=== PATIENT | female | born 1955 | race African-American/Black ===

== ENCOUNTER 2021-04-18 23:30 | Emergency (ER) | payer SELFPAY ==
[~2021-04-18] VITALS: Ht 162.6 cm; Wt 90.9 kg
--- NOTE | 2021-04-19 03:30 | RAD ---
Single view chest dated 04/19/2021 3:27 AM: COMPARISON: None Clinical Indication: Cough. Findings: Single upright portable exam of the chest was performed. Heart and mediastinal contours within normal limits. Lung volumes are low, limiting evaluation. No consolidation or pleural effusion. No pneumoth orax. IMPRESSION: 1. Limited exam. No apparent acute abnormality. Electronically signed by: Julio Cesar Pugh MD (04/19/2021 3:27 AM) [facility]
--- NOTE | 2021-04-19 03:56 | PHYS DOC ---
Past Medical History Past Medical History: Hypertension Past Surgical History: Other Additional Past Surgical Histo: R LEG TUMOR REMOVAL General Adult EDM: Chief Complaint: COUGH HPI: HPI: Patient is a 65 year old female who presents with 4 days of cough, headache, chills. Denies fever. No chest pain or shortness of breath. No congestion, runny nose or sore throat. 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 Is not vaccinated because she prefers a more "natural" approach to her health. She has been told that she should be on blood pressure meds before but does not see a doctor or take any meds. Review of Systems: Review of Systems: Constitutional: Denies fever. Reports chills Eyes: Denies change in visual acuity. [] HENT: Denies nasal congestion or sore throat. [] Respiratory: Reports cough. Denies shortness of breath. [] Cardiovascular: Denies chest pain or edema. [] GI: Denies abdominal pain, nausea, vomiting, bloody stools or diarrhea. [] : Denies dysuria. [] Musculoskeletal: Denies back pain or joint pain. [] Integument: Denies rash. [] Neurologic: Reports headache. Denies focal weakness or sensory changes. [] Lymphatic: Denies swollen glands. [] Psychiatric: Denies depression or anxiety. [] Heart Score: C/O Chest Pain: No Physical Exam: PE: Constitutional: Well developed, well nourished, no acute distress, non-toxic appearance. [] HENT: Normocephalic, atraumatic Neck: Normal range of motion, no tenderness, supple, no stridor. [] Cardiovascular:Heart rate regular rhythm, no murmur [] Lungs & Thorax: Coughing frequently. In between coughing normal work of breathing. Bilateral breath sounds clear to auscultation [] Abdomen: Bowel sounds normal, soft, no tenderness, no masses, no pulsatile masses. [] Skin: Warm, dry, no erythema, no rash. [] Back: No tenderness, no CVA tenderness. [] Extremities: No tenderness, no cyanosis, no clubbing, ROM intact, no edema. [] Neurologic: Alert and oriented X 3, normal motor function, normal sensory function, no focal deficits noted. [] Psychologic: Affect normal, judgement normal, mood normal. [] Current Patient Data: Vital Signs: Vital Signs Date Time Temp Pulse Resp B/P (MAP) Pulse Ox O2 Delivery O2 Flow Rate FiO2 04/19/21 02:46 99.5 86 18 161/90 (113) 98 Room Air 99.5 EKG: EKG: Sinus rhythm. Normal axis. Normal intervals. QTc 464. No pathologic Q waves or T wave inversions. No ST segment elevation or depression. [] Radiology/Procedures: Radiology/Procedures: [] Impression: [facility] [address] [place] [address] IMAGING REPORT Signed PATIENT: MARISSA CSAE I ACCOUNT: [id number] : 1955 LOCATION: ER AGE: 65 SEX: F EXAM STATUS: REG ER ORD. PHYSICIAN: RAMONE RUBIO MD REASON: COUGH PROCEDURE: CHEST AP ONLY Single view chest dated 04/19/2021 3:27 AM: COMPARISON: None Clinical Indication: Cough. Findings: Single upright portable exam of the chest was performed. Heart and mediastinal contours within normal limits. Lung volumes are low, limiting evaluation. No consolidation or pleural effusion. No pneumothorax. IMPRESSION: 1. Limited exam. No apparent acute abnormality. Electronically signed by: Julio Cesar Pugh MD (04/19/2021 3:27 AM) [facility] DICTATED and SIGNED BY: JULIO CESAR PUGH MD DATE: 04/19/21 [id number] 0 Course & Med Decision Making: Course & Med Decision Making Pertinent Labs and Imaging studies reviewed. (See chart for details) Patient 65-year-old female with history of untreated hypertension who presents with 4 days of cough, chills, and headache. She is unvaccinated for COVID. On arrival is afebrile, heart rate stable, hypertensive to 206/85, but satting 98% on RA with normal work of breathing and auscultory exam. Will be check for covid. CXR negative for pneumonia or pulmonary edema. Given her hypertension will check EKG and creatinine to ensure no evidence of end organ injury which revealed normal CR but likely diabetes with glucose in 300s. No e/o DKA. Will start on metformin. With her hypertension and diabetes will plan on Rx for lisinopril and will provide with referral to primary care follow up. COVID is positive. Fortunately, is satting well with normal work of breathing. Feel she can be safely managed as an outpatient. She is counseled on considering the COVID vaccination after she recovers. Expectant management, isolation and return precautions were discussed. Alanaon Disclaimer: Kimberlee Disclaimer: This electronic medical record was generated, in whole or in part, using a voice recognition dictation system. Departure Departure Impression: Primary Impression: Cough Additional Impressions: Hypertension Diabetes Disposition: HOME / SELF CARE / HOMELESS Condition: STABLE Referrals: NO PCP (PCP) Patient Instructions: Hypertension, Type 1 or Type 2 Diabetes Mellitus During Additional Instructions: Since you do not have a PCP, please call the number for the [facility] at [phone]. Your blood pressure was very high, if it remains as high for prolonged periods of time it could be dangerous to multiple organs. I would like to start you on a new medication called chlorthalidone. Chlorthalidone 25 mg once daily. It also looks like you have diabetes. You need to start taking a medication called metformin to reduce your blood sugar. Please schedule follow-up appointment with the [facility] to establish primary care. Please consider receiving the COVID-19 vaccination. Your chest x-ray was clear and did not show any evidence of pneumonia. YOU HAVE COVID. Isolation: -You will need to isolate for a minimum of 5 days from symptom onset. -At 5 days please take a rapid COVID test, if positive continue to isolate for a full 10 days duration -At the 10-day rafael (or 5-day rafael with a negative COVID test), you must also have at least 3 days of no fever/chills, and improving symptoms before you end your isolation. -If you are continuing to be symptomatic or having high fevers you need to continue your isolation until you meet the above requirements. Monitoring: -Please buy a home pulse oximeter. These can be purchased [id number] most pharmacies, or on [employer]. -Check your oxygen levels once a day. If they are persistently below 90% please return to the emergency department. -If you develop chest pain or worsening shortness of breath please return to the emergency department. For fever/body aches tylenol and ibuprofen are best used on a schedule. Please alternate between the two. -Tylenol 1000 mg every 6 hours (do not exceed 4000 mg in one day) -Ibuprofen 400-600 mg every 6 hours. Take with food. Do not take for more than 1 week. Scripts Lisinopril (LISINOPRIL) 10 Mg Tablet 1 TAB PO DAILY, #30 TAB 0 Refills Prov: RAMONE RUBIO MD 04/19/21 Metformin Hcl (METFORMIN HCL) 500 Mg Tablet 500 MG PO BIDWMEALS for ANTI-DIABETIC, #60 TAB 0 Refills Prov: RAMONE RUBIO MD 04/19/21 RAMONE RUBIO MD Apr 19, 2021 03:56
[2021-04-19 05:48] LABS: CALCIUM 8.1 mg/dL (8.5-10.1); CREATININE 0.8 mg/dL (0.6-1.0); GFR 87.7; POTASSIUM 4.3 mmol/L (3.5-5.1)
[2021-04-19] MEDS ORDERED: CHLO25TA10 PO (05:55)
[2021-04-19] MEDS ORDERED: METF500T16 PO (05:55)
[2021-04-19] MEDS ORDERED: LISI10TA16 PO (06:11)
[2021-04-19 06:19] VITALS: BP 184/80
--- NOTE | 2021-04-19 09:03 | EKG ---
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
== END 2021-04-19 06:25 | disposition home or self-care (01) ==
LOC: ER 23:30
DX: U07.1 COVID-19 (principal); I10 Essential (primary) hypertension; E11.9 Type 2 diabetes mellitus without complications
CPT/HCPCS: 36415; 71045; 80048; 87426; 93005; 99285

== ENCOUNTER 2021-04-24 15:57 | Inpatient (IN) | payer SELFPAY ==
[~2021-04-24] VITALS: Ht 162.6 cm; Wt 139.7 kg
[~2021-04-24 15:57] MED LIST: CHLO25TA10 PO; LISI10TA16 PO; METF500T16 PO
[2021-04-24 16:46] LABS: BASE EXCESS ABG -11 mmol/L (-3-3); HCO3 ABG 13 mmol/L (21-28); PCO2 ABG 27 mmHg (35-46); SAT O2 ABG 79 % (92-99)
[2021-04-24 16:48] LABS: FIO2 ABG 21 room air; PO2 ABG 47 mmHg (65-108)
--- NOTE | 2021-04-24 17:17 | RAD ---
XR CHEST 1V History: Shortness of breath, Covid positive Comparison: 04/19/2021 Technique: Portable AP radiograph of the chest. Findings: The lungs are adequately and symmetrically inflated. There is new airspace consolidation in the bilat eral lungs, greatest in the right lower lobe. No pleural effusion or pneumothorax. The cardiac medias tinal silhouette and pulmonary vasculature are within normal limits. Degenerative changes of the shou lders and spine. Soft tissues are unremarkable. Impression: 1. New bilateral airspace opacities greatest in right lower lobe concerning for Covid pneumonia. Electronically signed by: Rodrigo Olivares MD (04/24/2021 5:14 PM) [facility]
[2021-04-24] MEDS ORDERED: CONTRAST GIVEN. MC PRN (17:30)
[2021-04-24] MEDS ORDERED: IOHEXOL 350 MG/ML 100 ML VIAL. IV ONE (17:30)
[2021-04-24 17:31] LABS: BASO % 0 % (0-3); EOS % 0 % (0-3); HEMATOCRIT 38.3 % (36.0-47.0); HEMOGLOBIN 12.1 g/dL (12.0-15.5); LYMPH # 0.5 x10^3/uL (1.0-4.8); LYMPH % 5 % (24-48); MEAN CORPUSCULAR HEMOGLOBIN 28 pg (25-35); MEAN CORPUSCULAR HGB CONC 32 g/dL (31-37); MEAN CORPUSCULAR VOLUME 88 fL (79-100); MONO # 0.6 x10^3/uL (0.0-1.1); MONO % 6 % (0-9); NEUT # 8.7 x10^3/uL (1.8-7.7); NEUT % 89 % (31-73); PLATELET COUNT 358 x10^3/uL (140-400); RED BLOOD COUNT 4.34 x10^6/uL (3.50-5.40); RED CELL DISTRIBUTION WIDTH 14.6 % (11.5-14.5); WHITE BLOOD COUNT 9.8 x10^3/uL (4.0-11.0)
[2021-04-24] MEDS ORDERED: DEXAMETHASONE SOD PHOS 20 MG/5 ML VIAL. IV ONE (17:45)
[2021-04-24] MEDS ORDERED: AZITHROMYCIN 250 MG TABLET. PO ONE (17:45)
[2021-04-24] MEDS ORDERED: cefTRIAXone IV Push 1 GM VIAL. IVP ONE (17:45)
[2021-04-24 17:53] LABS: CALCIUM 8.2 mg/dL (8.5-10.1); CREATININE 1.1 mg/dL (0.6-1.0); GFR 60.7; POTASSIUM 4.8 mmol/L (3.5-5.1)
[2021-04-24 18:01] LABS: ALBUMIN 2.4 g/dL (3.4-5.0); ALBUMIN/GLOBULIN RATIO 0.4 (1.0-1.7); MAGNESIUM 2.4 mg/dL (1.8-2.4); PHOSPHORUS 3.5 mg/dL (2.6-4.7); TOTAL BILIRUBIN 0.4 mg/dL (0.2-1.0); TOTAL PROTEIN 8.3 g/dL (6.4-8.2)
--- NOTE | 2021-04-24 18:24 | RAD ---
EXAM: CT chest with contrast - pulmonary embolus protocol CLINICAL HISTORY: Reason: COVID-positive, hypoxia, PE study COMPARISON: None. TECHNIQUE: CT of the chest following the administration of intravenous contrast during the pulmonary arterial phase. Axial, coronal and sagittal reformatted images were generated including MIP images. ---PQRS compliance statement - One or more of the following individualized dose reduction techniques were utilized for this study: 1. Automated exposure control 2. Adjustment of the mA and/or kV according to patient size 3. Use of iterative reconstruction technique--- FINDINGS: CHEST: Diagnostic quality: Suboptimal contrast bolus and motion artifact limits evaluation. Pulmonary emboli: No pulmonary emboli to the level of the lobar branches. More peripheral vessels ar e not well assessed. Right heart strain: None Pulmonary arteries: Normal in caliber. Heart is not enlarged. Trace pericardial fluid is likely physiologic. No pleural effusion. No pneumothorax. Mildly prominent mediastinal and hilar lymph nodes are likely reactive. No axillary lymphadenopathy. Bilateral groundglass is upright glass opacities diffusely likely consolidative process such as pneum onia. Visualized Upper abdomen: Right upper pole renal cyst. Hepatic hypoattenuation, fatty liver. Bones: Multilevel degenerative changes of spine are seen. IMPRESSION: 1. Suboptimal contrast bolus. No pulmonary emboli to the level of the lobar branches. More periphera l vessels are not well assessed. 2. Diffuse bilateral parenchymal airspace opacities likely consolidative process such as pneumonia, including viral pneumonia. Electronically signed by: Talib Thomas MD (04/24/2021 6:22 PM) LAURY
--- NOTE | 2021-04-24 19:03 | EKG ---
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
--- NOTE | 2021-04-24 19:06 | PDOC1 ---
History and Physical Date of Service: DOS: DATE: 04/24/21 TIME: 19:01 Chief Complaint: Chief Complain: Shortness of breath Past Medical/Surgical History: PMH/PSH: Past Medical History: Hypertension Past Surgical History: R LEG TUMOR REMOVAL Allergies: Allergies: Coded Allergies: chocolate flavor (Verified Allergy, Intermediate, 04/19/21) pineapple (Verified Allergy, Intermediate, 04/19/21) Family History: Family History: Reviewed with no related findings in the chart Social History: Social History: Denies any alcohol, tobacco or drug abuse Current Medications: Current Medications Current Medications Dexamethasone Sodium Phosphate (Decadron) 10 mg 1X ONCE IV Last administered on 04/24/21at 17:44; Start 04/24/21 at 17:45; Stop 04/24/21 at 17:46; Status DC Ceftriaxone Sodium (Rocephin) 1 gm 1X ONCE IVP Last administered on 04/24/21at 17:44; Start 04/24/21 at 17:45; Stop 04/24/21 at 17:46; Status DC Azithromycin (Zithromax) 500 mg 1X ONCE PO Last administered on 04/24/21at 17:44; Start 04/24/21 at 17:45; Stop 04/24/21 at 17:46; Status DC Iohexol (Omnipaque 350 Mg/ml) 100 ml 1X ONCE IV Last administered on 04/24/21at 18:00; Start 04/24/21 at 17:30; Stop 04/24/21 at 17:31; Status DC Info (CONTRAST GIVEN -- Rx MONITORING) 1 each PRN DAILY PRN MC SEE COMMENTS; Start 04/24/21 at 17:30; Stop 04/26/21 at 17:29 Active Scripts Active Lisinopril 10 Mg Tablet 1 Tab PO DAILY Metformin Hcl 500 Mg Tablet 500 Mg PO BIDWMEALS ROS: Review of Systems Review of System REVIEW OF SYSTEMS: GENERAL: Denies weakness SKIN: No bruising, hair changes or rashes. EYES: No blurred, double or loss of vision. NOSE AND THROAT: No history of nosebleeds, hoarseness or sore throat. HEART: No history of palpitations, chest pain or shortness of breath on exertion. LUNGS: Positive for shortness of breath GASTROINTESTINAL: Denies changes in appetite, nausea, vomiting, diarrhea or constipation. GENITOURINARY: No history of frequency, urgency, hesitancy or nocturia. NEUROLOGIC: Denies history of numbness, tingling, or tremor. PSYCHIATRIC: No history of panic, anxiety or depression. ENDOCRINE: No history of heat or cold intolerance, polyuria or polydipsia. EXTREMITIES: Denies joint pain, pain on walking or stiffness. Physical Exam: Vital Signs: Vital Signs Date Time Temp Pulse Resp B/P (MAP) Pulse Ox O2 Delivery O2 Flow Rate FiO2 04/24/21 17:45 100 192/88 (122) 91 Simple Mask 10.0 04/24/21 16:20 98.6 16 98.6 Physcial Exam: General: Well developed, well nourished, difficulty speaking in full sentences with some mild respiratory distress HEENT: Pupils equally round and reactive to light, EOMI, no discharge, normal conjunctiva Neck: Supple, no nuchal rigidity, no JVD, trachea midline, no tenderness Cardiac: RRR, no murmurs, no gallops, no rubs Chest/Lungs: CTAB, no wheeze, no rhonchi, no crackles Abdomen: soft, non-distended, no guarding, no peritoneal signs, non-tender Back: No tenderness Extremities: no edema, pulses intact, non-tender,capillary refill <3 sec bilateral upper and lower extremities, Neuro: Alert and oriented x 4, no focal deficits, normal speech Labs: Labs: Laboratory Tests Test 04/24/21 16:47 04/24/21 17:15 O2 Saturation 79 % (92-99) Arterial Blood pH 7.32 (7.35-7.45) Arterial Blood pCO2 at Patient Temp 27 mmHg (35-46) Arterial Blood pO2 at Patient Temp 47 mmHg (65-108) Arterial Blood HCO3 13 mmol/L (21-28) Arterial Blood Base Excess -11 mmol/L (-3-3) FiO2 21 room air White Blood Count 9.8 x10^3/uL (4.0-11.0) Red Blood Count 4.34 x10^6/uL (3.50-5.40) Hemoglobin 12.1 g/dL (12.0-15.5) Hematocrit 38.3 % (36.0-47.0) Mean Corpuscular Volume 88 fL (79-100) Mean Corpuscular Hemoglobin 28 pg (25-35) Mean Corpuscular Hemoglobin Concent 32 g/dL (31-37) Red Cell Distribution Width 14.6 % (11.5-14.5) Platelet Count 358 x10^3/uL (140-400) Neutrophils (%) (Auto) 89 % (31-73) Lymphocytes (%) (Auto) 5 % (24-48) Monocytes (%) (Auto) 6 % (0-9) Eosinophils (%) (Auto) 0 % (0-3) Basophils (%) (Auto) 0 % (0-3) Neutrophils # (Auto) 8.7 x10^3/uL (1.8-7.7) Lymphocytes # (Auto) 0.5 x10^3/uL (1.0-4.8) Monocytes # (Auto) 0.6 x10^3/uL (0.0-1.1) Eosinophils # (Auto) 0.0 x10^3/uL (0.0-0.7) Basophils # (Auto) 0.0 x10^3/uL (0.0-0.2) Sodium Level 139 mmol/L (136-145) Potassium Level 4.8 mmol/L (3.5-5.1) Chloride Level 98 mmol/L (98-107) Carbon Dioxide Level 14 mmol/L (21-32) Anion Gap 27 (6-14) Blood Urea Nitrogen 22 mg/dL (7-20) Creatinine 1.1 mg/dL (0.6-1.0) Estimated GFR (Cockcroft-Gault) 60.7 BUN/Creatinine Ratio 20 (6-20) Glucose Level 386 mg/dL (70-99) Lactic Acid Level 2.0 mmol/L (0.4-2.0) Calcium Level 8.2 mg/dL (8.5-10.1) Phosphorus Level 3.5 mg/dL (2.6-4.7) Magnesium Level 2.4 mg/dL (1.8-2.4) Total Bilirubin 0.4 mg/dL (0.2-1.0) Aspartate Amino Transf (AST/SGOT) 32 U/L (15-37) Alanine Aminotransferase (ALT/SGPT) 18 U/L (14-59) Alkaline Phosphatase 142 U/L (46-116) Troponin I High Sensitivity 14 ng/L (4-50) VL-[id number]-[id number]-Type Natriuretic Peptide 211 pg/mL (0-124) Total Protein 8.3 g/dL (6.4-8.2) Albumin 2.4 g/dL (3.4-5.0) Albumin/Globulin Ratio 0.4 (1.0-1.7) Triglycerides Level 108 mg/dL (0-150) Cholesterol Level 88 mg/dL (0-200) LDL Cholesterol, Calculated 44 mg/dL (0-100) VLDL Cholesterol, Calculated 22 mg/dL (0-40) Non-HDL Cholesterol Calculated 66 mg/dL (0-129) HDL Cholesterol 22 mg/dL (40-60) Cholesterol/HDL Ratio 4.0 Lipase 21 U/L (73-393) Acetone Level Mod pos (NEG) Laboratory Tests Test 04/24/21 16:47 04/24/21 17:15 O2 Saturation 79 % (92-99) Arterial Blood pH 7.32 (7.35-7.45) Arterial Blood pCO2 at Patient Temp 27 mmHg (35-46) Arterial Blood pO2 at Patient Temp 47 mmHg (65-108) Arterial Blood HCO3 13 mmol/L (21-28) Arterial Blood Base Excess -11 mmol/L (-3-3) FiO2 21 room air White Blood Count 9.8 x10^3/uL (4.0-11.0) Red Blood Count 4.34 x10^6/uL (3.50-5.40) Hemoglobin 12.1 g/dL (12.0-15.5) Hematocrit 38.3 % (36.0-47.0) Mean Corpuscular Volume 88 fL (79-100) Mean Corpuscular Hemoglobin 28 pg (25-35) Mean Corpuscular Hemoglobin Concent 32 g/dL (31-37) Red Cell Distribution Width 14.6 % (11.5-14.5) Platelet Count 358 x10^3/uL (140-400) Neutrophils (%) (Auto) 89 % (31-73) Lymphocytes (%) (Auto) 5 % (24-48) Monocytes (%) (Auto) 6 % (0-9) Eosinophils (%) (Auto) 0 % (0-3) Basophils (%) (Auto) 0 % (0-3) Neutrophils # (Auto) 8.7 x10^3/uL (1.8-7.7) Lymphocytes # (Auto) 0.5 x10^3/uL (1.0-4.8) Monocytes # (Auto) 0.6 x10^3/uL (0.0-1.1) Eosinophils # (Auto) 0.0 x10^3/uL (0.0-0.7) Basophils # (Auto) 0.0 x10^3/uL (0.0-0.2) Sodium Level 139 mmol/L (136-145) Potassium Level 4.8 mmol/L (3.5-5.1) Chloride Level 98 mmol/L (98-107) Carbon Dioxide Level 14 mmol/L (21-32) Anion Gap 27 (6-14) Blood Urea Nitrogen 22 mg/dL (7-20) Creatinine 1.1 mg/dL (0.6-1.0) Estimated GFR (Cockcroft-Gault) 60.7 BUN/Creatinine Ratio 20 (6-20) Glucose Level 386 mg/dL (70-99) Lactic Acid Level 2.0 mmol/L (0.4-2.0) Calcium Level 8.2 mg/dL (8.5-10.1) Phosphorus Level 3.5 mg/dL (2.6-4.7) Magnesium Level 2.4 mg/dL (1.8-2.4) Total Bilirubin 0.4 mg/dL (0.2-1.0) Aspartate Amino Transf (AST/SGOT) 32 U/L (15-37) Alanine Aminotransferase (ALT/SGPT) 18 U/L (14-59) Alkaline Phosphatase 142 U/L (46-116) Troponin I High Sensitivity 14 ng/L (4-50) SN-Znz-K-Type Natriuretic Peptide 211 pg/mL (0-124) Total Protein 8.3 g/dL (6.4-8.2) Albumin 2.4 g/dL (3.4-5.0) Albumin/Globulin Ratio 0.4 (1.0-1.7) Triglycerides Level 108 mg/dL (0-150) Cholesterol Level 88 mg/dL (0-200) LDL Cholesterol, Calculated 44 mg/dL (0-100) VLDL Cholesterol, Calculated 22 mg/dL (0-40) Non-HDL Cholesterol Calculated 66 mg/dL (0-129) HDL Cholesterol 22 mg/dL (40-60) Cholesterol/HDL Ratio 4.0 Lipase 21 U/L (73-393) Acetone Level Mod pos (NEG) Images: Images PROCEDURE: CHEST AP ONLY XR CHEST 1V History: Shortness of breath, Covid positive Comparison: 04/19/2021 Technique: Portable AP radiograph of the chest. Findings: The lungs are adequately and symmetrically inflated. There is new airspace consolidation in the bilateral lungs, greatest in the right lower lobe. No pleural effusion or pneumothorax. The cardiac mediastinal silhouette and pulmonary vasculature are within normal limits. Degenerative changes of the shoulders and spine. Soft tissues are unremarkable. Impression: 1. New bilateral airspace opacities greatest in right lower lobe concerning for Covid pneumonia. PROCEDURE: CT ANGIOGRAPHY CHEST EXAM: CT chest with contrast - pulmonary embolus protocol CLINICAL HISTORY: Reason: COVID-positive, hypoxia, PE study COMPARISON: None. TECHNIQUE: CT of the chest following the administration of intravenous contrast during the pulmonary arterial phase. Axial, coronal and sagittal reformatted images were generated including MIP images. ---PQRS compliance statement - One or more of the following individualized dose reduction techniques were utilized for this study: 1. Automated exposure control 2. Adjustment of the mA and/or kV according to patient size 3. Use of iterative reconstruction technique--- FINDINGS: CHEST: Diagnostic quality: Suboptimal contrast bolus and motion artifact limits evaluation. Pulmonary emboli: No pulmonary emboli to the level of the lobar branches. More peripheral vessels are not well assessed. Right heart strain: None Pulmonary arteries: Normal in caliber. Heart is not enlarged. Trace pericardial fluid is likely physiologic. No pleural effusion. No pneumothorax. Mildly prominent mediastinal and hilar lymph nodes are likely reactive. No axillary lymphadenopathy. Bilateral groundglass is upright glass opacities diffusely likely consolidative process such as pneumonia. Visualized Upper abdomen: Right upper pole renal cyst. Hepatic hypoattenuation, fatty liver. Bones: Multilevel degenerative changes of spine are seen. IMPRESSION: 1. Suboptimal contrast bolus. No pulmonary emboli to the level of the lobar branches. More peripheral vessels are not well assessed. 2. Diffuse bilateral parenchymal airspace opacities likely consolidative process such as pneumonia, including viral pneumonia. Assessment/Plan Assessment/Plan Acute hypoxic respiratory failure secondary to COVID-19 infection DKA Hypertensive urgency Hyperglycemia uncontrolled KYLE due to vasomotor nephropathy Admit to medicine for further management Pulmonology consult Continue IV thiamine and vitamin C IV Solu-Medrol every 8 hours IV Remdesivir if patient requires O2 supplementation beyond there baseline Pending ferritin, LDH, CRP, D-dimer labs Titrate O2 supplementation to maintain O2 saturation greater than 92% Empiric IV antibiotics if patient has clinical presentation for bacterial pneumonia Positive for ketones Pending plasma osmolarity Continue serial inspections and examination for sources that caused ketoacidotic state Continue IV insulin starting at 0.1 units per kg When glucose is less than 200, AG is closed, patient able to eat, and HCO3 greater than 15, then transition with subcu insulin 0.1 units/kg every 2 hours for at least 2 hours Continue IV fluids of 1 to 1.5 L/h until a total of 5 L is replenished Switch to one half NS at half the rate if NA is normal or elevated As needed D50 W or add D5 to IV fluids if Accu-Cheks are less than 200 Maintain potassium between 3.5-5, if potassium falls below 3.3, stop insulin and add 40 mEq/h of potassium Maintained p.o. 3 greater than 1.0 If arterial pH is below 6.9, give 100 mEq of sodium bicarb +20 mEq of potassium Every 2-4 hours BMP and a be checked until stable Every hour Accu-Cheks while on insulin Lovenox for DVT prophylaxis Protonix while on steroids GI prophylaxis ADA diet Full code Discussed with RN and SW Disposition inpatient management as above Surrogate decision maker is the son A total of 55 minutes of critical care time was spent in reviewing chart, labs, and images. Discussed with RN and SW. Justifications for Admission Other Justification MARLENI JOHNSON MD Apr 24, 2021 19:06
--- NOTE | 2021-04-24 19:11 | PHYS DOC ---
Past Medical History Past Medical History: Hypertension Additional Past Medical Histor: COVID: 04/2021 Past Surgical History: Other Additional Past Surgical Histo: R LEG TUMOR REMOVAL Smoking Status: Never Smoker Alcohol Use: None General Adult EDM: Chief Complaint: OTHER COMPLAINTS HPI: HPI: Patient is a 65-year-old female who presents to the emergency department with chief complaint of being diagnosed with the COVID-19 virus on the of this month, reports she has had increased cough with chills however continues to deny fever at home, denies chest pains, denies shortness of breath, denies chest congestion, runny nose or sore throat, denies syncopal or near syncopal episodes, denies chest palpitations, reports she is tired of feeling this way and would like something to help prevent her cough so she can continue to work. Patient reports she is not vaccinated for the COVID-19 virus or the flu virus. Patient reports she does not wish to have these vaccinations. Patient states she was told she has high blood pressure and diabetes on her last admission and was prescribed medications however has not decided to start taking the prescribed medications at this time. Patient denies other physical complaints or physical concerns. Review of Systems: Review of Systems: 14 body systems of review of systems have been reviewed. See HPI for pertinent positives and negative responses, otherwise all other systems are negative, n onpertinent or noncontributory. Constitutional: Negative except as outlined in HPI above. Skin: Negative except as outlined in HPI above. Eyes: Negative except as outlined in HPI above. HENT: Negative except as outlined in HPI above. Respiratory: Negative except as outlined in HPI above. Cardiovascular: Negative except as outlined in HPI above. GI: Negative except as outlined in HPI above. : Negative except as outlined in HPI above. Musculoskeletal: Negative except as outlined in HPI above. Integument: Negative except as outlined in HPI above. Neurologic: Negative except as outlined in HPI above. Endocrine: Negative except as outlined in HPI above. Lymphatic: Negative except as outlined in HPI above. Psychiatric: Negative except as outlined in HPI above. Heart Score: C/O Chest Pain: No Risk Factors: Risk Factors: DM, Current or recent (<one month) smoker, HTN, HLP, family history of CAD, obesity. Risk Scores: Score 0 - 3: 2.5% MACE over next 6 weeks - Discharge Home Score 4 - 6: 20.3% MACE over next 6 weeks - Admit for Clinical Observation Score 7 - 10: 72.7% MACE over next 6 weeks - Early Invasive Strategies Current Medications: Current Medications Medications (Trade) Dose Ordered Sig/Sadie Start Time Stop Time Status Last Admin Dose Admin Azithromycin (Zithromax) 500 mg 1X ONCE 04/24/21 17:45 04/24/21 17:46 DC 04/24/21 17:44 500 MG Ceftriaxone Sodium (Rocephin) 1 gm 1X ONCE 04/24/21 17:45 04/24/21 17:46 DC 04/24/21 17:44 1 GM Dexamethasone Sodium Phosphate (Decadron) 10 mg 1X ONCE 04/24/21 17:45 04/24/21 17:46 DC 04/24/21 17:44 10 MG Info (CONTRAST GIVEN -- Rx MONITORING) 1 each PRN DAILY PRN 04/24/21 17:30 04/26/21 17:29 Iohexol (Omnipaque 350 Mg/ml) 100 ml 1X ONCE 04/24/21 17:30 04/24/21 17:31 DC 04/24/21 18:00 100 ML Allergies: Allergies: Allergies Coded Allergies Type Severity Reaction Last Updated Verified chocolate flavor Allergy Intermediate 04/19/21 Yes pineapple Allergy Intermediate 04/19/21 Yes Physical Exam: PE: Constitutional: Well developed, well nourished, no acute distress, non-toxic appearance. 65-year-old female in no apparent distress. HENT: Normocephalic, atraumatic. Oropharynx sticky, pink, no deep tissue infectious process appreciated, bilateral TMs within normal limits, no lymphadenopathy of the head or neck appreciated, patient speaking in normal voice tones. No drooling, no trismus. Eyes: Conjunctiva normal, no discharge. Neck: Normal range of motion, no stridor. No nuchal rigidity, no meningismus signs. Cardiovascular: No cyanosis appreciated, distal cap refill less than 2 seconds. Lungs & Thorax: Patient is in no respiratory distress, no audible adventitious lung sounds appreciated. Lung sounds diminished at bases, clear upper lobes bilaterally. Patient bedside O2 sat 81%, does not appear hypoxic, is in no respiratory distress. Abdomen: Nontender, no abnormalities noted. Skin: Warm, dry, no erythema, no rash. Back: No tenderness, no deformities. Extremities: No tenderness, no cyanosis, no clubbing, ROM intact, no edema. Neurologic: Alert and oriented X 3, normal motor function, normal sensory function, no focal deficits noted. Psychologic: Affect normal, judgement normal, mood normal. Current Patient Data: Labs: Laboratory Tests Test 04/24/21 16:47 04/24/21 17:15 O2 Saturation 79 % (92-99) L Arterial Blood pH 7.32 (7.35-7.45) L Arterial Blood pCO2 at Patient Temp 27 mmHg (35-46) L Arterial Blood pO2 at Patient Temp 47 mmHg (65-108) *L Arterial Blood HCO3 13 mmol/L (21-28) L Arterial Blood Base Excess -11 mmol/L (-3-3) L FiO2 21 room air White Blood Count 9.8 x10^3/uL (4.0-11.0) Red Blood Count 4.34 x10^6/uL (3.50-5.40) Hemoglobin 12.1 g/dL (12.0-15.5) Hematocrit 38.3 % (36.0-47.0) Mean Corpuscular Volume 88 fL (79-100) Mean Corpuscular Hemoglobin 28 pg (25-35) Mean Corpuscular Hemoglobin Concent 32 g/dL (31-37) Red Cell Distribution Width 14.6 % (11.5-14.5) H Platelet Count 358 x10^3/uL (140-400) Neutrophils (%) (Auto) 89 % (31-73) H Lymphocytes (%) (Auto) 5 % (24-48) L Monocytes (%) (Auto) 6 % (0-9) Eosinophils (%) (Auto) 0 % (0-3) Basophils (%) (Auto) 0 % (0-3) Neutrophils # (Auto) 8.7 x10^3/uL (1.8-7.7) H Lymphocytes # (Auto) 0.5 x10^3/uL (1.0-4.8) L Monocytes # (Auto) 0.6 x10^3/uL (0.0-1.1) Eosinophils # (Auto) 0.0 x10^3/uL (0.0-0.7) Basophils # (Auto) 0.0 x10^3/uL (0.0-0.2) Sodium Level 139 mmol/L (136-145) Potassium Level 4.8 mmol/L (3.5-5.1) Chloride Level 98 mmol/L (98-107) Carbon Dioxide Level 14 mmol/L (21-32) L Anion Gap 27 (6-14) H Blood Urea Nitrogen 22 mg/dL (7-20) H Creatinine 1.1 mg/dL (0.6-1.0) H Estimated GFR (Cockcroft-Gault) 60.7 BUN/Creatinine Ratio 20 (6-20) Glucose Level 386 mg/dL (70-99) H Lactic Acid Level 2.0 mmol/L (0.4-2.0) Calcium Level 8.2 mg/dL (8.5-10.1) L Phosphorus Level 3.5 mg/dL (2.6-4.7) Magnesium Level 2.4 mg/dL (1.8-2.4) Total Bilirubin 0.4 mg/dL (0.2-1.0) Aspartate Amino Transferase (AST) 32 U/L (15-37) Alanine Aminotransferase (ALT) 18 U/L (14-59) Alkaline Phosphatase 142 U/L (46-116) H Troponin I High Sensitivity 14 ng/L (4-50) IP-Bnb-E-Type Natriuretic Peptide 211 pg/mL (0-124) H Total Protein 8.3 g/dL (6.4-8.2) H Albumin 2.4 g/dL (3.4-5.0) L Albumin/Globulin Ratio 0.4 (1.0-1.7) L Triglycerides Level 108 mg/dL (0-150) Cholesterol Level 88 mg/dL (0-200) LDL Cholesterol, Calculated 44 mg/dL (0-100) VLDL Cholesterol, Calculated 22 mg/dL (0-40) Non-HDL Cholesterol Calculated 66 mg/dL (0-129) HDL Cholesterol 22 mg/dL (40-60) L Cholesterol/HDL Ratio 4.0 Lipase 21 U/L (73-393) L Acetone Level Mod pos (NEG) Laboratory Tests 04/24/21 17:15 Laboratory Tests 04/24/21 17:15 Vital Signs: Vital Signs Date Time Temp Pulse Resp B/P (MAP) Pulse Ox O2 Delivery O2 Flow Rate FiO2 04/24/21 17:45 100 192/88 (122) 91 Simple Mask 10.0 04/24/21 16:20 98.6 16 98.6 EKG: EKG: EKG performed at 1717 by ED nursing staff shows a sinus tachycardia heart rate 101 bpm, MA interval 0.126, QTc interval 0.496, no acute STEMI, no ACS, no acute ischemia appreciated, EKG interpreted by ED attending physician Dr. Hinds. Radiology/Procedures: Radiology/Procedures: REASON: Shortness of breath, COVID-positive PROCEDURE: CHEST AP ONLY XR CHEST 1V History: Shortness of breath, Covid positive Comparison: 04/19/2021 Technique: Portable AP radiograph of the chest. Findings: The lungs are adequately and symmetrically inflated. There is new airspace consolidation in the bilateral lungs, greatest in the right lower lobe. No p leural effusion or pneumothorax. The cardiac mediastinal silhouette and pulmonary vasculature are within normal limits. Degenerative changes of the shoulders and spine. Soft tissues are unremarkable. Impression: 1. New bilateral airspace opacities greatest in right lower lobe concerning for Covid pneumonia. Electronically signed by: Rodrigo Olivares MD (04/24/2021 5:14 PM) [facility] REASON: COVID-positive, hypoxia, PE study PROCEDURE: CT ANGIOGRAPHY CHEST EXAM: CT chest with contrast - pulmonary embolus protocol CLINICAL HISTORY: Reason: COVID-positive, hypoxia, PE study COMPARISON: None. TECHNIQUE: CT of the chest following the administration of intravenous contrast during the pulmonary arterial phase. Axial, coronal and sagittal reformatted images were generated including MIP images. ---PQRS compliance statement - One or more of the following individualized dose reduction techniques were utilized for this study: 1. Automated exposure control 2. Adjustment of the mA and/or kV according to patient size 3. Use of iterative reconstruction technique--- FINDINGS: CHEST: Diagnostic quality: Suboptimal contrast bolus and motion artifact limits evaluation. Pulmonary emboli: No pulmonary emboli to the level of the lobar branches. More peripheral vessels are not well assessed. Right heart strain: None Pulmonary arteries: Normal in caliber. Heart is not enlarged. Trace pericardial fluid is likely physiologic. No pleural effusion. No pneumothorax. Mildly prominent mediastinal and hilar lymph nodes are likely reactive. No axillary lymphadenopathy. Bilateral groundglass is upright glass opacities diffusely likely consolidative process such as pneumonia. Visualized Upper abdomen: Right upper pole renal cyst. Hepatic hypoattenuation, fatty liver. Bones: Multilevel degenerative changes of spine are seen. IMPRESSION: 1. Suboptimal contrast bolus. No pulmonary emboli to the level of the lobar branches. More peripheral vessels are not well assessed. 2. Diffuse bilateral parenchymal airspace opacities likely consolidative process such as pneumonia, including viral pneumonia. Electronically signed by: Talib Thomas MD (04/24/2021 6:22 PM) [facility] Course & Med Decision Making: Course & Med Decision Making Pertinent Labs and Imaging studies reviewed. (See chart for details) 65-year-old female, vital signs reviewed, presents emerged part concerning ongoing cough from known COVID virus infection. Physical examination concerning for COVID pneumonia/community-acquired pneumonia, patient is hypoxic, ABG ordered on room air. Patient was minimally acidotic at 7.32, PO2 at 46.6, will start on 5 L nasal cannula. Patient was seen here on 18 April, it was recommended by previous ED provider that patient start lisinopril and metformin for concerning diagnosis disease of high blood pressure and diabetes, patient reports she has not started taking these medications as of this time, will order CBC, CMP, lipase, EKG, high-sensitivity troponin I, NT proBNP, PA chest x-ray, acetone level. Patient O2 on 5 L per nasal cannula at 88 to 89%, will increase to simple mask at 10 L for 60% FiO2, patient is maintaining 91 to 93% on this oxygen, patient continues to be nontoxic in appearance and in no apparent respiratory distress. Chest x-ray concerning for COVID-pneumonia, related to patient's severe hypoxia, concerning for pulmonary embolus, will order CT angio chest. CT angio chest inconclusive for pulmonary emboli, discussed patient case and ED work-up with inpatient management physician Dr. Cedeno who agrees patient case warrants admission to the telemetry unit. Patient is awaiting room assignment at this time. Patient's acetone level positive, called and discussed this with Dr. Cedeno, Dr. Cedeno recommended patient be started on DKA protocol, will order this. Dragon Disclaimer: Dragon Disclaimer: This electronic medical record was generated, in whole or in part, using a voice recognition dictation system. Departure Departure Impression: Primary Impression: COVID-19 virus infection Additional Impressions: Hypoxia Community acquired pneumonia Qualified Codes: J18.9 - Pneumonia, unspecified organism DKA (diabetic ketoacidosis) Qualified Codes: E13.10 - Other specified diabetes mellitus with ketoacidosis without coma Disposition: 09 ADMITTED INPATIENT Admitting Physician: CORAZON (Admit to telemetry unit to Dr. Cedeno) Condition: GUARDED Referrals: NO PCP (PCP) ERVIN MALAVE APRN Apr 24, 2021 19:11
[2021-04-24] MEDS ORDERED: diphenhydrAMINE 50 MG/ML VIAL IVP PRN (19:15)
[2021-04-24] MEDS ORDERED: PROCHLORPERAZINE 10 MG/2 ML VIAL. IV PRN (19:15)
[2021-04-24] MEDS ORDERED: ONDANSETRON PF 4 MG/2 ML VIAL. IVP PRN (19:15)
[2021-04-24] MEDS ORDERED: diphenhydrAMINE HCL 25 MG CAPSULE PO PRN ×2 (19:15)
[2021-04-24] MEDS ORDERED: DOCUSATE SODIUM 100 MG CAPSULE. PO PRN (19:15)
[2021-04-24] MEDS ORDERED: DEXTROSE 50% 25 GM / 50ML DISP.SYRIN. IV PRN (19:15)
[2021-04-24] MEDS ORDERED: LORazepam 0.5 MG TABLET PO PRN (19:15)
[2021-04-24] MEDS ORDERED: ZOLPIDEM 5 MG TABLET. PO PRN (19:15)
[2021-04-24] MEDS ORDERED: SENNOSIDES 8.6 MG TABLET PO PRN (19:15)
[2021-04-24] MEDS ORDERED: POTASSIUM CHLORIDE 10MEQ 100 ML IV PRN ×3 (19:30)
[2021-04-24] MEDS ORDERED: IV NORMAL SALINE 1000ML BAG 1,000 ML IV SCH ×2 (19:30→19:45)
[2021-04-24 19:45] VITALS: BP 216/91
[2021-04-24] MEDS ORDERED: IV 1/2 NORMAL SALINE 1,000 ML IV SCH (19:45)
[2021-04-24] MEDS ORDERED: REMDESIVIR LOAD in IV NORMAL SALINE 250ML TV IV ONE (20:00)
--- NOTE | 2021-04-24 22:00 | NUR ---
Pt admitted for hypoxia, stated testing positive for covid last week and sent home to quarantine. Pt stated symptoms became worse acame to the hospital. Pt is A/Ox4, states no home medications, was given script for lisinopril and metformin but did not fill them. Pt states no vaccines, does not believe in them, and states she never knew she was a diabetic til last week. VSS/ blood glucose elevated, will start insulin gtt and continue to monitor for status changes.
--- NOTE | 2021-04-24 22:10 | NUR ---
Call to Dr. Cedeno regarding clarification of admit orders. Dr. Cedeno stated he was going to put in additional orders and gave order change IVF orders.
[2021-04-24] MEDS: IV NORMAL SALINE 1000ML BAG 1,000 ML IV SCH (22:30)
[2021-04-24] MEDS: ASCORBIC ACID 1,000 MG TABLET PO SCH (22:31)
[2021-04-24] MEDS: methylPREDNISolone SOD SUCC PF 40 MG/ML VIAL. IV SCH (22:32)
[2021-04-24 22:49] VITALS: BP 173/75
[2021-04-24 23:59] LABS: ALBUMIN 2.3 g/dL (3.4-5.0); ALBUMIN/GLOBULIN RATIO 0.4 (1.0-1.7); CALCIUM 8.2 mg/dL (8.5-10.1); GFR 67.8; POTASSIUM 5.3 mmol/L (3.5-5.1); TOTAL BILIRUBIN 0.4 mg/dL (0.2-1.0); TOTAL PROTEIN 8.1 g/dL (6.4-8.2)
[2021-04-25] VITALS (11 sets, daily range): BP systolic 142–186; BP diastolic 71–87
[2021-04-25] MEDS: INSULIN REGULAR VIAL 100 UNIT in IV NORMAL SALINE 100ML 100 ML IV PRN ×2 (01:30→11:52)
[2021-04-25] MEDS: ACETAMINOPHEN 325 MG TABLET. PO PRN (03:31)
[2021-04-25] MEDS: IV NORMAL SALINE 1000ML BAG 1,000 ML IV SCH ×3 (05:10→15:29)
[2021-04-25 05:31] LABS: BASO # 0.1 x10^3/uL (0.0-0.2); BASO % 1 % (0-3); EOS # 0.1 x10^3/uL (0.0-0.7); EOS % 0 % (0-3); HEMATOCRIT 42.4 % (36.0-47.0); HEMOGLOBIN 13.1 g/dL (12.0-15.5); LYMPH # 0.4 x10^3/uL (1.0-4.8); LYMPH % 3 % (24-48); MEAN CORPUSCULAR HEMOGLOBIN 28 pg (25-35); MEAN CORPUSCULAR HGB CONC 31 g/dL (31-37); MEAN CORPUSCULAR VOLUME 91 fL (79-100); MONO # 0.3 x10^3/uL (0.0-1.1); MONO % 2 % (0-9); NEUT # 12.2 x10^3/uL (1.8-7.7); NEUT % 93 % (31-73); PLATELET COUNT 373 x10^3/uL (140-400); RED BLOOD COUNT 4.65 x10^6/uL (3.50-5.40); RED CELL DISTRIBUTION WIDTH 15.2 % (11.5-14.5); WHITE BLOOD COUNT 13.1 x10^3/uL (4.0-11.0)
[2021-04-25 06:10] LABS: CALCIUM 8.2 mg/dL (8.5-10.1); GFR 67.8; MAGNESIUM 2.5 mg/dL (1.8-2.4)
[2021-04-25 06:12] LABS: POTASSIUM 4.9 mmol/L (3.5-5.1)
[2021-04-25] MEDS: methylPREDNISolone SOD SUCC PF 40 MG/ML VIAL. IV SCH ×3 (06:42→20:32)
[2021-04-25] MEDS: INSULIN LISPRO 300 UNITS/3 ML VIAL. SQ SCH ×3 (08:00→16:59)
[2021-04-25] MEDS ORDERED: metFORMIN 500 MG TABLET PO SCH (08:00)
[2021-04-25] MEDS: LISINOPRIL 10 MG TABLET PO SCH (08:13)
[2021-04-25] MEDS: PANTOPRAZOLE 40 MG TABLET.DR. PO SCH (08:13)
[2021-04-25] MEDS: THIAMINE 100 MG TABLET. PO SCH (08:13)
[2021-04-25] MEDS: ZINC SULFATE 220 MG CAPSULE. PO SCH (08:14)
[2021-04-25] MEDS: ENOXAPARIN 40 MG/0.4 ML SYRINGE. SQ SCH (08:14)
[2021-04-25 09:14] LABS: CALCIUM 8.3 mg/dL (8.5-10.1); CREATININE 0.9 mg/dL (0.6-1.0); GFR 76.5; POTASSIUM 4.5 mmol/L (3.5-5.1)
[2021-04-25] MEDS: ASCORBIC ACID 1,000 MG TABLET PO SCH ×3 (09:37→20:33)
[2021-04-25 09:38] LABS: MAGNESIUM 2.3 mg/dL (1.8-2.4); PHOSPHORUS 2.4 mg/dL (2.6-4.7)
[2021-04-25] MEDS: IV DEXTROSE 5 %-0.45 % NACL 1,000 ML IV SCH ×2 (09:38→13:30)
[2021-04-25] MEDS ORDERED: SODIUM PHOSPHATE 20 MMOL in IV NORMAL SALINE 250ML 250 ML IV PRN (11:15)
[2021-04-25] MEDS: hydrALAZINE 20 MG/ML VIAL. IVP PRN (11:29)
[2021-04-25 12:32] LABS: CREATININE 0.9 mg/dL (0.6-1.0); GFR 76.5; POTASSIUM 4.7 mmol/L (3.5-5.1)
--- NOTE | 2021-04-25 12:36 | PDOC ---
[employer] PROGRESS NOTE Date of Service DOS: DATE: 04/25/21 TIME: 12:32 Chief Complaint Chief Complaint Acute hypoxic respiratory failure secondary to COVID-19 infection DKA Hypertensive urgency Hyperglycemia uncontrolled KYLE due to vasomotor nephropathy Admit to medicine for further management Pulmonology consult Continue IV thiamine and vitamin C IV Solu-Medrol every 8 hours IV Remdesivir if patient requires O2 supplementation beyond there baseline Pending ferritin, LDH, CRP, D-dimer labs Titrate O2 supplementation to maintain O2 saturation greater than 92% Empiric IV antibiotics if patient has clinical presentation for bacterial pneumonia Positive for ketones Pending plasma osmolarity Continue serial inspections and examination for sources that caused ketoacidotic state Continue IV insulin starting at 0.1 units per kg When glucose is less than 200, AG is closed, patient able to eat, and HCO3 greater than 15, then transition with subcu insulin 0.1 units/kg every 2 hours for at least 2 hours Continue IV fluids of 1 to 1.5 L/h until a total of 5 L is replenished Switch to one half NS at half the rate if NA is normal or elevated As needed D50 W or add D5 to IV fluids if Accu-Cheks are less than 200 Maintain potassium between 3.5-5, if potassium falls below 3.3, stop insulin and add 40 mEq/h of potassium Maintained p.o. 3 greater than 1.0 If arterial pH is below 6.9, give 100 mEq of sodium bicarb +20 mEq of potassium Every 2-4 hours BMP and a be checked until stable Every hour Accu-Cheks while on insulin Lovenox for DVT prophylaxis Protonix while on steroids GI prophylaxis ADA diet Full code Discussed with RN and SW Disposition inpatient management as above Surrogate decision maker is the son History of Present Illness History of Present Illness 04/25 Eval examined at bedside. Increased O2 requirement. Still requiring insulin drip. With worsening O2 transfer to ICU today. 35min CC time Vitals/I&O Vitals/I&O: Vital Signs Date Time Temp Pulse Resp B/P (MAP) Pulse Ox O2 Delivery O2 Flow Rate FiO2 04/25/21 12:00 84 20 166/80 (108) 95 NonRebreather Mask 15.0 04/25/21 11:00 97.5 97.5 I & O 04/24/21 04/24/21 04/25/21 15:00 23:00 07:00 Intake Total 0 ml 0 ml Output Total 0 ml 1000 ml Balance 0 ml -1000 ml Physical Exam General: Alert, Oriented X3, Cooperative Heart: Regular rate Lungs: Other (decreased air entry throughout) Abdomen: Normal bowel sounds, Soft, No tenderness Extremities: No edema, Normal pulses Skin: No significant lesion Labs Labs: Laboratory Tests Test 04/24/21 16:47 04/24/21 17:15 04/24/21 21:27 04/24/21 23:30 O2 Saturation 79 % (92-99) Arterial Blood pH 7.32 (7.35-7.45) Arterial Blood pCO2 at Patient Temp 27 mmHg (35-46) Arterial Blood pO2 at Patient Temp 47 mmHg (65-108) Arterial Blood HCO3 13 mmol/L (21-28) Arterial Blood Base Excess -11 mmol/L (-3-3) FiO2 21 room air White Blood Count 9.8 x10^3/uL (4.0-11.0) Red Blood Count 4.34 x10^6/uL (3.50-5.40) Hemoglobin 12.1 g/dL (12.0-15.5) Hematocrit 38.3 % (36.0-47.0) Mean Corpuscular Volume 88 fL (79-100) Mean Corpuscular Hemoglobin 28 pg (25-35) Mean Corpuscular Hemoglobin Concent 32 g/dL (31-37) Red Cell Distribution Width 14.6 % (11.5-14.5) Platelet Count 358 x10^3/uL (140-400) Neutrophils (%) (Auto) 89 % (31-73) Lymphocytes (%) (Auto) 5 % (24-48) Monocytes (%) (Auto) 6 % (0-9) Eosinophils (%) (Auto) 0 % (0-3) Basophils (%) (Auto) 0 % (0-3) Neutrophils # (Auto) 8.7 x10^3/uL (1.8-7.7) Lymphocytes # (Auto) 0.5 x10^3/uL (1.0-4.8) Monocytes # (Auto) 0.6 x10^3/uL (0.0-1.1) Eosinophils # (Auto) 0.0 x10^3/uL (0.0-0.7) Basophils # (Auto) 0.0 x10^3/uL (0.0-0.2) D-Dimer (Jailyn) 2.44 ug/mlFEU (0.00-0.50) Sodium Level 139 mmol/L (136-145) 140 mmol/L (136-145) Potassium Level 4.8 mmol/L (3.5-5.1) 5.3 mmol/L (3.5-5.1) Chloride Level 98 mmol/L (98-107) 100 mmol/L (98-107) Carbon Dioxide Level 14 mmol/L (21-32) 9 mmol/L (21-32) Anion Gap 27 (6-14) 31 (6-14) Blood Urea Nitrogen 22 mg/dL (7-20) 21 mg/dL (7-20) Creatinine 1.1 mg/dL (0.6-1.0) 1.0 mg/dL (0.6-1.0) Estimated GFR (Cockcroft-Gault) 60.7 67.8 BUN/Creatinine Ratio 20 (6-20) 21 (6-20) Glucose Level 386 mg/dL (70-99) 387 mg/dL (70-99) Lactic Acid Level 2.0 mmol/L (0.4-2.0) Calcium Level 8.2 mg/dL (8.5-10.1) 8.2 mg/dL (8.5-10.1) Phosphorus Level 3.5 mg/dL (2.6-4.7) Magnesium Level 2.4 mg/dL (1.8-2.4) Total Bilirubin 0.4 mg/dL (0.2-1.0) 0.4 mg/dL (0.2-1.0) Aspartate Amino Transf (AST/SGOT) 32 U/L (15-37) 33 U/L (15-37) Alanine Aminotransferase (ALT/SGPT) 18 U/L (14-59) 17 U/L (14-59) Alkaline Phosphatase 142 U/L (46-116) 151 U/L (46-116) Troponin I High Sensitivity 14 ng/L (4-50) C-Reactive Protein, Quantitative 206.9 mg/L (0-3.3) IK-Jlb-I-Type Natriuretic Peptide 211 pg/mL (0-124) Total Protein 8.3 g/dL (6.4-8.2) 8.1 g/dL (6.4-8.2) Albumin 2.4 g/dL (3.4-5.0) 2.3 g/dL (3.4-5.0) Albumin/Globulin Ratio 0.4 (1.0-1.7) 0.4 (1.0-1.7) Triglycerides Level 108 mg/dL (0-150) Cholesterol Level 88 mg/dL (0-200) LDL Cholesterol, Calculated 44 mg/dL (0-100) VLDL Cholesterol, Calculated 22 mg/dL (0-40) Non-HDL Cholesterol Calculated 66 mg/dL (0-129) HDL Cholesterol 22 mg/dL (40-60) Cholesterol/HDL Ratio 4.0 Lipase 21 U/L (73-393) Procalcitonin 0.21 ng/mL (0.00-0.10) Acetone Level Mod pos (NEG) Glucose (Fingerstick) 385 mg/dL (70-99) Test 04/25/21 01:20 04/25/21 02:30 04/25/21 03:31 04/25/21 04:20 Glucose (Fingerstick) 403 mg/dL (70-99) 363 mg/dL (70-99) 335 mg/dL (70-99) White Blood Count 13.1 x10^3/uL (4.0-11.0) Red Blood Count 4.65 x10^6/uL (3.50-5.40) Hemoglobin 13.1 g/dL (12.0-15.5) Hematocrit 42.4 % (36.0-47.0) Mean Corpuscular Volume 91 fL (79-100) Mean Corpuscular Hemoglobin 28 pg (25-35) Mean Corpuscular Hemoglobin Concent 31 g/dL (31-37) Red Cell Distribution Width 15.2 % (11.5-14.5) Platelet Count 373 x10^3/uL (140-400) Neutrophils (%) (Auto) 93 % (31-73) Lymphocytes (%) (Auto) 3 % (24-48) Monocytes (%) (Auto) 2 % (0-9) Eosinophils (%) (Auto) 0 % (0-3) Basophils (%) (Auto) 1 % (0-3) Neutrophils # (Auto) 12.2 x10^3/uL (1.8-7.7) Lymphocytes # (Auto) 0.4 x10^3/uL (1.0-4.8) Monocytes # (Auto) 0.3 x10^3/uL (0.0-1.1) Eosinophils # (Auto) 0.1 x10^3/uL (0.0-0.7) Basophils # (Auto) 0.1 x10^3/uL (0.0-0.2) Sodium Level 141 mmol/L (136-145) Potassium Level 4.9 mmol/L (3.5-5.1) Chloride Level 102 mmol/L (98-107) Carbon Dioxide Level 10 mmol/L (21-32) Anion Gap 29 (6-14) Blood Urea Nitrogen 20 mg/dL (7-20) Creatinine 1.0 mg/dL (0.6-1.0) Estimated GFR (Cockcroft-Gault) 67.8 Glucose Level 333 mg/dL (70-99) Calcium Level 8.2 mg/dL (8.5-10.1) Phosphorus Level 4.0 mg/dL (2.6-4.7) Magnesium Level 2.5 mg/dL (1.8-2.4) Test 04/25/21 04:33 04/25/21 05:35 04/25/21 06:42 04/25/21 07:35 Glucose (Fingerstick) 315 mg/dL (70-99) 300 mg/dL (70-99) 232 mg/dL (70-99) 192 mg/dL (70-99) Test 04/25/21 08:30 04/25/21 08:47 04/25/21 09:46 04/25/21 11:06 Sodium Level 136 mmol/L (136-145) Potassium Level 4.5 mmol/L (3.5-5.1) Chloride Level 102 mmol/L (98-107) Carbon Dioxide Level 14 mmol/L (21-32) Anion Gap 20 (6-14) Blood Urea Nitrogen 20 mg/dL (7-20) Creatinine 0.9 mg/dL (0.6-1.0) Estimated GFR (Cockcroft-Gault) 76.5 Glucose Level 183 mg/dL (70-99) Calcium Level 8.3 mg/dL (8.5-10.1) Phosphorus Level 2.4 mg/dL (2.6-4.7) Magnesium Level 2.3 mg/dL (1.8-2.4) Glucose (Fingerstick) 151 mg/dL (70-99) 151 mg/dL (70-99) 196 mg/dL (70-99) Test 04/25/21 12:05 Glucose (Fingerstick) 222 mg/dL (70-99) Assessment and Plan Assessmemt and Plan Problems Medical Problems: (1) Community acquired pneumonia Status: Acute (2) COVID-19 virus infection Status: Acute (3) DKA (diabetic ketoacidosis) Status: Acute (4) Hypoxia Status: Acute Comment Review of Relevant I have reviewed the following items rafael (where applicable) has been applied. Medications: Current Medications Medications (Trade) Dose Ordered Sig/Sadie Route PRN Reason Start Time Stop Time Status Last Admin Dose Admin Dexamethasone Sodium Phosphate (Decadron) 10 mg 1X ONCE IV 04/24/21 17:45 04/24/21 17:46 DC 04/24/21 17:44 Ceftriaxone Sodium (Rocephin) 1 gm 1X ONCE IVP 04/24/21 17:45 04/24/21 17:46 DC 04/24/21 17:44 Azithromycin (Zithromax) 500 mg 1X ONCE PO 04/24/21 17:45 04/24/21 17:46 DC 04/24/21 17:44 Iohexol (Omnipaque 350 Mg/ml) 100 ml 1X ONCE IV 04/24/21 17:30 04/24/21 17:31 DC 04/24/21 18:00 Ascorbic Acid (Vitamin C) 3,000 mg TID PO 04/24/21 21:00 04/25/21 09:37 Methylprednisolone Sodium Succinate (SOLU-Medrol 40MG VIAL) 40 mg Q8HRS IV 04/24/21 22:00 04/25/21 06:42 Thiamine Mononitrate (Vitamin B-1) 300 mg DAILY PO 04/25/21 09:00 04/25/21 08:13 Zinc Sulfate (Orazinc) 220 mg DAILY PO 04/25/21 09:00 04/25/21 08:14 Acetaminophen (Tylenol) 650 mg PRN Q4HRS PRN PO TEMP OVER 100.4F OR MILD PAIN 04/24/21 19:15 04/25/21 03:31 Enoxaparin Sodium (Lovenox 40mg Syringe) 40 mg Q24H SQ 04/25/21 09:00 04/25/21 08:14 Pantoprazole Sodium (Protonix) 40 mg DAILYAC PO 04/25/21 07:30 04/25/21 08:13 Lisinopril (Prinivil) 10 mg DAILY PO 04/25/21 09:00 04/25/21 08:13 Hydralazine HCl (Apresoline Inj) 10 mg PRN Q4HRS PRN IVP ELEVATED BP, SEE COMMENTS 04/24/21 19:15 04/25/21 11:29 Remdesivir 200 mg/ Sodium Chloride 210 ml @ 210 mls/hr 1X ONCE IV 04/24/21 20:00 04/24/21 20:59 DC 04/24/21 22:40 Sodium Chloride 1,000 ml @ 1,000 mls/hr Q1H IV 04/24/21 19:30 04/24/21 20:29 DC 04/24/21 21:46 Insulin Human Regular 100 unit/ Sodium Chloride 101 ml @ 0 mls/hr CONT PRN PRN IV PER PROTOCOL 04/24/21 19:30 04/25/21 11:52 Sodium Chloride 1,000 ml @ 150 mls/hr Q6H40M IV 04/24/21 22:30 04/24/21 22:30 Dextrose/Sodium Chloride 1,000 ml @ 250 mls/hr Q4H IV 04/25/21 09:30 04/25/21 09:38 Sodium Phosphate 20 mmol/Sodium Chloride 256.6667 ml @ 62.5 mls/hr 1X PRN PRN IV SEE COMMENTS 04/25/21 11:15 04/25/21 11:29 Justifications for Admission Other Justification COVID-19 positive test (U07.1, COVID-19) with Acute Pneumonia (J12.89, Other viral pneumonia) (If respiratory failure or sepsis present, add as separate assessment) CARRIE RODGERS MD Apr 25, 2021 12:36
[2021-04-25] MEDS ORDERED: INSULIN GLARGINE SYRINGE. SQ ONE (14:00)
[2021-04-25] MEDS: cefTRIAXone IV Push 2 GM VIAL. IVP SCH (14:16)
--- NOTE | 2021-04-25 15:28 | NUR ---
SS following for discharge planning. SS reviewed pt chart and discussed with pt RN. Pt is from home and is currently requiring oxygen at 15 liters nasal canula and 15 liters non-rebreather. COVID19 positive. Pt on IV Remdesivir, IV Rocephin, and IV Solu-Medrol. Pt had DKA. Self pay. [facility] following. SS spoke with Iesha in [facility] and pt does not qualify for [facility] at this time. Pt has SSI. Not ready. Pt is CVC upgrade. SS will continue to follow for discharge planning.
[2021-04-25 16:24] LABS: CALCIUM 7.7 mg/dL (8.5-10.1); CREATININE 0.8 mg/dL (0.6-1.0); GFR 87.7; POTASSIUM 4.2 mmol/L (3.5-5.1)
--- NOTE | 2021-04-25 17:34 | NUR ---
Wound/Ostomy Care Wound Type/Assessment: Patient seen per wound care consult re: bilateral lower legs. Patient has stasis ulcer to right lower leg and the left leg is not opened but does have thick skin build up. Both legs are darkened and unable to feel pulses, the right leg is foul smelling with slough and eschar in the larger open area, with tendon and muscle exposed. The right lower leg is cleansed, assessed, and measured. The intergluteal cleft has some maceration from moisture. The area cleansed but it is not open, but reddened, excoriated, and macerated. Treatment Recommendations/Plan: Cleanse wounds and pat dry. Interglueteal cleft: Nystatin powder Right lower leg: medi-honey gel, xeroform gauze, ABD pads, and kerlix. Change every other day. Left lower leg: Ammonium Lactate Education provided: Patient educated on dressing changes, POC, and PU prevention Offloading surface/device: Patient able to assist with turning. Recommended Referrals/Tests: We will order consult for vascular, a culture taken of the right lower leg wound, and Nystatin ordered, and will Arterial Doppler bilaterally. Discharge Recommendations for dressings: Dressing change instructions left in room. No other wounds noted. Wound care will follow up on 05/02/21 but will check chart daily for new orders and consults.
[2021-04-25 20:01] LABS: CALCIUM 8.1 mg/dL (8.5-10.1); GFR 67.8
[2021-04-25] MEDS: REMDESIVIR 100mg in NORMAL SALINE 250ML X 4 DAYS IV SCH (20:32)
[2021-04-25] MEDS: NYSTATIN TOPICAL POWDER 15GM BOTTLE. TP SCH (20:32)
[2021-04-25] MEDS: AMMONIUM LACTATE 12% TOPICAL LOTION 225GM BOTTLE. TP SCH (20:32)
[2021-04-26] MEDS: IV NORMAL SALINE 1000ML BAG 1,000 ML IV SCH ×4 (01:35→20:58)
[2021-04-26 02:43] VITALS: BP 149/78
[2021-04-26] MEDS: methylPREDNISolone SOD SUCC PF 40 MG/ML VIAL. IV SCH ×3 (05:26→20:56)
[2021-04-26 07:00] VITALS: BP 107/55
[2021-04-26] MEDS: ASCORBIC ACID 1,000 MG TABLET PO SCH ×3 (08:12→20:56)
[2021-04-26] MEDS: PANTOPRAZOLE 40 MG TABLET.DR. PO SCH (08:12)
[2021-04-26] MEDS: ZINC SULFATE 220 MG CAPSULE. PO SCH (08:12)
[2021-04-26] MEDS: THIAMINE 100 MG TABLET. PO SCH (08:12)
[2021-04-26] MEDS: LISINOPRIL 10 MG TABLET PO SCH (08:13)
[2021-04-26] MEDS: ENOXAPARIN 40 MG/0.4 ML SYRINGE. SQ SCH (08:14)
[2021-04-26] MEDS: INSULIN LISPRO 300 UNITS/3 ML VIAL. SQ SCH ×3 (08:15→17:18)
--- NOTE | 2021-04-26 08:16 | RAD ---
EXAM: Bilateral lower extremity arterial Doppler sonogram. HISTORY: Nonhealing venous ulcers. Peripheral vascular disease. Atherosclerosis. TECHNIQUE: Chappell scale and color Doppler sonographic imaging of the lower extremity arteries with spec tral analysis was performed. COMPARISON: None. FINDINGS: There are biphasic and triphasic waveforms throughout the lower extremity arteries. The lef t peroneal artery is not seen. There are elevated peak systolic velocities within the right common femoral and proximal superficial femoral artery, measuring 195 cm/s and 234 cm/s, respectively. There are elevated peak systolic veloc ities within the left common femoral and proximal superficial femoral artery, measuring 154 cm/s and 158 cm/s, respectively. The remainder of the bilateral lower extremity artery peak systolic velocitie s are within normal limits. IMPRESSION: 1. Doppler findings suggesting stenosis involving the right common femoral and proximal superficial f emoral artery, and to a lesser extent, the left common femoral and proximal superficial femoral arter y. 2. Nonvisualization of the left peroneal artery. The remainder of the lower extension of the arteries are patent. No arterial occlusion is seen. Electronically signed by: Shawnee Landa MD (04/26/2021 8:13 AM) [id number]
[2021-04-26] MEDS ORDERED: INSULIN LISPRO 300 UNITS/3 ML VIAL. SQ ONE (08:45)
[2021-04-26 09:04] LABS: BASO % 0 % (0-3); EOS % 0 % (0-3); HEMATOCRIT 40.1 % (36.0-47.0); HEMOGLOBIN 12.2 g/dL (12.0-15.5); LYMPH # 0.6 x10^3/uL (1.0-4.8); LYMPH % 4 % (24-48); MEAN CORPUSCULAR HEMOGLOBIN 28 pg (25-35); MEAN CORPUSCULAR HGB CONC 30 g/dL (31-37); MEAN CORPUSCULAR VOLUME 92 fL (79-100); MONO # 0.6 x10^3/uL (0.0-1.1); MONO % 3 % (0-9); NEUT # 15.2 x10^3/uL (1.8-7.7); NEUT % 93 % (31-73); PLATELET COUNT 370 x10^3/uL (140-400); RED BLOOD COUNT 4.37 x10^6/uL (3.50-5.40); RED CELL DISTRIBUTION WIDTH 15.5 % (11.5-14.5); WHITE BLOOD COUNT 16.4 x10^3/uL (4.0-11.0)
[2021-04-26 09:22] LABS: CALCIUM 7.7 mg/dL (8.5-10.1); GFR 67.8; MAGNESIUM 2.2 mg/dL (1.8-2.4); POTASSIUM 4.2 mmol/L (3.5-5.1)
--- NOTE | 2021-04-26 09:31 | NUR ---
SW following. Chart reviewed, pt from home, 13L oxygen (does not use oxygen at home), COVID-19 positive. Pt not medically stable for discharge. SW will continue to follow.
[2021-04-26 11:00] VITALS: BP 131/61
[2021-04-26] MEDS: AMMONIUM LACTATE 12% TOPICAL LOTION 225GM BOTTLE. TP SCH ×2 (11:03→20:55)
[2021-04-26] MEDS: NYSTATIN TOPICAL POWDER 15GM BOTTLE. TP SCH ×2 (11:03→20:55)
[2021-04-26 11:06] LABS: % BANDS 11 % (0-9); % LYMPHS 2 % (24-48); % MONOS 5 % (0-10); % SEGS 82 % (35-66); ANISOCYTOSIS PRESENT; PLT ESTIMATE ADEQUATE (ADEQUATE)
--- NOTE | 2021-04-26 11:12 | PDOC2 ---
CONSULT Date of Service Date of Service DATE: 04/26/21 TIME: 10:57 Reason for Consult Reason for Consult: Chronic venous wounds Identification/Chief Complaint Chief Complaint Shortness of breath Source Source: Patient History of Present Illness Reason for Visit: Pleasant 65-year-old female who denies significant medical history, states no home medications, was given script for lisinopril and metformin but did not fill them, states she never knew she was a diabetic until last week. She presents with shortness of breath, had a positive Covid test on 04/20. She comes to the hospital with increased dyspnea. We have been asked to see her to evaluate her lower extremity wounds specifically her right leg. She is being treated for DKA, KYLE, Covid, leukocytosis. She is currently short of breath and maxed out on her nonrebreather and speaks in very short sentences. Therefore history was somewhat limited. She reports she has had her wounds to her legs for over a year. She has been taking care of them herself at home. She is ambulatory. She works as a caregiver. The wound care team saw her yesterday and dressed her wounds on her right leg and ordered every other day dressing changes. Past Medical History Past Medical History Diabetes unknown, or untreated Cardiovascular: No pertinent hx Family History Family History Not pertinent to acute issue Current Problem List Problem List Problems Medical Problems: (1) Community acquired pneumonia Status: Acute (2) COVID-19 virus infection Status: Acute (3) DKA (diabetic ketoacidosis) Status: Acute (4) Hypoxia Status: Acute Current Medications Current Medications Current Medications Dexamethasone Sodium Phosphate (Decadron) 10 mg 1X ONCE IV Last administered on 04/24/21at 17:44; Start 04/24/21 at 17:45; Stop 04/24/21 at 17:46; Status DC Ceftriaxone Sodium (Rocephin) 1 gm 1X ONCE IVP Last administered on 04/24/21at 17:44; Start 04/24/21 at 17:45; Stop 04/24/21 at 17:46; Status DC Azithromycin (Zithromax) 500 mg 1X ONCE PO Last administered on 04/24/21at 17:44; Start 04/24/21 at 17:45; Stop 04/24/21 at 17:46; Status DC Iohexol (Omnipaque 350 Mg/ml) 100 ml 1X ONCE IV Last administered on 04/24/21at 18:00; Start 04/24/21 at 17:30; Stop 04/24/21 at 17:31; Status DC Info (CONTRAST GIVEN -- Rx MONITORING) 1 each PRN DAILY PRN MC SEE COMMENTS; Start 04/24/21 at 17:30; Stop 04/26/21 at 17:29 Ascorbic Acid (Vitamin C) 3,000 mg TID PO Last administered on 04/26/21at 08:12; Start 04/24/21 at 21:00 Methylprednisolone Sodium Succinate (SOLU-Medrol 40MG VIAL) 40 mg Q8HRS IV Last administered on 04/26/21at 05:26; Start 04/24/21 at 22:00 Thiamine Mononitrate (Vitamin B-1) 300 mg DAILY PO Last administered on 04/26/21at 08:12; Start 04/25/21 at 09:00 Zinc Sulfate (Orazinc) 220 mg DAILY PO Last administered on 04/26/21at 08:12; Start 04/25/21 at 09:00 Sennosides (Senna) 17.2 mg PRN BID PRN PO CONSTIPATION; Start 04/24/21 at 19:15 Docusate Sodium (Colace) 100 mg PRN DAILY PRN PO HARD STOOLS; Start 04/24/21 at 19:15 Ondansetron HCl (Zofran) 4 mg PRN Q6HRS PRN IVP NAUSEA/VOMITING, 1st CHOICE; Start 04/24/21 at 19:15 Dextrose (Dextrose 50%-Water Syringe) 12.5 gm PRN Q15MIN PRN IV SEE COMMENTS; Start 04/24/21 at 19:15; Stop 04/24/21 at 19:36; Status DC Acetaminophen (Tylenol) 650 mg PRN Q4HRS PRN PO TEMP OVER 100.4F OR MILD PAIN Last administered on 04/25/21at 03:31; Start 04/24/21 at 19:15 Lorazepam (Ativan) 0.5 mg PRN Q6HRS PRN PO ANXIETY / AGITATION; Start 04/24/21 at 19:15 Lorazepam (Ativan Inj) 0.25 mg PRN Q4HRS PRN IV ANXIETY / AGITATION; Start 04/24/21 at 19:15 Enoxaparin Sodium (Lovenox 40mg Syringe) 40 mg Q24H SQ Last administered on 04/26/21at 08:14; Start 04/25/21 at 09:00 Pantoprazole Sodium (Protonix) 40 mg DAILYAC PO Last administered on 04/26/21at 08:12; Start 04/25/21 at 07:30 Prochlorperazine Edisylate (Compazine) 10 mg PRN Q6HRS PRN IV NAUSEA/VOMITING, 2nd CHOICE; Start 04/24/21 at 19:15 Diphenhydramine HCl (Benadryl) 25 mg PRN Q6HRS PRN IVP ITCHING; Start 04/24/21 at 19:15 Diphenhydramine HCl (Benadryl) 25 mg PRN Q6HRS PRN PO ITCHING; Start 04/24/21 at 19:15 Diphenhydramine HCl (Benadryl) 25 mg PRN QHS PRN PO INSOMNIA, 1st CHOICE; Start 04/24/21 at 19:15 Zolpidem Tartrate (Ambien) 2.5 mg PRN QHS PRN PO INSOMNIA, 2nd CHOICE; Start 04/24/21 at 19:15 Lisinopril (Prinivil) 10 mg DAILY PO Last administered on 04/26/21at 08:13; Start 04/25/21 at 09:00 Metformin HCl (Glucophage) 500 mg BIDWMEALS PO ; Start 04/25/21 at 08:00; Stop 04/24/21 at 19:22; Status DC Insulin Human Lispro (HumaLOG) 0-7 UNITS TIDWMEALS SQ Last administered on 04/26/21at 08:15; Start 04/25/21 at 08:00 Dextrose (Dextrose 50%-Water Syringe) 12.5 gm PRN Q15MIN PRN IV SEE COMMENTS; Start 04/24/21 at 19:15 Labetalol HCl (Normodyne Iv Push) 20 mg Q2HR PRN IVP HYPERTENSION; Start 04/24/21 at 19:15 Hydralazine HCl (Apresoline Inj) 10 mg PRN Q4HRS PRN IVP ELEVATED BP, SEE COMMENTS Last administered on 04/25/21at 11:29; Start 04/24/21 at 19:15 Remdesivir 200 mg/ Sodium Chloride 210 ml @ 210 mls/hr 1X ONCE IV Last administered on 04/24/21at 22:40; Start 04/24/21 at 20:00; Stop 04/24/21 at 20:59; Status DC Remdesivir 100 mg/ Sodium Chloride 230 ml @ 460 mls/hr Q24H IV Last administered on 04/25/21at 20:32; Start 04/25/21 at 20:00; Stop 04/28/21 at 20:29 Sodium Chloride 1,000 ml @ 1,000 mls/hr Q1H IV Last administered on 04/24/21at 21:46; Start 04/24/21 at 19:30; Stop 04/24/21 at 20:29; Status DC Sodium Chloride 1,000 ml @ 500 mls/hr Q2H IV ; Start 04/24/21 at 19:45; Stop 04/24/21 at 21:44; Status DC Sodium Chloride 1,000 ml @ 250 mls/hr Q4H IV ; Start 04/24/21 at 19:45; Stop 04/24/21 at 22:47; Status DC Insulin Human Regular 100 unit/ Sodium Chloride 101 ml @ 0 mls/hr CONT PRN PRN IV PER PROTOCOL Last administered on 04/25/21at 11:52; Start 04/24/21 at 19:30 Potassium Chloride/Water 100 ml @ 100 mls/hr PRN Q1HR PRN IV SEE COMMENTS; Start 04/24/21 at 19:30 Potassium Chloride/Water 100 ml @ 100 mls/hr PRN Q1HR PRN IV SEE COMMENTS; St art 04/24/21 at 19:30 Potassium Chloride/Water 100 ml @ 100 mls/hr PRN Q1HR PRN IV SEE COMMENTS; Start 04/24/21 at 19:30 Sodium Chloride 1,000 ml @ 150 mls/hr Q6H40M IV Last administered on 04/26/21at 08:14; Start 04/24/21 at 22:30 Dextrose/Sodium Chloride 1,000 ml @ 250 mls/hr Q4H IV Last administered on 04/25/21at 09:38; Start 04/25/21 at 09:30; Stop 04/25/21 at 18:13; Status DC Sodium Phosphate 20 mmol/Sodium Chloride 256.6667 ml @ 62.5 mls/hr 1X PRN PRN IV SEE COMMENTS Last administered on 04/25/21at 11:29; Start 04/25/21 at 11:15 Insulin Glargine (Lantus Syringe) 20 unit 1X ONCE SQ Last administered on 04/25/21at 13:29; Start 04/25/21 at 14:00; Stop 04/25/21 at 14:01; Status DC Ceftriaxone Sodium (Rocephin) 2 gm Q24H IVP Last administered on 04/25/21at 14:16; Start 04/25/21 at 15:00 Lactic Acid (Lac-Hydrin) 1 arleen BID TP Last administered on 04/25/21at 20:32; Start 04/25/21 at 21:00 Nystatin (Nystop) 1 arleen BID TP Last administered on 04/25/21at 20:32; Start 04/25/21 at 21:00 Insulin Human Lispro (HumaLOG) 8 units 1X ONCE SQ Last administered on 04/26/21at 08:40; Start 04/26/21 at 08:45; Stop 04/26/21 at 08:46; Status DC Lactobacillus Rhamnosus (Culturelle) 1 cap BID PO ; Start 04/26/21 at 21:00 Active Scripts Active Lisinopril 10 Mg Tablet 1 Tab PO DAILY Metformin Hcl 500 Mg Tablet 500 Mg PO BIDWMEALS Allergies Allergies: Coded Allergies: chocolate flavor (Verified Allergy, Intermediate, 04/19/21) pineapple (Verified Allergy, Intermediate, 04/19/21) ROS General: YES: Other (Fevers); No: Chills HEENT: No: Heacaches Respiratory: YES: Cough, Shortness of breath, SOB with excertion Cardiovascular: yes Edema; No Chest Pain, No Palpitations Gastrointestinal: No Nausea, No Vomiting, No Abdominal Pain Musculoskeletal: No Gait Disturbance Skin: Yes Dry Skin, Yes Lumps, Yes Rash, Yes Skin Lesion Changes Physical Exam General: Alert, Oriented X3, Cooperative, mild distress Lungs: Other (She is on dual 15 L via nonrebreather with minimal signs of distress including increased respiratory rate, speaking in short sentences. At rest she appears comfortable) Heart: Regular rate Abdomen: Soft Extremities: Other (Minimal peripheral edema, palpable DP pulse on the left foot. Cannot appreciate pedal pulses on the right foot.) Skin: Other (She has a clean dressing to her right lower leg, this was not removed as the patient was acutely hypoxic and not necessary to risk exacerbating her breathing. The wound care note was reviewed as below, wound assessment is not urgent, with plans to change dressing again tomorrow. Her left lower leg has diffuse nodules with darkened and dry skin circumferentially and is minimally hypertrophic diffusely. No open ulcers to the left leg or foot.) Psych/Mental Status: Mental status NL Vitals VITALS Vital Signs Date Time Temp Pulse Resp B/P (MAP) Pulse Ox O2 Delivery O2 Flow Rate FiO2 04/26/21 08:13 93 107/55 04/26/21 08:00 Non-Rebreather 15.0 04/26/21 07:00 98.2 19 89 98.2 Labs Labs Laboratory Tests Test 04/24/21 16:47 04/24/21 17:15 04/24/21 21:27 04/24/21 23:30 O2 Saturation 79 % (92-99) Arterial Blood pH 7.32 (7.35-7.45) Arterial Blood pCO2 at Patient Temp 27 mmHg (35-46) Arterial Blood pO2 at Patient Temp 47 mmHg (65-108) Arterial Blood HCO3 13 mmol/L (21-28) Arterial Blood Base Excess -11 mmol/L (-3-3) FiO2 21 room air White Blood Count 9.8 x10^3/uL (4.0-11.0) Red Blood Count 4.34 x10^6/uL (3.50-5.40) Hemoglobin 12.1 g/dL (12.0-15.5) Hematocrit 38.3 % (36.0-47.0) Mean Corpuscular Volume 88 fL (79-100) Mean Corpuscular Hemoglobin 28 pg (25-35) Mean Corpuscular Hemoglobin Concent 32 g/dL (31-37) Red Cell Distribution Width 14.6 % (11.5-14.5) Platelet Count 358 x10^3/uL (140-400) Neutrophils (%) (Auto) 89 % (31-73) Lymphocytes (%) (Auto) 5 % (24-48) Monocytes (%) (Auto) 6 % (0-9) Eosinophils (%) (Auto) 0 % (0-3) Basophils (%) (Auto) 0 % (0-3) Neutrophils # (Auto) 8.7 x10^3/uL (1.8-7.7) Lymphocytes # (Auto) 0.5 x10^3/uL (1.0-4.8) Monocytes # (Auto) 0.6 x10^3/uL (0.0-1.1) Eosinophils # (Auto) 0.0 x10^3/uL (0.0-0.7) Basophils # (Auto) 0.0 x10^3/uL (0.0-0.2) D-Dimer (Jailyn) 2.44 ug/mlFEU (0.00-0.50) Sodium Level 139 mmol/L (136-145) 140 mmol/L (136-145) Potassium Level 4.8 mmol/L (3.5-5.1) 5.3 mmol/L (3.5-5.1) Chloride Level 98 mmol/L (98-107) 100 mmol/L (98-107) Carbon Dioxide Level 14 mmol/L (21-32) 9 mmol/L (21-32) Anion Gap 27 (6-14) 31 (6-14) Blood Urea Nitrogen 22 mg/dL (7-20) 21 mg/dL (7-20) Creatinine 1.1 mg/dL (0.6-1.0) 1.0 mg/dL (0.6-1.0) Estimated GFR (Cockcroft-Gault) 60.7 67.8 BUN/Creatinine Ratio 20 (6-20) 21 (6-20) Glucose Level 386 mg/dL (70-99) 387 mg/dL (70-99) Lactic Acid Level 2.0 mmol/L (0.4-2.0) Calcium Level 8.2 mg/dL (8.5-10.1) 8.2 mg/dL (8.5-10.1) Phosphorus Level 3.5 mg/dL (2.6-4.7) Magnesium Level 2.4 mg/dL (1.8-2.4) Total Bilirubin 0.4 mg/dL (0.2-1.0) 0.4 mg/dL (0.2-1.0) Aspartate Amino Transf (AST/SGOT) 32 U/L (15-37) 33 U/L (15-37) Alanine Aminotransferase (ALT/SGPT) 18 U/L (14-59) 17 U/L (14-59) Alkaline Phosphatase 142 U/L (46-116) 151 U/L (46-116) Troponin I High Sensitivity 14 ng/L (4-50) C-Reactive Protein, Quantitative 206.9 mg/L (0-3.3) HZ-Unm-G-Type Natriuretic Peptide 211 pg/mL (0-124) Total Protein 8.3 g/dL (6.4-8.2) 8.1 g/dL (6.4-8.2) Albumin 2.4 g/dL (3.4-5.0) 2.3 g/dL (3.4-5.0) Albumin/Globulin Ratio 0.4 (1.0-1.7) 0.4 (1.0-1.7) Triglycerides Level 108 mg/dL (0-150) Cholesterol Level 88 mg/dL (0-200) LDL Cholesterol, Calculated 44 mg/dL (0-100) VLDL Cholesterol, Calculated 22 mg/dL (0-40) Non-HDL Cholesterol Calculated 66 mg/dL (0-129) HDL Cholesterol 22 mg/dL (40-60) Cholesterol/HDL Ratio 4.0 Lipase 21 U/L (73-393) Procalcitonin 0.21 ng/mL (0.00-0.10) Acetone Level Mod pos (NEG) Glucose (Fingerstick) 385 mg/dL (70-99) Test 04/25/21 01:20 04/25/21 02:30 04/25/21 03:31 04/25/21 04:20 Glucose (Fingerstick) 403 mg/dL (70-99) 363 mg/dL (70-99) 335 mg/dL (70-99) White Blood Count 13.1 x10^3/uL (4.0-11.0) Red Blood Count 4.65 x10^6/uL (3.50-5.40) Hemoglobin 13.1 g/dL (12.0-15.5) Hematocrit 42.4 % (36.0-47.0) Mean Corpuscular Volume 91 fL (79-100) Mean Corpuscular Hemoglobin 28 pg (25-35) Mean Corpuscular Hemoglobin Concent 31 g/dL (31-37) Red Cell Distribution Width 15.2 % (11.5-14.5) Platelet Count 373 x10^3/uL (140-400) Neutrophils (%) (Auto) 93 % (31-73) Lymphocytes (%) (Auto) 3 % (24-48) Monocytes (%) (Auto) 2 % (0-9) Eosinophils (%) (Auto) 0 % (0-3) Basophils (%) (Auto) 1 % (0-3) Neutrophils # (Auto) 12.2 x10^3/uL (1.8-7.7) Lymphocytes # (Auto) 0.4 x10^3/uL (1.0-4.8) Monocytes # (Auto) 0.3 x10^3/uL (0.0-1.1) Eosinophils # (Auto) 0.1 x10^3/uL (0.0-0.7) Basophils # (Auto) 0.1 x10^3/uL (0.0-0.2) Sodium Level 141 mmol/L (136-145) Potassium Level 4.9 mmol/L (3.5-5.1) Chloride Level 102 mmol/L (98-107) Carbon Dioxide Level 10 mmol/L (21-32) Anion Gap 29 (6-14) Blood Urea Nitrogen 20 mg/dL (7-20) Creatinine 1.0 mg/dL (0.6-1.0) Estimated GFR (Cockcroft-Gault) 67.8 Glucose Level 333 mg/dL (70-99) Calcium Level 8.2 mg/dL (8.5-10.1) Phosphorus Level 4.0 mg/dL (2.6-4.7) Magnesium Level 2.5 mg/dL (1.8-2.4) Test 04/25/21 04:33 04/25/21 05:35 04/25/21 06:42 04/25/21 07:35 Glucose (Fingerstick) 315 mg/dL (70-99) 300 mg/dL (70-99) 232 mg/dL (70-99) 192 mg/dL (70-99) Test 04/25/21 08:30 04/25/21 08:47 04/25/21 09:46 04/25/21 11:06 Sodium Level 136 mmol/L (136-145) Potassium Level 4.5 mmol/L (3.5-5.1) Chloride Level 102 mmol/L (98-107) Carbon Dioxide Level 14 mmol/L (21-32) Anion Gap 20 (6-14) Blood Urea Nitrogen 20 mg/dL (7-20) Creatinine 0.9 mg/dL (0.6-1.0) Estimated GFR (Cockcroft-Gault) 76.5 Glucose Level 183 mg/dL (70-99) Calcium Level 8.3 mg/dL (8.5-10.1) Phosphorus Level 2.4 mg/dL (2.6-4.7) Magnesium Level 2.3 mg/dL (1.8-2.4) Glucose (Fingerstick) 151 mg/dL (70-99) 151 mg/dL (70-99) 196 mg/dL (70-99) Test 04/25/21 12:00 04/25/21 12:05 04/25/21 13:13 04/25/21 16:00 Sodium Level 132 mmol/L (136-145) 135 mmol/L (136-145) Potassium Level 4.7 mmol/L (3.5-5.1) 4.2 mmol/L (3.5-5.1) Chloride Level 104 mmol/L (98-107) 104 mmol/L (98-107) Carbon Dioxide Level 16 mmol/L (21-32) 17 mmol/L (21-32) Anion Gap 12 (6-14) 14 (6-14) Blood Urea Nitrogen 19 mg/dL (7-20) 18 mg/dL (7-20) Creatinine 0.9 mg/dL (0.6-1.0) 0.8 mg/dL (0.6-1.0) Estimated GFR (Cockcroft-Gault) 76.5 87.7 Glucose Level 213 mg/dL (70-99) 253 mg/dL (70-99) Calcium Level 8.0 mg/dL (8.5-10.1) 7.7 mg/dL (8.5-10.1) Glucose (Fingerstick) 222 mg/dL (70-99) 236 mg/dL (70-99) Test 04/25/21 16:42 04/25/21 18:38 04/25/21 19:20 04/26/21 07:48 Glucose (Fingerstick) 270 mg/dL (70-99) 286 mg/dL (70-99) 405 mg/dL (70-99) Sodium Level 137 mmol/L (136-145) Potassium Level 4.0 mmol/L (3.5-5.1) Chloride Level 102 mmol/L (98-107) Carbon Dioxide Level 19 mmol/L (21-32) Anion Gap 16 (6-14) Blood Urea Nitrogen 20 mg/dL (7-20) Creatinine 1.0 mg/dL (0.6-1.0) Estimated GFR (Cockcroft-Gault) 67.8 Glucose Level 303 mg/dL (70-99) Calcium Level 8.1 mg/dL (8.5-10.1) Test 04/26/21 08:20 White Blood Count 16.4 x10^3/uL (4.0-11.0) Red Blood Count 4.37 x10^6/uL (3.50-5.40) Hemoglobin 12.2 g/dL (12.0-15.5) Hematocrit 40.1 % (36.0-47.0) Mean Corpuscular Volume 92 fL (79-100) Mean Corpuscular Hemoglobin 28 pg (25-35) Mean Corpuscular Hemoglobin Concent 30 g/dL (31-37) Red Cell Distribution Width 15.5 % (11.5-14.5) Platelet Count 370 x10^3/uL (140-400) Neutrophils (%) (Auto) 93 % (31-73) Lymphocytes (%) (Auto) 4 % (24-48) Monocytes (%) (Auto) 3 % (0-9) Eosinophils (%) (Auto) 0 % (0-3) Basophils (%) (Auto) 0 % (0-3) Neutrophils # (Auto) 15.2 x10^3/uL (1.8-7.7) Lymphocytes # (Auto) 0.6 x10^3/uL (1.0-4.8) Monocytes # (Auto) 0.6 x10^3/uL (0.0-1.1) Eosinophils # (Auto) 0.0 x10^3/uL (0.0-0.7) Basophils # (Auto) 0.0 x10^3/uL (0.0-0.2) Sodium Level 133 mmol/L (136-145) Potassium Level 4.2 mmol/L (3.5-5.1) Chloride Level 102 mmol/L (98-107) Carbon Dioxide Level 12 mmol/L (21-32) Anion Gap 19 (6-14) Blood Urea Nitrogen 23 mg/dL (7-20) Creatinine 1.0 mg/dL (0.6-1.0) Estimated GFR (Cockcroft-Gault) 67.8 Glucose Level 408 mg/dL (70-99) Calcium Level 7.7 mg/dL (8.5-10.1) Magnesium Level 2.2 mg/dL (1.8-2.4) Laboratory Tests Test 04/25/21 11:06 04/25/21 12:00 04/25/21 12:05 04/25/21 13:13 Glucose (Fingerstick) 196 mg/dL (70-99) 222 mg/dL (70-99) 236 mg/dL (70-99) Sodium Level 132 mmol/L (136-145) Potassium Level 4.7 mmol/L (3.5-5.1) Chloride Level 104 mmol/L (98-107) Carbon Dioxide Level 16 mmol/L (21-32) Anion Gap 12 (6-14) Blood Urea Nitrogen 19 mg/dL (7-20) Creatinine 0.9 mg/dL (0.6-1.0) Estimated GFR (Cockcroft-Gault) 76.5 Glucose Level 213 mg/dL (70-99) Calcium Level 8.0 mg/dL (8.5-10.1) Test 04/25/21 16:00 04/25/21 16:42 04/25/21 18:38 04/25/21 19:20 Sodium Level 135 mmol/L (136-145) 137 mmol/L (136-145) Potassium Level 4.2 mmol/L (3.5-5.1) 4.0 mmol/L (3.5-5.1) Chloride Level 104 mmol/L (98-107) 102 mmol/L (98-107) Carbon Dioxide Level 17 mmol/L (21-32) 19 mmol/L (21-32) Anion Gap 14 (6-14) 16 (6-14) Blood Urea Nitrogen 18 mg/dL (7-20) 20 mg/dL (7-20) Creatinine 0.8 mg/dL (0.6-1.0) 1.0 mg/dL (0.6-1.0) Estimated GFR (Cockcroft-Gault) 87.7 67.8 Glucose Level 253 mg/dL (70-99) 303 mg/dL (70-99) Calcium Level 7.7 mg/dL (8.5-10.1) 8.1 mg/dL (8.5-10.1) Glucose (Fingerstick) 270 mg/dL (70-99) 286 mg/dL (70-99) Test 04/26/21 07:48 04/26/21 08:20 Glucose (Fingerstick) 405 mg/dL (70-99) White Blood Count 16.4 x10^3/uL (4.0-11.0) Red Blood Count 4.37 x10^6/uL (3.50-5.40) Hemoglobin 12.2 g/dL (12.0-15.5) Hematocrit 40.1 % (36.0-47.0) Mean Corpuscular Volume 92 fL (79-100) Mean Corpuscular Hemoglobin 28 pg (25-35) Mean Corpuscular Hemoglobin Concent 30 g/dL (31-37) Red Cell Distribution Width 15.5 % (11.5-14.5) Platelet Count 370 x10^3/uL (140-400) Neutrophils (%) (Auto) 93 % (31-73) Lymphocytes (%) (Auto) 4 % (24-48) Monocytes (%) (Auto) 3 % (0-9) Eosinophils (%) (Auto) 0 % (0-3) Basophils (%) (Auto) 0 % (0-3) Neutrophils # (Auto) 15.2 x10^3/uL (1.8-7.7) Lymphocytes # (Auto) 0.6 x10^3/uL (1.0-4.8) Monocytes # (Auto) 0.6 x10^3/uL (0.0-1.1) Eosinophils # (Auto) 0.0 x10^3/uL (0.0-0.7) Basophils # (Auto) 0.0 x10^3/uL (0.0-0.2) Sodium Level 133 mmol/L (136-145) Potassium Level 4.2 mmol/L (3.5-5.1) Chloride Level 102 mmol/L (98-107) Carbon Dioxide Level 12 mmol/L (21-32) Anion Gap 19 (6-14) Blood Urea Nitrogen 23 mg/dL (7-20) Creatinine 1.0 mg/dL (0.6-1.0) Estimated GFR (Cockcroft-Gault) 67.8 Glucose Level 408 mg/dL (70-99) Calcium Level 7.7 mg/dL (8.5-10.1) Magnesium Level 2.2 mg/dL (1.8-2.4) Images Images Arterial duplex reviewed: 1. Doppler findings suggesting stenosis involving the right common femoral and proximal superficial femoral artery, and to a lesser extent, the left common femoral and proximal superficial femoral artery. 2. Nonvisualization of the left peroneal artery. The remainder of the lower extension of the arteries are patent. No arterial occlusion is seen. Wound Type/Assessment: Patient seen per wound care consult re: bilateral lower legs. Patient has stasis ulcer to right lower leg and the left leg is not opened but does have thick skin build up. Both legs are darkened and unable to feel pulses, the right leg is foul smelling with slough and eschar in the larger open area, with tendon and muscle exposed. The right lower leg is cleansed, assessed, and measured. The intergluteal cleft has some maceration from moisture. The area cleansed but it is not open, but reddened, excoriated, and macerated. Assessment/Plan Assessment/Plan Covid pneumonia DKA Chronic venous stasis ulcer, right leg Mild peripheral arterial disease Based on wound care assessment from yesterday patient has a large open ulcer to her right lower leg with muscle and tendon exposed. This was not examined today as the patient was acutely hypoxic maxed on nonrebreather, satting at 89%. I reviewed her arterial duplex which shows mild disease, we will examine her again when her respiratory status is more stable or with wound care team tomorrow. She would likely benefit from angio at some point, however, needless to say, her wounds have been present for over a year, she is not septic, there is no urgency regarding these during her acute COVID illness at this time and her respiratory status needs to be addressed and more stable prior to recommending any intervention regarding her legs. FAIZA SWANSON Apr 26, 2021 11:12
[2021-04-26] MEDS: INSULIN GLARGINE SYRINGE. SQ SCH ×2 (13:21→20:57)
--- NOTE | 2021-04-26 13:52 | PDOC ---
[employer] PROGRESS NOTE Date of Service DOS: DATE: 04/26/21 TIME: 13:48 Chief Complaint Chief Complaint Streptococcus pneumoniae bacteremia Acute hypoxic respiratory failure secondary to COVID-19 infection DKA Hypertensive urgency - improved Hyperglycemia uncontrolled KYLE due to vasomotor nephropathyimproved Pending infectious disease evaluation Pending repeat blood cultures Continue IV ceftriaxone Pulmonology consult Continue IV thiamine and vitamin C IV Solu-Medrol every 8 hours IV Remdesivir if patient requires O2 supplementation beyond there baseline Pending ferritin, LDH, CRP, D-dimer labs Titrate O2 supplementation to maintain O2 saturation greater than 92% Empiric IV antibiotics if patient has clinical presentation for bacterial pneumonia Positive for ketones Pending plasma osmolarity Continue serial inspections and examination for sources that caused ketoacidotic state Continue IV insulin starting at 0.1 units per kg When glucose is less than 200, AG is closed, patient able to eat, and HCO3 greater than 15, then transition with subcu insulin 0.1 units/kg every 2 hours for at least 2 hours Continue IV fluids of 1 to 1.5 L/h until a total of 5 L is replenished Switch to one half NS at half the rate if NA is normal or elevated As needed D50 W or add D5 to IV fluids if Accu-Cheks are less than 200 Maintain potassium between 3.5-5, if potassium falls below 3.3, stop insulin and add 40 mEq/h of potassium Maintained p.o. 3 greater than 1.0 If arterial pH is below 6.9, give 100 mEq of sodium bicarb +20 mEq of potassium Every 2-4 hours BMP and a be checked until stable Every hour Accu-Cheks while on insulin Lovenox for DVT prophylaxis Protonix while on steroids GI prophylaxis ADA diet Full code Discussed with RN and SW Disposition inpatient management as above Surrogate decision maker is the son History of Present Illness History of Present Illness 04/26/2021 No acute events overnight. Patient seen and examined bedside. Afebrile and vital signs stable. Glucose elevated at 300s to 400s. Started on long-acting glargine 10 units twice daily 04/25 Eval examined at bedside. Increased O2 requirement. Still requiring insulin drip. With worsening O2 transfer to ICU today. 35min CC time Vitals/I&O Vitals/I&O: Vital Signs Date Time Temp Pulse Resp B/P (MAP) Pulse Ox O2 Delivery O2 Flow Rate FiO2 04/26/21 11:00 97.8 109 19 131/61 (84) 93 NonRebreather Mask 10.0 97.8 I & O 04/25/21 04/25/21 04/26/21 15:00 23:00 07:00 Intake Total 180 ml 1300 ml 1000 ml Output Total 1550 ml 700 ml 800 ml Balance -1370 ml 600 ml 200 ml Physical Exam General: Alert, Oriented X3, Cooperative, mild distress Heart: Regular rate Lungs: Other (decreased air entry throughout) Abdomen: Soft Extremities: Other (Minimal peripheral edema, palpable DP pulse on the left foot. Cannot appreciate pedal pulses on the right foot.) Skin: Other (She has a clean dressing to her right lower leg, this was not removed as the patient was acutely hypoxic and not necessary to risk exacerbating her breathing. The wound care note was reviewed as below, wound assessment is not urgent, with plans to change dressing again tomorrow. Her left lower leg has diffuse nodules with darkened and dry skin circumferentially and is minimally hypertrophic diffusely. No open ulcers to the left leg or foot.) Labs Labs: Laboratory Tests Test 04/25/21 16:00 04/25/21 16:42 04/25/21 18:38 04/25/21 19:20 Sodium Level 135 mmol/L (136-145) 137 mmol/L (136-145) Potassium Level 4.2 mmol/L (3.5-5.1) 4.0 mmol/L (3.5-5.1) Chloride Level 104 mmol/L (98-107) 102 mmol/L (98-107) Carbon Dioxide Level 17 mmol/L (21-32) 19 mmol/L (21-32) Anion Gap 14 (6-14) 16 (6-14) Blood Urea Nitrogen 18 mg/dL (7-20) 20 mg/dL (7-20) Creatinine 0.8 mg/dL (0.6-1.0) 1.0 mg/dL (0.6-1.0) Estimated GFR (Cockcroft-Gault) 87.7 67.8 Glucose Level 253 mg/dL (70-99) 303 mg/dL (70-99) Calcium Level 7.7 mg/dL (8.5-10.1) 8.1 mg/dL (8.5-10.1) Glucose (Fingerstick) 270 mg/dL (70-99) 286 mg/dL (70-99) Test 04/26/21 07:48 04/26/21 08:20 04/26/21 11:47 Glucose (Fingerstick) 405 mg/dL (70-99) 308 mg/dL (70-99) White Blood Count 16.4 x10^3/uL (4.0-11.0) Red Blood Count 4.37 x10^6/uL (3.50-5.40) Hemoglobin 12.2 g/dL (12.0-15.5) Hematocrit 40.1 % (36.0-47.0) Mean Corpuscular Volume 92 fL (79-100) Mean Corpuscular Hemoglobin 28 pg (25-35) Mean Corpuscular Hemoglobin Concent 30 g/dL (31-37) Red Cell Distribution Width 15.5 % (11.5-14.5) Platelet Count 370 x10^3/uL (140-400) Neutrophils (%) (Auto) 93 % (31-73) Lymphocytes (%) (Auto) 4 % (24-48) Monocytes (%) (Auto) 3 % (0-9) Eosinophils (%) (Auto) 0 % (0-3) Basophils (%) (Auto) 0 % (0-3) Neutrophils # (Auto) 15.2 x10^3/uL (1.8-7.7) Lymphocytes # (Auto) 0.6 x10^3/uL (1.0-4.8) Monocytes # (Auto) 0.6 x10^3/uL (0.0-1.1) Eosinophils # (Auto) 0.0 x10^3/uL (0.0-0.7) Basophils # (Auto) 0.0 x10^3/uL (0.0-0.2) Segmented Neutrophils % 82 % (35-66) Band Neutrophils % 11 % (0-9) Lymphocytes % 2 % (24-48) Monocytes % 5 % (0-10) Platelet Estimate Adequate (ADEQUATE) Anisocytosis Present Sodium Level 133 mmol/L (136-145) Potassium Level 4.2 mmol/L (3.5-5.1) Chloride Level 102 mmol/L (98-107) Carbon Dioxide Level 12 mmol/L (21-32) Anion Gap 19 (6-14) Blood Urea Nitrogen 23 mg/dL (7-20) Creatinine 1.0 mg/dL (0.6-1.0) Estimated GFR (Cockcroft-Gault) 67.8 Glucose Level 408 mg/dL (70-99) Calcium Level 7.7 mg/dL (8.5-10.1) Magnesium Level 2.2 mg/dL (1.8-2.4) Procalcitonin 0.22 ng/mL (0.00-0.10) Assessment and Plan Assessmemt and Plan Problems Medical Problems: (1) Community acquired pneumonia Status: Acute (2) COVID-19 virus infection Status: Acute (3) DKA (diabetic ketoacidosis) Status: Acute (4) Hypoxia Status: Acute Comment Review of Relevant I have reviewed the following items rafael (where applicable) has been applied. Medications: Current Medications Medications (Trade) Dose Ordered Sig/Sadie Route PRN Reason Start Time Stop Time Status Last Admin Dose Admin Remdesivir 100 mg/ Sodium Chloride 230 ml @ 460 mls/hr Q24H IV 04/25/21 20:00 04/28/21 20:29 04/25/21 20:32 Insulin Glargine (Lantus Syringe) 20 unit 1X ONCE SQ 04/25/21 14:00 04/25/21 14:01 DC 04/25/21 13:29 Ceftriaxone Sodium (Rocephin) 2 gm Q24H IVP 04/25/21 15:00 04/25/21 14:16 Lactic Acid (Lac-Hydrin) 1 arleen BID TP 04/25/21 21:00 04/26/21 11:03 Nystatin (Nystop) 1 arleen BID TP 04/25/21 21:00 04/26/21 11:03 Insulin Human Lispro (HumaLOG) 8 units 1X ONCE SQ 04/26/21 08:45 04/26/21 08:46 DC 04/26/21 08:40 Insulin Glargine (Lantus Syringe) 10 unit BID SQ 04/26/21 13:00 04/26/21 13:21 Justifications for Admission Other Justification COVID-19 positive test (U07.1, COVID-19) with Acute Pneumonia (J12.89, Other viral pneumonia) (If respiratory failure or sepsis present, add as separate assessment) MARLENI JOHNSON MD Apr 26, 2021 13:52
[2021-04-26 15:00] VITALS: BP 165/79
[2021-04-26] MEDS: cefTRIAXone IV Push 2 GM VIAL. IVP SCH (15:00)
[2021-04-26 19:00] VITALS: BP 184/84
[2021-04-26] MEDS: LABETALOL 20 MG/4 ML DISP.SYRIN. IVP PRN (20:55)
[2021-04-26] MEDS: REMDESIVIR 100mg in NORMAL SALINE 250ML X 4 DAYS IV SCH (20:56)
[2021-04-26] MEDS: LACTOBACILLUS RHAMNOSUS GG 1 CAPSULE. PO SCH (20:56)
[2021-04-26 23:00] VITALS: BP 149/71
--- NOTE | 2021-04-26 23:55 | NUR ---
Called into pt. room. Pt very anxious stating she couldn't breathe. Ativan given. NC O2 increased to 15L. Sats upper 70's-low 80's. Pt. given time to calm down with breathing exercises.
--- NOTE | 2021-04-27 00:30 | NUR ---
Sats remain low. Rt paged. AGB to be collected.
[2021-04-27 00:43] LABS: BASE EXCESS ABG -11 mmol/L (-3-3); HCO3 ABG 15 mmol/L (21-28); PCO2 ABG 33 mmHg (35-46); SAT O2 ABG 79 % (92-99)
--- NOTE | 2021-04-27 00:52 | NUR ---
Dr Ortiz paged for orders to move to higher level of care. pO2 critical at 45.9. Sats remain low on monitor never going above 85%. Nursing transit operations supervisor notified of bed need.
[2021-04-27 01:08] LABS: PO2 ABG 46 mmHg (65-108)
[2021-04-27 01:10] LABS: FIO2 ABG 100 (15LNC +NRB)
--- NOTE | 2021-04-27 01:30 | NUR ---
Dr. Ortiz notified of need to transfer and critical abg. Pt. moved to room 650 via bed with all belongings. RT waiting in room to place pt. on vapotherm. Jake RN given report. All questions answered.
[2021-04-27] MEDS: STERILE WATER for RESP 1,000 ML BAG. INH PRN (01:40)
[2021-04-27 01:50] VITALS: BP 190/89
[2021-04-27 02:19] LABS: BASO # 0.2 x10^3/uL (0.0-0.2); BASO % 1 % (0-3); EOS % 0 % (0-3); HEMATOCRIT 39.8 % (36.0-47.0); HEMOGLOBIN 12.6 g/dL (12.0-15.5); LYMPH # 0.6 x10^3/uL (1.0-4.8); LYMPH % 3 % (24-48); MEAN CORPUSCULAR HEMOGLOBIN 28 pg (25-35); MEAN CORPUSCULAR HGB CONC 32 g/dL (31-37); MEAN CORPUSCULAR VOLUME 89 fL (79-100); MONO # 0.9 x10^3/uL (0.0-1.1); MONO % 4 % (0-9); NEUT # 20.4 x10^3/uL (1.8-7.7); NEUT % 92 % (31-73); PLATELET COUNT 358 x10^3/uL (140-400); RED BLOOD COUNT 4.48 x10^6/uL (3.50-5.40); RED CELL DISTRIBUTION WIDTH 15.1 % (11.5-14.5)
[2021-04-27 02:27] LABS: CALCIUM 7.9 mg/dL (8.5-10.1); GFR 67.8; MAGNESIUM 2.3 mg/dL (1.8-2.4); POTASSIUM 3.9 mmol/L (3.5-5.1)
[2021-04-27 03:45] VITALS: BP 130/67
[2021-04-27] MEDS: methylPREDNISolone SOD SUCC PF 40 MG/ML VIAL. IV SCH ×3 (06:15→22:00)
[2021-04-27] MEDS: IV NORMAL SALINE 1000ML BAG 1,000 ML IV SCH ×2 (06:16→11:37)
[2021-04-27 07:00] VITALS: BP 199/108
[2021-04-27] MEDS: PANTOPRAZOLE 40 MG TABLET.DR. PO SCH (07:30)
[2021-04-27] MEDS: hydrALAZINE 20 MG/ML VIAL. IVP PRN (08:01)
[2021-04-27] MEDS: LISINOPRIL 10 MG TABLET PO SCH (09:00)
[2021-04-27] MEDS: LACTOBACILLUS RHAMNOSUS GG 1 CAPSULE. PO SCH ×2 (09:00→21:00)
[2021-04-27] MEDS: ASCORBIC ACID 1,000 MG TABLET PO SCH ×3 (09:00→21:00)
[2021-04-27] MEDS: THIAMINE 100 MG TABLET. PO SCH (09:00)
[2021-04-27] MEDS: ZINC SULFATE 220 MG CAPSULE. PO SCH (09:00)
--- NOTE | 2021-04-27 09:43 | PDOC ---
[facility] [facility] PROGRESS NOTE Date of Service DOS: DATE: 04/27/21 TIME: 09:38 Chief Complaint Chief Complaint Streptococcus pneumoniae bacteremia Acute hypoxic respiratory failure secondary to COVID-19 infection DKA Hypertensive urgency - improved Hyperglycemia uncontrolled KYLE due to vasomotor nephropathyimproved Pending infectious disease evaluation Pending repeat blood cultures Continue IV ceftriaxone Pulmonology consult Continue IV thiamine and vitamin C IV Solu-Medrol every 8 hours IV Remdesivir if patient requires O2 supplementation beyond there baseline Pending ferritin, LDH, CRP, D-dimer labs Titrate O2 supplementation to maintain O2 saturation greater than 92% Empiric IV antibiotics if patient has clinical presentation for bacterial pneumonia Positive for ketones Pending plasma osmolarity Continue serial inspections and examination for sources that caused ketoacidotic state Continue IV insulin starting at 0.1 units per kg When glucose is less than 200, AG is closed, patient able to eat, and HCO3 greater than 15, then transition with subcu insulin 0.1 units/kg every 2 hours for at least 2 hours Continue IV fluids of 1 to 1.5 L/h until a total of 5 L is replenished Switch to one half NS at half the rate if NA is normal or elevated As needed D50 W or add D5 to IV fluids if Accu-Cheks are less than 200 Maintain potassium between 3.5-5, if potassium falls below 3.3, stop insulin and add 40 mEq/h of potassium Maintained p.o. 3 greater than 1.0 If arterial pH is below 6.9, give 100 mEq of sodium bicarb +20 mEq of potassium Every 2-4 hours BMP and a be checked until stable Every hour Accu-Cheks while on insulin Lovenox for DVT prophylaxis Protonix while on steroids GI prophylaxis ADA diet Full code Discussed with RN and SW Disposition inpatient management as above Surrogate decision maker is the son History of Present Illness History of Present Illness 04/27 Patient evaluated examined at bedside. She had a rapid response overnight requiring transfer to the 6 floor. When I saw her she was on BiPAP 21/11 this morning. She was quite lethargic. Sugars still elevated will adjust insulin. ID consulted for antibiotic recommendations. Continue COVID treatment. Check chest x-ray. Wean oxygen as tolerated. Consult to pulmonary as well today. 04/26/2021 No acute events overnight. Patient seen and examined bedside. Afebrile and vital signs stable. Glucose elevated at 300s to 400s. Started on long-acting glargine 10 units twice daily 04/25 Eval examined at bedside. Increased O2 requirement. Still requiring insulin drip. With worsening O2 transfer to ICU today. 35min CC time Vitals/I&O Vitals/I&O: Vital Signs Date Time Temp Pulse Resp B/P (MAP) Pulse Ox O2 Delivery O2 Flow Rate FiO2 04/27/21 08:01 85 199/108 04/27/21 07:59 99 BiPAP/CPAP 04/27/21 07:00 96.6 29 96.6 04/27/21 01:40 40.0 I & O 04/26/21 04/26/21 04/27/21 15:00 23:00 07:00 Intake Total 340 ml 1610 ml Output Total 775 ml 700 ml 700 ml Balance -435 ml 910 ml -700 ml Physical Exam General: Alert, Oriented X3, Cooperative, mild distress Heart: Regular rate Lungs: Other (decreased air entry throughout) Abdomen: Soft Extremities: Other (Minimal peripheral edema, palpable DP pulse on the left foot. Cannot appreciate pedal pulses on the right foot.) Skin: Other (She has a clean dressing to her right lower leg, this was not removed as the patient was acutely hypoxic and not necessary to risk exacerbating her breathing. The wound care note was reviewed as below, wound assessment is not urgent, with plans to change dressing again tomorrow. Her left lower leg has diffuse nodules with darkened and dry skin circumferentially and is minimally hypertrophic diffusely. No open ulcers to the left leg or foot.) Labs Labs: Laboratory Tests Test 04/26/21 11:47 04/26/21 16:42 04/26/21 19:38 04/27/21 00:30 Glucose (Fingerstick) 308 mg/dL (70-99) 251 mg/dL (70-99) 246 mg/dL (70-99) O2 Saturation 79 % (92-99) Arterial Blood pH 7.27 (7.35-7.45) Arterial Blood pCO2 at Patient Temp 33 mmHg (35-46) Arterial Blood pO2 at Patient Temp 46 mmHg (65-108) Arterial Blood HCO3 15 mmol/L (21-28) Arterial Blood Base Excess -11 mmol/L (-3-3) FiO2 100 (15lnc +nrb) Test 04/27/21 02:07 04/27/21 02:10 04/27/21 07:42 Glucose (Fingerstick) 308 mg/dL (70-99) 293 mg/dL (70-99) White Blood Count 22.0 x10^3/uL (4.0-11.0) Red Blood Count 4.48 x10^6/uL (3.50-5.40) Hemoglobin 12.6 g/dL (12.0-15.5) Hematocrit 39.8 % (36.0-47.0) Mean Corpuscular Volume 89 fL (79-100) Mean Corpuscular Hemoglobin 28 pg (25-35) Mean Corpuscular Hemoglobin Concent 32 g/dL (31-37) Red Cell Distribution Width 15.1 % (11.5-14.5) Platelet Count 358 x10^3/uL (140-400) Neutrophils (%) (Auto) 92 % (31-73) Lymphocytes (%) (Auto) 3 % (24-48) Monocytes (%) (Auto) 4 % (0-9) Eosinophils (%) (Auto) 0 % (0-3) Basophils (%) (Auto) 1 % (0-3) Neutrophils # (Auto) 20.4 x10^3/uL (1.8-7.7) Lymphocytes # (Auto) 0.6 x10^3/uL (1.0-4.8) Monocytes # (Auto) 0.9 x10^3/uL (0.0-1.1) Eosinophils # (Auto) 0.0 x10^3/uL (0.0-0.7) Basophils # (Auto) 0.2 x10^3/uL (0.0-0.2) Sodium Level 137 mmol/L (136-145) Potassium Level 3.9 mmol/L (3.5-5.1) Chloride Level 106 mmol/L (98-107) Carbon Dioxide Level 18 mmol/L (21-32) Anion Gap 13 (6-14) Blood Urea Nitrogen 23 mg/dL (7-20) Creatinine 1.0 mg/dL (0.6-1.0) Estimated GFR (Cockcroft-Gault) 67.8 Glucose Level 362 mg/dL (70-99) Calcium Level 7.9 mg/dL (8.5-10.1) Magnesium Level 2.3 mg/dL (1.8-2.4) Assessment and Plan Assessmemt and Plan Problems Medical Problems: (1) Community acquired pneumonia Status: Acute (2) COVID-19 virus infection Status: Acute (3) DKA (diabetic ketoacidosis) Status: Acute (4) Hypoxia Status: Acute Comment Review of Relevant I have reviewed the following items rafael (where applicable) has been applied. Medications: Current Medications Medications (Trade) Dose Ordered Sig/Sadie Route PRN Reason Start Time Stop Time Status Last Admin Dose Admin Lactobacillus Rhamnosus (Culturelle) 1 cap BID PO 04/26/21 21:00 04/26/21 20:56 Insulin Glargine (Lantus Syringe) 10 unit BID SQ 04/26/21 13:00 04/27/21 09:35 DC 04/26/21 20:57 Sterile Water (WATER for RESP) 1,000 ml CONT PRN INH VIA VAPOTHERM DEVICE 04/27/21 01:30 04/27/21 01:40 Justifications for Admission Other Justification COVID-19 positive test (U07.1, COVID-19) with Acute Pneumonia (J12.89, Other viral pneumonia) (If respiratory failure or sepsis present, add as separate assessment) CARRIE RODGERS MD Apr 27, 2021 09:43
[2021-04-27] MEDS: ENOXAPARIN 40 MG/0.4 ML SYRINGE. SQ SCH (10:10)
--- NOTE | 2021-04-27 10:10 | RAD ---
EXAM: Chest, single view. HISTORY: Shortness of breath. COMPARISON: 04/24/2021 FINDINGS: A frontal view of the chest is obtained. There has been interval increase in diffuse inters titial and alveolar infiltrate. No pleural effusion or pneumothorax is seen. There is a stable cardia c silhouette. IMPRESSION: Increase in diffuse interstitial and alveolar infiltrate. Electronically signed by: Shawnee Landa MD (04/27/2021 10:07 AM) [id number]
[2021-04-27] MEDS: INSULIN LISPRO 300 UNITS/3 ML VIAL. SQ SCH ×5 (10:11→18:00)
[2021-04-27] MEDS: LABETALOL 20 MG/4 ML DISP.SYRIN. IVP PRN ×3 (10:16→16:02)
[2021-04-27 10:35] VITALS: BP 225/101
[2021-04-27] MEDS ORDERED: VANCOMYCIN 1 GM in IV NORMAL SALINE 250ML 250 ML IV SCH (10:45)
--- NOTE | 2021-04-27 11:28 | CONS ---
DATE OF CONSULTATION: 04/27/2021 REFERRING PHYSICIAN: Ok Green MD; Dr. Cedeno. REASON FOR CONSULTATION: Streptococcus pneumoniae bacteremia, antibiotic management. HISTORY OF PRESENT ILLNESS: A 65-year-old female who presented to the ER with complaints of worsening shortness of breath, cough, chills. The patient had COVID-19 virus diagnosed 04/18/2021. The patient is not a good historian. Currently, she is on BiPAP since early this morning. History obtained from chart and medical staff. She had rapid response overnight and requiring transfer from the other floor to the 6th floor. Her white count was normal on admission, creatinine was 1.1. Blood cultures done on 04/24 is positive for Streptococcus pneumoniae. The patient also has a chronic venous stasis, nonhealing right leg ulcer for which she was evaluated by vascular surgery. Swab cultures done. The patient will need I and D when stable from COVID standpoint. She also was found to have DKA, requiring IV insulin drip. The patient remains afebrile. PAST MEDICAL HISTORY: Hypertension, right leg tumor removal, chronic venous stasis. ALLERGIES: CHOCOLATE FLAVOR P[place]APPLE. FAMILY HISTORY: As per HPI. SOCIAL HISTORY: Denies smoking, ETOH, or illicit drug use. CURRENT MEDICATIONS: On ceftriaxone, azithromycin and dexamethasone, also on remdesivir, insulin, methylprednisolone. REVIEW OF SYSTEMS: Limited, but negative for fevers, chills, nausea, vomiting, diarrhea, abdominal pain, continues to have shortness of breath, some cough. No headache. PHYSICAL EXAMINATION: VITAL SIGNS: Temperature 96.5, pulse 94, respiration 22, blood pressure 225/101, oxygen saturation 100% on BiPAP. GENERAL: Alert, awake female on BiPAP, nontoxic appearing, in no acute distress, cooperative, calm. HEENT: Normocephalic, atraumatic. Anicteric. Oral mucosa moist. NECK: Supple. LUNGS: Decreased breath sounds. No accessory muscle use. HEART: S1, S2. No murmurs. ABDOMEN: Soft, nontender, nondistended. GENITOURINARY: Briefs in place. EXTREMITIES: Hyperpigmentation in both lower extremities with scarring. Right lower extremity has a large dressing in place, not taken down. Wound pictures and wound care note reviewed. The patient has a chronic lateral venous stasis ulcer with some necrosis. Thick skin buildup. Please refer to wound care team notes for full details. Left lower leg has a hypertrophic skin present diffusely in both lower extremities. LOOP TACKER: Alert, awake, moves all 4 extremities. PSYCHIATRIC: Calm and cooperative. LABORATORY DATA: WBC is 22.0, hemoglobin 12.6, hematocrit 39.8, platelets 358. Sodium 137, potassium 3.9, chloride 106, bicarb 18, BUN 23, creatinine 1.0, glucose 362, calcium 7.9. Lactate was 2.0 on admission. C-reactive protein of 206.9. IMAGING: Chest x-ray reviewed. Chest CTA reviewed. Lower extremity arterial ultrasound shows stenosis involving the right common femoral and proximal superficial femoral artery and to a lesser extent the left common femoral and popliteal and superficial femoral artery. Nonvisualization of the left peroneal artery. No arterial occlusion noted otherwise. Chest x-ray from this morning increase in diffuse interstitial and alveolar infiltrates. MICRO: Blood culture 04/24, both sets positive for strep pneumo. DIVYA pending at this time. Right lower extremity leg wound, swab culture positive for gram-negative ana, gram-positive cocci, gram-positive ana. IMPRESSION: 1. Streptococcus pneumoniae bacteremia. 2. COVID-19 infection with acute hypoxic respiratory failure.On remdesivir and steroids 3. Diabetic ketoacidosis. 4. Hypertensive urgency. 5. Acute kidney injury, improved. 6. Peripheral arterial disease. 7. Chronic right lower extremity venous stasis ulcer with some necrosis. 8. Diabetic ketoacidosis. RECOMMENDATIONS: 1. Change Ceftriaxone to Cefepime and Daptomycin for now pending wound cultures. 2. Repeat blood cultures in am. Would like to avoid vanc due to KYLE. 3. Continue local wound care as directed. Vascular input noted. 4. Wound team following.Wound care as directed. 5. COVID 19 management per Primary 6. Monitor labs and cultures. 7. Continue supportive care. 8. Critically ill. Discussed with RN. Thank you for allowing me to participate in this patient's care. If you have any questions, do not hesitate to contact me. EUNICE XIAO: Ghada TID: [id number] [facility]
--- NOTE | 2021-04-27 11:39 | PDOC4 ---
OPERATIVE NOTE Date: Date: Apr 27, 2021 Pre-Op Diagnosis: 1. Right lower extremity wound, likely venous stasis ulceration 2. COVID pneumonia with acute respiratory illness on BIPAP 3. Peripheral arterial disease Post-Op Diagnosis: Same Procedure Performed: 1. Sharp excisional debridement of right anterior leg ulceration 2 x 6 cm, debridement of skin, subcutaneous tissue and fascia. Surgeon: Amanda Clay MD Anesthesia Type: None, patient insensate in wound bed Blood Loss: Minimal Specimans Obtained: None Findings: There was purulence encountered on exploration of the wound as there is undermining of the wound laterally and cephalad where there was trapped purulent fluid. The purulence was evacuated and the nonviable subcutaneous tissue and fascia was excised from center of the wound bed sharply with scissors. Additionally nonviable skin at the wound edges on the cephalad and lateral portion were excised. Final wound measurement was approximately 6 x 8 cm with no residual purulence and mostly viable appearing wound bed with exposed fascia overlying the flexor muscles of the right leg Complications: None Operative Note: After obtaining verbal consent, the right leg wound was explored at the bedside. The patient was insensate therefore the decision was made to perform bedside debridement given her acute respiratory illness preventing administration of anesthetic medications. Using a pair of iris scissors I sharply debrided nonviable subcutaneous tissue and fascia from the center of the wound down to viable appearing fascia overlying the flexor muscle compartment of the right leg. Given that there is undermining lateral and cephalad I then excised sharply the skin edges lateral and cephalad for a distance of approximately 2 cm to allow for easier wound care and to resect nonviable skin in this area. Once this was completed, the wound was then irrigated and there is no residual purulence after debridement. The wound was then packed with saline moistened 4 x 4 gauze there was minimal bleeding from the lateral wound edge addressed with packing. The patient tolerated procedure well without any discomfort throughout the procedure. Final wound measurements were approximately 6 x 8 cm on the right anterior leg. Again after debridement the wound bed appeared mostly viable with healthy appearing fascia in the wound bed. AMANDA CLAY MD Apr 27, 2021 11:39
--- NOTE | 2021-04-27 13:19 | PDOC ---
PULMONARY PROGRESS NOTES DATE: 04/27/21 TIME: 13:18 Vitals Vital Signs Date Time Temp Pulse Resp B/P (MAP) Pulse Ox O2 Delivery O2 Flow Rate FiO2 04/27/21 12:49 90 211/100 04/27/21 12:20 98 BiPAP/CPAP 04/27/21 10:35 96.5 22 96.5 04/27/21 01:40 40.0 Lungs: Other (decreased air entry throughout) Labs Laboratory Tests Test 04/25/21 16:00 04/25/21 16:42 04/25/21 18:38 04/25/21 19:20 Sodium Level 135 mmol/L (136-145) 137 mmol/L (136-145) Potassium Level 4.2 mmol/L (3.5-5.1) 4.0 mmol/L (3.5-5.1) Chloride Level 104 mmol/L (98-107) 102 mmol/L (98-107) Carbon Dioxide Level 17 mmol/L (21-32) 19 mmol/L (21-32) Anion Gap 14 (6-14) 16 (6-14) Blood Urea Nitrogen 18 mg/dL (7-20) 20 mg/dL (7-20) Creatinine 0.8 mg/dL (0.6-1.0) 1.0 mg/dL (0.6-1.0) Estimated GFR (Cockcroft-Gault) 87.7 67.8 Glucose Level 253 mg/dL (70-99) 303 mg/dL (70-99) Calcium Level 7.7 mg/dL (8.5-10.1) 8.1 mg/dL (8.5-10.1) Glucose (Fingerstick) 270 mg/dL (70-99) 286 mg/dL (70-99) Test 04/26/21 07:48 04/26/21 08:20 04/26/21 11:47 04/26/21 16:42 Glucose (Fingerstick) 405 mg/dL (70-99) 308 mg/dL (70-99) 251 mg/dL (70-99) White Blood Count 16.4 x10^3/uL (4.0-11.0) Red Blood Count 4.37 x10^6/uL (3.50-5.40) Hemoglobin 12.2 g/dL (12.0-15.5) Hematocrit 40.1 % (36.0-47.0) Mean Corpuscular Volume 92 fL (79-100) Mean Corpuscular Hemoglobin 28 pg (25-35) Mean Corpuscular Hemoglobin Concent 30 g/dL (31-37) Red Cell Distribution Width 15.5 % (11.5-14.5) Platelet Count 370 x10^3/uL (140-400) Neutrophils (%) (Auto) 93 % (31-73) Lymphocytes (%) (Auto) 4 % (24-48) Monocytes (%) (Auto) 3 % (0-9) Eosinophils (%) (Auto) 0 % (0-3) Basophils (%) (Auto) 0 % (0-3) Neutrophils # (Auto) 15.2 x10^3/uL (1.8-7.7) Lymphocytes # (Auto) 0.6 x10^3/uL (1.0-4.8) Monocytes # (Auto) 0.6 x10^3/uL (0.0-1.1) Eosinophils # (Auto) 0.0 x10^3/uL (0.0-0.7) Basophils # (Auto) 0.0 x10^3/uL (0.0-0.2) Segmented Neutrophils % 82 % (35-66) Band Neutrophils % 11 % (0-9) Lymphocytes % 2 % (24-48) Monocytes % 5 % (0-10) Platelet Estimate Adequate (ADEQUATE) Anisocytosis Present Sodium Level 133 mmol/L (136-145) Potassium Level 4.2 mmol/L (3.5-5.1) Chloride Level 102 mmol/L (98-107) Carbon Dioxide Level 12 mmol/L (21-32) Anion Gap 19 (6-14) Blood Urea Nitrogen 23 mg/dL (7-20) Creatinine 1.0 mg/dL (0.6-1.0) Estimated GFR (Cockcroft-Gault) 67.8 Glucose Level 408 mg/dL (70-99) Calcium Level 7.7 mg/dL (8.5-10.1) Magnesium Level 2.2 mg/dL (1.8-2.4) Procalcitonin 0.22 ng/mL (0.00-0.10) Test 04/26/21 19:38 04/27/21 00:30 04/27/21 02:07 04/27/21 02:10 Glucose (Fingerstick) 246 mg/dL (70-99) 308 mg/dL (70-99) O2 Saturation 79 % (92-99) Arterial Blood pH 7.27 (7.35-7.45) Arterial Blood pCO2 at Patient Temp 33 mmHg (35-46) Arterial Blood pO2 at Patient Temp 46 mmHg (65-108) Arterial Blood HCO3 15 mmol/L (21-28) Arterial Blood Base Excess -11 mmol/L (-3-3) FiO2 100 (15lnc +nrb) White Blood Count 22.0 x10^3/uL (4.0-11.0) Red Blood Count 4.48 x10^6/uL (3.50-5.40) Hemoglobin 12.6 g/dL (12.0-15.5) Hematocrit 39.8 % (36.0-47.0) Mean Corpuscular Volume 89 fL (79-100) Mean Corpuscular Hemoglobin 28 pg (25-35) Mean Corpuscular Hemoglobin Concent 32 g/dL (31-37) Red Cell Distribution Width 15.1 % (11.5-14.5) Platelet Count 358 x10^3/uL (140-400) Neutrophils (%) (Auto) 92 % (31-73) Lymphocytes (%) (Auto) 3 % (24-48) Monocytes (%) (Auto) 4 % (0-9) Eosinophils (%) (Auto) 0 % (0-3) Basophils (%) (Auto) 1 % (0-3) Neutrophils # (Auto) 20.4 x10^3/uL (1.8-7.7) Lymphocytes # (Auto) 0.6 x10^3/uL (1.0-4.8) Monocytes # (Auto) 0.9 x10^3/uL (0.0-1.1) Eosinophils # (Auto) 0.0 x10^3/uL (0.0-0.7) Basophils # (Auto) 0.2 x10^3/uL (0.0-0.2) Sodium Level 137 mmol/L (136-145) Potassium Level 3.9 mmol/L (3.5-5.1) Chloride Level 106 mmol/L (98-107) Carbon Dioxide Level 18 mmol/L (21-32) Anion Gap 13 (6-14) Blood Urea Nitrogen 23 mg/dL (7-20) Creatinine 1.0 mg/dL (0.6-1.0) Estimated GFR (Cockcroft-Gault) 67.8 Glucose Level 362 mg/dL (70-99) Calcium Level 7.9 mg/dL (8.5-10.1) Magnesium Level 2.3 mg/dL (1.8-2.4) Test 04/27/21 07:42 04/27/21 11:12 Glucose (Fingerstick) 293 mg/dL (70-99) 287 mg/dL (70-99) Laboratory Tests Test 04/26/21 16:42 04/26/21 19:38 04/27/21 00:30 04/27/21 02:07 Glucose (Fingerstick) 251 mg/dL (70-99) 246 mg/dL (70-99) 308 mg/dL (70-99) O2 Saturation 79 % (92-99) Arterial Blood pH 7.27 (7.35-7.45) Arterial Blood pCO2 at Patient Temp 33 mmHg (35-46) Arterial Blood pO2 at Patient Temp 46 mmHg (65-108) Arterial Blood HCO3 15 mmol/L (21-28) Arterial Blood Base Excess -11 mmol/L (-3-3) FiO2 100 (15lnc +nrb) Test 04/27/21 02:10 04/27/21 07:42 04/27/21 11:12 White Blood Count 22.0 x10^3/uL (4.0-11.0) Red Blood Count 4.48 x10^6/uL (3.50-5.40) Hemoglobin 12.6 g/dL (12.0-15.5) Hematocrit 39.8 % (36.0-47.0) Mean Corpuscular Volume 89 fL (79-100) Mean Corpuscular Hemoglobin 28 pg (25-35) Mean Corpuscular Hemoglobin Concent 32 g/dL (31-37) Red Cell Distribution Width 15.1 % (11.5-14.5) Platelet Count 358 x10^3/uL (140-400) Neutrophils (%) (Auto) 92 % (31-73) Lymphocytes (%) (Auto) 3 % (24-48) Monocytes (%) (Auto) 4 % (0-9) Eosinophils (%) (Auto) 0 % (0-3) Basophils (%) (Auto) 1 % (0-3) Neutrophils # (Auto) 20.4 x10^3/uL (1.8-7.7) Lymphocytes # (Auto) 0.6 x10^3/uL (1.0-4.8) Monocytes # (Auto) 0.9 x10^3/uL (0.0-1.1) Eosinophils # (Auto) 0.0 x10^3/uL (0.0-0.7) Basophils # (Auto) 0.2 x10^3/uL (0.0-0.2) Sodium Level 137 mmol/L (136-145) Potassium Level 3.9 mmol/L (3.5-5.1) Chloride Level 106 mmol/L (98-107) Carbon Dioxide Level 18 mmol/L (21-32) Anion Gap 13 (6-14) Blood Urea Nitrogen 23 mg/dL (7-20) Creatinine 1.0 mg/dL (0.6-1.0) Estimated GFR (Cockcroft-Gault) 67.8 Glucose Level 362 mg/dL (70-99) Calcium Level 7.9 mg/dL (8.5-10.1) Magnesium Level 2.3 mg/dL (1.8-2.4) Glucose (Fingerstick) 293 mg/dL (70-99) 287 mg/dL (70-99) Medications Active Scripts Medications Dose Route/Sig Max Daily Dose Days Date Category Lisinopril 10 Mg Tablet 1 Tab PO DAILY 04/19/21 Rx Metformin Hcl 500 Mg Tablet 500 Mg PO BIDWMEALS 04/19/21 Rx Impression . Full consult dictated Continue current support If deteriorates will transfer to the intensive care unit LEE KILLIAN MD Apr 27, 2021 13:19
--- NOTE | 2021-04-27 13:24 | NUR ---
SS following up with discharge planning. SS reviewed pt chart and discussed with pt RN. Pt is currently on BIPAP at 100%. COVID19 positive. Pt on IV Remdesivir, IV Cefepime, and IV Solu-Medrol. Not stable. Self pay. Med Assist following. SS will continue to follow for discharge planning.
--- NOTE | 2021-04-27 13:49 | RAD ---
EXAM: Right tibia and fibula, 2 views. HISTORY: Hardware removal. COMPARISON: None. FINDINGS: 2 views of the right tibia and fibula are obtained. There is a soft tissue defect within th e lateral mid to distal devlin. No retained foreign body is seen. There is a corticated ossicle inferio r to the medial malleolus, likely due to chronic nonunited avulsion fracture fragment. There is media l compartment osteoarthritis of the knee, not formally assessed on this exam. There is enthesopathy a long the patella. IMPRESSION: Soft tissue defect involving the lateral mid to distal devlin. No foreign body is seen. Electronically signed by: Shawnee Landa MD (04/27/2021 1:47 PM) [id number]
[2021-04-27 15:00] VITALS: BP 199/95
[2021-04-27] MEDS: NYSTATIN TOPICAL POWDER 15GM BOTTLE. TP SCH ×2 (15:14→21:00)
[2021-04-27] MEDS: AMMONIUM LACTATE 12% TOPICAL LOTION 225GM BOTTLE. TP SCH ×2 (15:14→21:00)
[2021-04-27] MEDS: DAPTOmycin (GENERIC) IVPB 430 MG in IV NORMAL SALINE 50ML 50 ML IV SCH (17:58)
[2021-04-27 19:15] VITALS: BP 189/82
--- NOTE | 2021-04-27 19:56 | CONS ---
DATE OF CONSULTATION: 04/27/2021 ATTENDING PHYSICIAN: Desmond Cedeno MD. REASON FOR CONSULTATION: The patient is seen in pulmonary consultation at the request of Dr. Green for acute hypoxemic respiratory failure, COVID-19 viral pneumonia, ARDS. HISTORY OF PRESENT ILLNESS: The patient is a 65-year-old that was admitted on the with increasing shortness of breath, cough, mostly nonproductive. Initially, she required some oxygen. Over the last several days, she has had increasing oxygen requirements. Earlier today, a rapid was called. I was asked to see her in consultation. The patient is currently on BiPAP 100% FiO2. Arterial blood gas earlier today revealed a pH of 7.27, PaCO2 of 33, pO2 of 46, bicarbonate of 15. I reviewed the patient's labs. She does have a low serum bicarbonate of 18, BUN was 23, blood sugar is elevated. Acetone level was positive. The patient since admission has also required attention to her ongoing wound in the right lower extremity. She has venous stasis ulceration. She also has a history of peripheral arterial disease. Yesterday, she had a sharp excisional debridement of the right anterior leg. Since admission, she has had positive blood cultures revealing strep pneumoniae. She also had a leg wound culture, which revealed Klebsiella, Enterococcus and beta strep group B. ID has been consulted. She is currently on cefepime and vancomycin. The patient reports no previous use of tobacco or oxygen supplementation. She has a cough, mostly nonproductive. PAST MEDICAL HISTORY: Remarkable for peripheral arterial disease, diabetes, hypertension, acute kidney injury. PAST SURGICAL HISTORY: As above. ALLERGIES: CHOCOLATE FLAVORS AND PINEAPPLE. REVIEW OF SYSTEMS: As indicated above, otherwise other systems were reviewed and negative. CURRENT MEDICATIONS: List was reviewed. PHYSICAL EXAMINATION: GENERAL: The patient was currently on BiPAP. Saturation greater than 90%, FiO2 100%. HEENT: Eyes: The sclerae were nonicteric. NECK: Jugular venous distention could not be assessed secondary to body habitus. CHEST: Full expansion. LUNGS: Adequate flow with no wheezes. CARDIOVASCULAR: Regular rate and rhythm with S1, S2, no S3. ABDOMEN: Soft. EXTREMITIES: No clubbing, cyanosis or edema. Evidence of previous surgical intervention for venous stasis ulcer. She also has changes compatible with peripheral arterial disease. LABORATORY DATA: Reviewed as indicated above. White count was 22,000. Arterial blood gas as indicated above. Her acetone level was positive. D-dimer was positive. She had a CT angiogram revealing no central pulmonary emboli. She had a chest x-ray, extensive bilateral infiltrates. She also had Doppler findings suggestive of right common femoral artery and proximal superficial femoral artery stenosis. IMPRESSION: 1. Acute hypoxemic respiratory failure, multifactorial. 2. COVID-19 viral pneumonia, acute respiratory distress syndrome. 3. Diabetic ketoacidosis. 4. Bacteremia. 5. Leg wound infection with Klebsiella, Enterococcus and beta strep, group B. 6. Sepsis. 7. Hypertensive urgency. 8. Acute kidney injury. PLAN: 1. We will continue current support with BiPAP. 2. Antibiotics per ID. 3. Follow Vascular surgery input. 4. Monitor blood sugars. 5. Insulin. I do appreciate the privilege in sharing in the patient's care. LAUREN DR: Jocelyn TID: [id number]
[2021-04-27] MEDS: INSULIN GLARGINE SYRINGE. SQ SCH (21:00)
--- NOTE | 2021-04-27 22:45 | NUR ---
Pt became asystole and unresponsive, code blue was initiated, 1mg epinephrine administered and code team responded at bedside. Pt was intubated at 2257, 22cm at the lip, color change was positive, second epi administered 1mg at 2302. Blood glucose taken, 325, pt transferred to room 108, spoke with son and nephew over the phone, their wish are for her to remain a full code, will readdress in the am. Contacted Dr. Cedeno, explained situation and transfer. Will continue monitor.
[2021-04-27] MEDS ORDERED: DEXMEDETOMIDINE 400 MCG in IV NORMAL SALINE 100ML 96 ML IV PRN (23:15)
[2021-04-27] MEDS: EPINEPHrine VIAL 5 MG in IV NORMAL SALINE 250ML 250 ML IV PRN (23:15)
[2021-04-27] MEDS ORDERED: IV NORMAL SALINE 500ML BAG 500 ML IV PRN (23:15)
[2021-04-27] MEDS ORDERED: VECURONIUM BOLUS 10 MG VIAL. IV PRN (23:15)
[2021-04-27] MEDS ORDERED: PROPOFOL 100 ML IV PRN (23:15)
[2021-04-27] MEDS ORDERED: ATROPINE 0.5 MG/5 ML DISP.SYRINGE. IV PRN (23:15)
[2021-04-27 23:28] LABS: BASE EXCESS COOX -15 mmol/L (-3-3); HCO3 COOX 18 mmol/L (21-28); METHEMOGLOBIN 1.2 % (0.0-1.9); OXYHEMOGLOBIN 35.9 %
[2021-04-27] MEDS ORDERED: SUCCINYLCHOLINE 200 MG/10 ML VIAL. ONE (23:28)
[2021-04-27] MEDS ORDERED: ETOMIDATE 20 MG/10 ML VIAL. IV ONE (23:28)
[2021-04-27 23:47] LABS: PO2 COOX < 42 mmHg (65-108)
[2021-04-27 23:49] LABS: SAT O2 COOX 36 % (92-99)
[2021-04-27] MEDS: MIDAZOLAM 100mg/100ml NS BAG 100 ML IV PRN (23:53)
[2021-04-27] MEDS ORDERED: EPINEPHrine SYRINGE 1 MG/10 ML SYRINGE. ONE (23:59)
--- NOTE | 2021-04-27 23:59 | PDOC5 ---
CODE REPORT CODE REPORT Called to ABISAI KIRBY on 09 03. Patient had gone unresponsive, pulseless, apneic. CPR was initiated and pulse was regained after 1 round of epinephrine compressions. Patient was given push dose epinephrine until epi drip arrived. Patient was intubated by myself. Patient was intubated in emergent fashion and no consent was obtained. Patient was [] sedated and paralyzed with etomidate and succinylcholine. A glide scope with a size 4 blade was used, cords were visualized and a size 7.5 endotracheal tube was placed during first attempt. Endotracheal tube cuff was inflated and confirmation established by visualization of the cords passing the tubes, bilateral breath sounds, color change, and chest x-ray. Total critical care time: 35 The time involved in the performance of separately reportable/billable procedures was not counted toward critical care time. Due to a high probability of clinically significant, life-threatening deterioration the patient required a high level of care to intervene emergently and I personally spent this critical time directly and personally managing the patient. The critical care time included obtaining a history, examination of the patient, assessment of vital signs, ordering and review of studies, arranging urgent treatment with development of a management plan, evaluation of patient's response to treatment, frequent reassessment, and discussions with other providers and/or family members. BETY GRANADOS MD Apr 27, 2021 23:59
[2021-04-28] VITALS (28 sets, daily range): BP systolic 72–186; BP diastolic 43–91
[2021-04-28 01:15] LABS: BASE EXCESS ABG -10 mmol/L (-3-3); HCO3 ABG 18 mmol/L (21-28); PCO2 ABG 46 mmHg (35-46); PO2 ABG 59 mmHg (65-108); SAT O2 ABG 86 % (92-99)
[2021-04-28] MEDS: EPINEPHrine VIAL 5 MG in IV NORMAL SALINE 250ML 250 ML IV PRN (01:22)
--- NOTE | 2021-04-28 02:10 | RAD ---
XR CHEST 1V, XR ABDOMEN 1V Clinical Indication: Reason: ETT placement, OG placement Comparison: AP chest, prior day. Findings: Related are patent projects over the right upper lung. Is endotracheal tube, tip is at the level the clavicles. Enteric tube is in the stomach. The cardiomediastinal silhouette is normal. Diffuse bilateral pulmonary opacities are unchanged. Ther e is no pneumothorax. No pleural effusion is appreciated. No acute bone abnormality. There is air in the stomach. There is no dilated bowel in the upper abdomen. There is degenerative endplate spurring of the lumbar spine. IMPRESSION: 1. Endotracheal and enteric tubes are in appropriate position. 2. Diffuse pulmonary opacities are unchanged. Electronically signed by: Herber San MD (04/28/2021 2:08 AM) [facility]
--- NOTE | 2021-04-28 03:30 | NUR ---
Patient unstable, requiring rapid titration of epi gtt sustained MAP <65 beginning at 2340. Starting rate at 0.1 mcg/kg/min and patient stabilized at 110/57 with MAP 75 with epi gtt currently infusing at .2 mcg/kg/min; the max rate during this time was .4 mcg/kg/min of medication administered during charting block which ended at 0200 . (Max block time 4 hours.) Pt in SR rhythm, HR 122, Spo2 96.
[2021-04-28] MEDS: STERILE WATER for RESP 1,000 ML BAG. INH PRN (03:32)
[2021-04-28 04:08] LABS: FIO2 ABG 100
[2021-04-28] MEDS ORDERED: EPINEPHrine VIAL 10 MG in IV NORMAL SALINE 250ML IV PRN (05:00)
[2021-04-28] MEDS: IV NORMAL SALINE 1000ML BAG 1,000 ML IV SCH ×3 (05:47→20:58)
[2021-04-28] MEDS ORDERED: NOREPINEPHRINE VIAL 8 MG in IV DEXTROSE 5% 250 ML IV PRN (06:15)
[2021-04-28] MEDS ORDERED: VECURONIUM BOLUS 10 MG VIAL. IV PRN (07:00)
[2021-04-28] MEDS: PANTOPRAZOLE 40 MG TABLET.DR. PO SCH (07:30)
[2021-04-28] MEDS: INSULIN LISPRO 300 UNITS/3 ML VIAL. SQ SCH ×6 (08:00→16:34)
[2021-04-28] MEDS ORDERED: DOCUSATE 100 MG/10 ML SOLUTION. PO PRN (08:30)
[2021-04-28] MEDS: NOREPINEPHRINE VIAL 32 MG in IV D5W 250ML IV PRN ×2 (08:41→21:56)
--- NOTE | 2021-04-28 08:49 | PDOC ---
Infectious Disease Note Subjective: Subjective Status post CODE BLUE, status post intubation currently in ICU on pressors Discussed with RN Vital Signs: Vital Signs Vital Signs Date Time Temp Pulse Resp B/P (MAP) Pulse Ox O2 Delivery O2 Flow Rate FiO2 04/28/21 08:00 146 22 97/58 Ventilator 04/28/21 07:28 91 40.0 04/28/21 04:00 98.0 98.0 Physical Exam: PHYSICAL EXAM GENERAL: Intubated/sedated HEENT: ETT /OGT anicteric normocephalic atraumatic LUNGS: Decreased breath sounds. HEART: S1, S2. No murmurs. ABDOMEN: Soft, nontender, nondistended. GENITOURINARY: Briefs in place. EXTREMITIES: Hyperpigmentation in both lower extremities with scarring. Right lower extremity postop dressing in place intact not taken down HOME COMPANION: Intubated/sedated Medications: Inpatient Meds: Medications reviewed. Labs: Lab Laboratory Tests Test 04/27/21 11:12 04/27/21 17:04 04/27/21 20:39 04/27/21 22:50 Glucose (Fingerstick) 287 mg/dL (70-99) 229 mg/dL (70-99) 192 mg/dL (70-99) 208 mg/dL (70-99) Test 04/27/21 23:17 04/27/21 23:20 04/28/21 01:00 Glucose (Fingerstick) 325 mg/dL (70-99) O2 Saturation 36 % (92-99) 86 % (92-99) Arterial Blood pH 6.95 (7.35-7.45) 7.20 (7.35-7.45) Arterial Blood pCO2 at Patient Temp 82 mmHg (35-46) 46 mmHg (35-46) Arterial Blood pO2 at Patient Temp < 42 mmHg (65-108) 59 mmHg (65-108) Arterial Blood HCO3 18 mmol/L (21-28) 18 mmol/L (21-28) Arterial Blood Base Excess -15 mmol/L (-3-3) -10 mmol/L (-3-3) Oxyhemoglobin 35.9 % Methemoglobin 1.2 % (0.0-1.9) Carbon Monoxide, Quantitative 0.3 % (0.0-1.9) FiO2 100 Objective: Assessment: Status post CODE BLUE, status post intubation . Streptococcus pneumoniae bacteremia. 2. COVID-19 infection with acute hypoxic respiratory failure.On remdesivir and steroids 3. Diabetic ketoacidosis. 4. Hypertensive urgency. 5. Acute kidney injury, improved. 6. Peripheral arterial disease. 7. Chronic right lower extremity venous stasis ulcer with some necrosis. Status post I&D April 27 -Swab cultures positive for Klebsiella pneumonia, group B strep, Enterococcus faecalis, 8. Diabetic ketoacidosis. Plan: Plan of Care Continue cefepime and Daptomycin for now pending wound cultures. On steroids and Remdesivir Off ceftriaxone Continue local wound care as directed COVID-19 management per primary Continue supportive care. Critically ill. Prognosis guarded DNR now per discussion with team Discussed with RN. TRICIA KEVIN MD Apr 28, 2021 08:49
[2021-04-28] MEDS: LISINOPRIL 10 MG TABLET PO SCH (09:00)
[2021-04-28] MEDS: THIAMINE 100 MG TABLET. PO SCH (09:00)
[2021-04-28] MEDS: AMMONIUM LACTATE 12% TOPICAL LOTION 225GM BOTTLE. TP SCH ×2 (09:00→20:57)
[2021-04-28] MEDS: ASCORBIC ACID 1,000 MG TABLET PO SCH ×3 (09:00→20:57)
[2021-04-28] MEDS: NYSTATIN TOPICAL POWDER 15GM BOTTLE. TP SCH ×2 (09:00→20:57)
[2021-04-28] MEDS: ZINC SULFATE 220 MG CAPSULE. PO SCH (09:00)
[2021-04-28 09:02] LABS: BASE EXCESS ABG -15 mmol/L (-3-3); HCO3 ABG 14 mmol/L (21-28); PCO2 ABG 44 mmHg (35-46); PO2 ABG 80 mmHg (65-108); SAT O2 ABG 93 % (92-99)
--- NOTE | 2021-04-28 09:02 | RAD ---
Single view of the chest. 04/28/2021 8:32 AM Indication: Reason: central line placement verification / Spl. Instructions: / History: Comparison: Chest radiograph, earlier today Findings: There is no endotracheal tube in place, 5.4 cm above the cintia. There is an enteric tube e xtending below the diaphragm. There is a right internal jugular central venous catheter projecting ov er the cavoatrial junction. There is a right-sided defibrillator patch, which partially obscures the right upper chest. There is diffuse interstitial and alveolar basilar predominant alveolar infiltrates. No pneumothorax or defini tive effusion is seen. No acute osseous changes are identified expected to comparison study. IMPRESSION: 1. New right-sided central venous catheter with tip projecting over the expected region of the cavoat rial junction. Similar appearance of endotracheal tube and enteric tube. 2. Diffuse interstitial and basilar predominant alveolar infiltrates. Differential considerations inc lude severe edema, atypical or viral pneumonia, or combination thereof. Electronically signed by: Augustine Merritt MD (04/28/2021 8:59 AM) [id number]
[2021-04-28 09:08] LABS: FIO2 ABG 100
[2021-04-28] MEDS: VASOPRESSIN - VASOSTRICT 20 UNIT in IV DEXTROSE 5% 100ML 100 ML IV PRN ×2 (09:09→16:22)
[2021-04-28 09:11] LABS: BASO # 0.2 x10^3/uL (0.0-0.2); BASO % 1 % (0-3); EOS % 0 % (0-3); HEMATOCRIT 39.4 % (36.0-47.0); HEMOGLOBIN 12.2 g/dL (12.0-15.5); LYMPH # 0.7 x10^3/uL (1.0-4.8); LYMPH % 3 % (24-48); MEAN CORPUSCULAR HEMOGLOBIN 28 pg (25-35); MEAN CORPUSCULAR HGB CONC 31 g/dL (31-37); MEAN CORPUSCULAR VOLUME 91 fL (79-100); MONO # 1.1 x10^3/uL (0.0-1.1); MONO % 5 % (0-9); NEUT # 19.8 x10^3/uL (1.8-7.7); NEUT % 91 % (31-73); PLATELET COUNT 238 x10^3/uL (140-400); RED BLOOD COUNT 4.33 x10^6/uL (3.50-5.40); RED CELL DISTRIBUTION WIDTH 15.8 % (11.5-14.5); WHITE BLOOD COUNT 21.8 x10^3/uL (4.0-11.0)
[2021-04-28 09:35] LABS: ALBUMIN 1.5 g/dL (3.4-5.0); ALBUMIN/GLOBULIN RATIO 0.3 (1.0-1.7); CALCIUM 7.4 mg/dL (8.5-10.1); CREATININE 1.7 mg/dL (0.6-1.0); GFR 36.7; MAGNESIUM 2.1 mg/dL (1.8-2.4); POTASSIUM 4.3 mmol/L (3.5-5.1); TOTAL BILIRUBIN 0.4 mg/dL (0.2-1.0)
[2021-04-28 10:18] LABS: PCO2 COOX 82 mmHg (35-46)
[2021-04-28] MEDS: methylPREDNISolone SOD SUCC PF 40 MG/ML VIAL. IV SCH ×2 (10:28→13:00)
[2021-04-28] MEDS: INSULIN GLARGINE SYRINGE. SQ SCH ×2 (10:29→21:00)
[2021-04-28] MEDS: ENOXAPARIN 40 MG/0.4 ML SYRINGE. SQ SCH (10:32)
[2021-04-28] MEDS ORDERED: INSULIN LISPRO 300 UNITS/3 ML VIAL. SQ ONE ×3 (10:45→16:45)
--- NOTE | 2021-04-28 11:24 | PDOC ---
[employer] PROGRESS NOTE Date of Service DOS: DATE: 04/28/21 TIME: 11:20 Chief Complaint Chief Complaint Streptococcus pneumoniae bacteremia Acute hypoxic respiratory failure secondary to COVID-19 infection DKA Hypertensive urgency - improved Hyperglycemia uncontrolled KYLE due to vasomotor nephropathyimproved History of Present Illness History of Present Illness 04/28/2021 Patient seen and examined in the ICU She coded last night and had to be intubated OG to suction Has an art line in place On IV Levophed and fentanyl and Versed Vent settings as follows Pressure control rate of 22 with 100% FiO2 and 8 of PEEP Chart reviewed Discussed with RN She is now extremely critically ill 04/27 Patient evaluated examined at bedside. She had a rapid response overnight requiring transfer to the 6 floor. When I saw her she was on BiPAP 21/11 this morning. She was quite lethargic. Sugars still elevated will adjust insulin. ID consulted for antibiotic recommendations. Continue COVID treatment. Check chest x-ray. Wean oxygen as tolerated. Consult to pulmonary as well today. 04/26/2021 No acute events overnight. Patient seen and examined bedside. Afebrile and vital signs stable. Glucose elevated at 300s to 400s. Started on long-acting glargine 10 units twice daily 04/25 Eval examined at bedside. Increased O2 requirement. Still requiring insulin drip. With worsening O2 transfer to ICU today. 35min CC time Vitals/I&O Vitals/I&O: Vital Signs Date Time Temp Pulse Resp B/P (MAP) Pulse Ox O2 Delivery O2 Flow Rate FiO2 04/28/21 11:00 158 22 107/61 100 Ventilator 04/28/21 08:00 98.0 98.0 04/28/21 07:28 40.0 I & O 04/27/21 04/27/21 04/28/21 15:00 23:00 07:00 Intake Total 0 ml 0 ml 0 ml Output Total 375 ml Balance 0 ml 0 ml -375 ml Physical Exam Physical Exam: GENERAL: Intubated/sedated HEENT: ETT /OGT anicteric normocephalic atraumatic LUNGS: Decreased breath sounds. HEART: S1, S2. No murmurs. ABDOMEN: Soft, nontender, nondistended. GENITOURINARY: Briefs in place. EXTREMITIES: Hyperpigmentation in both lower extremities with scarring. Right lower extremity postop dressing in place intact not taken down LEAD GENERATION REPRESENTATIVE: Intubated/sedated General: Other (Intubated sedated unresponsive) Heart: Other (Tachycardic) Lungs: Crackles, Other (decreased air entry throughout) Abdomen: Soft Extremities: No clubbing, Other (Minimal peripheral edema, palpable DP pulse on the left foot. Cannot appreciate pedal pulses on the right foot.) Skin: No rashes, Other (She has a clean dressing to her right lower leg, this was not removed as the patient was acutely hypoxic and not necessary to risk exacerbating her breathing. The wound care note was reviewed as below, wound assessment is not urgent, with plans to change dressing again tomorrow. Her left lower leg has diffuse nodules with darkened and dry skin circumferentially and is minimally hypertrophic diffusely. No open ulcers to the left leg or foot.) Labs Labs: Laboratory Tests Test 04/27/21 17:04 04/27/21 20:39 04/27/21 22:50 04/27/21 23:17 Glucose (Fingerstick) 229 mg/dL (70-99) 192 mg/dL (70-99) 208 mg/dL (70-99) 325 mg/dL (70-99) Test 04/27/21 23:20 04/28/21 01:00 04/28/21 09:00 04/28/21 09:04 O2 Saturation 36 % (92-99) 86 % (92-99) 93 % (92-99) Arterial Blood pH 6.95 (7.35-7.45) 7.20 (7.35-7.45) 7.12 (7.35-7.45) Arterial Blood pCO2 at Patient Temp 82 mmHg (35-46) 46 mmHg (35-46) 44 mmHg (35-46) Arterial Blood pO2 at Patient Temp < 42 mmHg (65-108) 59 mmHg (65-108) 80 mmHg (65-108) Arterial Blood HCO3 18 mmol/L (21-28) 18 mmol/L (21-28) 14 mmol/L (21-28) Arterial Blood Base Excess -15 mmol/L (-3-3) -10 mmol/L (-3-3) -15 mmol/L (-3-3) Oxyhemoglobin 35.9 % Methemoglobin 1.2 % (0.0-1.9) Carbon Monoxide, Quantitative 0.3 % (0.0-1.9) FiO2 100 100 White Blood Count 21.8 x10^3/uL (4.0-11.0) Red Blood Count 4.33 x10^6/uL (3.50-5.40) Hemoglobin 12.2 g/dL (12.0-15.5) Hematocrit 39.4 % (36.0-47.0) Mean Corpuscular Volume 91 fL (79-100) Mean Corpuscular Hemoglobin 28 pg (25-35) Mean Corpuscular Hemoglobin Concent 31 g/dL (31-37) Red Cell Distribution Width 15.8 % (11.5-14.5) Platelet Count 238 x10^3/uL (140-400) Neutrophils (%) (Auto) 91 % (31-73) Lymphocytes (%) (Auto) 3 % (24-48) Monocytes (%) (Auto) 5 % (0-9) Eosinophils (%) (Auto) 0 % (0-3) Basophils (%) (Auto) 1 % (0-3) Neutrophils # (Auto) 19.8 x10^3/uL (1.8-7.7) Lymphocytes # (Auto) 0.7 x10^3/uL (1.0-4.8) Monocytes # (Auto) 1.1 x10^3/uL (0.0-1.1) Eosinophils # (Auto) 0.0 x10^3/uL (0.0-0.7) Basophils # (Auto) 0.2 x10^3/uL (0.0-0.2) Sodium Level 140 mmol/L (136-145) Potassium Level 4.3 mmol/L (3.5-5.1) Chloride Level 107 mmol/L (98-107) Carbon Dioxide Level 17 mmol/L (21-32) Anion Gap 16 (6-14) Blood Urea Nitrogen 25 mg/dL (7-20) Creatinine 1.7 mg/dL (0.6-1.0) Estimated GFR (Cockcroft-Gault) 36.7 BUN/Creatinine Ratio 15 (6-20) Glucose Level 527 mg/dL (70-99) Calcium Level 7.4 mg/dL (8.5-10.1) Magnesium Level 2.1 mg/dL (1.8-2.4) Total Bilirubin 0.4 mg/dL (0.2-1.0) Aspartate Amino Transf (AST/SGOT) 2995 U/L (15-37) Alanine Aminotransferase (ALT/SGPT) 770 U/L (14-59) Alkaline Phosphatase 266 U/L (46-116) Total Protein 6.0 g/dL (6.4-8.2) Albumin 1.5 g/dL (3.4-5.0) Albumin/Globulin Ratio 0.3 (1.0-1.7) Assessment and Plan Assessmemt and Plan Problems Medical Problems: (1) Community acquired pneumonia Status: Acute (2) COVID-19 virus infection Status: Acute (3) DKA (diabetic ketoacidosis) Status: Acute (4) Hypoxia Status: Acut Covid-19 respiratory failure requiring mechanical ventilation Status post CODE BLUE Streptococcus pneumoniae bacteremia DKA Peripheral vascular disease Diabetic extremity wounds Hypertensive urgency - improved Hyperglycemia uncontrolled KYLE due to vasomotor nephropathyimproved Plan ICU monitoring Vent weaning if possible Continue cefepime and Dapto Also on steroids and remdesivir Patient is DNR Trend labs Continue sedation Trying to wean off the pressors Monitor art line OG to suction DVT prophylaxis Appreciate subspecialist input She remains very critically ill Prognosis poor CC time 31 minutes Per infectious disease recommendations please see the following and we certainly agree and appreciate their input; Status post CODE BLUE, status post intubation 1. Streptococcus pneumoniae bacteremia. 2. COVID-19 infection with acute hypoxic respiratory failure.On remdesivir and steroids 3. Diabetic ketoacidosis. 4. Hypertensive urgency. 5. Acute kidney injury, improved. 6. Peripheral arterial disease. 7. Chronic right lower extremity venous stasis ulcer with some necrosis. Status post I&D April 27 -Swab cultures positive for Klebsiella pneumonia, group B strep, Enterococcus faecalis, 8. Diabetic ketoacidosis. Plan: Plan of Care Continue cefepime and Daptomycin for now pending wound cultures. On steroids and Remdesivir Off ceftriaxone Continue local wound care as directed COVID-19 management per primary Continue supportive care. Critically ill. Prognosis guarded DNR now per discussion with team Comment Review of Relevant I have reviewed the following items rafael (where applicable) has been applied. Medications: Current Medications Medications (Trade) Dose Ordered Sig/Sadie Route PRN Reason Start Time Stop Time Status Last Admin Dose Admin Insulin Glargine (Lantus Syringe) 20 unit BID SQ 04/27/21 21:00 04/28/21 10:29 Insulin Human Lispro (HumaLOG) 10 units TIDWMEALS SQ 04/27/21 12:00 04/28/21 10:34 Daptomycin 430 mg/ Sodium Chloride 50 ml @ 100 mls/hr Q24H IV 04/27/21 17:00 04/27/21 17:58 Nicardipine HCl 50 mg/Sodium Chloride 250 ml @ 25 mls/hr CONT PRN IV PER PROTOCOL 04/27/21 16:30 04/27/21 17:15 Epinephrine HCl 5 mg/Sodium Chloride 255 ml @ 29.59 mls/ hr CONT PRN IV SEE I/O RECORD 04/27/21 23:15 04/28/21 06:27 DC 04/28/21 01:22 Fentanyl Citrate 30 ml @ 2.5 mls/hr CONT PRN IV SEE PROTOCOL 04/27/21 23:15 04/28/21 07:28 Midazolam HCl 100 ml @ 1 mls/hr CONT PRN IV SEE PROTOCOL 04/27/21 23:15 04/27/21 23:53 Vecuronium Bradley (Norcuron Bolus) 6 mg PRN 1X PRN IV VENT INDUCTION 04/27/21 23:15 04/28/21 06:59 DC 04/28/21 06:59 Epinephrine HCl 10 mg/Sodium Chloride 250 ml @ 14.505 mls/ hr CONT PRN IV SEE I/O RECORD 04/28/21 05:00 04/28/21 05:46 Norepinephrine Bitartrate 8 mg/ Dextrose 258 ml @ 18.711 mls/ hr CONT PRN IV PER PROTOCOL 04/28/21 06:15 04/28/21 08:23 DC 04/28/21 06:19 Norepinephrine Bitartrate 32 mg/ Dextrose 250 ml @ 4.533 mls/ hr CONT PRN IV SEE I/O RECORD 04/28/21 08:30 04/28/21 08:41 Vasopressin 20 unit/Dextrose 101 ml @ 12 mls/hr CONT PRN IV SEE I/O RECORD 04/28/21 09:00 04/28/21 09:09 Insulin Human Lispro (HumaLOG) 30 units 1X ONCE SQ 04/28/21 10:45 04/28/21 10:46 DC 04/28/21 10:45 Justifications for Admission Other Justification COVID-19 positive test (U07.1, COVID-19) with Acute Pneumonia (J12.89, Other viral pneumonia) (If respiratory failure or sepsis present, add as separate assessment) BEAU PETIT III DO Apr 28, 2021 11:24
[2021-04-28] MEDS: CEFEPIME HCL IV Push 2 GM VIAL. IVP SCH ×3 (12:29→20:57)
--- NOTE | 2021-04-28 12:30 | NUR ---
Pt in afib w/ RVR, rate in 150's to 200's. Dr. Ortiz notified. Orders received for cardiology consult. Dr. Marcus notified.
[2021-04-28] MEDS: MIDAZOLAM 100mg/100ml NS BAG 100 ML IV PRN (12:54)
[2021-04-28] MEDS ORDERED: DIGOXIN IV 500 MCG/2 ML AMPUL. IV ONE ×2 (14:00→16:00)
--- NOTE | 2021-04-28 15:19 | NUR ---
SS following up with discharge planning. SS reviewed pt chart and discussed with pt RN. Pt coded last night. Pt is intubated and is currently on the vent at 100%. COVID19 positive. Pt on Levophed, Vasopressin, Versed, and Fentanyl. Pt on IV Daptomycin, IV Cefepime, IV Remdesivir, and IV Solu-Medrol. Not stable. Prognosis poor. SS and pt's RN spoke with pt's daughter/DPBILLIE, Yue Wise, , via phone. Pt's daughter is arriving from out of town tomorrow. Pt's daughter read pt's Living Will to SS and discussed pt's wishes. Pt's RN provided medical update to daughter. Pt's daughter has decided to make pt DNR at this time. Pt's daughter reported that she will make further decision regarding withdrawal of care and comfort measures when she arrives in town tomorrow. Pt's daughter informed pt's RN as well. SS will continue to follow for discharge planning.
[2021-04-28] MEDS ORDERED: METOPROLOL IV PUSH 5 MG/5 ML VIAL. IVP ONE (16:00)
--- NOTE | 2021-04-28 16:04 | PDOC ---
PULMONARY PROGRESS NOTES DATE: 04/28/21 TIME: 16:00 Vitals Vital Signs Date Time Temp Pulse Resp B/P (MAP) Pulse Ox O2 Delivery O2 Flow Rate FiO2 04/28/21 14:06 161 111/69 04/28/21 14:00 101.9 22 100 Ventilator 101.9 04/28/21 07:28 40.0 Lungs: Crackles, Other (decreased air entry throughout) Labs Laboratory Tests Test 04/26/21 16:42 04/26/21 19:38 04/26/21 23:00 04/27/21 00:30 Glucose (Fingerstick) 251 mg/dL (70-99) 246 mg/dL (70-99) Clostridium difficile Toxin (PCR) Negative (NEGATIVE) O2 Saturation 79 % (92-99) Arterial Blood pH 7.27 (7.35-7.45) Arterial Blood pCO2 at Patient Temp 33 mmHg (35-46) Arterial Blood pO2 at Patient Temp 46 mmHg (65-108) Arterial Blood HCO3 15 mmol/L (21-28) Arterial Blood Base Excess -11 mmol/L (-3-3) FiO2 100 (15lnc +nrb) Test 04/27/21 02:07 04/27/21 02:10 04/27/21 07:42 04/27/21 11:12 Glucose (Fingerstick) 308 mg/dL (70-99) 293 mg/dL (70-99) 287 mg/dL (70-99) White Blood Count 22.0 x10^3/uL (4.0-11.0) Red Blood Count 4.48 x10^6/uL (3.50-5.40) Hemoglobin 12.6 g/dL (12.0-15.5) Hematocrit 39.8 % (36.0-47.0) Mean Corpuscular Volume 89 fL (79-100) Mean Corpuscular Hemoglobin 28 pg (25-35) Mean Corpuscular Hemoglobin Concent 32 g/dL (31-37) Red Cell Distribution Width 15.1 % (11.5-14.5) Platelet Count 358 x10^3/uL (140-400) Neutrophils (%) (Auto) 92 % (31-73) Lymphocytes (%) (Auto) 3 % (24-48) Monocytes (%) (Auto) 4 % (0-9) Eosinophils (%) (Auto) 0 % (0-3) Basophils (%) (Auto) 1 % (0-3) Neutrophils # (Auto) 20.4 x10^3/uL (1.8-7.7) Lymphocytes # (Auto) 0.6 x10^3/uL (1.0-4.8) Monocytes # (Auto) 0.9 x10^3/uL (0.0-1.1) Eosinophils # (Auto) 0.0 x10^3/uL (0.0-0.7) Basophils # (Auto) 0.2 x10^3/uL (0.0-0.2) Sodium Level 137 mmol/L (136-145) Potassium Level 3.9 mmol/L (3.5-5.1) Chloride Level 106 mmol/L (98-107) Carbon Dioxide Level 18 mmol/L (21-32) Anion Gap 13 (6-14) Blood Urea Nitrogen 23 mg/dL (7-20) Creatinine 1.0 mg/dL (0.6-1.0) Estimated GFR (Cockcroft-Gault) 67.8 Glucose Level 362 mg/dL (70-99) Calcium Level 7.9 mg/dL (8.5-10.1) Magnesium Level 2.3 mg/dL (1.8-2.4) Test 04/27/21 17:04 04/27/21 20:39 04/27/21 22:50 04/27/21 23:17 Glucose (Fingerstick) 229 mg/dL (70-99) 192 mg/dL (70-99) 208 mg/dL (70-99) 325 mg/dL (70-99) Test 04/27/21 23:20 04/28/21 01:00 04/28/21 09:00 04/28/21 09:04 O2 Saturation 36 % (92-99) 86 % (92-99) 93 % (92-99) Arterial Blood pH 6.95 (7.35-7.45) 7.20 (7.35-7.45) 7.12 (7.35-7.45) Arterial Blood pCO2 at Patient Temp 82 mmHg (35-46) 46 mmHg (35-46) 44 mmHg (35-46) Arterial Blood pO2 at Patient Temp < 42 mmHg (65-108) 59 mmHg (65-108) 80 mmHg (65-108) Arterial Blood HCO3 18 mmol/L (21-28) 18 mmol/L (21-28) 14 mmol/L (21-28) Arterial Blood Base Excess -15 mmol/L (-3-3) -10 mmol/L (-3-3) -15 mmol/L (-3-3) Oxyhemoglobin 35.9 % Methemoglobin 1.2 % (0.0-1.9) Carbon Monoxide, Quantitative 0.3 % (0.0-1.9) FiO2 100 100 White Blood Count 21.8 x10^3/uL (4.0-11.0) Red Blood Count 4.33 x10^6/uL (3.50-5.40) Hemoglobin 12.2 g/dL (12.0-15.5) Hematocrit 39.4 % (36.0-47.0) Mean Corpuscular Volume 91 fL (79-100) Mean Corpuscular Hemoglobin 28 pg (25-35) Mean Corpuscular Hemoglobin Concent 31 g/dL (31-37) Red Cell Distribution Width 15.8 % (11.5-14.5) Platelet Count 238 x10^3/uL (140-400) Neutrophils (%) (Auto) 91 % (31-73) Lymphocytes (%) (Auto) 3 % (24-48) Monocytes (%) (Auto) 5 % (0-9) Eosinophils (%) (Auto) 0 % (0-3) Basophils (%) (Auto) 1 % (0-3) Neutrophils # (Auto) 19.8 x10^3/uL (1.8-7.7) Lymphocytes # (Auto) 0.7 x10^3/uL (1.0-4.8) Monocytes # (Auto) 1.1 x10^3/uL (0.0-1.1) Eosinophils # (Auto) 0.0 x10^3/uL (0.0-0.7) Basophils # (Auto) 0.2 x10^3/uL (0.0-0.2) Sodium Level 140 mmol/L (136-145) Potassium Level 4.3 mmol/L (3.5-5.1) Chloride Level 107 mmol/L (98-107) Carbon Dioxide Level 17 mmol/L (21-32) Anion Gap 16 (6-14) Blood Urea Nitrogen 25 mg/dL (7-20) Creatinine 1.7 mg/dL (0.6-1.0) Estimated GFR (Cockcroft-Gault) 36.7 BUN/Creatinine Ratio 15 (6-20) Glucose Level 527 mg/dL (70-99) Calcium Level 7.4 mg/dL (8.5-10.1) Magnesium Level 2.1 mg/dL (1.8-2.4) Total Bilirubin 0.4 mg/dL (0.2-1.0) Aspartate Amino Transf (AST/SGOT) 2995 U/L (15-37) Alanine Aminotransferase (ALT/SGPT) 770 U/L (14-59) Alkaline Phosphatase 266 U/L (46-116) Total Protein 6.0 g/dL (6.4-8.2) Albumin 1.5 g/dL (3.4-5.0) Albumin/Globulin Ratio 0.3 (1.0-1.7) Test 04/28/21 12:19 Glucose (Fingerstick) 494 mg/dL (70-99) Laboratory Tests Test 04/27/21 17:04 04/27/21 20:39 04/27/21 22:50 04/27/21 23:17 Glucose (Fingerstick) 229 mg/dL (70-99) 192 mg/dL (70-99) 208 mg/dL (70-99) 325 mg/dL (70-99) Test 04/27/21 23:20 04/28/21 01:00 04/28/21 09:00 04/28/21 09:04 O2 Saturation 36 % (92-99) 86 % (92-99) 93 % (92-99) Arterial Blood pH 6.95 (7.35-7.45) 7.20 (7.35-7.45) 7.12 (7.35-7.45) Arterial Blood pCO2 at Patient Temp 82 mmHg (35-46) 46 mmHg (35-46) 44 mmHg (35-46) Arterial Blood pO2 at Patient Temp < 42 mmHg (65-108) 59 mmHg (65-108) 80 mmHg (65-108) Arterial Blood HCO3 18 mmol/L (21-28) 18 mmol/L (21-28) 14 mmol/L (21-28) Arterial Blood Base Excess -15 mmol/L (-3-3) -10 mmol/L (-3-3) -15 mmol/L (-3-3) Oxyhemoglobin 35.9 % Methemoglobin 1.2 % (0.0-1.9) Carbon Monoxide, Quantitative 0.3 % (0.0-1.9) FiO2 100 100 White Blood Count 21.8 x10^3/uL (4.0-11.0) Red Blood Count 4.33 x10^6/uL (3.50-5.40) Hemoglobin 12.2 g/dL (12.0-15.5) Hematocrit 39.4 % (36.0-47.0) Mean Corpuscular Volume 91 fL (79-100) Mean Corpuscular Hemoglobin 28 pg (25-35) Mean Corpuscular Hemoglobin Concent 31 g/dL (31-37) Red Cell Distribution Width 15.8 % (11.5-14.5) Platelet Count 238 x10^3/uL (140-400) Neutrophils (%) (Auto) 91 % (31-73) Lymphocytes (%) (Auto) 3 % (24-48) Monocytes (%) (Auto) 5 % (0-9) Eosinophils (%) (Auto) 0 % (0-3) Basophils (%) (Auto) 1 % (0-3) Neutrophils # (Auto) 19.8 x10^3/uL (1.8-7.7) Lymphocytes # (Auto) 0.7 x10^3/uL (1.0-4.8) Monocytes # (Auto) 1.1 x10^3/uL (0.0-1.1) Eosinophils # (Auto) 0.0 x10^3/uL (0.0-0.7) Basophils # (Auto) 0.2 x10^3/uL (0.0-0.2) Sodium Level 140 mmol/L (136-145) Potassium Level 4.3 mmol/L (3.5-5.1) Chloride Level 107 mmol/L (98-107) Carbon Dioxide Level 17 mmol/L (21-32) Anion Gap 16 (6-14) Blood Urea Nitrogen 25 mg/dL (7-20) Creatinine 1.7 mg/dL (0.6-1.0) Estimated GFR (Cockcroft-Gault) 36.7 BUN/Creatinine Ratio 15 (6-20) Glucose Level 527 mg/dL (70-99) Calcium Level 7.4 mg/dL (8.5-10.1) Magnesium Level 2.1 mg/dL (1.8-2.4) Total Bilirubin 0.4 mg/dL (0.2-1.0) Aspartate Amino Transf (AST/SGOT) 2995 U/L (15-37) Alanine Aminotransferase (ALT/SGPT) 770 U/L (14-59) Alkaline Phosphatase 266 U/L (46-116) Total Protein 6.0 g/dL (6.4-8.2) Albumin 1.5 g/dL (3.4-5.0) Albumin/Globulin Ratio 0.3 (1.0-1.7) Test 04/28/21 12:19 Glucose (Fingerstick) 494 mg/dL (70-99) Medications Active Scripts Medications Dose Route/Sig Max Daily Dose Days Date Category Lisinopril 10 Mg Tablet 1 Tab PO DAILY 04/19/21 Rx Metformin Hcl 500 Mg Tablet 500 Mg PO BIDWMEALS 04/19/21 Rx Impression . IMPRESSION: 1. Acute hypoxemic respiratory failure, multifactorial. Status post CODE BLUE 2. COVID-19 viral pneumonia, acute respiratory distress syndrome. 3. Diabetic ketoacidosis. 4. Bacteremia. 5. Leg wound infection with Klebsiella, Enterococcus and beta strep, group B. 6. Sepsis. 7. Hypertensive urgency. 8. Acute kidney injury. Patient intubated, emergency room physician Called to ABISAI KIRBY on 6 4. Patient had gone unresponsive, pulseless, apneic. CPR was initiated and pulse was regained after 1 round of epinephrine compressions. Patient was given push dose epinephrine until epi drip arrived. Patient was intubated by myself. Patient was intubated in emergent fashion and no consent was obtained. Patient was [] sedated and paralyzed with etomidate and succinylcholine. A glide scope with a size 4 blade was used, cords were visualized and a size 7.5 endotracheal tube was placed during first attempt. Endotracheal tube cuff was inflated and confirmation established by visualization of the cords passing the tubes, bilateral breath sounds, color change, and chest x-ray. Plan . Updated 04/28 Current vent settings, patient intubated during CODE BLUE Empiric antibiotics Monitor blood sugars Anticoagulation ABG noted, patient has significant metabolic acidosis, from DKA IV insulin CCT 30 minutes PLAN: 1. We will continue current support with BiPAP. 2. Antibiotics per ID. 3. Follow Vascular surgery input. 4. Monitor blood sugars. 5. Insulin. I do appreciate the privilege in sharing in the patient's care. LEE KILLIAN MD Apr 28, 2021 16:04
--- NOTE | 2021-04-28 16:18 | PDOC2 ---
GUME ELLIS DOCKING PILOT 04/28/21 1617: CARDIAC CONSULT DATE OF CONSULT Date of Consult DATE: 04/28/21 TIME: 15:59 REASON FOR CONSULT Reason for Consult: AFIB with RVR REFERRING PHYSICIAN Referring Physician: Dr. Ortiz SOURCE Source: Chart review HISTORY OF PRESENT ILLNESS HISTORY OF PRESENT ILLNESS This is a 65 yo female who presented secondary to increased cough. Was noted to be COVID + on 04/18/21. She initially denied any chest pain, palpitations, or shortness of breath. Was noted with acute respiratory failure secondary to COVID PNA. Oxygen requirement continued to increase over hospitalization. Patient also has RLE wound and underwent debridement. Had PEA arrest on 04/27/21. ROSC obtained following 1 round of CPR, epi. Require intubation. Patient went into AFIB with RVR this morning, which prompted this consult. IV Dig was administered. PAST MEDICAL HISTORY Cardiovascular: HTN Endocrine: Diabetes PAST SURGICAL HISTORY Past Surgical History: No pertinent history FAMILY HISTORY Family History: Family History Unknown SOCIAL HISTORY Smoke: No ALCOHOL: none Drugs: None CURRENT MEDICATIONS CURRENT MEDICATIONS Current Medications Medications (Trade) Dose Ordered Sig/Sadie Route PRN Reason Start Time Stop Time Status Last Admin Dose Admin Insulin Glargine (Lantus Syringe) 20 unit BID SQ 04/27/21 21:00 04/28/21 10:29 Cefepime HCl (Maxipime) 2 gm Q12HR IVP 04/27/21 21:00 04/28/21 12:56 Daptomycin 430 mg/ Sodium Chloride 50 ml @ 100 mls/hr Q24H IV 04/27/21 17:00 04/27/21 17:58 Nicardipine HCl 50 mg/Sodium Chloride 250 ml @ 25 mls/hr CONT PRN IV PER PROTOCOL 04/27/21 16:30 04/27/21 17:15 Epinephrine HCl 5 mg/Sodium Chloride 255 ml @ 29.59 mls/ hr CONT PRN IV SEE I/O RECORD 04/27/21 23:15 04/28/21 06:27 DC 04/28/21 01:22 Fentanyl Citrate 30 ml @ 2.5 mls/hr CONT PRN IV SEE PROTOCOL 04/27/21 23:15 04/28/21 07:28 Midazolam HCl 100 ml @ 1 mls/hr CONT PRN IV SEE PROTOCOL 04/27/21 23:15 04/28/21 12:54 Vecuronium [place] (Norcuron Bolus) 6 mg PRN 1X PRN IV VENT INDUCTION 04/27/21 23:15 04/28/21 06:59 DC 04/28/21 06:59 Epinephrine HCl 10 mg/Sodium Chloride 250 ml @ 14.505 mls/ hr CONT PRN IV SEE I/O RECORD 04/28/21 05:00 04/28/21 05:46 Norepinephrine Bitartrate 8 mg/ Dextrose 258 ml @ 18.711 mls/ hr CONT PRN IV PER PROTOCOL 04/28/21 06:15 04/28/21 08:23 DC 04/28/21 06:19 Vecuronium [place] (Norcuron Bolus) 10 mg PRN Q6HRS PRN IV VENTILATOR COMPLIANCE 04/28/21 07:00 04/28/21 12:22 Norepinephrine Bitartrate 32 mg/ Dextrose 250 ml @ 4.533 mls/ hr CONT PRN IV SEE I/O RECORD 04/28/21 08:30 04/28/21 08:41 Vasopressin 20 unit/Dextrose 101 ml @ 12 mls/hr CONT PRN IV SEE I/O RECORD 04/28/21 09:00 04/28/21 09:09 Insulin Human Lispro (HumaLOG) 30 units 1X ONCE SQ 04/28/21 10:45 04/28/21 10:46 DC 04/28/21 10:45 Insulin Human Lispro (HumaLOG) 30 units 1X ONCE SQ 04/28/21 13:00 04/28/21 13:01 DC 04/28/21 13:01 Digoxin (Lanoxin) 500 mcg 1X ONCE IV 04/28/21 14:00 04/28/21 14:03 DC 04/28/21 14:06 ALLERGIES ALLERGIES: Coded Allergies: chocolate flavor (Verified Allergy, Intermediate, 04/19/21) pineapple (Verified Allergy, Intermediate, 04/19/21) ROS Review of System unobtainable PHYSICAL EXAM General: Other (intubated ) HEENT: Atraumatic Lungs: Other (MV) Heart: Other (AFIB) Abdomen: Other (obese) Extremities: Other (RLE wound ) Skin: Other (chronic venous stasis changes of bilateral LE ) Neuro: Other (sedated) Psych/Mental Status: Other (unable to assess) MUSCULOSKELETAL: Osteoarthritic changes both hands VITALS/I&O VITALS/I&O: Vital Signs Date Time Temp Pulse Resp B/P (MAP) Pulse Ox O2 Delivery O2 Flow Rate FiO2 04/28/21 14:06 161 111/69 04/28/21 14:00 101.9 22 100 Ventilator 101.9 04/28/21 07:28 40.0 I & O 04/27/21 04/27/21 04/28/21 15:00 23:00 07:00 Intake Total 0 ml 0 ml 0 ml Output Total 375 ml Balance 0 ml 0 ml -375 ml LABS Lab: Laboratory Tests Test 04/27/21 17:04 04/27/21 20:39 04/27/21 22:50 04/27/21 23:17 Glucose (Fingerstick) 229 mg/dL (70-99) H 192 mg/dL (70-99) H 208 mg/dL (70-99) H 325 mg/dL (70-99) H Test 04/27/21 23:20 04/28/21 01:00 04/28/21 09:00 04/28/21 09:04 O2 Saturation 36 % (92-99) *L 86 % (92-99) L 93 % (92-99) Arterial Blood pH 6.95 (7.35-7.45) *L 7.20 (7.35-7.45) *L 7.12 (7.35-7.45) *L Arterial Blood pCO2 at Patient Temp 82 mmHg (35-46) *H 46 mmHg (35-46) 44 mmHg (35-46) Arterial Blood pO2 at Patient Temp < 42 mmHg (65-108) *L 59 mmHg (65-108) L 80 mmHg (65-108) Arterial Blood HCO3 18 mmol/L (21-28) L 18 mmol/L (21-28) L 14 mmol/L (21-28) L Arterial Blood Base Excess -15 mmol/L (-3-3) L -10 mmol/L (-3-3) L -15 mmol/L (-3-3) L Oxyhemoglobin 35.9 % Methemoglobin 1.2 % (0.0-1.9) Carbon Monoxide, Quantitative 0.3 % (0.0-1.9) FiO2 100 100 White Blood Count 21.8 x10^3/uL (4.0-11.0) H Red Blood Count 4.33 x10^6/uL (3.50-5.40) Hemoglobin 12.2 g/dL (12.0-15.5) Hematocrit 39.4 % (36.0-47.0) Mean Corpuscular Volume 91 fL (79-100) Mean Corpuscular Hemoglobin 28 pg (25-35) Mean Corpuscular Hemoglobin Concent 31 g/dL (31-37) Red Cell Distribution Width 15.8 % (11.5-14.5) H Platelet Count 238 x10^3/uL (140-400) Neutrophils (%) (Auto) 91 % (31-73) H Lymphocytes (%) (Auto) 3 % (24-48) L Monocytes (%) (Auto) 5 % (0-9) Eosinophils (%) (Auto) 0 % (0-3) Basophils (%) (Auto) 1 % (0-3) Neutrophils # (Auto) 19.8 x10^3/uL (1.8-7.7) H Lymphocytes # (Auto) 0.7 x10^3/uL (1.0-4.8) L Monocytes # (Auto) 1.1 x10^3/uL (0.0-1.1) Eosinophils # (Auto) 0.0 x10^3/uL (0.0-0.7) Basophils # (Auto) 0.2 x10^3/uL (0.0-0.2) Sodium Level 140 mmol/L (136-145) Potassium Level 4.3 mmol/L (3.5-5.1) Chloride Level 107 mmol/L (98-107) Carbon Dioxide Level 17 mmol/L (21-32) L Anion Gap 16 (6-14) H Blood Urea Nitrogen 25 mg/dL (7-20) H Creatinine 1.7 mg/dL (0.6-1.0) H Estimated GFR (Cockcroft-Gault) 36.7 BUN/Creatinine Ratio 15 (6-20) Glucose Level 527 mg/dL (70-99) *H Calcium Level 7.4 mg/dL (8.5-10.1) L Magnesium Level 2.1 mg/dL (1.8-2.4) Total Bilirubin 0.4 mg/dL (0.2-1.0) Aspartate Amino Transferase (AST) 2995 U/L (15-37) H Alanine Aminotransferase (ALT) 770 U/L (14-59) H Alkaline Phosphatase 266 U/L (46-116) H Total Protein 6.0 g/dL (6.4-8.2) L Albumin 1.5 g/dL (3.4-5.0) L Albumin/Globulin Ratio 0.3 (1.0-1.7) L Test 04/28/21 12:19 Glucose (Fingerstick) 494 mg/dL (70-99) H Laboratory Tests 04/28/21 09:00 Laboratory Tests 04/28/21 09:00 ASSESSMENT/PLAN ASSESSMENT/PLAN 1. Acute respiratory failure secondary to COVID PNA, ARDS 2. PEA arrest; ROSC following 1 round of CPR, epi 3. New onset AFIB with RVR; s/p IV Dig 4. Leukocytosis, bacteremia, sepsis 5. Septic shock; requiring multiple pressors 6. Diabetes, DKA 7. KYLE 8. Transaminitis, shock liver 9. PAD, right LE wound; s/p debridement Recommendations Pressor support Use IV Dig for rate control Ongoing pulmonary optimization, treatment of COVID, sepsis Supportive care from a CV standpoint Prognosis poor. IMANI JACKSON MD 04/28/21 1741: CARDIAC CONSULT ASSESSMENT/PLAN ASSESSMENT/PLAN Patient seen and examined. Agree with above nurse practitioner note. 65-year-old woman presents to the hospital in septic shock. She has had arrhythmias related to her sepsis. Continue treatment with digoxin and metoprolol. Awaiting family decision regarding goals of care. GUME ELLIS APRN Apr 28, 2021 16:17 IMANI JACKSON MD Apr 28, 2021 17:41
[2021-04-28] MEDS: DAPTOmycin (GENERIC) IVPB 430 MG in IV NORMAL SALINE 50ML 50 ML IV SCH (16:19)
[2021-04-28] MEDS: REMDESIVIR 100mg in NORMAL SALINE 250ML X 4 DAYS IV SCH (21:03)
[2021-04-29] VITALS (24 sets, daily range): BP systolic 109–196; BP diastolic 58–86
[2021-04-29] MEDS: methylPREDNISolone SOD SUCC PF 40 MG/ML VIAL. IV SCH ×4 (00:39→22:00)
[2021-04-29] MEDS: IV NORMAL SALINE 1000ML BAG 1,000 ML IV SCH ×4 (01:35→22:30)
[2021-04-29] MEDS: VASOPRESSIN - VASOSTRICT 20 UNIT in IV DEXTROSE 5% 100ML 100 ML IV PRN (01:35)
[2021-04-29] MEDS: MIDAZOLAM 100mg/100ml NS BAG 100 ML IV PRN ×2 (03:06→16:15)
--- NOTE | 2021-04-29 05:45 | PDOC ---
Infectious Disease Note Subjective: Subjective Intubated/sedated remains on pressors Vital Signs: Vital Signs Vital Signs Date Time Temp Pulse Resp B/P (MAP) Pulse Ox O2 Delivery O2 Flow Rate FiO2 04/29/21 04:12 100 04/29/21 04:00 142 192/74 (113) 04/29/21 04:00 98.3 20 Ventilator 98.3 04/28/21 22:27 40.0 Physical Exam: PHYSICAL EXAM GENERAL: Intubated/sedated HEENT: ETT /OGT anicteric normocephalic atraumatic LUNGS: Decreased breath sounds. HEART: S1, S2. No murmurs. ABDOMEN: Soft, nontender, nondistended. GENITOURINARY: Briefs in place. EXTREMITIES: Hyperpigmentation in both lower extremities with scarring. Right lower extremity postop dressing in place intact not taken down TUBE WASHER: Intubated/sedated Medications: Inpatient Meds: Medications reviewed. Labs: Lab Laboratory Tests Test 04/28/21 09:00 04/28/21 09:04 04/28/21 12:19 04/28/21 16:29 White Blood Count 21.8 x10^3/uL (4.0-11.0) Red Blood Count 4.33 x10^6/uL (3.50-5.40) Hemoglobin 12.2 g/dL (12.0-15.5) Hematocrit 39.4 % (36.0-47.0) Mean Corpuscular Volume 91 fL (79-100) Mean Corpuscular Hemoglobin 28 pg (25-35) Mean Corpuscular Hemoglobin Concent 31 g/dL (31-37) Red Cell Distribution Width 15.8 % (11.5-14.5) Platelet Count 238 x10^3/uL (140-400) Neutrophils (%) (Auto) 91 % (31-73) Lymphocytes (%) (Auto) 3 % (24-48) Monocytes (%) (Auto) 5 % (0-9) Eosinophils (%) (Auto) 0 % (0-3) Basophils (%) (Auto) 1 % (0-3) Neutrophils # (Auto) 19.8 x10^3/uL (1.8-7.7) Lymphocytes # (Auto) 0.7 x10^3/uL (1.0-4.8) Monocytes # (Auto) 1.1 x10^3/uL (0.0-1.1) Eosinophils # (Auto) 0.0 x10^3/uL (0.0-0.7) Basophils # (Auto) 0.2 x10^3/uL (0.0-0.2) Sodium Level 140 mmol/L (136-145) Potassium Level 4.3 mmol/L (3.5-5.1) Chloride Level 107 mmol/L (98-107) Carbon Dioxide Level 17 mmol/L (21-32) Anion Gap 16 (6-14) Blood Urea Nitrogen 25 mg/dL (7-20) Creatinine 1.7 mg/dL (0.6-1.0) Estimated GFR (Cockcroft-Gault) 36.7 BUN/Creatinine Ratio 15 (6-20) Glucose Level 527 mg/dL (70-99) Calcium Level 7.4 mg/dL (8.5-10.1) Magnesium Level 2.1 mg/dL (1.8-2.4) Total Bilirubin 0.4 mg/dL (0.2-1.0) Aspartate Amino Transf (AST/SGOT) 2995 U/L (15-37) Alanine Aminotransferase (ALT/SGPT) 770 U/L (14-59) Alkaline Phosphatase 266 U/L (46-116) Total Protein 6.0 g/dL (6.4-8.2) Albumin 1.5 g/dL (3.4-5.0) Albumin/Globulin Ratio 0.3 (1.0-1.7) O2 Saturation 93 % (92-99) Arterial Blood pH 7.12 (7.35-7.45) Arterial Blood pCO2 at Patient Temp 44 mmHg (35-46) Arterial Blood pO2 at Patient Temp 80 mmHg (65-108) Arterial Blood HCO3 14 mmol/L (21-28) Arterial Blood Base Excess -15 mmol/L (-3-3) FiO2 100 Glucose (Fingerstick) 494 mg/dL (70-99) 387 mg/dL (70-99) Objective: Assessment: Status post CODE BLUE, status post intubation 1. Streptococcus pneumoniae bacteremia.Ceftriaxone Intermediate 2. COVID-19 infection with acute hypoxic respiratory failure.On remdesivir and steroids 3. Diabetic ketoacidosis. 4. Hypertensive urgency. 5. Acute kidney injury, improved. 6. Peripheral arterial disease. 7. Chronic right lower extremity venous stasis ulcer with some necrosis. Status post I&D April 27 -Swab cultures positive for Klebsiella pneumonia, group B strep, Enterococcus faecalis, 8. Diabetic ketoacidosis. Plan: Plan of Care Continue cefepime and Daptomycin On steroids and Remdesivir Off ceftriaxone Continue local wound care as directed COVID-19 management per primary Continue supportive care. Critically ill. Prognosis poor Family is meeting today for goals of treatment Discussed with RN. TRICIA KEVIN MD Apr 29, 2021 05:45
[2021-04-29] MEDS: INSULIN LISPRO 300 UNITS/3 ML VIAL. SQ SCH ×6 (08:00→17:00)
[2021-04-29 08:12] LABS: BASE EXCESS ABG -10 mmol/L (-3-3); HCO3 ABG 17 mmol/L (21-28); PCO2 ABG 38 mmHg (35-46); PO2 ABG 193 mmHg (65-108); SAT O2 ABG 99 % (92-99)
[2021-04-29] MEDS: PANTOPRAZOLE IV PUSH 40 MG VIAL. IVP SCH (08:55)
[2021-04-29] MEDS: THIAMINE 100 MG TABLET. PO SCH (08:56)
[2021-04-29] MEDS: ZINC SULFATE 220 MG CAPSULE. PO SCH (08:56)
[2021-04-29] MEDS: ASCORBIC ACID 1,000 MG TABLET PO SCH ×3 (08:56→21:00)
[2021-04-29] MEDS: ENOXAPARIN 40 MG/0.4 ML SYRINGE. SQ SCH (08:57)
[2021-04-29] MEDS: CEFEPIME HCL IV Push 2 GM VIAL. IVP SCH (08:58)
[2021-04-29] MEDS: NYSTATIN TOPICAL POWDER 15GM BOTTLE. TP SCH ×2 (09:00→21:00)
[2021-04-29] MEDS: AMMONIUM LACTATE 12% TOPICAL LOTION 225GM BOTTLE. TP SCH ×2 (09:00→21:00)
[2021-04-29] MEDS: INSULIN GLARGINE SYRINGE. SQ SCH ×2 (09:00→21:39)
[2021-04-29] MEDS: LISINOPRIL 10 MG TABLET PO SCH (09:00)
--- NOTE | 2021-04-29 09:24 | PDOC ---
PULMONARY PROGRESS NOTES DATE: 04/29/21 TIME: 09:24 Subjective Patient remains critically ill, currently on IV insulin Currently on 100% FiO2 8 of PEEP DKA persist Vitals Vital Signs Date Time Temp Pulse Resp B/P (MAP) Pulse Ox O2 Delivery O2 Flow Rate FiO2 04/29/21 08:03 100 04/29/21 06:00 140 20 192/76 Ventilator 04/29/21 04:00 98.3 98.3 04/28/21 22:27 40.0 Lungs: Crackles, Other (decreased air entry throughout) Cardiovascular: S1, S2 Abdomen: Soft Extremities: Other (Edema wound care) Skin: Warm Labs Laboratory Tests Test 04/27/21 11:12 04/27/21 17:04 04/27/21 20:39 04/27/21 22:50 Glucose (Fingerstick) 287 mg/dL (70-99) 229 mg/dL (70-99) 192 mg/dL (70-99) 208 mg/dL (70-99) Test 04/27/21 23:17 04/27/21 23:20 04/28/21 01:00 04/28/21 09:00 Glucose (Fingerstick) 325 mg/dL (70-99) O2 Saturation 36 % (92-99) 86 % (92-99) Arterial Blood pH 6.95 (7.35-7.45) 7.20 (7.35-7.45) Arterial Blood pCO2 at Patient Temp 82 mmHg (35-46) 46 mmHg (35-46) Arterial Blood pO2 at Patient Temp < 42 mmHg (65-108) 59 mmHg (65-108) Arterial Blood HCO3 18 mmol/L (21-28) 18 mmol/L (21-28) Arterial Blood Base Excess -15 mmol/L (-3-3) -10 mmol/L (-3-3) Oxyhemoglobin 35.9 % Methemoglobin 1.2 % (0.0-1.9) Carbon Monoxide, Quantitative 0.3 % (0.0-1.9) FiO2 100 White Blood Count 21.8 x10^3/uL (4.0-11.0) Red Blood Count 4.33 x10^6/uL (3.50-5.40) Hemoglobin 12.2 g/dL (12.0-15.5) Hematocrit 39.4 % (36.0-47.0) Mean Corpuscular Volume 91 fL (79-100) Mean Corpuscular Hemoglobin 28 pg (25-35) Mean Corpuscular Hemoglobin Concent 31 g/dL (31-37) Red Cell Distribution Width 15.8 % (11.5-14.5) Platelet Count 238 x10^3/uL (140-400) Neutrophils (%) (Auto) 91 % (31-73) Lymphocytes (%) (Auto) 3 % (24-48) Monocytes (%) (Auto) 5 % (0-9) Eosinophils (%) (Auto) 0 % (0-3) Basophils (%) (Auto) 1 % (0-3) Neutrophils # (Auto) 19.8 x10^3/uL (1.8-7.7) Lymphocytes # (Auto) 0.7 x10^3/uL (1.0-4.8) Monocytes # (Auto) 1.1 x10^3/uL (0.0-1.1) Eosinophils # (Auto) 0.0 x10^3/uL (0.0-0.7) Basophils # (Auto) 0.2 x10^3/uL (0.0-0.2) Sodium Level 140 mmol/L (136-145) Potassium Level 4.3 mmol/L (3.5-5.1) Chloride Level 107 mmol/L (98-107) Carbon Dioxide Level 17 mmol/L (21-32) Anion Gap 16 (6-14) Blood Urea Nitrogen 25 mg/dL (7-20) Creatinine 1.7 mg/dL (0.6-1.0) Estimated GFR (Cockcroft-Gault) 36.7 BUN/Creatinine Ratio 15 (6-20) Glucose Level 527 mg/dL (70-99) Calcium Level 7.4 mg/dL (8.5-10.1) Magnesium Level 2.1 mg/dL (1.8-2.4) Total Bilirubin 0.4 mg/dL (0.2-1.0) Aspartate Amino Transf (AST/SGOT) 2995 U/L (15-37) Alanine Aminotransferase (ALT/SGPT) 770 U/L (14-59) Alkaline Phosphatase 266 U/L (46-116) Total Protein 6.0 g/dL (6.4-8.2) Albumin 1.5 g/dL (3.4-5.0) Albumin/Globulin Ratio 0.3 (1.0-1.7) Test 04/28/21 09:04 04/28/21 12:19 04/28/21 16:29 04/29/21 08:05 O2 Saturation 93 % (92-99) 99 % (92-99) Arterial Blood pH 7.12 (7.35-7.45) 7.27 (7.35-7.45) Arterial Blood pCO2 at Patient Temp 44 mmHg (35-46) 38 mmHg (35-46) Arterial Blood pO2 at Patient Temp 80 mmHg (65-108) 193 mmHg (65-108) Arterial Blood HCO3 14 mmol/L (21-28) 17 mmol/L (21-28) Arterial Blood Base Excess -15 mmol/L (-3-3) -10 mmol/L (-3-3) FiO2 100 100% vent Glucose (Fingerstick) 494 mg/dL (70-99) 387 mg/dL (70-99) Laboratory Tests Test 04/28/21 12:19 04/28/21 16:29 04/29/21 08:05 Glucose (Fingerstick) 494 mg/dL (70-99) 387 mg/dL (70-99) O2 Saturation 99 % (92-99) Arterial Blood pH 7.27 (7.35-7.45) Arterial Blood pCO2 at Patient Temp 38 mmHg (35-46) Arterial Blood pO2 at Patient Temp 193 mmHg (65-108) Arterial Blood HCO3 17 mmol/L (21-28) Arterial Blood Base Excess -10 mmol/L (-3-3) FiO2 100% vent Medications Active Scripts Medications Dose Route/Sig Max Daily Dose Days Date Category Lisinopril 10 Mg Tablet 1 Tab PO DAILY 04/19/21 Rx Metformin Hcl 500 Mg Tablet 500 Mg PO BIDWMEALS 04/19/21 Rx Impression . IMPRESSION: 1. Acute hypoxemic respiratory failure, multifactorial. Status post CODE BLUE 2. COVID-19 viral pneumonia, acute respiratory distress syndrome. 3. Diabetic ketoacidosis. 4. Bacteremia. 5. Leg wound infection with Klebsiella, Enterococcus and beta strep, group B. 6. Sepsis. 7. Hypertensive urgency. 8. Acute kidney injury. 9. Liver failure 10. Severe protein malnutrition Patient intubated, emergency room physician Called to ABISAI KIRBY on 09 03. Patient had gone unresponsive, pulseless, apneic. CPR was initiated and pulse was regained after 1 round of epinephrine compressions. Patient was given push dose epinephrine until epi drip arrived. Patient was intubated by myself. Patient was intubated in emergent fashion and no consent was obtained. Patient was [] sedated and paralyzed with etomidate and succinylcholine. A glide scope with a size 4 blade was used, cords were visualized and a size 7.5 endotracheal tube was placed during first attempt. Endotracheal tube cuff was inflated and confirmation established by visualization of the cords passing the tubes, bilateral breath sounds, color change, and chest x-ray. Plan . Updated 04/29 Patient with multiorgan failure, family updated, not expected to survive We will continue current support Continue IV insulin Empiric antibiotics Mechanical support Anticoagulation Follow vascular input I had a family conference with son, sister, and DPOA CCT of 30 minutes updated 04/28 Current vent settings, patient intubated during ABISAI KIRBY Empiric antibiotics Monitor blood sugars Anticoagulation ABG noted, patient has significant metabolic acidosis, from DKA IV insulin CCT 30 minutes LEE KILLIAN MD Apr 29, 2021 09:24
--- NOTE | 2021-04-29 09:27 | PDOC ---
ARMAAN CHAVARRIA MANAGER BALANCE 04/29/21 0926: CARDIO Progress Notes Date and Time Date of Service 04/29/2021 Time of Evaluation 0850 Subjective Subjective: Other (intubated) Vitals Vitals Vital Signs Date Time Temp Pulse Resp B/P (MAP) Pulse Ox O2 Delivery O2 Flow Rate FiO2 04/29/21 08:03 100 04/29/21 06:00 140 20 192/76 Ventilator 04/29/21 04:00 98.3 98.3 04/28/21 22:27 40.0 Weight Weight [ ] Input and Output Intake and Output Intake and Output 04/29/21 07:00 Intake Total 1605 ml Output Total 65 ml Balance 1540 ml Intake Oral 0 ml IV Total 314 ml Other 1291 ml Output Urine Total 65 ml Laboratory Labs Laboratory Tests Test 04/28/21 12:19 04/28/21 16:29 04/29/21 08:05 Glucose (Fingerstick) 494 mg/dL (70-99) 387 mg/dL (70-99) O2 Saturation 99 % (92-99) Arterial Blood pH 7.27 (7.35-7.45) Arterial Blood pCO2 at Patient Temp 38 mmHg (35-46) Arterial Blood pO2 at Patient Temp 193 mmHg (65-108) Arterial Blood HCO3 17 mmol/L (21-28) Arterial Blood Base Excess -10 mmol/L (-3-3) FiO2 100% vent Microbiology Micro Microbiology 04/28/21 Blood Culture - Preliminary, Resulted NO GROWTH AFTER 1 DAY 04/25/21 Gram Stain - Final, Resulted 04/25/21 Aerobic and Anaerobic Culture - Preliminary, Resulted Klebsiella Pneumoniae Enterococcus Faecalis Beta Strep Group B Physical Exam HEENT: Neck Supple W Full Motion Chest: Symmetric LUNGS: Other (diminished, intubated with MV) Heart: RRR (Sinus tachycardia with PACs) Abdomen: Other (soft) Extremities: Other (LLE wound) Neurology: other (sedated) Assessment Assessment 1. Acute respiratory failure secondary to COVID PNA, ARDS 2. PEA arrest; ROSC following 1 round of CPR, epi 3. New onset AFIB with RVR; s/p IV Dig. Presently sinus tachycardia with PACs 4. Leukocytosis, bacteremia, sepsis 5. Septic shock; BP now labile with associated use of levophed 6. Diabetes, DKA 7. KYLE 8. Transaminitis, shock liver 9. PAD, right LE wound; s/p debridement Recommendations DC levophed and monitor BP trend. Will start on metoporlol pending BP trend. Ongoing pulmonary optimization, treatment of COVID, sepsis ASA. Check CBC and INR Supportive care from a CV standpoint Prognosis poor. Justicifation of Admission Dx: Justifications for Admission: Justification of Admission Dx: Yes IMANI JACKSON MD 04/29/21 1741: CARDIO Progress Notes Plan Plan The patient was seen and interviewed as well as examined at the bedside. The chart was reviewed. The case was discussed. Agree with the plan of care. ARMAAN CHAVARRIA APRN Apr 29, 2021 09:26 IMANI JACKSON MD Apr 29, 2021 17:41
[2021-04-29] MEDS: ACETAMINOPHEN 325 MG TABLET. PO PRN ×2 (10:30→13:50)
--- NOTE | 2021-04-29 11:15 | PDOC ---
[facility] PROGRESS NOTE Date of Service DOS: DATE: 04/29/21 TIME: 11:14 Chief Complaint Chief Complaint Streptococcus pneumoniae bacteremia Acute hypoxic respiratory failure secondary to COVID-19 infection DKA Hypertensive urgency - improved Hyperglycemia uncontrolled KYLE due to vasomotor nephropathyimproved History of Present Illness History of Present Illness 04/28/2019 Patient seen and examined in the ICU She remains on the vent Pressure control of 20 with 100% FiO2 +8 of PEEP OG to suction Has IV Levophed Sedated with fentanyl and Versed Chart reviewed Discussed with RN 04/28/2021 Patient seen and examined in the ICU She coded last night and had to be intubated OG to suction Has an art line in place On IV Levophed and fentanyl and Versed Vent settings as follows Pressure control rate of 22 with 100% FiO2 and 8 of PEEP Chart reviewed Discussed with RN She is now extremely critically ill 04/27 Patient evaluated examined at bedside. She had a rapid response overnight requiring transfer to the 6 floor. When I saw her she was on BiPAP 21/11 this morning. She was quite lethargic. Sugars still elevated will adjust insulin. ID consulted for antibiotic recommendations. Continue COVID treatment. Check chest x-ray. Wean oxygen as tolerated. Consult to pulmonary as well today. 04/26/2021 No acute events overnight. Patient seen and examined bedside. Afebrile and vital signs stable. Glucose elevated at 300s to 400s. Started on long-acting glargine 10 units twice daily 04/25 Eval examined at bedside. Increased O2 requirement. Still requiring insulin drip. With worsening O2 transfer to ICU today. 35min CC time Vitals/I&O Vitals/I&O: Vital Signs Date Time Temp Pulse Resp B/P (MAP) Pulse Ox O2 Delivery O2 Flow Rate FiO2 04/29/21 09:25 100 Ventilator 40.0 04/29/21 06:00 140 20 192/76 04/29/21 04:00 98.3 98.3 I & O 04/28/21 04/28/21 04/29/21 15:00 23:00 07:00 Intake Total 0 ml 1291 ml 314 ml Output Total 20 ml 35 ml 10 ml Balance -20 ml 1256 ml 304 ml Physical Exam Physical Exam: GENERAL: Intubated/sedated HEENT: ETT /OGT anicteric normocephalic atraumatic LUNGS: Decreased breath sounds. HEART: S1, S2. No murmurs. ABDOMEN: Soft, nontender, nondistended. GENITOURINARY: Briefs in place. EXTREMITIES: Hyperpigmentation in both lower extremities with scarring. Right lower extremity postop dressing in place intact not taken down SUGAR PRESSER: Intubated/sedated General: Other (intubated ) Heart: Other (AFIB) Lungs: Crackles, Other (decreased air entry throughout) Abdomen: Other (obese) Extremities: Other (RLE wound ) Skin: Other (chronic venous stasis changes of bilateral LE ) Labs Labs: Laboratory Tests Test 04/28/21 12:19 04/28/21 16:29 04/29/21 08:05 Glucose (Fingerstick) 494 mg/dL (70-99) 387 mg/dL (70-99) O2 Saturation 99 % (92-99) Arterial Blood pH 7.27 (7.35-7.45) Arterial Blood pCO2 at Patient Temp 38 mmHg (35-46) Arterial Blood pO2 at Patient Temp 193 mmHg (65-108) Arterial Blood HCO3 17 mmol/L (21-28) Arterial Blood Base Excess -10 mmol/L (-3-3) FiO2 100% vent Assessment and Plan Assessmemt and Plan Problems Medical Problems: (1) Community acquired pneumonia Status: Acute (2) COVID-19 virus infection Status: Acute (3) DKA (diabetic ketoacidosis) Status: Acute (4) Hypoxia Status: Acute Covid-19 respiratory failure requiring mechanical ventilation Status post CODE BLUE Streptococcus pneumoniae bacteremia DKA Peripheral vascular disease Diabetic extremity wounds Hypertensive urgency - improved Hyperglycemia uncontrolled KYLE due to vasomotor nephropathyimproved Plan ICU monitoring Vent weaning if possible Continue cefepime and Dapto Also on steroids and remdesivir Patient is DNR Trend labs Continue sedation Trying to wean off the pressors Monitor art line OG to suction DVT prophylaxis Appreciate subspecialist input She remains very critically ill Prognosis poor CC time 34 minutes Comment Review of Relevant I have reviewed the following items rafael (where applicable) has been applied. Medications: Current Medications Medications (Trade) Dose Ordered Sig/Sadie Route PRN Reason Start Time Stop Time Status Last Admin Dose Admin Pantoprazole Sodium (PROTONIX VIAL for IV PUSH) 40 mg DAILYAC IVP 04/29/21 07:30 04/29/21 08:55 Insulin Human Lispro (HumaLOG) 30 units 1X ONCE SQ 04/28/21 13:00 04/28/21 13:01 DC 04/28/21 13:01 Digoxin (Lanoxin) 500 mcg 1X ONCE IV 04/28/21 14:00 04/28/21 14:03 DC 04/28/21 14:06 Digoxin (Lanoxin) 500 mcg 1X ONCE IV 04/28/21 16:00 04/28/21 16:03 DC 04/28/21 16:05 Metoprolol Tartrate (Lopressor Vial) 5 mg 1X ONCE IVP 04/28/21 16:00 04/28/21 16:03 DC 04/28/21 16:07 Insulin Human Lispro (HumaLOG) 20 units 1X ONCE SQ 04/28/21 16:45 04/28/21 16:46 DC 04/28/21 16:36 Justifications for Admission Other Justification COVID-19 positive test (U07.1, COVID-19) with Acute Pneumonia (J12.89, Other viral pneumonia) (If respiratory failure or sepsis present, add as separate assessment) BEAU PETIT III DO Apr 29, 2021 11:15
[2021-04-29] MEDS: PIPERACILLIN/TAZOBACTAM 2.25 GM in IV NORMAL SALINE 50ML 50 ML IV SCH ×2 (12:00→13:34)
[2021-04-29] MEDS: ASPIRIN CHEWABLE 81 MG TABLET. PO SCH (13:49)
--- NOTE | 2021-04-29 15:24 | NUR ---
SS following up with discharge planning. SS reviewed pt chart and discussed with pt RN. Pt is currently on the vent at 100%. COVID19 positive. Pt has high fever today. Pt on Versed, Fentanyl, and Levophed. Pt on IV Daptomycin, IV Zosyn, and IV Solu-Medrol. Multiorgan failure. DNR. Pt's family visited today. Physicians discussing goals of care with pt's family. Not stable. SS will continue to follow for discharge planning. Addendum: 04/29/21 at 1530 by REBEKA GOSS SS CORRECTION TO PREVIOUS NOTE: Pt currently on the vent at 50%. Addendum: 04/29/21 at 1531 by REBEKA GOSS SS Cancel Addendum: Pt is currently on the vent at 100%.
[2021-04-29 17:01] LABS: HEMATOCRIT 36.3 % (36.0-47.0); HEMOGLOBIN 11.1 g/dL (12.0-15.5); RED BLOOD COUNT 4.07 x10^6/uL (3.50-5.40); RED CELL DISTRIBUTION WIDTH 15.7 % (11.5-14.5); WHITE BLOOD COUNT 14.9 x10^3/uL (4.0-11.0)
[2021-04-29 17:17] LABS: PROTHROMBIN TIME PATIENT 31.8 SEC (11.7-14.0)
[2021-04-29] MEDS: DAPTOmycin (GENERIC) IVPB 430 MG in IV NORMAL SALINE 50ML 50 ML IV SCH (18:04)
[2021-04-29] MEDS ORDERED: ACETAMINOPHEN 650 MG/20.3 ML SOLUTION. GT PRN (18:15)
[2021-04-30] VITALS (31 sets, daily range): BP systolic 70–180; BP diastolic 30–90
[2021-04-30] MEDS: PIPERACILLIN/TAZOBACTAM 2.25 GM in IV NORMAL SALINE 50ML 50 ML IV SCH ×4 (06:06→17:33)
[2021-04-30] MEDS: methylPREDNISolone SOD SUCC PF 40 MG/ML VIAL. IV SCH ×3 (06:06→21:24)
[2021-04-30 06:33] LABS: ALBUMIN 1.3 g/dL (3.4-5.0); ALBUMIN/GLOBULIN RATIO 0.3 (1.0-1.7); CALCIUM 7.1 mg/dL (8.5-10.1); CREATININE 4.6 mg/dL (0.6-1.0); GFR 11.6; POTASSIUM 4.4 mmol/L (3.5-5.1); TOTAL BILIRUBIN 0.7 mg/dL (0.2-1.0); TOTAL PROTEIN 5.5 g/dL (6.4-8.2)
[2021-04-30 07:01] LABS: BASO # 0.1 x10^3/uL (0.0-0.2); BASO % 0 % (0-3); EOS % 0 % (0-3); HEMATOCRIT 35.8 % (36.0-47.0); LYMPH % 6 % (24-48); MEAN CORPUSCULAR HEMOGLOBIN 27 pg (25-35); MEAN CORPUSCULAR HGB CONC 31 g/dL (31-37); MEAN CORPUSCULAR VOLUME 89 fL (79-100); MONO # 0.9 x10^3/uL (0.0-1.1); MONO % 6 % (0-9); NEUT # 13.4 x10^3/uL (1.8-7.7); NEUT % 87 % (31-73); PLATELET COUNT 85 x10^3/uL (140-400); RED BLOOD COUNT 4.05 x10^6/uL (3.50-5.40); RED CELL DISTRIBUTION WIDTH 15.8 % (11.5-14.5); WHITE BLOOD COUNT 15.4 x10^3/uL (4.0-11.0)
[2021-04-30] MEDS: IV NORMAL SALINE 1000ML BAG 1,000 ML IV SCH (07:28)
[2021-04-30] MEDS: INSULIN LISPRO 300 UNITS/3 ML VIAL. SQ SCH ×5 (08:00→17:40)
[2021-04-30 08:08] LABS: BASE EXCESS ABG -13 mmol/L (-3-3); HCO3 ABG 14 mmol/L (21-28); PCO2 ABG 32 mmHg (35-46); PO2 ABG 340 mmHg (65-108); SAT O2 ABG 99 % (92-99)
[2021-04-30] MEDS: LISINOPRIL 10 MG TABLET PO SCH (08:24)
[2021-04-30] MEDS: ASPIRIN CHEWABLE 81 MG TABLET. PO SCH (08:25)
[2021-04-30] MEDS: ZINC SULFATE 220 MG CAPSULE. PO SCH (08:25)
[2021-04-30] MEDS: ASCORBIC ACID 1,000 MG TABLET PO SCH (08:25)
[2021-04-30] MEDS: PANTOPRAZOLE IV PUSH 40 MG VIAL. IVP SCH (08:26)
[2021-04-30] MEDS: ENOXAPARIN 40 MG/0.4 ML SYRINGE. SQ SCH (08:27)
[2021-04-30] MEDS: NYSTATIN TOPICAL POWDER 15GM BOTTLE. TP SCH ×2 (08:27→21:23)
[2021-04-30] MEDS: INSULIN GLARGINE SYRINGE. SQ SCH ×2 (08:48→21:23)
[2021-04-30 08:57] LABS: FIO2 ABG 100% pc 20 20 8
--- NOTE | 2021-04-30 09:28 | PDOC ---
PULMONARY PROGRESS NOTES DATE: 04/30/21 TIME: 09:27 Subjective Discussed with RT, decrease FiO2 patient remains critically ill, currently on IV insulin Metabolic acidosis persist DKA persist Vitals Vital Signs Date Time Temp Pulse Resp B/P (MAP) Pulse Ox O2 Delivery O2 Flow Rate FiO2 04/30/21 08:10 Ventilator 04/30/21 07:58 100 04/30/21 07:30 40.0 04/30/21 06:00 85 20 105/62 04/30/21 04:00 98.9 98.9 Lungs: Crackles, Other (decreased air entry throughout) Cardiovascular: S1, S2 Abdomen: Soft Extremities: Other (Edema wound care) Skin: Warm Labs Laboratory Tests Test 04/28/21 12:19 04/28/21 16:29 04/29/21 08:05 04/29/21 12:35 Glucose (Fingerstick) 494 mg/dL (70-99) 387 mg/dL (70-99) 76 mg/dL (70-99) O2 Saturation 99 % (92-99) Arterial Blood pH 7.27 (7.35-7.45) Arterial Blood pCO2 at Patient Temp 38 mmHg (35-46) Arterial Blood pO2 at Patient Temp 193 mmHg (65-108) Arterial Blood HCO3 17 mmol/L (21-28) Arterial Blood Base Excess -10 mmol/L (-3-3) FiO2 100% vent Test 04/29/21 13:08 04/29/21 16:30 04/29/21 18:14 04/30/21 00:52 Glucose (Fingerstick) 136 mg/dL (70-99) 128 mg/dL (70-99) 142 mg/dL (70-99) White Blood Count 14.9 x10^3/uL (4.0-11.0) Red Blood Count 4.07 x10^6/uL (3.50-5.40) Hemoglobin 11.1 g/dL (12.0-15.5) Hematocrit 36.3 % (36.0-47.0) Mean Corpuscular Volume 89 fL (79-100) Mean Corpuscular Hemoglobin 27 pg (25-35) Mean Corpuscular Hemoglobin Concent 31 g/dL (31-37) Red Cell Distribution Width 15.7 % (11.5-14.5) Platelet Count 103 x10^3/uL (140-400) Prothrombin Time 31.8 SEC (11.7-14.0) Prothromb Time International Ratio 3.2 (0.8-1.1) Test 04/30/21 06:00 04/30/21 06:05 04/30/21 08:00 White Blood Count 15.4 x10^3/uL (4.0-11.0) Red Blood Count 4.05 x10^6/uL (3.50-5.40) Hemoglobin 11.0 g/dL (12.0-15.5) Hematocrit 35.8 % (36.0-47.0) Mean Corpuscular Volume 89 fL (79-100) Mean Corpuscular Hemoglobin 27 pg (25-35) Mean Corpuscular Hemoglobin Concent 31 g/dL (31-37) Red Cell Distribution Width 15.8 % (11.5-14.5) Platelet Count 85 x10^3/uL (140-400) Neutrophils (%) (Auto) 87 % (31-73) Lymphocytes (%) (Auto) 6 % (24-48) Monocytes (%) (Auto) 6 % (0-9) Eosinophils (%) (Auto) 0 % (0-3) Basophils (%) (Auto) 0 % (0-3) Neutrophils # (Auto) 13.4 x10^3/uL (1.8-7.7) Lymphocytes # (Auto) 1.0 x10^3/uL (1.0-4.8) Monocytes # (Auto) 0.9 x10^3/uL (0.0-1.1) Eosinophils # (Auto) 0.0 x10^3/uL (0.0-0.7) Basophils # (Auto) 0.1 x10^3/uL (0.0-0.2) Sodium Level 145 mmol/L (136-145) Potassium Level 4.4 mmol/L (3.5-5.1) Chloride Level 116 mmol/L (98-107) Carbon Dioxide Level 16 mmol/L (21-32) Anion Gap 13 (6-14) Blood Urea Nitrogen 64 mg/dL (7-20) Creatinine 4.6 mg/dL (0.6-1.0) Estimated GFR (Cockcroft-Gault) 11.6 BUN/Creatinine Ratio 14 (6-20) Glucose Level 177 mg/dL (70-99) Calcium Level 7.1 mg/dL (8.5-10.1) Total Bilirubin 0.7 mg/dL (0.2-1.0) Aspartate Amino Transf (AST/SGOT) 2761 U/L (15-37) Alanine Aminotransferase (ALT/SGPT) 1334 U/L (14-59) Alkaline Phosphatase 191 U/L (46-116) Total Protein 5.5 g/dL (6.4-8.2) Albumin 1.3 g/dL (3.4-5.0) Albumin/Globulin Ratio 0.3 (1.0-1.7) Glucose (Fingerstick) 165 mg/dL (70-99) O2 Saturation 99 % (92-99) Arterial Blood pH 7.24 (7.35-7.45) Arterial Blood pCO2 at Patient Temp 32 mmHg (35-46) Arterial Blood pO2 at Patient Temp 340 mmHg (65-108) Arterial Blood HCO3 14 mmol/L (21-28) Arterial Blood Base Excess -13 mmol/L (-3-3) FiO2 100% pc 20 20 8 Laboratory Tests Test 04/29/21 12:35 04/29/21 13:08 04/29/21 16:30 04/29/21 18:14 Glucose (Fingerstick) 76 mg/dL (70-99) 136 mg/dL (70-99) 128 mg/dL (70-99) White Blood Count 14.9 x10^3/uL (4.0-11.0) Red Blood Count 4.07 x10^6/uL (3.50-5.40) Hemoglobin 11.1 g/dL (12.0-15.5) Hematocrit 36.3 % (36.0-47.0) Mean Corpuscular Volume 89 fL (79-100) Mean Corpuscular Hemoglobin 27 pg (25-35) Mean Corpuscular Hemoglobin Concent 31 g/dL (31-37) Red Cell Distribution Width 15.7 % (11.5-14.5) Platelet Count 103 x10^3/uL (140-400) Prothrombin Time 31.8 SEC (11.7-14.0) Prothromb Time International Ratio 3.2 (0.8-1.1) Test 04/30/21 00:52 04/30/21 06:00 04/30/21 06:05 04/30/21 08:00 Glucose (Fingerstick) 142 mg/dL (70-99) 165 mg/dL (70-99) White Blood Count 15.4 x10^3/uL (4.0-11.0) Red Blood Count 4.05 x10^6/uL (3.50-5.40) Hemoglobin 11.0 g/dL (12.0-15.5) Hematocrit 35.8 % (36.0-47.0) Mean Corpuscular Volume 89 fL (79-100) Mean Corpuscular Hemoglobin 27 pg (25-35) Mean Corpuscular Hemoglobin Concent 31 g/dL (31-37) Red Cell Distribution Width 15.8 % (11.5-14.5) Platelet Count 85 x10^3/uL (140-400) Neutrophils (%) (Auto) 87 % (31-73) Lymphocytes (%) (Auto) 6 % (24-48) Monocytes (%) (Auto) 6 % (0-9) Eosinophils (%) (Auto) 0 % (0-3) Basophils (%) (Auto) 0 % (0-3) Neutrophils # (Auto) 13.4 x10^3/uL (1.8-7.7) Lymphocytes # (Auto) 1.0 x10^3/uL (1.0-4.8) Monocytes # (Auto) 0.9 x10^3/uL (0.0-1.1) Eosinophils # (Auto) 0.0 x10^3/uL (0.0-0.7) Basophils # (Auto) 0.1 x10^3/uL (0.0-0.2) Sodium Level 145 mmol/L (136-145) Potassium Level 4.4 mmol/L (3.5-5.1) Chloride Level 116 mmol/L (98-107) Carbon Dioxide Level 16 mmol/L (21-32) Anion Gap 13 (6-14) Blood Urea Nitrogen 64 mg/dL (7-20) Creatinine 4.6 mg/dL (0.6-1.0) Estimated GFR (Cockcroft-Gault) 11.6 BUN/Creatinine Ratio 14 (6-20) Glucose Level 177 mg/dL (70-99) Calcium Level 7.1 mg/dL (8.5-10.1) Total Bilirubin 0.7 mg/dL (0.2-1.0) Aspartate Amino Transf (AST/SGOT) 2761 U/L (15-37) Alanine Aminotransferase (ALT/SGPT) 1334 U/L (14-59) Alkaline Phosphatase 191 U/L (46-116) Total Protein 5.5 g/dL (6.4-8.2) Albumin 1.3 g/dL (3.4-5.0) Albumin/Globulin Ratio 0.3 (1.0-1.7) O2 Saturation 99 % (92-99) Arterial Blood pH 7.24 (7.35-7.45) Arterial Blood pCO2 at Patient Temp 32 mmHg (35-46) Arterial Blood pO2 at Patient Temp 340 mmHg (65-108) Arterial Blood HCO3 14 mmol/L (21-28) Arterial Blood Base Excess -13 mmol/L (-3-3) FiO2 100% pc 20 20 8 Medications Active Scripts Medications Dose Route/Sig Max Daily Dose Days Date Category Lisinopril 10 Mg Tablet 1 Tab PO DAILY 04/19/21 Rx Metformin Hcl 500 Mg Tablet 500 Mg PO BIDWMEALS 04/19/21 Rx Impression . IMPRESSION: 1. Acute hypoxemic respiratory failure, multifactorial. Status post CODE BLUE 2. COVID-19 viral pneumonia, acute respiratory distress syndrome. 3. Diabetic ketoacidosis. 4. Bacteremia. 5. Leg wound infection with Klebsiella, Enterococcus and beta strep, group B. 6. Sepsis. 7. Hypertensive urgency. 8. Acute kidney injury./Acute renal failure 9. Liver failure 10. Severe protein malnutrition Patient intubated, emergency room physician Called to ABISA[facility] KIRBY on 6 4. Patient had gone unresponsive, pulseless, apneic. CPR was initiated and pulse was regained after 1 round of epinephrine compressions. Patient was given push dose epinephrine until epi drip arrived. Patient was intubated by myself. Patient was intubated in emergent fashion and no consent was obtained. Patient was [] sedated and paralyzed with etomidate and succinylcholine. A glide scope with a size 4 blade was used, cords were visualized and a size 7.5 endotracheal tube was placed during first attempt. Endotracheal tube cuff was inflated and confirmation established by visualization of the cords passing the tubes, bilateral breath sounds, color change, and chest x-ray. Plan . Update on 04/30 Patient continues to be critically ill with multiorgan failure Continue current support, decrease FiO2 ID, empiric antibiotics Nutritional support Empiric antibiotics Anticoagulation Patient not expected to survive Follow vascular input Updated 04/29 Patient with multiorgan failure, family updated, not expected to survive We will continue current support Continue IV insulin Empiric antibiotics Mechanical support Anticoagulation Follow vascular input I had a family conference with son, sister, and DPOA CCT of 30 minutes LEE KILLIAN MD Apr 30, 2021 09:28
--- NOTE | 2021-04-30 10:35 | PDOC ---
[facility] PROGRESS NOTE Date of Service DOS: DATE: 04/30/21 TIME: 10:33 Chief Complaint Chief Complaint Streptococcus pneumoniae bacteremia Acute hypoxic respiratory failure secondary to COVID-19 infection DKA Hypertensive urgency - improved Hyperglycemia uncontrolled KYLE due to vasomotor nephropathyimproved History of Present Illness History of Present Illness 04/30/2021 Patient seen and examined in the ICU She still remains on the vent Pressure control of 2049% FiO2 8 of PEEP Art line showing pressure of 76/46 despite being on Levophed Sedated with fentanyl and Versed She remains extremely critically ill I am concerned she may not survive Discussed with RN Chart reviewed 04/29/2019 Patient seen and examined in the ICU She remains on the vent Pressure control of 20 with 100% FiO2 +8 of PEEP OG to suction Has IV Levophed Sedated with fentanyl and Versed Chart reviewed Discussed with RN 04/28/2021 Patient seen and examined in the ICU She coded last night and had to be intubated OG to suction Has an art line in place On IV Levophed and fentanyl and Versed Vent settings as follows Pressure control rate of 22 with 100% FiO2 and 8 of PEEP Chart reviewed Discussed with RN She is now extremely critically ill 04/27 Patient evaluated examined at bedside. She had a rapid response overnight requiring transfer to the 6 floor. When I saw her she was on BiPAP 21/11 this morning. She was quite lethargic. Sugars still elevated will adjust insulin. ID consulted for antibiotic recommendations. Continue COVID treatment. Check chest x-ray. Wean oxygen as tolerated. Consult to pulmonary as well today. 04/26/2021 No acute events overnight. Patient seen and examined bedside. Afebrile and vital signs stable. Glucose elevated at 300s to 400s. Started on long-acting glargine 10 units twice daily 04/25 Eval examined at bedside. Increased O2 requirement. Still requiring insulin drip. With worsening O2 transfer to ICU today. 35min CC time Vitals/I&O Vitals/I&O: Vital Signs Date Time Temp Pulse Resp B/P (MAP) Pulse Ox O2 Delivery O2 Flow Rate FiO2 04/30/21 08:10 Ventilator 04/30/21 07:58 100 04/30/21 07:30 40.0 04/30/21 06:00 85 20 105/62 04/30/21 04:00 98.9 98.9 I & O 04/29/21 04/29/21 04/30/21 15:00 23:00 07:00 Intake Total 3539 ml Output Total 145 ml 35 ml Balance 3394 ml -35 ml Physical Exam Physical Exam: GENERAL: Intubated/sedated HEENT: ETT /OGT anicteric normocephalic atraumatic LUNGS: Decreased breath sounds. HEART: S1, S2. No murmurs. ABDOMEN: Soft, nontender, nondistended. GENITOURINARY: Briefs in place. EXTREMITIES: Hyperpigmentation in both lower extremities with scarring. Right lower extremity postop dressing in place intact not taken down PUBLIC RELATIONS REPRESENTATIVE: Intubated/sedated General: Other (intubated ) Heart: Other (AFIB) Lungs: Crackles, Other (decreased air entry throughout) Abdomen: Other (obese) Extremities: Other (RLE wound ) Skin: Other (chronic venous stasis changes of bilateral LE ) Labs Labs: Laboratory Tests Test 04/29/21 12:35 04/29/21 13:08 04/29/21 16:30 04/29/21 18:14 Glucose (Fingerstick) 76 mg/dL (70-99) 136 mg/dL (70-99) 128 mg/dL (70-99) White Blood Count 14.9 x10^3/uL (4.0-11.0) Red Blood Count 4.07 x10^6/uL (3.50-5.40) Hemoglobin 11.1 g/dL (12.0-15.5) Hematocrit 36.3 % (36.0-47.0) Mean Corpuscular Volume 89 fL (79-100) Mean Corpuscular Hemoglobin 27 pg (25-35) Mean Corpuscular Hemoglobin Concent 31 g/dL (31-37) Red Cell Distribution Width 15.7 % (11.5-14.5) Platelet Count 103 x10^3/uL (140-400) Prothrombin Time 31.8 SEC (11.7-14.0) Prothromb Time International Ratio 3.2 (0.8-1.1) Test 04/30/21 00:52 04/30/21 06:00 04/30/21 06:05 04/30/21 08:00 Glucose (Fingerstick) 142 mg/dL (70-99) 165 mg/dL (70-99) White Blood Count 15.4 x10^3/uL (4.0-11.0) Red Blood Count 4.05 x10^6/uL (3.50-5.40) Hemoglobin 11.0 g/dL (12.0-15.5) Hematocrit 35.8 % (36.0-47.0) Mean Corpuscular Volume 89 fL (79-100) Mean Corpuscular Hemoglobin 27 pg (25-35) Mean Corpuscular Hemoglobin Concent 31 g/dL (31-37) Red Cell Distribution Width 15.8 % (11.5-14.5) Platelet Count 85 x10^3/uL (140-400) Neutrophils (%) (Auto) 87 % (31-73) Lymphocytes (%) (Auto) 6 % (24-48) Monocytes (%) (Auto) 6 % (0-9) Eosinophils (%) (Auto) 0 % (0-3) Basophils (%) (Auto) 0 % (0-3) Neutrophils # (Auto) 13.4 x10^3/uL (1.8-7.7) Lymphocytes # (Auto) 1.0 x10^3/uL (1.0-4.8) Monocytes # (Auto) 0.9 x10^3/uL (0.0-1.1) Eosinophils # (Auto) 0.0 x10^3/uL (0.0-0.7) Basophils # (Auto) 0.1 x10^3/uL (0.0-0.2) Sodium Level 145 mmol/L (136-145) Potassium Level 4.4 mmol/L (3.5-5.1) Chloride Level 116 mmol/L (98-107) Carbon Dioxide Level 16 mmol/L (21-32) Anion Gap 13 (6-14) Blood Urea Nitrogen 64 mg/dL (7-20) Creatinine 4.6 mg/dL (0.6-1.0) Estimated GFR (Cockcroft-Gault) 11.6 BUN/Creatinine Ratio 14 (6-20) Glucose Level 177 mg/dL (70-99) Calcium Level 7.1 mg/dL (8.5-10.1) Total Bilirubin 0.7 mg/dL (0.2-1.0) Aspartate Amino Transf (AST/SGOT) 2761 U/L (15-37) Alanine Aminotransferase (ALT/SGPT) 1334 U/L (14-59) Alkaline Phosphatase 191 U/L (46-116) Total Protein 5.5 g/dL (6.4-8.2) Albumin 1.3 g/dL (3.4-5.0) Albumin/Globulin Ratio 0.3 (1.0-1.7) O2 Saturation 99 % (92-99) Arterial Blood pH 7.24 (7.35-7.45) Arterial Blood pCO2 at Patient Temp 32 mmHg (35-46) Arterial Blood pO2 at Patient Temp 340 mmHg (65-108) Arterial Blood HCO3 14 mmol/L (21-28) Arterial Blood Base Excess -13 mmol/L (-3-3) FiO2 100% pc 20 20 8 Assessment and Plan Assessmemt and Plan Problems Medical Problems: (1) Community acquired pneumonia Status: Acute (2) COVID-19 virus infection Status: Acute (3) DKA (diabetic ketoacidosis) Status: Acute (4) Hypoxia Status: Acute Covid-19 respiratory failure requiring mechanical ventilation Status post CODE BLUE Streptococcus pneumoniae bacteremia DKA Peripheral vascular disease Diabetic extremity wounds Hypertensive urgency - improved Hyperglycemia uncontrolled KYLE due to vasomotor nephropathyimproved Plan ICU monitoring Vent weaning if possible Continue cefepime and Dapto, steroids and remdesivir Patient is DNR Trend labs Continue sedation Trying to wean off the pressors Monitor art line OG to suction DVT prophylaxis Appreciate subspecialist input She remains very critically ill I am concerned she may not survive May need to move towards comfort care if she does not improve soon Prognosis poor CC time 32 minutes Comment Review of Relevant I have reviewed the following items rafael (where applicable) has been applied. Medications: Current Medications Medications (Trade) Dose Ordered Sig/Sadie Route PRN Reason Start Time Stop Time Status Last Admin Dose Admin Piperacillin Sod/ Tazobactam Sod 2.25 gm/Sodium Chloride 50 ml @ 100 mls/hr Q6HRS IV 04/29/21 12:00 04/30/21 06:06 Justifications for Admission Other Justification COVID-19 positive test (U07.1, COVID-19) with Acute Pneumonia (J12.89, Other viral pneumonia) (If respiratory failure or sepsis present, add as separate assessment) BEAU PETIT III DO Apr 30, 2021 10:35
--- NOTE | 2021-04-30 13:20 | PDOC2 ---
CONSULT Date of Consult Date of Consult DATE: 04/30/21 TIME: 13:20 Reason for Consult Reason for Consult: KYLE Identification/Chief Complaint Chief Complaint Unable to Obtain 2/2 Intubated/MV Source Source: Chart review History of Present Illness Reason for Visit: Patient is a 65-year-old AA female who presented to [facility] initially on 04/17 with C/O SOB , left AMA . Went back again on 04/17 with worsening short of breath , cough and chills . She was dialgnosed with COVID-19 virus on 04/18/2021 She was on No Rebreather/BiPAp. Transferred to [facility] on 04/24 (details not available in initial HPI) . On 04/27 she had asystole and unresponsive, code blue was initiated, , requiring Intubation Labs done on 04/28 showed increase in Creatinine to 1.7 from normal baseline ; no labs on 04/29. Labs this morning - Creatinine up to 4.6 - noted by RN . Nephrology Consulted for KYLE . Per Nursing significant decline in UOP as well She is on low dose of pressors. Vent setting improved but abnormal LFT's and KYLE since code Past Medical History Cardiovascular: HTN Endocrine: Diabetes Past Surgical History Past Surgical History: No pertinent history Family History Family History: Family History Unknown Social History No ALCOHOL: none Drugs: None Current Problem List Problem List Problems Medical Problems: (1) Community acquired pneumonia Status: Acute (2) COVID-19 virus infection Status: Acute (3) DKA (diabetic ketoacidosis) Status: Acute (4) Hypoxia Status: Acute Current Medications Current Medications Current Medications Dexamethasone Sodium Phosphate (Decadron) 10 mg 1X ONCE IV Last administered on 04/24/21at 17:44; Start 04/24/21 at 17:45; Stop 04/24/21 at 17:46; Status DC Ceftriaxone Sodium (Rocephin) 1 gm 1X ONCE IVP Last administered on 04/24/21at 17:44; Start 04/24/21 at 17:45; Stop 04/24/21 at 17:46; Status DC Azithromycin (Zithromax) 500 mg 1X ONCE PO Last administered on 04/24/21at 17:44; Start 04/24/21 at 17:45; Stop 04/24/21 at 17:46; Status DC Iohexol (Omnipaque 350 Mg/ml) 100 ml 1X ONCE IV Last administered on 04/24/21at 18:00; Start 04/24/21 at 17:30; Stop 04/24/21 at 17:31; Status DC Info (CONTRAST GIVEN -- Rx MONITORING) 1 each PRN DAILY PRN MC SEE COMMENTS; Start 04/24/21 at 17:30; Stop 04/26/21 at 17:29; Status DC Ascorbic Acid (Vitamin C) 3,000 mg TID PO Last administered on 04/30/21at 08:25; Start 04/24/21 at 21:00; Stop 04/30/21 at 08:38; Status DC Methylprednisolone Sodium Succinate (SOLU-Medrol 40MG VIAL) 40 mg Q8HRS IV Last administered on 04/30/21at 06:06; Start 04/24/21 at 22:00 Thiamine Mononitrate (Vitamin B-1) 300 mg DAILY PO Last administered on 04/29/21at 08:56; Start 04/25/21 at 09:00; Stop 04/30/21 at 08:38; Status DC Zinc Sulfate (Orazinc) 220 mg DAILY PO Last administered on 04/30/21at 08:25; Start 04/25/21 at 09:00; Stop 04/30/21 at 08:38; Status DC Sennosides (Senna) 17.2 mg PRN BID PRN PO CONSTIPATION; Start 04/24/21 at 19:15 Docusate Sodium (Colace) 100 mg PRN DAILY PRN PO HARD STOOLS; Start 04/24/21 at 19:15; Stop 04/28/21 at 08:21; Status DC Ondansetron HCl (Zofran) 4 mg PRN Q6HRS PRN IVP NAUSEA/VOMITING, 1st CHOICE; Start 04/24/21 at 19:15 Dextrose (Dextrose 50%-Water Syringe) 12.5 gm PRN Q15MIN PRN IV SEE COMMENTS; Start 04/24/21 at 19:15; Stop 04/24/21 at 19:36; Status DC Acetaminophen (Tylenol) 650 mg PRN Q4HRS PRN PO TEMP OVER 100.4F OR MILD PAIN Last administered on 04/29/21at 13:50; Start 04/24/21 at 19:15; Stop 04/29/21 at 18:01; Status DC Lorazepam (Ativan) 0.5 mg PRN Q6HRS PRN PO ANXIETY / AGITATION; Start 04/24/21 at 19:15 Lorazepam (Ativan Inj) 0.25 mg PRN Q4HRS PRN IV ANXIETY / AGITATION Last administered on 04/26/21at 23:57; Start 04/24/21 at 19:15 Enoxaparin Sodium (Lovenox 40mg Syringe) 40 mg Q24H SQ Last administered on 04/30/21at 08:27; Start 04/25/21 at 09:00; Stop 04/30/21 at 10:44; Status DC Pantoprazole Sodium (Protonix) 40 mg DAILYAC PO Last administered on 04/26/21at 08:12; Start 04/25/21 at 07:30; Stop 04/28/21 at 12:29; Status DC Prochlorperazine Edisylate (Compazine) 10 mg PRN Q6HRS PRN IV NAUSEA/VOMITING, 2nd CHOICE; Start 04/24/21 at 19:15 Diphenhydramine HCl (Benadryl) 25 mg PRN Q6HRS PRN IVP ITCHING; Start 04/24/21 at 19:15 Diphenhydramine HCl (Benadryl) 25 mg PRN Q6HRS PRN PO ITCHING; Start 04/24/21 at 19:15 Diphenhydramine HCl (Benadryl) 25 mg PRN QHS PRN PO INSOMNIA, 1st CHOICE; Start 04/24/21 at 19:15 Zolpidem Tartrate (Ambien) 2.5 mg PRN QHS PRN PO INSOMNIA, 2nd CHOICE; Start 04/24/21 at 19:15 Lisinopril (Prinivil) 10 mg DAILY PO Last administered on 04/26/21at 08:13; Start 04/25/21 at 09:00 Metformin HCl (Glucophage) 500 mg BIDWMEALS PO ; Start 04/25/21 at 08:00; Stop 04/24/21 at 19:22; Status DC Insulin Human Lispro (HumaLOG) 0-7 UNITS TIDWMEALS SQ Last administered on 04/27/21at 18:00; Start 04/25/21 at 08:00; Stop 04/30/21 at 08:46; Status DC Dextrose (Dextrose 50%-Water Syringe) 12.5 gm PRN Q15MIN PRN IV SEE COMMENTS; Start 04/24/21 at 19:15 Labetalol HCl (Normodyne Iv Push) 20 mg Q2HR PRN IVP HYPERTENSION Last administered on 04/27/21at 16:02; Start 04/24/21 at 19:15 Hydralazine HCl (Apresoline Inj) 10 mg PRN Q4HRS PRN IVP ELEVATED BP, SEE COMMENTS Last administered on 04/27/21at 08:01; Start 04/24/21 at 19:15 Remdesivir 200 mg/ Sodium Chloride 210 ml @ 210 mls/hr 1X ONCE IV Last administered on 04/24/21at 22:40; Start 04/24/21 at 20:00; Stop 04/24/21 at 20:59; Status DC Remdesivir 100 mg/ Sodium Chloride 230 ml @ 460 mls/hr Q24H IV Last administered on 04/28/21at 21:03; Start 04/25/21 at 20:00; Stop 04/28/21 at 20:29; Status DC Sodium Chloride 1,000 ml @ 1,000 mls/hr Q1H IV Last administered on 04/24/21at 21:46; Start 04/24/21 at 19:30; Stop 04/24/21 at 20:29; Status DC Sodium Chloride 1,000 ml @ 500 mls/hr Q2H IV ; Start 04/24/21 at 19:45; Stop 04/24/21 at 21:44; Status DC Sodium Chloride 1,000 ml @ 250 mls/hr Q4H IV ; Start 04/24/21 at 19:45; Stop 04/24/21 at 22:47; Status DC Insulin Human Regular 100 unit/ Sodium Chloride 101 ml @ 0 mls/hr CONT PRN PRN IV PER PROTOCOL Last administered on 04/25/21at 11:52; Start 04/24/21 at 19:30; Stop 04/28/21 at 08:22; Status DC Potassium Chloride/Water 100 ml @ 100 mls/hr PRN Q1HR PRN IV SEE COMMENTS; Start 04/24/21 at 19:30; Status Cancel Potassium Chloride/Water 100 ml @ 100 mls/hr PRN Q1HR PRN IV SEE COMMENTS; Start 04/24/21 at 19:30; Status Cancel Potassium Chloride/Water 100 ml @ 100 mls/hr PRN Q1HR PRN IV SEE COMMENTS; Start 04/24/21 at 19:30; Status Cancel Sodium Chloride 1,000 ml @ 150 mls/hr Q6H40M IV Last administered on 04/30/21at 07:28; Start 04/24/21 at 22:30 Dextrose/Sodium Chloride 1,000 ml @ 250 mls/hr Q4H IV Last administered on at 09:38; Start 04/25/21 at 09:30; Stop 04/25/21 at 18:13; Status DC Sodium Phosphate 20 mmol/Sodium Chloride 256.6667 ml @ 62.5 mls/hr 1X PRN PRN IV SEE COMMENTS Last administered on 04/25/21at 11:29; Start 04/25/21 at 11:15 Insulin Glargine (Lantus Syringe) 20 unit 1X ONCE SQ Last administered on 04/25/21at 13:29; Start 04/25/21 at 14:00; Stop 04/25/21 at 14:01; Status DC Ceftriaxone Sodium (Rocephin) 2 gm Q24H IVP Last administered on 04/26/21at 15:00; Start 04/25/21 at 15:00; Stop 04/27/21 at 10:57; Status DC Lactic Acid (Lac-Hydrin) 1 arleen BID TP Last administered on 04/29/21at 21:00; Start 04/25/21 at 21:00 Nystatin (Nystop) 1 arleen BID TP Last administered on 04/30/21at 08:27; Start 04/25/21 at 21:00 Insulin Human Lispro (HumaLOG) 8 units 1X ONCE SQ Last administered on 04/26/21at 08:40; Start 04/26/21 at 08:45; Stop 04/26/21 at 08:46; Status DC Lactobacillus Rhamnosus (Culturelle) 1 cap BID PO Last administered on 04/26/21at 20:56; Start 04/26/21 at 21:00; Stop 04/28/21 at 08:22; Status DC Insulin Glargine (Lantus Syringe) 10 unit BID SQ Last administered on 04/26/21at 20:57; Start 04/26/21 at 13:00; Stop 04/27/21 at 09:35; Status DC Sterile Water (WATER for RESP) 1,000 ml CONT PRN INH VIA VAPOTHERM DEVICE Last administered on 04/28/21at 03:32; Start 04/27/21 at 01:30; Stop 04/28/21 at 12:29; Status DC Insulin Glargine (Lantus Syringe) 20 unit BID SQ Last administered on 04/30/21at 08:48; Start 04/27/21 at 21:00 Insulin Human Lispro (HumaLOG) 10 units TIDWMEALS SQ Last administered on at 16:34; Start 04/27/21 at 12:00 Vancomycin HCl 1 gm/Sodium Chloride 250 ml @ 250 mls/hr Q12H IV ; Start 04/27/21 at 10:45; Status UNV Cefepime HCl (Maxipime) 2 gm Q12HR IVP Last administered on 04/29/21at 08:58; Start 04/27/21 at 21:00; Stop 04/29/21 at 09:38; Status DC Daptomycin 430 mg/ Sodium Chloride 50 ml @ 100 mls/hr Q24H IV Last administered on 04/29/21at 18:04; Start 04/27/21 at 17:00; Stop 04/30/21 at 12:50; Status DC Nicardipine HCl 50 mg/Sodium Chloride 250 ml @ 25 mls/hr CONT PRN IV PER PROTOCOL Last administered on 04/27/21at 17:15; Start 04/27/21 at 16:30 Epinephrine HCl 5 mg/Sodium Chloride 255 ml @ 29.59 mls/ hr CONT PRN IV SEE I/O RECORD Last administered on 04/28/21at 01:22; Start 04/27/21 at 23:15; Stop 04/28/21 at 06:27; Status DC Fentanyl Citrate 30 ml @ 2.5 mls/hr CONT PRN IV SEE PROTOCOL Last administered on 04/30/21at 07:30; Start 04/27/21 at 23:15 Midazolam HCl 100 ml @ 1 mls/hr CONT PRN IV SEE PROTOCOL Last administered on 04/29/21at 16:15; Start 04/27/21 at 23:15 Propofol 100 ml @ 2.901 mls/ hr CONT PRN IV PER PROTOCOL; Start 04/27/21 at 23:15 Vecuronium [place] (Norcuron Bolus) 6 mg PRN 1X PRN IV VENT INDUCTION Last administered on 04/28/21at 06:59; Start 04/27/21 at 23:15; Stop 04/28/21 at 06:59; Status DC Dexmedetomidine HCl 400 mcg/ Sodium Chloride 100 ml @ 4.835 mls/ hr CONT PRN IV PER PROTOCOL; Start 04/27/21 at 23:15 Sodium Chloride 500 ml @ 500 mls/hr 1X PRN PRN IV SEE COMMENTS; Start 04/27/21 at 23:15 Atropine Sulfate (ATROPINE 0.5mg SYRINGE) 0.5 mg PRN Q5MIN PRN IV SEE COMMENTS; Start 04/27/21 at 23:15 Etomidate (Amidate) 20 mg STK-MED ONCE IV ; Start 04/27/21 at 23:28; Stop 04/03 09/21 at 23:28; Status DC Succinylcholine Chloride (Anectine) 200 mg STK-MED ONCE .ROUTE ; Start 04/27/21 at 23:28; Stop 04/27/21 at 23:29; Status DC Epinephrine HCl 10 mg/Sodium Chloride 250 ml @ 14.505 mls/ hr CONT PRN IV SEE I/O RECORD Last administered on 04/28/21at 05:46; Start 04/28/21 at 05:00 Norepinephrine Bitartrate 8 mg/ Dextrose 258 ml @ 18.711 mls/ hr CONT PRN IV P ER PROTOCOL Last administered on 04/28/21at 06:19; Start 04/28/21 at 06:15; Stop 04/28/21 at 08:23; Status DC Vecuronium [place] (Norcuron Bolus) 10 mg PRN Q6HRS PRN IV VENTILATOR COMPLIANCE Last administered on 04/28/21at 12:22; Start 04/28/21 at 07:00 Docusate Sodium (Colace Solution) 100 mg PRN DAILY PRN PO HARD STOOLS; Start 04/28/21 at 08:30 Norepinephrine Bitartrate 32 mg/ Dextrose 250 ml @ 4.533 mls/ hr CONT PRN IV SEE I/O RECORD Last administered on 04/28/21at 21:56; Start 04/28/21 at 08:30 Vasopressin 20 unit/Dextrose 101 ml @ 12 mls/hr CONT PRN IV SEE I/O RECORD Last administered on 04/29/21at 01:35; Start 04/28/21 at 09:00 Insulin Human Lispro (HumaLOG) 30 units 1X ONCE SQ Last administered on 04/28/21at 10:45; Start 04/28/21 at 10:45; Stop 04/28/21 at 10:46; Status DC Pantoprazole Sodium (PROTONIX VIAL for IV PUSH) 40 mg DAILYAC IVP Last administered on 04/30/21at 08:26; Start 04/29/21 at 07:30 Insulin Human Lispro (HumaLOG) 30 units 1X ONCE SQ Last administered on 04/28/21at 13:01; Start 04/28/21 at 13:00; Stop 04/28/21 at 13:01; Status DC Digoxin (Lanoxin) 500 mcg 1X ONCE IV Last administered on 04/28/21at 14:06; Start 04/28/21 at 14:00; Stop 04/28/21 at 14:03; Status DC Digoxin (Lanoxin) 500 mcg 1X ONCE IV Last administered on 04/28/21at 16:05; Start 04/28/21 at 16:00; Stop 04/28/21 at 16:03; Status DC Metoprolol Tartrate (Lopressor Vial) 5 mg 1X ONCE IVP Last administered on 04/28/21at 16:07; Start 04/28/21 at 16:00; Stop 04/28/21 at 16:03; Status DC Insulin Human Lispro (HumaLOG) 20 units 1X ONCE SQ Last administered on 04/28/21at 16:36; Start 04/28/21 at 16:45; Stop 04/28/21 at 16:46; Status DC Aspirin (Aspirin Chewable) 81 mg DAILYWBKFT PO Last administered on 04/30/21at 08:25; Start 04/29/21 at 10:00 Piperacillin Sod/ Tazobactam Sod 2.25 gm/Sodium Chloride 50 ml @ 100 mls/hr Q6HRS IV Last administered on 04/30/21at 06:06; Start 04/29/21 at 12:00 Epinephrine HCl (EPINEPHrine SYRINGE) 2 mg STK-MED ONCE .ROUTE ; Start 04/27/21 at 23:59; Stop 04/29/21 at 11:05; Status DC Acetaminophen (Tylenol) 650 mg PRN Q4HRS PRN GT MILD PAIN / TEMP > 100.3'F; Start 04/29/21 at 18:15 Insulin Human Lispro (HumaLOG) 0-7 UNITS Q6HRS SQ ; Start 04/30/21 at 12:00 Heparin Sodium (Porcine) (Heparin Sodium) 5,000 unit Q8HRS SQ ; Start 05/01/21 at 06:00 Daptomycin 430 mg/ Sodium Chloride 50 ml @ 100 mls/hr Q48H IV ; Start 05/01/21 at 17:00 Active Scripts Active Lisinopril 10 Mg Tablet 1 Tab PO DAILY Metformin Hcl 500 Mg Tablet 500 Mg PO BIDWMEALS Allergies Allergies: Coded Allergies: chocolate flavor (Verified Allergy, Intermediate, 04/19/21) pineapple (Verified Allergy, Intermediate, 04/19/21) ROS Review of System Unable to Obtain 2/2 Intubated/MV Physical Exam Physical Exam GENERAL: Intubated/sedated HEENT: ETT /OGT anicteric NECK Supple LUNGS: Decreased breath sounds. HEART: S1, S2. No murmurs. ABDOMEN: Soft, nontender, GENITOURINARY: Gordon in place EXTREMITIES: Changes of CVI bilateral LE NEURO : Intubated/sedated PSYCH Unable to obtain DERM No Rash Vital Signs Vital Signs Date Time Temp Pulse Resp B/P (MAP) Pulse Ox O2 Delivery O2 Flow Rate FiO2 04/30/21 11:53 Ventilator 04/30/21 11:44 98 04/30/21 11:00 85 20 141/77 04/30/21 08:00 97.5 97.5 04/30/21 08:00 40.0 Assessment & Plan KYLE- ATN Post Code, Worsening renal function since 04/28 (Post Code), from Normal baseline Cr ; Oligoanuric . significant increase in Creat this morning (no labs yesterday) Potassium normal. Switch IV NS to Bicarb gtt ; Lasix x1 and IV Albumin x1 .No emergent indication for dialysis at present . Dialysis is futile if unlikely to recover . Per Pulmonary "Patient not expected to survive " Family wants to continue all care aggressively . Defer to primary to discuss goals of care with family Acidosis- Switch IVF as above Elevated LFT's Ac Resp Failure s/p Code Blue , Intubated on 04/27 Status post CODE BLUE Streptococcus pneumoniae bacteremia. COVID-19 infection with acute hypoxic respiratory failure.On remdesivir and steroids Diabetic ketoacidosis. Hypertensive urgency. Chronic right lower extremity venous stasis ulcer with some necrosis. Status post I&D April 27 Critically ill, Poor Prognosis Labs Labs Laboratory Tests Test 04/28/21 16:29 04/29/21 08:05 04/29/21 12:35 04/29/21 13:08 Glucose (Fingerstick) 387 mg/dL (70-99) 76 mg/dL (70-99) 136 mg/dL (70-99) O2 Saturation 99 % (92-99) Arterial Blood pH 7.27 (7.35-7.45) Arterial Blood pCO2 at Patient Temp 38 mmHg (35-46) Arterial Blood pO2 at Patient Temp 193 mmHg (65-108) Arterial Blood HCO3 17 mmol/L (21-28) Arterial Blood Base Excess -10 mmol/L (-3-3) FiO2 100% vent Test 04/29/21 16:30 04/29/21 18:14 04/30/21 00:52 04/30/21 06:00 White Blood Count 14.9 x10^3/uL (4.0-11.0) 15.4 x10^3/uL (4.0-11.0) Red Blood Count 4.07 x10^6/uL (3.50-5.40) 4.05 x10^6/uL (3.50-5.40) Hemoglobin 11.1 g/dL (12.0-15.5) 11.0 g/dL (12.0-15.5) Hematocrit 36.3 % (36.0-47.0) 35.8 % (36.0-47.0) Mean Corpuscular Volume 89 fL (79-100) 89 fL (79-100) Mean Corpuscular Hemoglobin 27 pg (25-35) 27 pg (25-35) Mean Corpuscular Hemoglobin Concent 31 g/dL (31-37) 31 g/dL (31-37) Red Cell Distribution Width 15.7 % (11.5-14.5) 15.8 % (11.5-14.5) Platelet Count 103 x10^3/uL (140-400) 85 x10^3/uL (140-400) Prothrombin Time 31.8 SEC (11.7-14.0) Prothromb Time International Ratio 3.2 (0.8-1.1) Glucose (Fingerstick) 128 mg/dL (70-99) 142 mg/dL (70-99) Neutrophils (%) (Auto) 87 % (31-73) Lymphocytes (%) (Auto) 6 % (24-48) Monocytes (%) (Auto) 6 % (0-9) Eosinophils (%) (Auto) 0 % (0-3) Basophils (%) (Auto) 0 % (0-3) Neutrophils # (Auto) 13.4 x10^3/uL (1.8-7.7) Lymphocytes # (Auto) 1.0 x10^3/uL (1.0-4.8) Monocytes # (Auto) 0.9 x10^3/uL (0.0-1.1) Eosinophils # (Auto) 0.0 x10^3/uL (0.0-0.7) Basophils # (Auto) 0.1 x10^3/uL (0.0-0.2) Sodium Level 145 mmol/L (136-145) Potassium Level 4.4 mmol/L (3.5-5.1) Chloride Level 116 mmol/L (98-107) Carbon Dioxide Level 16 mmol/L (21-32) Anion Gap 13 (6-14) Blood Urea Nitrogen 64 mg/dL (7-20) Creatinine 4.6 mg/dL (0.6-1.0) Estimated GFR (Cockcroft-Gault) 11.6 BUN/Creatinine Ratio 14 (6-20) Glucose Level 177 mg/dL (70-99) Calcium Level 7.1 mg/dL (8.5-10.1) Total Bilirubin 0.7 mg/dL (0.2-1.0) Aspartate Amino Transf (AST/SGOT) 2761 U/L (15-37) Alanine Aminotransferase (ALT/SGPT) 1334 U/L (14-59) Alkaline Phosphatase 191 U/L (46-116) Creatine Kinase 143 U/L (26-192) Total Protein 5.5 g/dL (6.4-8.2) Albumin 1.3 g/dL (3.4-5.0) Albumin/Globulin Ratio 0.3 (1.0-1.7) Test 04/30/21 06:05 04/30/21 08:00 Glucose (Fingerstick) 165 mg/dL (70-99) O2 Saturation 99 % (92-99) Arterial Blood pH 7.24 (7.35-7.45) Arterial Blood pCO2 at Patient Temp 32 mmHg (35-46) Arterial Blood pO2 at Patient Temp 340 mmHg (65-108) Arterial Blood HCO3 14 mmol/L (21-28) Arterial Blood Base Excess -13 mmol/L (-3-3) FiO2 100% pc 20 20 8 Laboratory Tests Test 04/29/21 16:30 04/29/21 18:14 04/30/21 00:52 04/30/21 06:00 White Blood Count 14.9 x10^3/uL (4.0-11.0) 15.4 x10^3/uL (4.0-11.0) Red Blood Count 4.07 x10^6/uL (3.50-5.40) 4.05 x10^6/uL (3.50-5.40) Hemoglobin 11.1 g/dL (12.0-15.5) 11.0 g/dL (12.0-15.5) Hematocrit 36.3 % (36.0-47.0) 35.8 % (36.0-47.0) Mean Corpuscular Volume 89 fL (79-100) 89 fL (79-100) Mean Corpuscular Hemoglobin 27 pg (25-35) 27 pg (25-35) Mean Corpuscular Hemoglobin Concent 31 g/dL (31-37) 31 g/dL (31-37) Red Cell Distribution Width 15.7 % (11.5-14.5) 15.8 % (11.5-14.5) Platelet Count 103 x10^3/uL (140-400) 85 x10^3/uL (140-400) Prothrombin Time 31.8 SEC (11.7-14.0) Prothromb Time International Ratio 3.2 (0.8-1.1) Glucose (Fingerstick) 128 mg/dL (70-99) 142 mg/dL (70-99) Neutrophils (%) (Auto) 87 % (31-73) Lymphocytes (%) (Auto) 6 % (24-48) Monocytes (%) (Auto) 6 % (0-9) Eosinophils (%) (Auto) 0 % (0-3) Basophils (%) (Auto) 0 % (0-3) Neutrophils # (Auto) 13.4 x10^3/uL (1.8-7.7) Lymphocytes # (Auto) 1.0 x10^3/uL (1.0-4.8) Monocytes # (Auto) 0.9 x10^3/uL (0.0-1.1) Eosinophils # (Auto) 0.0 x10^3/uL (0.0-0.7) Basophils # (Auto) 0.1 x10^3/uL (0.0-0.2) Sodium Level 145 mmol/L (136-145) Potassium Level 4.4 mmol/L (3.5-5.1) Chloride Level 116 mmol/L (98-107) Carbon Dioxide Level 16 mmol/L (21-32) Anion Gap 13 (6-14) Blood Urea Nitrogen 64 mg/dL (7-20) Creatinine 4.6 mg/dL (0.6-1.0) Estimated GFR (Cockcroft-Gault) 11.6 BUN/Creatinine Ratio 14 (6-20) Glucose Level 177 mg/dL (70-99) Calcium Level 7.1 mg/dL (8.5-10.1) Total Bilirubin 0.7 mg/dL (0.2-1.0) Aspartate Amino Transf (AST/SGOT) 2761 U/L (15-37) Alanine Aminotransferase (ALT/SGPT) 1334 U/L (14-59) Alkaline Phosphatase 191 U/L (46-116) Creatine Kinase 143 U/L (26-192) Total Protein 5.5 g/dL (6.4-8.2) Albumin 1.3 g/dL (3.4-5.0) Albumin/Globulin Ratio 0.3 (1.0-1.7) Test 04/30/21 06:05 04/30/21 08:00 Glucose (Fingerstick) 165 mg/dL (70-99) O2 Saturation 99 % (92-99) Arterial Blood pH 7.24 (7.35-7.45) Arterial Blood pCO2 at Patient Temp 32 mmHg (35-46) Arterial Blood pO2 at Patient Temp 340 mmHg (65-108) Arterial Blood HCO3 14 mmol/L (21-28) Arterial Blood Base Excess -13 mmol/L (-3-3) FiO2 100% pc 20 20 8 Review All relevant outside records, renal labs, imaging studies, telemetry/EKG's were reviewed. Images Images E: CHEST AP ONLY Single view of the chest. 04/28/2021 8:32 AM Indication: Reason: central line placement verification / Spl. Instructions: / History: Comparison: Chest radiograph, earlier today Findings: There is no endotracheal tube in place, 5.4 cm above the cinita. There is an enteric tube extending below the diaphragm. There is a right internal jugular central venous catheter projecting over the cavoatrial junction. There is a right-sided defibrillator patch, which partially obscures the right upper chest. There is diffuse interstitial and alveolar basilar predominant alveolar infiltrates. No pneumothorax or definitive effusion is seen. No acute osseous changes are identified expected to comparison study. IMPRESSION: 1. New right-sided central venous catheter with tip projecting over the expected region of the cavoatrial junction. Similar appearance of endotracheal tube and enteric tube. 2. Diffuse interstitial and basilar predominant alveolar infiltrates. Differential considerations include severe edema, atypical or viral pneumonia, or combination thereof. CTA 04/24 CT chest with contrast - pulmonary embolus protocol CLINICAL HISTORY: Reason: COVID-positive, hypoxia, PE study COMPARISON: None. TECHNIQUE: CT of the chest following the administration of intravenous contrast during the pulmonary arterial phase. Axial, coronal and sagittal reformatted images were generated including MIP images. ---PQRS compliance statement - One or more of the following individualized dose reduction techniques were utilized for this study: 1. Automated exposure control 2. Adjustment of the mA and/or kV according to patient size 3. Use of iterative reconstruction technique--- FINDINGS: CHEST: Diagnostic quality: Suboptimal contrast bolus and motion artifact limits evaluation. Pulmonary emboli: No pulmonary emboli to the level of the lobar branches. More peripheral vessels are not well assessed. Right heart strain: None Pulmonary arteries: Normal in caliber. Heart is not enlarged. Trace pericardial fluid is likely physiologic. No pleural effusion. No pneumothorax. Mildly prominent mediastinal and hilar lymph nodes are likely reactive. No axillary lymphadenopathy. Bilateral groundglass is upright glass opacities diffusely likely consolidative process such as pneumonia. Visualized Upper abdomen: Right upper pole renal cyst. Hepatic hypoattenuation, fatty liver. Bones: Multilevel degenerative changes of spine are seen. IMPRESSION: 1. Suboptimal contrast bolus. No pulmonary emboli to the level of the lobar branches. More peripheral vessels are not well assessed. 2. Diffuse bilateral parenchymal airspace opacities likely consolidative process such as pneumonia, including viral pneumonia. AHMET BRISCOE MD Apr 30, 2021 13:20
[2021-04-30] MEDS: AMMONIUM LACTATE 12% TOPICAL LOTION 225GM BOTTLE. TP SCH ×2 (13:24→21:23)
[2021-04-30] MEDS: MIDAZOLAM 100mg/100ml NS BAG 100 ML IV PRN (13:25)
[2021-04-30] MEDS ORDERED: ALBUMIN HUMAN 25% 100 ML IV ONE (13:30)
[2021-04-30] MEDS ORDERED: FUROSEMIDE 40 MG/4 ML VIAL. IVP ONE (13:30)
[2021-04-30] MEDS: SODIUM BICARBONATE VIAL 150 MEQ in IV DEXTROSE 5% 1,000 ML IV SCH (14:25)
[2021-05-01] VITALS (24 sets, daily range): BP systolic 100–140; BP diastolic 56–70
[2021-05-01] MEDS: PIPERACILLIN/TAZOBACTAM 2.25 GM in IV NORMAL SALINE 50ML 50 ML IV SCH ×4 (00:08→17:29)
[2021-05-01] MEDS: SODIUM BICARBONATE VIAL 150 MEQ in IV DEXTROSE 5% 1,000 ML IV SCH ×3 (00:10→23:57)
[2021-05-01] MEDS: INSULIN LISPRO 300 UNITS/3 ML VIAL. SQ SCH ×8 (00:15→23:52)
[2021-05-01] MEDS: HEPARIN for SUB-Q USE 5,000 UNIT/ML VIAL. SQ SCH ×3 (05:24→21:01)
[2021-05-01] MEDS: methylPREDNISolone SOD SUCC PF 40 MG/ML VIAL. IV SCH ×3 (05:26→21:02)
[2021-05-01 05:59] LABS: BASO # 0.1 x10^3/uL (0.0-0.2); BASO % 1 % (0-3); EOS % 0 % (0-3); HEMATOCRIT 33.4 % (36.0-47.0); HEMOGLOBIN 10.6 g/dL (12.0-15.5); LYMPH # 0.6 x10^3/uL (1.0-4.8); LYMPH % 4 % (24-48); MEAN CORPUSCULAR HEMOGLOBIN 27 pg (25-35); MEAN CORPUSCULAR HGB CONC 32 g/dL (31-37); MEAN CORPUSCULAR VOLUME 87 fL (79-100); MONO # 0.8 x10^3/uL (0.0-1.1); MONO % 5 % (0-9); NEUT # 13.5 x10^3/uL (1.8-7.7); NEUT % 91 % (31-73); PLATELET COUNT 80 x10^3/uL (140-400); RED BLOOD COUNT 3.86 x10^6/uL (3.50-5.40); RED CELL DISTRIBUTION WIDTH 15.4 % (11.5-14.5); WHITE BLOOD COUNT 14.9 x10^3/uL (4.0-11.0)
[2021-05-01 06:00] LABS: ALBUMIN 1.5 g/dL (3.4-5.0); ALBUMIN/GLOBULIN RATIO 0.4 (1.0-1.7); CREATININE 5.2 mg/dL (0.6-1.0); GFR 10.1; POTASSIUM 3.6 mmol/L (3.5-5.1); TOTAL BILIRUBIN 0.7 mg/dL (0.2-1.0); TOTAL PROTEIN 5.3 g/dL (6.4-8.2)
[2021-05-01] MEDS: PANTOPRAZOLE IV PUSH 40 MG VIAL. IVP SCH (08:18)
[2021-05-01] MEDS: ASPIRIN CHEWABLE 81 MG TABLET. PO SCH (08:18)
[2021-05-01] MEDS: INSULIN GLARGINE SYRINGE. SQ SCH ×2 (08:21→21:02)
[2021-05-01] MEDS: AMMONIUM LACTATE 12% TOPICAL LOTION 225GM BOTTLE. TP SCH ×2 (08:23→21:00)
[2021-05-01] MEDS: NYSTATIN TOPICAL POWDER 15GM BOTTLE. TP SCH ×2 (08:23→21:00)
[2021-05-01] MEDS: LISINOPRIL 10 MG TABLET PO SCH (08:24)
[2021-05-01 08:34] LABS: BASE EXCESS ABG -9 mmol/L (-3-3); HCO3 ABG 16 mmol/L (21-28); PCO2 ABG 29 mmHg (35-46); PO2 ABG 57 mmHg (65-108); SAT O2 ABG 89 % (92-99)
--- NOTE | 2021-05-01 09:18 | PDOC ---
PULMONARY PROGRESS NOTES DATE: 05/01/21 TIME: 09:16 Subjective Patient currently on sodium bicarb drip 40% FiO2 8 of PEEP patient remains critically ill, currently on IV insulin Metabolic acidosis persist DKA persist Vitals Vital Signs Date Time Temp Pulse Resp B/P (MAP) Pulse Ox O2 Delivery O2 Flow Rate FiO2 05/01/21 06:00 80 20 114/60 98 Ventilator 05/01/21 04:00 98.4 98.4 05/01/21 03:25 40.0 Lungs: Crackles, Other (decreased air entry throughout) Cardiovascular: S1, S2 Abdomen: Soft Extremities: Other (Edema wound care) Skin: Warm Labs Laboratory Tests Test 04/29/21 12:35 04/29/21 13:08 04/29/21 16:30 04/29/21 18:14 Glucose (Fingerstick) 76 mg/dL (70-99) 136 mg/dL (70-99) 128 mg/dL (70-99) White Blood Count 14.9 x10^3/uL (4.0-11.0) Red Blood Count 4.07 x10^6/uL (3.50-5.40) Hemoglobin 11.1 g/dL (12.0-15.5) Hematocrit 36.3 % (36.0-47.0) Mean Corpuscular Volume 89 fL (79-100) Mean Corpuscular Hemoglobin 27 pg (25-35) Mean Corpuscular Hemoglobin Concent 31 g/dL (31-37) Red Cell Distribution Width 15.7 % (11.5-14.5) Platelet Count 103 x10^3/uL (140-400) Prothrombin Time 31.8 SEC (11.7-14.0) Prothromb Time International Ratio 3.2 (0.8-1.1) Test 04/30/21 00:52 04/30/21 06:00 04/30/21 06:05 04/30/21 08:00 Glucose (Fingerstick) 142 mg/dL (70-99) 165 mg/dL (70-99) White Blood Count 15.4 x10^3/uL (4.0-11.0) Red Blood Count 4.05 x10^6/uL (3.50-5.40) Hemoglobin 11.0 g/dL (12.0-15.5) Hematocrit 35.8 % (36.0-47.0) Mean Corpuscular Volume 89 fL (79-100) Mean Corpuscular Hemoglobin 27 pg (25-35) Mean Corpuscular Hemoglobin Concent 31 g/dL (31-37) Red Cell Distribution Width 15.8 % (11.5-14.5) Platelet Count 85 x10^3/uL (140-400) Neutrophils (%) (Auto) 87 % (31-73) Lymphocytes (%) (Auto) 6 % (24-48) Monocytes (%) (Auto) 6 % (0-9) Eosinophils (%) (Auto) 0 % (0-3) Basophils (%) (Auto) 0 % (0-3) Neutrophils # (Auto) 13.4 x10^3/uL (1.8-7.7) Lymphocytes # (Auto) 1.0 x10^3/uL (1.0-4.8) Monocytes # (Auto) 0.9 x10^3/uL (0.0-1.1) Eosinophils # (Auto) 0.0 x10^3/uL (0.0-0.7) Basophils # (Auto) 0.1 x10^3/uL (0.0-0.2) Sodium Level 145 mmol/L (136-145) Potassium Level 4.4 mmol/L (3.5-5.1) Chloride Level 116 mmol/L (98-107) Carbon Dioxide Level 16 mmol/L (21-32) Anion Gap 13 (6-14) Blood Urea Nitrogen 64 mg/dL (7-20) Creatinine 4.6 mg/dL (0.6-1.0) Estimated GFR (Cockcroft-Gault) 11.6 BUN/Creatinine Ratio 14 (6-20) Glucose Level 177 mg/dL (70-99) Calcium Level 7.1 mg/dL (8.5-10.1) Total Bilirubin 0.7 mg/dL (0.2-1.0) Aspartate Amino Transf (AST/SGOT) 2761 U/L (15-37) Alanine Aminotransferase (ALT/SGPT) 1334 U/L (14-59) Alkaline Phosphatase 191 U/L (46-116) Creatine Kinase 143 U/L (26-192) Total Protein 5.5 g/dL (6.4-8.2) Albumin 1.3 g/dL (3.4-5.0) Albumin/Globulin Ratio 0.3 (1.0-1.7) O2 Saturation 99 % (92-99) Arterial Blood pH 7.24 (7.35-7.45) Arterial Blood pCO2 at Patient Temp 32 mmHg (35-46) Arterial Blood pO2 at Patient Temp 340 mmHg (65-108) Arterial Blood HCO3 14 mmol/L (21-28) Arterial Blood Base Excess -13 mmol/L (-3-3) FiO2 100% pc 20 20 8 Test 04/30/21 13:47 05/01/21 00:13 05/01/21 04:30 05/01/21 05:19 Glucose (Fingerstick) 171 mg/dL (70-99) 222 mg/dL (70-99) 324 mg/dL (70-99) White Blood Count 14.9 x10^3/uL (4.0-11.0) Red Blood Count 3.86 x10^6/uL (3.50-5.40) Hemoglobin 10.6 g/dL (12.0-15.5) Hematocrit 33.4 % (36.0-47.0) Mean Corpuscular Volume 87 fL (79-100) Mean Corpuscular Hemoglobin 27 pg (25-35) Mean Corpuscular Hemoglobin Concent 32 g/dL (31-37) Red Cell Distribution Width 15.4 % (11.5-14.5) Platelet Count 80 x10^3/uL (140-400) Neutrophils (%) (Auto) 91 % (31-73) Lymphocytes (%) (Auto) 4 % (24-48) Monocytes (%) (Auto) 5 % (0-9) Eosinophils (%) (Auto) 0 % (0-3) Basophils (%) (Auto) 1 % (0-3) Neutrophils # (Auto) 13.5 x10^3/uL (1.8-7.7) Lymphocytes # (Auto) 0.6 x10^3/uL (1.0-4.8) Monocytes # (Auto) 0.8 x10^3/uL (0.0-1.1) Eosinophils # (Auto) 0.0 x10^3/uL (0.0-0.7) Basophils # (Auto) 0.1 x10^3/uL (0.0-0.2) Sodium Level 141 mmol/L (136-145) Potassium Level 3.6 mmol/L (3.5-5.1) Chloride Level 111 mmol/L (98-107) Carbon Dioxide Level 16 mmol/L (21-32) Anion Gap 14 (6-14) Blood Urea Nitrogen 84 mg/dL (7-20) Creatinine 5.2 mg/dL (0.6-1.0) Estimated GFR (Cockcroft-Gault) 10.1 BUN/Creatinine Ratio 16 (6-20) Glucose Level 320 mg/dL (70-99) Calcium Level 7.0 mg/dL (8.5-10.1) Total Bilirubin 0.7 mg/dL (0.2-1.0) Aspartate Amino Transf (AST/SGOT) 1141 U/L (15-37) Alanine Aminotransferase (ALT/SGPT) 1078 U/L (14-59) Alkaline Phosphatase 343 U/L (46-116) Total Protein 5.3 g/dL (6.4-8.2) Albumin 1.5 g/dL (3.4-5.0) Albumin/Globulin Ratio 0.4 (1.0-1.7) Laboratory Tests Test 04/30/21 13:47 05/01/21 00:13 05/01/21 04:30 05/01/21 05:19 Glucose (Fingerstick) 171 mg/dL (70-99) 222 mg/dL (70-99) 324 mg/dL (70-99) White Blood Count 14.9 x10^3/uL (4.0-11.0) Red Blood Count 3.86 x10^6/uL (3.50-5.40) Hemoglobin 10.6 g/dL (12.0-15.5) Hematocrit 33.4 % (36.0-47.0) Mean Corpuscular Volume 87 fL (79-100) Mean Corpuscular Hemoglobin 27 pg (25-35) Mean Corpuscular Hemoglobin Concent 32 g/dL (31-37) Red Cell Distribution Width 15.4 % (11.5-14.5) Platelet Count 80 x10^3/uL (140-400) Neutrophils (%) (Auto) 91 % (31-73) Lymphocytes (%) (Auto) 4 % (24-48) Monocytes (%) (Auto) 5 % (0-9) Eosinophils (%) (Auto) 0 % (0-3) Basophils (%) (Auto) 1 % (0-3) Neutrophils # (Auto) 13.5 x10^3/uL (1.8-7.7) Lymphocytes # (Auto) 0.6 x10^3/uL (1.0-4.8) Monocytes # (Auto) 0.8 x10^3/uL (0.0-1.1) Eosinophils # (Auto) 0.0 x10^3/uL (0.0-0.7) Basophils # (Auto) 0.1 x10^3/uL (0.0-0.2) Sodium Level 141 mmol/L (136-145) Potassium Level 3.6 mmol/L (3.5-5.1) Chloride Level 111 mmol/L (98-107) Carbon Dioxide Level 16 mmol/L (21-32) Anion Gap 14 (6-14) Blood Urea Nitrogen 84 mg/dL (7-20) Creatinine 5.2 mg/dL (0.6-1.0) Estimated GFR (Cockcroft-Gault) 10.1 BUN/Creatinine Ratio 16 (6-20) Glucose Level 320 mg/dL (70-99) Calcium Level 7.0 mg/dL (8.5-10.1) Total Bilirubin 0.7 mg/dL (0.2-1.0) Aspartate Amino Transf (AST/SGOT) 1141 U/L (15-37) Alanine Aminotransferase (ALT/SGPT) 1078 U/L (14-59) Alkaline Phosphatase 343 U/L (46-116) Total Protein 5.3 g/dL (6.4-8.2) Albumin 1.5 g/dL (3.4-5.0) Albumin/Globulin Ratio 0.4 (1.0-1.7) Medications Active Scripts Medications Dose Route/Sig Max Daily Dose Days Date Category Lisinopril 10 Mg Tablet 1 Tab PO DAILY 04/19/21 Rx Metformin Hcl 500 Mg Tablet 500 Mg PO BIDWMEALS 04/19/21 Rx Impression . IMPRESSION: 1. Acute hypoxemic respiratory failure, multifactorial. Status post CODE BLUE 2. COVID-19 viral pneumonia, acute respiratory distress syndrome. 3. Diabetic ketoacidosis. 4. Bacteremia. 5. Leg wound infection with Klebsiella, Enterococcus and beta strep, group B. 6. Sepsis. 7. Hypertensive urgency. 8. Acute kidney injury./Acute renal failure 9. Liver failure 10. Severe protein malnutrition Patient intubated, emergency room physician Called to CODE BLUE on 6 4. Patient had gone unresponsive, pulseless, apneic. CPR was initiated and pulse was regained after 1 round of epinephrine compressions. Patient was given push dose epinephrine until epi drip arrived. Patient was intubated by myself. Patient was intubated in emergent fashion and no consent was obtained. Patient was [] sedated and paralyzed with etomidate and succinylcholine. A glide scope with a size 4 blade was used, cords were visualized and a size 7.5 endotracheal tube was placed during first attempt. Endotracheal tube cuff was inflated and confirmation established by visualization of the cords passing the tubes, bilateral breath sounds, color change, and chest x-ray. Plan . Updated 05/01 Patient remains critically ill, if no improvement by the middle of the week, I will revisit possible withdrawal of care with family Patient continues to be critically ill with multiorgan failure Continue current support, decrease FiO2 ID, empiric antibiotics Nutritional support Empiric antibiotics Anticoagulation Patient not expected to survive Follow vascular input LEE KILLIAN MD May 01, 2021 09:18
--- NOTE | 2021-05-01 11:48 | PDOC ---
DATE OF SERVICE DATE: 05/01/21 TIME: 11:40 SUBJECTIVE ROS Remains Intubated, Off sedation , non responsive OBJECTIVE Vital Signs Vital Signs Date Time Temp Pulse Resp B/P (MAP) Pulse Ox O2 Delivery O2 Flow Rate FiO2 05/01/21 11:00 94.2 74 20 120/59 96 Ventilator 94.2 05/01/21 03:25 40.0 I & 0 Intake and Output 05/01/21 07:00 Intake Total 3121 ml Output Total 35 ml Balance 3086 ml IV Total 2921 ml Tube Feeding 100 ml Other 100 ml Output Urine Total 35 ml PHYSICAL EXAM Physical Exam GENERAL: Intubated/sedated HEENT: ETT /OGT anicteric NECK Supple LUNGS: Decreased breath sounds. HEART: S1, S2. No murmurs. ABDOMEN: Soft, nontender, GENITOURINARY: Gordon in place EXTREMITIES: Changes of CVI bilateral LE NEURO : Intubated/sedated PSYCH Unable to obtain DERM No Rash DIAGNOSIS/ASSESSMENT Assessment & Plan KYLE- ATN Post Code, Worsening renal function since 04/28 (Post Code), from Normal baseline Cr ; Oligoanuric . No emergent indication for Dialysis currently Switched IV NS to Bicarb gtt no response to Lasix. Will try Albumin x 4 doses Family's decision currently to continue with all measures including Dialysis if indicated Per Pulmonary "Patient not expected to survive " Defer to primary to discuss goals of care with family . Acidosis- on Bicarb gtt, IV bicarb push today , lucie RN Elevated LFT's Ac Resp Failure s/p Code Blue , Intubated on 04/27 Status post CODE BLUE Streptococcus pneumoniae bacteremia. COVID-19 infection with acute hypoxic respiratory failure.On remdesivir and steroids Diabetic ketoacidosis. Hypertensive urgency. Chronic right lower extremity venous stasis ulcer with some necrosis. Status post I&D April 27 Critically ill, Poor Prognosis COMMENT/RELEVANT DATA Meds Current Medications Medications (Trade) Dose Ordered Sig/Sadie Start Time Stop Time Status Last Admin Dose Admin Acetaminophen (Tylenol) 650 mg PRN Q4HRS PRN 04/29/21 18:15 Albumin Human 100 ml @ 100 mls/hr 1X ONCE 04/30/21 13:30 04/30/21 14:29 DC 04/30/21 13:30 100 MLS/HR Ascorbic Acid (Vitamin C) 3,000 mg TID 04/24/21 21:00 04/30/21 08:38 DC 04/30/21 08:25 3,000 MG Aspirin (Aspirin Chewable) 81 mg [id number] 04/29/21 10:00 05/01/21 08:18 81 MG Atropine Sulfate (ATROPINE 0.5mg SYRINGE) 0.5 mg PRN Q5MIN PRN 04/27/21 23:15 Azithromycin (Zithromax) 500 mg 1X ONCE 04/24/21 17:45 04/24/21 17:46 DC 04/24/21 17:44 500 MG Cefepime HCl (Maxipime) 2 gm Q12HR 04/27/21 21:00 04/29/21 09:38 DC 04/29/21 08:58 2 GM Ceftriaxone Sodium (Rocephin) 2 gm Q24H 04/25/21 15:00 04/27/21 10:57 DC 04/26/21 15:00 2 GM Daptomycin 430 mg/ Sodium Chloride 50 ml @ 100 mls/hr Q48H 05/01/21 17:00 Dexamethasone Sodium Phosphate (Decadron) 10 mg 1X ONCE 04/24/21 17:45 04/24/21 17:46 DC 04/24/21 17:44 10 MG Dexmedetomidine HCl 400 mcg/ Sodium Chloride 100 ml @ 4.835 mls/ hr CONT PRN 04/27/21 23:15 Dextrose (Dextrose 50%-Water Syringe) 12.5 gm PRN Q15MIN PRN 04/24/21 19:15 Dextrose/Sodium Chloride 1,000 ml @ 250 mls/hr Q4H 04/25/21 09:30 04/25/21 18:13 DC 04/25/21 09:38 250 MLS/HR Digoxin (Lanoxin) 500 mcg 1X ONCE 04/28/21 16:00 04/28/21 16:03 DC 04/28/21 16:05 500 MCG Diphenhydramine HCl (Benadryl) 25 mg PRN QHS PRN 04/24/21 19:15 Docusate Sodium (Colace Solution) 100 mg PRN DAILY PRN 04/28/21 08:30 Docusate Sodium (Colace) 100 mg PRN DAILY PRN 04/24/21 19:15 04/28/21 08:21 DC Enoxaparin Sodium (Lovenox 40mg Syringe) 40 mg Q24H 04/25/21 09:00 04/30/21 10:44 DC 04/30/21 08:27 40 MG Epinephrine HCl (EPINEPHrine SYRINGE) 2 mg STK-MED ONCE 04/27/21 23:59 04/29/21 11:05 DC Epinephrine HCl 10 mg/Sodium Chloride 250 ml @ 14.505 mls/ hr CONT PRN 04/28/21 05:00 04/28/21 05:46 43.515 MLS/HR Epinephrine HCl 5 mg/Sodium Chloride 255 ml @ 29.59 mls/ hr CONT PRN 04/27/21 23:15 04/28/21 06:27 DC 04/28/21 01:22 82.8 MLS/HR Etomidate (Amidate) 20 mg STK-MED ONCE 04/27/21 23:28 04/27/21 23:28 DC Fentanyl Citrate 30 ml @ 2.5 mls/hr CONT PRN 04/27/21 23:15 05/01/21 02:09 1.25 MLS/HR Furosemide (Lasix) 40 mg 1X ONCE 04/30/21 13:30 04/30/21 13:31 DC 04/30/21 13:30 40 MG Heparin Sodium (Porcine) (Heparin Sodium) 5,000 unit Q8HRS 05/01/21 06:00 05/01/21 05:24 5,000 UNIT Hydralazine HCl (Apresoline Inj) 10 mg PRN Q4HRS PRN 04/24/21 19:15 04/27/21 08:01 10 MG Info (CONTRAST GIVEN -- Rx MONITORING) 1 each PRN DAILY PRN 04/24/21 17:30 04/26/21 17:29 DC Insulin Glargine (Lantus Syringe) 20 unit BID 04/27/21 21:00 05/01/21 08:21 20 UNIT Insulin Human Lispro (HumaLOG) 10 units Q6HRS 05/01/21 12:00 Insulin Human Regular 100 unit/ Sodium Chloride 101 ml @ 0 mls/hr CONT PRN PRN 04/24/21 19:30 04/28/21 08:22 DC 04/25/21 11:52 4 MLS/HR Iohexol (Omnipaque 350 Mg/ml) 100 ml 1X ONCE 04/24/21 17:30 04/24/21 17:31 DC 04/24/21 18:00 100 ML Labetalol HCl (Normodyne Iv Push) 20 mg Q2HR PRN 04/24/21 19:15 04/27/21 16:02 20 MG Lactic Acid (Lac-Hydrin) 1 arleen BID 04/25/21 21:00 05/01/21 08:23 1 ARLEEN Lactobacillus Rhamnosus (Culturelle) 1 cap BID 04/26/21 21:00 04/28/21 08:22 DC 04/26/21 20:56 1 CAP Lisinopril (Prinivil) 10 mg DAILY 04/25/21 09:00 04/26/21 08:13 10 MG Lorazepam (Ativan Inj) 0.25 mg PRN Q4HRS PRN 04/24/21 19:15 04/26/21 23:57 0.25 MG Lorazepam (Ativan) 0.5 mg PRN Q6HRS PRN 04/24/21 19:15 Metformin HCl (Glucophage) 500 mg BIDWMEALS 04/25/21 08:00 04/24/21 19:22 DC Methylprednisolone Sodium Succinate (SOLU-Medrol 40MG VIAL) 40 mg Q8HRS 04/24/21 22:00 05/01/21 05:26 40 MG Metoprolol Tartrate (Lopressor Vial) 5 mg 1X ONCE 04/28/21 16:00 04/28/21 16:03 DC 04/28/21 16:07 5 MG Midazolam HCl 100 ml @ 1 mls/hr CONT PRN 04/27/21 23:15 04/30/21 13:25 1 MLS/HR Nicardipine HCl 50 mg/Sodium Chloride 250 ml @ 25 mls/hr CONT PRN 04/27/21 16:30 04/27/21 17:15 25 MLS/HR Norepinephrine Bitartrate 32 mg/ Dextrose 250 ml @ 4.533 mls/ hr CONT PRN 04/28/21 08:30 04/28/21 21:56 18.131 MLS/HR Norepinephrine Bitartrate 8 mg/ Dextrose 258 ml @ 18.711 mls/ hr CONT PRN 04/28/21 06:15 04/28/21 08:23 DC 04/28/21 06:19 18.711 MLS/HR Nystatin (Nystop) 1 arleen BID 04/25/21 21:00 05/01/21 08:23 1 ARLEEN Ondansetron HCl (Zofran) 4 mg PRN Q6HRS PRN 04/24/21 19:15 Pantoprazole Sodium (PROTONIX VIAL for IV PUSH) 40 mg DAILYAC 04/29/21 07:30 05/01/21 08:18 40 MG Pantoprazole Sodium (Protonix) 40 mg DAILYAC 04/25/21 07:30 04/28/21 12:29 DC 04/26/21 08:12 40 MG Piperacillin Sod/ Tazobactam Sod 2.25 gm/Sodium Chloride 50 ml @ 100 mls/hr Q6HRS 04/29/21 12:00 05/01/21 05:25 100 MLS/HR Potassium Chloride/Water 100 ml @ 100 mls/hr PRN Q1HR PRN 04/24/21 19:30 Cancel Prochlorperazine Edisylate (Compazine) 10 mg PRN Q6HRS PRN 04/24/21 19:15 Propofol 100 ml @ 2.901 mls/ hr CONT PRN 04/27/21 23:15 Remdesivir 100 mg/ Sodium Chloride 230 ml @ 460 mls/hr Q24H 04/25/21 20:00 04/28/21 20:29 DC 04/28/21 21:03 460 MLS/HR Remdesivir 200 mg/ Sodium Chloride 210 ml @ 210 mls/hr 1X ONCE 04/24/21 20:00 04/24/21 20:59 DC 04/24/21 22:40 210 MLS/HR Sennosides (Senna) 17.2 mg PRN BID PRN 04/24/21 19:15 Sodium Bicarbonate 150 meq/Dextrose 1,150 ml @ 100 mls/hr [id number] 04/30/21 14:00 05/01/21 00:10 100 MLS/HR Sodium Chloride 500 ml @ 500 mls/hr 1X PRN PRN 04/27/21 23:15 Sodium Phosphate 20 mmol/Sodium Chloride 256.6667 ml @ 62.5 mls/hr 1X PRN PRN 04/25/21 11:15 04/25/21 11:29 62.5 MLS/HR Sterile Water (WATER for RESP) 1,000 ml CONT PRN 04/27/21 01:30 04/28/21 12:29 DC 04/28/21 03:32 1,000 ML Succinylcholine Chloride (Anectine) 200 mg STK-MED ONCE 04/27/21 23:28 04/27/21 23:29 DC Thiamine Mononitrate (Vitamin B-1) 300 mg DAILY 04/25/21 09:00 04/30/21 08:38 DC 04/29/21 08:56 300 MG Vancomycin HCl 1 gm/Sodium Chloride 250 ml @ 250 mls/hr Q12H 04/27/21 10:45 UNV Vasopressin 20 unit/Dextrose 101 ml @ 12 mls/hr CONT PRN 04/28/21 09:00 04/29/21 01:35 12 MLS/HR Vecuronium Letts (Norcuron Bolus) 10 mg PRN Q6HRS PRN 04/28/21 07:00 04/28/21 12:22 10 MG Zinc Sulfate (Orazinc) 220 mg DAILY 04/25/21 09:00 04/30/21 08:38 DC 04/30/21 08:25 220 MG Zolpidem Tartrate (Ambien) 2.5 mg PRN QHS PRN 04/24/21 19:15 Lab Laboratory Tests Test 04/30/21 13:47 05/01/21 00:13 05/01/21 04:30 05/01/21 05:19 Glucose (Fingerstick) 171 mg/dL (70-99) 222 mg/dL (70-99) 324 mg/dL (70-99) White Blood Count 14.9 x10^3/uL (4.0-11.0) Red Blood Count 3.86 x10^6/uL (3.50-5.40) Hemoglobin 10.6 g/dL (12.0-15.5) Hematocrit 33.4 % (36.0-47.0) Mean Corpuscular Volume 87 fL (79-100) Mean Corpuscular Hemoglobin 27 pg (25-35) Mean Corpuscular Hemoglobin Concent 32 g/dL (31-37) Red Cell Distribution Width 15.4 % (11.5-14.5) Platelet Count 80 x10^3/uL (140-400) Neutrophils (%) (Auto) 91 % (31-73) Lymphocytes (%) (Auto) 4 % (24-48) Monocytes (%) (Auto) 5 % (0-9) Eosinophils (%) (Auto) 0 % (0-3) Basophils (%) (Auto) 1 % (0-3) Neutrophils # (Auto) 13.5 x10^3/uL (1.8-7.7) Lymphocytes # (Auto) 0.6 x10^3/uL (1.0-4.8) Monocytes # (Auto) 0.8 x10^3/uL (0.0-1.1) Eosinophils # (Auto) 0.0 x10^3/uL (0.0-0.7) Basophils # (Auto) 0.1 x10^3/uL (0.0-0.2) Sodium Level 141 mmol/L (136-145) Potassium Level 3.6 mmol/L (3.5-5.1) Chloride Level 111 mmol/L (98-107) Carbon Dioxide Level 16 mmol/L (21-32) Anion Gap 14 (6-14) Blood Urea Nitrogen 84 mg/dL (7-20) Creatinine 5.2 mg/dL (0.6-1.0) Estimated GFR (Cockcroft-Gault) 10.1 BUN/Creatinine Ratio 16 (6-20) Glucose Level 320 mg/dL (70-99) Calcium Level 7.0 mg/dL (8.5-10.1) Total Bilirubin 0.7 mg/dL (0.2-1.0) Aspartate Amino Transf (AST/SGOT) 1141 U/L (15-37) Alanine Aminotransferase (ALT/SGPT) 1078 U/L (14-59) Alkaline Phosphatase 343 U/L (46-116) Total Protein 5.3 g/dL (6.4-8.2) Albumin 1.5 g/dL (3.4-5.0) Albumin/Globulin Ratio 0.4 (1.0-1.7) Results All relevant outside records, renal labs, imaging studies, telemetry/EKG's were reviewed. Justicifation of Admission Dx: Justifications for Admission: Justification of Admission Dx: Yes AHMET BRISCOE MD May 01, 2021 11:48
--- NOTE | 2021-05-01 12:15 | PDOC ---
[facility] PROGRESS NOTE Date of Service DOS: DATE: 05/01/21 TIME: 12:11 Chief Complaint Chief Complaint Streptococcus pneumoniae bacteremia Acute hypoxic respiratory failure secondary to COVID-19 infection DKA Hypertensive urgency - improved Hyperglycemia uncontrolled KYLE due to vasomotor nephropathyimproved History of Present Illness History of Present Illness 05/01/2021 Patient seen and examined in the ICU On the vent with settings as follows Pressure control 20/ 40% FiO2 with 8 of PEEP Has developed new renal failure currently on bicarb drip nephrology following might need dialysis Still minimal urine output Sedated with fentanyl and Versed Discussed with RN Chart reviewed She is very critically ill 04/30/2021 Patient seen and examined in the ICU She still remains on the vent Pressure control of 2049% FiO2 8 of PEEP Art line showing pressure of 76/46 despite being on Levophed Sedated with fentanyl and Versed She remains extremely critically ill I am concerned she may not survive Discussed with RN Chart reviewed 04/29/2019 Patient seen and examined in the ICU She remains on the vent Pressure control of 20 with 100% FiO2 +8 of PEEP OG to suction Has IV Levophed Sedated with fentanyl and Versed Chart reviewed Discussed with RN 04/28/2021 Patient seen and examined in the ICU She coded last night and had to be intubated OG to suction Has an art line in place On IV Levophed and fentanyl and Versed Vent settings as follows Pressure control rate of 22 with 100% FiO2 and 8 of PEEP Chart reviewed Discussed with RN She is now extremely critically ill 04/27 Patient evaluated examined at bedside. She had a rapid response overnight requiring transfer to the 6 floor. When I saw her she was on BiPAP 21/11 this morning. She was quite lethargic. Sugars still elevated will adjust insulin. ID consulted for antibiotic recommendations. Continue COVID treatment. Check chest x-ray. Wean oxygen as tolerated. Consult to pulmonary as well today. 04/26/2021 No acute events overnight. Patient seen and examined bedside. Afebrile and v ital signs stable. Glucose elevated at 300s to 400s. Started on long-acting glargine 10 units twice daily 04/25 Eval examined at bedside. Increased O2 requirement. Still requiring insulin drip. With worsening O2 transfer to ICU today. 35min CC time Vitals/I&O Vitals/I&O: Vital Signs Date Time Temp Pulse Resp B/P (MAP) Pulse Ox O2 Delivery O2 Flow Rate FiO2 05/01/21 11:00 94.2 74 20 120/59 96 Ventilator 94.2 05/01/21 03:25 40.0 I & O 04/30/21 04/30/21 05/01/21 15:00 23:00 07:00 Intake Total 1585 ml 308 ml 1228 ml Output Total 10 ml 20 ml 5 ml Balance 1575 ml 288 ml 1223 ml Physical Exam Physical Exam: GENERAL: Intubated/sedated HEENT: ETT /OGT anicteric normocephalic atraumatic LUNGS: Decreased breath sounds. HEART: S1, S2. No murmurs. ABDOMEN: Soft, nontender, nondistended. GENITOURINARY: Briefs in place. EXTREMITIES: Hyperpigmentation in both lower extremities with scarring. Right lower extremity postop dressing in place intact not taken down HOT PIPE GAUGER: Intubated/sedated General: Other (intubated ) Heart: Other (AFIB) Lungs: Crackles, Other (decreased air entry throughout) Abdomen: Other (obese) Extremities: Other (RLE wound ) Skin: Other (chronic venous stasis changes of bilateral LE ) Labs Labs: Laboratory Tests Test 04/30/21 13:47 05/01/21 00:13 05/01/21 04:30 05/01/21 05:19 Glucose (Fingerstick) 171 mg/dL (70-99) 222 mg/dL (70-99) 324 mg/dL (70-99) White Blood Count 14.9 x10^3/uL (4.0-11.0) Red Blood Count 3.86 x10^6/uL (3.50-5.40) Hemoglobin 10.6 g/dL (12.0-15.5) Hematocrit 33.4 % (36.0-47.0) Mean Corpuscular Volume 87 fL (79-100) Mean Corpuscular Hemoglobin 27 pg (25-35) Mean Corpuscular Hemoglobin Concent 32 g/dL (31-37) Red Cell Distribution Width 15.4 % (11.5-14.5) Platelet Count 80 x10^3/uL (140-400) Neutrophils (%) (Auto) 91 % (31-73) Lymphocytes (%) (Auto) 4 % (24-48) Monocytes (%) (Auto) 5 % (0-9) Eosinophils (%) (Auto) 0 % (0-3) Basophils (%) (Auto) 1 % (0-3) Neutrophils # (Auto) 13.5 x10^3/uL (1.8-7.7) Lymphocytes # (Auto) 0.6 x10^3/uL (1.0-4.8) Monocytes # (Auto) 0.8 x10^3/uL (0.0-1.1) Eosinophils # (Auto) 0.0 x10^3/uL (0.0-0.7) Basophils # (Auto) 0.1 x10^3/uL (0.0-0.2) Sodium Level 141 mmol/L (136-145) Potassium Level 3.6 mmol/L (3.5-5.1) Chloride Level 111 mmol/L (98-107) Carbon Dioxide Level 16 mmol/L (21-32) Anion Gap 14 (6-14) Blood Urea Nitrogen 84 mg/dL (7-20) Creatinine 5.2 mg/dL (0.6-1.0) Estimated GFR (Cockcroft-Gault) 10.1 BUN/Creatinine Ratio 16 (6-20) Glucose Level 320 mg/dL (70-99) Calcium Level 7.0 mg/dL (8.5-10.1) Total Bilirubin 0.7 mg/dL (0.2-1.0) Aspartate Amino Transf (AST/SGOT) 1141 U/L (15-37) Alanine Aminotransferase (ALT/SGPT) 1078 U/L (14-59) Alkaline Phosphatase 343 U/L (46-116) Total Protein 5.3 g/dL (6.4-8.2) Albumin 1.5 g/dL (3.4-5.0) Albumin/Globulin Ratio 0.4 (1.0-1.7) Assessment and Plan Assessmemt and Plan Problems Medical Problems: (1) Community acquired pneumonia Status: Acute (2) COVID-19 virus infection Status: Acute (3) DKA (diabetic ketoacidosis) Status: Acute (4) Hypoxia Status: Acute Covid-19 respiratory failure requiring mechanical ventilation Status post CODE BLUE Streptococcus pneumoniae bacteremia DKA Peripheral vascular disease Diabetic extremity wounds Hypertensive urgency - improved Hyperglycemia uncontrolled Renal failure Plan ICU monitoring Vent weaning COVID protocol Continue Zosyn and Dapto, steroids and remdesivir Continue bicarb Nephrology following she might need dialysis Trend labs Continue sedation Monitor art line OG to suction DVT prophylaxis Appreciate subspecialist input She remains very critically ill I am concerned she may not survive May need to move towards comfort care if she does not improve soon and family is aware of this CC time 33 minutes Comment Review of Relevant I have reviewed the following items rafael (where applicable) has been applied. Medications: Current Medications Medications (Trade) Dose Ordered Sig/Sadie Route PRN Reason Start Time Stop Time Status Last Admin Dose Admin Heparin Sodium (Porcine) (Heparin Sodium) 5,000 unit Q8HRS SQ 05/01/21 06:00 05/01/21 05:24 Sodium Bicarbonate 150 meq/Dextrose 1,150 ml @ 100 mls/hr [id number] IV 04/30/21 14:00 05/01/21 00:10 Furosemide (Lasix) 40 mg 1X ONCE IVP 04/30/21 13:30 04/30/21 13:31 DC 04/30/21 13:30 Albumin Human 100 ml @ 100 mls/hr 1X ONCE IV 04/30/21 13:30 04/30/21 14:29 DC 04/30/21 13:30 Justifications for Admission Other Justification COVID-19 positive test (U07.1, COVID-19) with Acute Pneumonia (J12.89, Other viral pneumonia) (If respiratory failure or sepsis present, add as separate assessment) BEAU PETIT III DO May 01, 2021 12:15
[2021-05-01] MEDS ORDERED: SODIUM BICARB ADULT 8.4% 50 MEQ/50 ML DISP.SYRIN. IV ONE (12:30)
[2021-05-01 12:56] LABS: FIO2 ABG 40% vent
[2021-05-01] MEDS: ALBUMIN HUMAN 25% 100 ML IV SCH ×3 (15:15→23:59)
[2021-05-01] MEDS: DAPTOmycin (GENERIC) IVPB 430 MG in IV NORMAL SALINE 50ML 50 ML IV SCH (16:40)
[2021-05-02] VITALS (29 sets, daily range): BP systolic 68–200; BP diastolic 41–86
[2021-05-02] MEDS: PIPERACILLIN/TAZOBACTAM 2.25 GM in IV NORMAL SALINE 50ML 50 ML IV SCH ×4 (00:03→18:02)
[2021-05-02] MEDS: methylPREDNISolone SOD SUCC PF 40 MG/ML VIAL. IV SCH ×3 (05:45→21:29)
[2021-05-02] MEDS: ALBUMIN HUMAN 25% 100 ML IV SCH (05:45)
[2021-05-02] MEDS: HEPARIN for SUB-Q USE 5,000 UNIT/ML VIAL. SQ SCH ×3 (05:46→21:28)
[2021-05-02] MEDS: INSULIN LISPRO 300 UNITS/3 ML VIAL. SQ SCH ×6 (05:46→18:15)
[2021-05-02 06:19] LABS: ALBUMIN 2.5 g/dL (3.4-5.0); ALBUMIN/GLOBULIN RATIO 0.8 (1.0-1.7); CALCIUM 7.5 mg/dL (8.5-10.1); CREATININE 5.9 mg/dL (0.6-1.0); GFR 8.7; POTASSIUM 3.3 mmol/L (3.5-5.1); TOTAL PROTEIN 5.8 g/dL (6.4-8.2)
[2021-05-02 07:37] LABS: BASE EXCESS ABG -6 mmol/L (-3-3); HCO3 ABG 19 mmol/L (21-28); PCO2 ABG 34 mmHg (35-46); SAT O2 ABG 82 % (92-99)
[2021-05-02 07:48] LABS: FIO2 ABG 40; PO2 ABG 48 mmHg (65-108)
[2021-05-02] MEDS: PANTOPRAZOLE IV PUSH 40 MG VIAL. IVP SCH (08:35)
[2021-05-02] MEDS: ASPIRIN CHEWABLE 81 MG TABLET. PO SCH (08:35)
[2021-05-02] MEDS: LISINOPRIL 10 MG TABLET PO SCH (08:35)
[2021-05-02] MEDS: NYSTATIN TOPICAL POWDER 15GM BOTTLE. TP SCH ×2 (08:36→21:27)
[2021-05-02] MEDS: AMMONIUM LACTATE 12% TOPICAL LOTION 225GM BOTTLE. TP SCH ×2 (08:36→21:27)
--- NOTE | 2021-05-02 08:48 | PDOC ---
PULMONARY PROGRESS NOTES DATE: 05/02/21 TIME: 08:48 Subjective No overnight events Currently on 55% FiO2 5 of PEEP patient remains critically ill, currently on IV insulin Metabolic acidosis persist DKA persist Vitals Vital Signs Date Time Temp Pulse Resp B/P (MAP) Pulse Ox O2 Delivery O2 Flow Rate FiO2 05/02/21 08:35 85 139/65 05/02/21 08:00 98.2 26 93 Ventilator 98.2 Lungs: Crackles, Other (decreased air entry throughout) Cardiovascular: S1, S2 Abdomen: Soft Extremities: Other (Edema wound care) Skin: Warm Labs Laboratory Tests Test 04/30/21 13:47 05/01/21 00:13 05/01/21 04:30 05/01/21 05:19 Glucose (Fingerstick) 171 mg/dL (70-99) 222 mg/dL (70-99) 324 mg/dL (70-99) White Blood Count 14.9 x10^3/uL (4.0-11.0) Red Blood Count 3.86 x10^6/uL (3.50-5.40) Hemoglobin 10.6 g/dL (12.0-15.5) Hematocrit 33.4 % (36.0-47.0) Mean Corpuscular Volume 87 fL (79-100) Mean Corpuscular Hemoglobin 27 pg (25-35) Mean Corpuscular Hemoglobin Concent 32 g/dL (31-37) Red Cell Distribution Width 15.4 % (11.5-14.5) Platelet Count 80 x10^3/uL (140-400) Neutrophils (%) (Auto) 91 % (31-73) Lymphocytes (%) (Auto) 4 % (24-48) Monocytes (%) (Auto) 5 % (0-9) Eosinophils (%) (Auto) 0 % (0-3) Basophils (%) (Auto) 1 % (0-3) Neutrophils # (Auto) 13.5 x10^3/uL (1.8-7.7) Lymphocytes # (Auto) 0.6 x10^3/uL (1.0-4.8) Monocytes # (Auto) 0.8 x10^3/uL (0.0-1.1) Eosinophils # (Auto) 0.0 x10^3/uL (0.0-0.7) Basophils # (Auto) 0.1 x10^3/uL (0.0-0.2) Sodium Level 141 mmol/L (136-145) Potassium Level 3.6 mmol/L (3.5-5.1) Chloride Level 111 mmol/L (98-107) Carbon Dioxide Level 16 mmol/L (21-32) Anion Gap 14 (6-14) Blood Urea Nitrogen 84 mg/dL (7-20) Creatinine 5.2 mg/dL (0.6-1.0) Estimated GFR (Cockcroft-Gault) 10.1 BUN/Creatinine Ratio 16 (6-20) Glucose Level 320 mg/dL (70-99) Calcium Level 7.0 mg/dL (8.5-10.1) Total Bilirubin 0.7 mg/dL (0.2-1.0) Aspartate Amino Transf (AST/SGOT) 1141 U/L (15-37) Alanine Aminotransferase (ALT/SGPT) 1078 U/L (14-59) Alkaline Phosphatase 343 U/L (46-116) Total Protein 5.3 g/dL (6.4-8.2) Albumin 1.5 g/dL (3.4-5.0) Albumin/Globulin Ratio 0.4 (1.0-1.7) Test 05/01/21 08:00 05/01/21 12:32 05/01/21 17:16 05/01/21 23:41 O2 Saturation 89 % (92-99) Arterial Blood pH 7.34 (7.35-7.45) Arterial Blood pCO2 at Patient Temp 29 mmHg (35-46) Arterial Blood pO2 at Patient Temp 57 mmHg (65-108) Arterial Blood HCO3 16 mmol/L (21-28) Arterial Blood Base Excess -9 mmol/L (-3-3) FiO2 40% vent Glucose (Fingerstick) 307 mg/dL (70-99) 278 mg/dL (70-99) 226 mg/dL (70-99) Test 05/02/21 05:43 05/02/21 05:50 05/02/21 07:35 Glucose (Fingerstick) 162 mg/dL (70-99) Sodium Level 147 mmol/L (136-145) Potassium Level 3.3 mmol/L (3.5-5.1) Chloride Level 110 mmol/L (98-107) Carbon Dioxide Level 21 mmol/L (21-32) Anion Gap 16 (6-14) Blood Urea Nitrogen 95 mg/dL (7-20) Creatinine 5.9 mg/dL (0.6-1.0) Estimated GFR (Cockcroft-Gault) 8.7 BUN/Creatinine Ratio 16 (6-20) Glucose Level 170 mg/dL (70-99) Calcium Level 7.5 mg/dL (8.5-10.1) Total Bilirubin 1.0 mg/dL (0.2-1.0) Aspartate Amino Transf (AST/SGOT) 308 U/L (15-37) Alanine Aminotransferase (ALT/SGPT) 570 U/L (14-59) Alkaline Phosphatase 504 U/L (46-116) Total Protein 5.8 g/dL (6.4-8.2) Albumin 2.5 g/dL (3.4-5.0) Albumin/Globulin Ratio 0.8 (1.0-1.7) O2 Saturation 82 % (92-99) Arterial Blood pH 7.37 (7.35-7.45) Arterial Blood pCO2 at Patient Temp 34 mmHg (35-46) Arterial Blood pO2 at Patient Temp 48 mmHg (65-108) Arterial Blood HCO3 19 mmol/L (21-28) Arterial Blood Base Excess -6 mmol/L (-3-3) FiO2 40 Laboratory Tests Test 05/01/21 12:32 05/01/21 17:16 05/01/21 23:41 05/02/21 05:43 Glucose (Fingerstick) 307 mg/dL (70-99) 278 mg/dL (70-99) 226 mg/dL (70-99) 162 mg/dL (70-99) Test 05/02/21 05:50 05/02/21 07:35 Sodium Level 147 mmol/L (136-145) Potassium Level 3.3 mmol/L (3.5-5.1) Chloride Level 110 mmol/L (98-107) Carbon Dioxide Level 21 mmol/L (21-32) Anion Gap 16 (6-14) Blood Urea Nitrogen 95 mg/dL (7-20) Creatinine 5.9 mg/dL (0.6-1.0) Estimated GFR (Cockcroft-Gault) 8.7 BUN/Creatinine Ratio 16 (6-20) Glucose Level 170 mg/dL (70-99) Calcium Level 7.5 mg/dL (8.5-10.1) Total Bilirubin 1.0 mg/dL (0.2-1.0) Aspartate Amino Transf (AST/SGOT) 308 U/L (15-37) Alanine Aminotransferase (ALT/SGPT) 570 U/L (14-59) Alkaline Phosphatase 504 U/L (46-116) Total Protein 5.8 g/dL (6.4-8.2) Albumin 2.5 g/dL (3.4-5.0) Albumin/Globulin Ratio 0.8 (1.0-1.7) O2 Saturation 82 % (92-99) Arterial Blood pH 7.37 (7.35-7.45) Arterial Blood pCO2 at Patient Temp 34 mmHg (35-46) Arterial Blood pO2 at Patient Temp 48 mmHg (65-108) Arterial Blood HCO3 19 mmol/L (21-28) Arterial Blood Base Excess -6 mmol/L (-3-3) FiO2 40 Medications Active Scripts Medications Dose Route/Sig Max Daily Dose Days Date Category Lisinopril 10 Mg Tablet 1 Tab PO DAILY 04/19/21 Rx Metformin Hcl 500 Mg Tablet 500 Mg PO BIDWMEALS 04/19/21 Rx Impression . IMPRESSION: 1. Acute hypoxemic respiratory failure, multifactorial. Status post CODE MIRTA 2. COVID-19 viral pneumonia, acute respiratory distress syndrome. 3. Diabetic ketoacidosis. 4. Bacteremia. 5. Leg wound infection with Klebsiella, Enterococcus and beta strep, group B. 6. Sepsis. 7. Hypertensive urgency. 8. Acute kidney injury./Acute renal failure 9. Liver failure 10. Severe protein malnutrition Patient intubated, emergency room physician Called to ABISA[facility] KIRBY on 6 4. Patient had gone unresponsive, pulseless, apneic. CPR was initiated and pulse was regained after 1 round of epinephrine compress ions. Patient was given push dose epinephrine until epi drip arrived. Patient was intubated by myself. Patient was intubated in emergent fashion and no consent was obtained. Patient was [] sedated and paralyzed with etomidate and succinylcholine. A glide scope with a size 4 blade was used, cords were visualized and a size 7.5 endotracheal tube was placed during first attempt. Endotracheal tube cuff was inflated and confirmation established by visualization of the cords passing the tubes, bilateral breath sounds, color change, and chest x-ray. Plan . Dated 05/[address] Willingham, to start hemodialysis today Empiric antibiotics Nutritional support Continue current support, decrease FiO2 Anticoagulation Patient not expected to survive Follow vascular input If patient does not improve, may need to consider discontinuing support, and allowing natural . LEE KILLIAN MD May 02, 2021 08:48
--- NOTE | 2021-05-02 09:54 | PDOC ---
[facility] 05/02/21 0954: CARDIO Progress Notes Date and Time Date of Service 05/02/21 Time of Evaluation 0950 Subjective Subjective: Other (intubated) Vitals Vitals Vital Signs Date Time Temp Pulse Resp B/P (MAP) Pulse Ox O2 Delivery O2 Flow Rate FiO2 05/02/21 09:00 88 27 142/64 92 Ventilator 05/02/21 08:00 98.2 98.2 Weight Weight [ ] Input and Output Intake and Output Intake and Output 05/02/21 07:00 Intake Total 2122.6 ml Output Total 35 ml Balance 2087.6 ml IV Total 1706.6 ml Tube Feeding 216 ml Other 200 ml Output Urine Total 35 ml Laboratory Labs Laboratory Tests Test 05/01/21 12:32 05/01/21 17:16 05/01/21 23:41 05/02/21 05:43 Glucose (Fingerstick) 307 mg/dL (70-99) 278 mg/dL (70-99) 226 mg/dL (70-99) 162 mg/dL (70-99) Test 05/02/21 05:50 05/02/21 07:35 Sodium Level 147 mmol/L (136-145) Potassium Level 3.3 mmol/L (3.5-5.1) Chloride Level 110 mmol/L (98-107) Carbon Dioxide Level 21 mmol/L (21-32) Anion Gap 16 (6-14) Blood Urea Nitrogen 95 mg/dL (7-20) Creatinine 5.9 mg/dL (0.6-1.0) Estimated GFR (Cockcroft-Gault) 8.7 BUN/Creatinine Ratio 16 (6-20) Glucose Level 170 mg/dL (70-99) Calcium Level 7.5 mg/dL (8.5-10.1) Total Bilirubin 1.0 mg/dL (0.2-1.0) Aspartate Amino Transf (AST/SGOT) 308 U/L (15-37) Alanine Aminotransferase (ALT/SGPT) 570 U/L (14-59) Alkaline Phosphatase 504 U/L (46-116) Total Protein 5.8 g/dL (6.4-8.2) Albumin 2.5 g/dL (3.4-5.0) Albumin/Globulin Ratio 0.8 (1.0-1.7) O2 Saturation 82 % (92-99) Arterial Blood pH 7.37 (7.35-7.45) Arterial Blood pCO2 at Patient Temp 34 mmHg (35-46) Arterial Blood pO2 at Patient Temp 48 mmHg (65-108) Arterial Blood HCO3 19 mmol/L (21-28) Arterial Blood Base Excess -6 mmol/L (-3-3) FiO2 40 Microbiology Micro Microbiology 04/28/21 Blood Culture - Preliminary, Resulted NO GROWTH AFTER 4 DAYS 04/25/21 Gram Stain - Final, Complete 04/25/21 Aerobic and Anaerobic Culture - Final, Complete Klebsiella Pneumoniae Enterococcus Faecalis Prevotella Melaninogenica Staphylococcus Epidermidis Beta Strep Group B Physical Exam HEENT: Other (supple ) Chest: Symmetric LUNGS: Other (intubated with MV) Heart: RRR (SR with PAC's, PVC's ) Abdomen: Other (soft) Extremities: Other (LLE wound) Neurology: other (sedated) Assessment Assessment 1. Acute respiratory failure secondary to COVID PNA, ARDS 2. PEA arrest; ROSC following 1 round of CPR, epi 3. New onset AFIB with RVR; s/p IV Dig. Presently SR with PAC's, PVC's 4. Leukocytosis, bacteremia, sepsis 5. Septic shock; off pressor support, BP consistently adequate 6. Diabetes, DKA 7. KYLE; worsening. Cr ^ 5.9. HD to be initiated 8. Transaminitis, shock liver 9. PAD, right LE wound; s/p debridement 10. Hypokalemia Recommendations Add low-dose metoprolol for rate control Ongoing pulmonary optimization, treatment of COVID, sepsis Avoid nephrotoxins Discontinue lisinopril Replace K ASA therapy Supportive care from a CV standpoint Prognosis poor. Justicifation of Admission Dx: Justifications for Admission: Justification of Admission Dx: Yes IMANI JACKSON MD 05/02/21 1710: CARDIO Progress Notes Plan Plan The patient was seen and interviewed as well as examined at the bedside. The art was reviewed. The case was discussed. Agree with the plan of care. RHONDAGUME CHU MAGI May 02, 2021 09:54 IMANI JACKSON MD May 02, 2021 17:10
[2021-05-02] MEDS: INSULIN GLARGINE SYRINGE. SQ SCH ×2 (11:23→21:27)
--- NOTE | 2021-05-02 11:41 | PDOC ---
Renal-Progress Notes Subjective Notes Notes ON THE VENT History of Present Illness Hx of present illness NOT GETTING BETTER Vitals Vitals Vital Signs Date Time Temp Pulse Resp B/P (MAP) Pulse Ox O2 Delivery O2 Flow Rate FiO2 05/02/21 11:23 92 40.0 05/02/21 11:00 71 26 117/59 Ventilator 05/02/21 08:00 98.2 98.2 Weight Weight [ ] I.O. Intake and Output Intake and Output 05/02/21 07:00 Intake Total 2122.6 ml Output Total 35 ml Balance 2087.6 ml IV Total 1706.6 ml Tube Feeding 216 ml Other 200 ml Output Urine Total 35 ml Labs Labs Laboratory Tests Test 05/01/21 12:32 05/01/21 17:16 05/01/21 23:41 05/02/21 05:43 Glucose (Fingerstick) 307 mg/dL (70-99) 278 mg/dL (70-99) 226 mg/dL (70-99) 162 mg/dL (70-99) Test 05/02/21 05:50 05/02/21 07:35 Sodium Level 147 mmol/L (136-145) Potassium Level 3.3 mmol/L (3.5-5.1) Chloride Level 110 mmol/L (98-107) Carbon Dioxide Level 21 mmol/L (21-32) Anion Gap 16 (6-14) Blood Urea Nitrogen 95 mg/dL (7-20) Creatinine 5.9 mg/dL (0.6-1.0) Estimated GFR (Cockcroft-Gault) 8.7 BUN/Creatinine Ratio 16 (6-20) Glucose Level 170 mg/dL (70-99) Calcium Level 7.5 mg/dL (8.5-10.1) Total Bilirubin 1.0 mg/dL (0.2-1.0) Aspartate Amino Transf (AST/SGOT) 308 U/L (15-37) Alanine Aminotransferase (ALT/SGPT) 570 U/L (14-59) Alkaline Phosphatase 504 U/L (46-116) Total Protein 5.8 g/dL (6.4-8.2) Albumin 2.5 g/dL (3.4-5.0) Albumin/Globulin Ratio 0.8 (1.0-1.7) O2 Saturation 82 % (92-99) Arterial Blood pH 7.37 (7.35-7.45) Arterial Blood pCO2 at Patient Temp 34 mmHg (35-46) Arterial Blood pO2 at Patient Temp 48 mmHg (65-108) Arterial Blood HCO3 19 mmol/L (21-28) Arterial Blood Base Excess -6 mmol/L (-3-3) FiO2 40 Micro Micro Microbiology 04/28/21 Blood Culture - Preliminary, Resulted NO GROWTH AFTER 4 DAYS 04/25/21 Gram Stain - Final, Complete 04/25/21 Aerobic and Anaerobic Culture - Final, Complete Klebsiella Pneumoniae Enterococcus Faecalis Prevotella Melaninogenica Staphylococcus Epidermidis Beta Strep Group B Review of Systems Constitutional: yes: unresponsive Physical Exam General Appearance: no apparent distress Respiratory: decreased breath sounds Heart: S1S2 Abdomen: soft, bowel sounds present Genitourinary: bladder flat Extremities: pulses present Neurology: other (sedated) Assessment Assessment IMP [id number] HYPERKALEMIA S/P CODE BLUE-PEA AFIB RVR ACUTE HYPOXIC RESP FAILURE COVID 19 PNEUMONIA BACTEREMIA SEPSIS DKA RESOLVED R LE ULCER MALNUTRITION PLAN PRESSORS NEEDED VENT SUPPORT ANTIBIOTICS NEEDS TO START DIALYSIS WILL HAVE IR PLACE TEMP HD LINE START HD TODAY CONT TO MONITOR FOR RECOVERY WILL UF TOLERATED D/W DAUGHTER TODAY ALSO D/W CRITICAL CARE CCT 30 Plan . Updated 05/01 Patient remains critically ill, if no improvement by the middle of the week, I will revisit possible withdrawal of care with family Patient continues to be critically ill with multiorgan failure Continue current support, decrease FiO2 ID, empiric antibiotics Nutritional support Empiric antibiotics Anticoagulation Patient not expected to survive Follow vascular input STARR CARPENTER MD May 02, 2021 11:41
[2021-05-02] MEDS: SODIUM BICARBONATE VIAL 150 MEQ in IV DEXTROSE 5% 1,000 ML IV SCH ×2 (12:18→21:39)
[2021-05-02] MEDS ORDERED: LIDOCAINE WITH 8.4% SOD BICARB 3 ML DISP.SYRIN. ONE (13:08)
[2021-05-02] MEDS ORDERED: HEPARIN for IV BOLUS 10,000 UNIT/10 ML VIAL. ONE (13:24)
[2021-05-02] MEDS ORDERED: LIDOCAINE WITH 8.4% SOD BICARB 3 ML DISP.SYRIN. INJ ONE (13:45)
[2021-05-02] MEDS ORDERED: POTASSIUM BICARB 20 MEQ EFFERVESCENT TABLET. PO ONE (14:00)
--- NOTE | 2021-05-02 14:00 | PDOC ---
[facility] PROGRESS NOTE Date of Service DOS: DATE: 05/02/21 TIME: 14:00 Chief Complaint Chief Complaint Streptococcus pneumoniae bacteremia Acute hypoxic respiratory failure secondary to COVID-19 infection DKA Hypertensive urgency - improved Hyperglycemia uncontrolled KYLE due to vasomotor nephropathyimproved History of Present Illness History of Present Illness 05/02/2021 Patient seen and examined in the ICU On the vent with settings as follows Pressure control 20/ 40% FiO2 with 8 of PEEP Has developed new renal failure currently on bicarb drip nephrology following might need dialysis Still minimal urine output Sedated with fentanyl and Versed Discussed with RN Chart reviewed She is very critically ill Vitals/I&O Vitals/I&O: Vital Signs Date Time Temp Pulse Resp B/P (MAP) Pulse Ox O2 Delivery O2 Flow Rate FiO2 05/02/21 13:00 83 26 118/59 92 Ventilator 05/02/21 12:00 98.1 98.1 05/02/21 11:53 40.0 I & O 05/01/21 05/01/21 05/02/21 15:00 23:00 07:00 Intake Total 2122.6 ml Output Total 15 ml 15 ml 5 ml Balance -15 ml 2107.6 ml -5 ml Physical Exam Physical Exam: GENERAL: Intubated/sedated HEENT: ETT /OGT anicteric normocephalic atraumatic LUNGS: Decreased breath sounds. HEART: S1, S2. No murmurs. ABDOMEN: Soft, nontender, nondistended. GENITOURINARY: Briefs in place. EXTREMITIES: Hyperpigmentation in both lower extremities with scarring. Right lower extremity postop dressing in place intact not taken down MELT HELPER: Intubated/sedated General: Other (intubated ) Heart: Other (AFIB) Lungs: Crackles, Other (decreased air entry throughout) Abdomen: Other (obese) Extremities: Other (RLE wound ) Skin: Other (chronic venous stasis changes of bilateral LE ) Labs Labs: Laboratory Tests Test 05/01/21 17:16 05/01/21 23:41 05/02/21 05:43 05/02/21 05:50 Glucose (Fingerstick) 278 mg/dL (70-99) 226 mg/dL (70-99) 162 mg/dL (70-99) Sodium Level 147 mmol/L (136-145) Potassium Level 3.3 mmol/L (3.5-5.1) Chloride Level 110 mmol/L (98-107) Carbon Dioxide Level 21 mmol/L (21-32) Anion Gap 16 (6-14) Blood Urea Nitrogen 95 mg/dL (7-20) Creatinine 5.9 mg/dL (0.6-1.0) Estimated GFR (Cockcroft-Gault) 8.7 BUN/Creatinine Ratio 16 (6-20) Glucose Level 170 mg/dL (70-99) Calcium Level 7.5 mg/dL (8.5-10.1) Total Bilirubin 1.0 mg/dL (0.2-1.0) Aspartate Amino Transf (AST/SGOT) 308 U/L (15-37) Alanine Aminotransferase (ALT/SGPT) 570 U/L (14-59) Alkaline Phosphatase 504 U/L (46-116) Total Protein 5.8 g/dL (6.4-8.2) Albumin 2.5 g/dL (3.4-5.0) Albumin/Globulin Ratio 0.8 (1.0-1.7) Test 05/02/21 07:35 05/02/21 12:22 O2 Saturation 82 % (92-99) Arterial Blood pH 7.37 (7.35-7.45) Arterial Blood pCO2 at Patient Temp 34 mmHg (35-46) Arterial Blood pO2 at Patient Temp 48 mmHg (65-108) Arterial Blood HCO3 19 mmol/L (21-28) Arterial Blood Base Excess -6 mmol/L (-3-3) FiO2 40 Glucose (Fingerstick) 155 mg/dL (70-99) Assessment and Plan Assessmemt and Plan Problems Medical Problems: (1) Community acquired pneumonia Status: Acute (2) COVID-19 virus infection Status: Acute (3) DKA (diabetic ketoacidosis) Status: Acute (4) Hypoxia Status: Acute Comment Review of Relevant I have reviewed the following items rafael (where applicable) has been applied. Medications: Current Medications Medications (Trade) Dose Ordered Sig/Sadie Route PRN Reason Start Time Stop Time Status Last Admin Dose Admin Daptomycin 430 mg/ Sodium Chloride 50 ml @ 100 mls/hr Q48H IV 05/01/21 17:00 05/01/21 16:40 Insulin Glargine (Lantus Syringe) 30 unit BID SQ 05/01/21 21:00 05/02/21 11:23 Justifications for Admission Other Justification COVID-19 positive test (U07.1, COVID-19) with Acute Pneumonia (J12.89, Other viral pneumonia) (If respiratory failure or sepsis present, add as separate assessment) CHRISS PEPE MD May 02, 2021 14:00
--- NOTE | 2021-05-02 15:26 | RAD ---
Procedure: Temporary hemodialysis catheter placement Sterility: All elements of maximal sterile barrier technique including the use of a cap, mask, steril e gown, sterile gloves, large sterile sheet, appropriate hand hygiene, and 2% chlorhexidine for cutan eous antisepsis (or acceptable alternative antiseptic per current guidelines) were followed for this procedure. Consent: The procedure was explained in its entirety to the patient or the patients designated repres entative by a member of the treatment team, including a discussion of the risks, benefits and commonl y accepted alternatives to the procedure, as well as the expected consequences of no therapy whatsoev er. Discussion of the risks included, but was not limited to, those that are most frequent and thos e that are rare but possibly severe or life-threatening, as well as the possibility of unforeseen com plications. Technique and Findings: Following informed consent, the patient was prepped and draped in the usual s terile fashion. Ultrasound interrogation of the right neck revealed patency and compressibility of t he right internal jugular vein. A 21-gauge micropuncture was then used to gain access to this vein u nder ultrasound guidance. A hard copy ultrasound image was recorded. A guidewire was advanced centra lly over which, following dilatation, a temporary dialysis catheter was placed. The new catheter wa s found to flush and aspirate normally. The catheter was secured in place. Sterile dressings were arleen lied. No immediate complications were identified. IMPRESSION: Placement of a temporary dialysis catheter Electronically signed by: Augustine Merritt MD (05/02/2021 3:23 PM) [id number]
--- NOTE | 2021-05-02 15:31 | RAD ---
Single view of the chest. 05/02/2021 2:56 PM Indication: POST LINE PLACEMENT / Comparison: Chest radiograph, April 28, 2019 Findings: There is a new right internal jugular temporary dialysis catheter with tip the cavoatrial j unction. Support lines and tubes otherwise unchanged. Diffuse pulmonary infiltrates are perhaps mildl y improved in the interim. No acute osseous changes are identified. Impression: 1.New right internal jugular temporary dialysis catheter with tip projecting over the cavoatrial junc tion 2. Diffuse pulmonary infiltrates, perhaps mildly improved Electronically signed by: Augustine Merritt MD (05/02/2021 3:28 PM) [id number]
--- NOTE | 2021-05-02 15:48 | NUR ---
SS following up with discharge planning. SS reviewed pt chart and discussed with pt RN. Pt is currently on the vent at 55%. COVID19 positive. Pt on IV Daptomycin, IV Zosyn, and IV Solu-Medrol. Wound care. Pt on Versed and Fentanyl. Multi organ failure. Hemodialysis initiated today. Not stable. SS will continue to follow for discharge planning.
--- NOTE | 2021-05-02 15:50 | NUR ---
Wound Care Wound Type/Assessment: Follow up wound management of RLE and intergluteal cleft wounds. RLE pictures present in chart. Periwound of RLE stasis ulcer is softer compared to last assessment. Wound base is pale pink with loose slough, eschar to the margins, and undermining. LLE has been treated with ammonium lactate and skin condition is improving. Per TONY Gray, pt remains too unstable to turn for full skin assessment. Pt remains intubated s/p respiratory code on 04/27/21. Treatment Recommendations/Plan: RLE: Medihoney gel, xeroform, ABD, kerlix. Change every 2-3days to manage drainage. LLE: Apply ammonium lactate BID to manage lymphatic skin changes Intergluteal cleft: When stable to turn, apply barrier cream. Education provided: Pt inappropriate for education at this time. Offloading surface/device: ICU bed, pillows to float heels Recommended Referrals/Tests: Vascular debridement when condition stabilizes Discharge Recommendations for dressings: As above
[2021-05-02] MEDS: MIDAZOLAM 100mg/100ml NS BAG 100 ML IV PRN (16:11)
[2021-05-02] MEDS: METOPROLOL IV PUSH 5 MG/5 ML VIAL. IVP SCH ×2 (17:48→23:27)
[2021-05-02] MEDS: NOREPINEPHRINE VIAL 32 MG in IV D5W 250ML IV PRN (17:57)
[2021-05-02] MEDS ORDERED: IV NORMAL SALINE 1000ML BAG 1,000 ML IV PRN ×2 (20:15)
[2021-05-02] MEDS ORDERED: DIALYSIS PATIENT. MC PRN (20:15)
[2021-05-03] VITALS (40 sets, daily range): BP systolic 61–189; BP diastolic 38–87
[2021-05-03] MEDS: PIPERACILLIN/TAZOBACTAM 2.25 GM in IV NORMAL SALINE 50ML 50 ML IV SCH ×5 (00:13→23:42)
[2021-05-03 05:15] LABS: CALCIUM 7.1 mg/dL (8.5-10.1); CREATININE 5.2 mg/dL (0.6-1.0); GFR 10.1; MAGNESIUM 2.1 mg/dL (1.8-2.4); PHOSPHORUS 3.8 mg/dL (2.6-4.7); POTASSIUM 3.6 mmol/L (3.5-5.1)
[2021-05-03] MEDS: METOPROLOL IV PUSH 5 MG/5 ML VIAL. IVP SCH ×2 (05:52→06:08)
[2021-05-03] MEDS: methylPREDNISolone SOD SUCC PF 40 MG/ML VIAL. IV SCH ×3 (05:57→21:02)
[2021-05-03] MEDS: HEPARIN for SUB-Q USE 5,000 UNIT/ML VIAL. SQ SCH ×4 (05:58→19:12)
[2021-05-03] MEDS: INSULIN LISPRO 300 UNITS/3 ML VIAL. SQ SCH ×10 (06:00→23:38)
[2021-05-03] MEDS ORDERED: DIALYSIS PATIENT. MC PRN (07:45)
[2021-05-03] MEDS ORDERED: IV NORMAL SALINE 1000ML BAG 1,000 ML IV PRN ×2 (07:45)
[2021-05-03] MEDS ORDERED: ALBUMIN HUMAN 25% 200 ML IV PRN (07:45)
[2021-05-03 08:05] LABS: BASE EXCESS ABG -3 mmol/L (-3-3); HCO3 ABG 24 mmol/L (21-28); PCO2 ABG 50 mmHg (35-46); PO2 ABG 63 mmHg (65-108); SAT O2 ABG 89 % (92-99)
[2021-05-03 08:28] LABS: FIO2 ABG 80/PCV 20 20 80% +8
[2021-05-03] MEDS: ASPIRIN CHEWABLE 81 MG TABLET. PO SCH (08:29)
[2021-05-03] MEDS: PANTOPRAZOLE IV PUSH 40 MG VIAL. IVP SCH (08:30)
[2021-05-03] MEDS: NYSTATIN TOPICAL POWDER 15GM BOTTLE. TP SCH ×2 (09:00→21:02)
[2021-05-03] MEDS: AMMONIUM LACTATE 12% TOPICAL LOTION 225GM BOTTLE. TP SCH ×2 (09:00→21:02)
[2021-05-03] MEDS: INSULIN GLARGINE SYRINGE. SQ SCH ×2 (09:09→21:03)
[2021-05-03] MEDS: MIDAZOLAM 100mg/100ml NS BAG 100 ML IV PRN (09:28)
--- NOTE | 2021-05-03 10:44 | PDOC ---
ARMAAN CHAVARRIA TE[employer]COMM[employer] CABLE JOINTER 05/03/21 1043: CARDIO Progress Notes Date and Time Date of Service 05/03/2021 Time of Evaluation 0910 Subjective Subjective: Other (intubated) Vitals Vitals Vital Signs Date Time Temp Pulse Resp B/P (MAP) Pulse Ox O2 Delivery O2 Flow Rate FiO2 05/03/21 10:00 91 20 128/68 98 Ventilator 05/03/21 10:00 40.0 05/03/21 08:00 98.3 98.3 Weight Weight [ ] Input and Output Intake and Output Intake and Output 05/03/21 07:00 Intake Total 4792.2 ml Output Total 23 ml Balance 4769.2 ml IV Total 2886.2 ml Tube Feeding 1136 ml Other 770 ml Output Urine Total 20 ml Stool Total 3 ml Laboratory Labs Laboratory Tests Test 05/02/21 12:22 05/02/21 18:05 05/03/21 00:11 05/03/21 05:00 Glucose (Fingerstick) 155 mg/dL (70-99) 158 mg/dL (70-99) 125 mg/dL (70-99) Sodium Level 143 mmol/L (136-145) Potassium Level 3.6 mmol/L (3.5-5.1) Chloride Level 106 mmol/L (98-107) Carbon Dioxide Level 28 mmol/L (21-32) Anion Gap 9 (6-14) Blood Urea Nitrogen 79 mg/dL (7-20) Creatinine 5.2 mg/dL (0.6-1.0) Estimated GFR (Cockcroft-Gault) 10.1 Glucose Level 161 mg/dL (70-99) Calcium Level 7.1 mg/dL (8.5-10.1) Phosphorus Level 3.8 mg/dL (2.6-4.7) Magnesium Level 2.1 mg/dL (1.8-2.4) Test 05/03/21 07:55 O2 Saturation 89 % (92-99) Arterial Blood pH 7.29 (7.35-7.45) Arterial Blood pCO2 at Patient Temp 50 mmHg (35-46) Arterial Blood pO2 at Patient Temp 63 mmHg (65-108) Arterial Blood HCO3 24 mmol/L (21-28) Arterial Blood Base Excess -3 mmol/L (-3-3) FiO2 80/pcv 20 20 80% +8 Microbiology Micro Microbiology 1/27/22 Blood Culture - Final, Complete NO GROWTH AFTER 5 DAYS 04/25/21 Gram Stain - Final, Complete 04/25/21 Aerobic and Anaerobic Culture - Final, Complete Klebsiella Pneumoniae Enterococcus Faecalis Prevotella Melaninogenica Staphylococcus Epidermidis Beta Strep Group B Review of Systems Constitutional: yes: unresponsive Physical Exam HEENT: Other (supple ) Chest: Symmetric LUNGS: Other (intubated with MV) Heart: RRR (Sinus tachycardia with grequent PACs) Abdomen: Other (soft) Extremities: Other (LLE wound) Neurology: other (sedated) Assessment Assessment 1. Acute respiratory failure secondary to COVID PNA, ARDS 2. PEA arrest; ROSC following 1 round of CPR, epi 3. New onset AFIB with RVR; s/p IV Dig. Sinus tachycardia with frequent PACs. 4. Septic shock: back on pressor 5. Diabetes, DKA 7. Severe KYLE; HD started 8. Shock liver: LFTs improved 9. PAD, right LE wound; s/p debridement 10. Hypokalemia: resolved Recommendations DC metoprolol. After HD, Titrate down levophed per BP tolerance and if pressors needed further still then could start neosynephrine rather than increasing levophed Digoxin PRN for rate control Ongoing pulmonary optimization, treatment of COVID, sepsis Avoid nephrotoxins, fluid off loading per HD ASA therapy Supportive care from a CV standpoint Prognosis poor. Justicifation of Admission Dx: Justifications for Admission: Justification of Admission Dx: Yes IMANI JACKSON MD 05/03/21 1109: CARDIO Progress Notes Plan Plan The patient was seen and interviewed as well as examined at the bedside. The chart was reviewed. The case was discussed. Agree with the plan of care. ARMAAN CHAVARRIA [employer] CABLE JOINTER May 03, 2021 10:43 IMANI JACKSON MD May 03, 2021 11:09
--- NOTE | 2021-05-03 11:28 | PDOC ---
Renal-Progress Notes Subjective Notes Notes INTUBATED History of Present Illness Hx of present illness NO ACUTE CHANGES Vitals Vitals Vital Signs Date Time Temp Pulse Resp B/P (MAP) Pulse Ox O2 Delivery O2 Flow Rate FiO2 05/03/21 11:00 87 20 144/82 97 Ventilator 05/03/21 10:00 40.0 05/03/21 08:00 98.3 98.3 Weight Weight [ ] I.O. Intake and Output Intake and Output 05/03/21 07:00 Intake Total 4792.2 ml Output Total 23 ml Balance 4769.2 ml IV Total 2886.2 ml Tube Feeding 1136 ml Other 770 ml Output Urine Total 20 ml Stool Total 3 ml Labs Labs Laboratory Tests Test 05/02/21 12:22 05/02/21 18:05 05/03/21 00:11 05/03/21 05:00 Glucose (Fingerstick) 155 mg/dL (70-99) 158 mg/dL (70-99) 125 mg/dL (70-99) Sodium Level 143 mmol/L (136-145) Potassium Level 3.6 mmol/L (3.5-5.1) Chloride Level 106 mmol/L (98-107) Carbon Dioxide Level 28 mmol/L (21-32) Anion Gap 9 (6-14) Blood Urea Nitrogen 79 mg/dL (7-20) Creatinine 5.2 mg/dL (0.6-1.0) Estimated GFR (Cockcroft-Gault) 10.1 Glucose Level 161 mg/dL (70-99) Calcium Level 7.1 mg/dL (8.5-10.1) Phosphorus Level 3.8 mg/dL (2.6-4.7) Magnesium Level 2.1 mg/dL (1.8-2.4) Test 05/03/21 07:55 O2 Saturation 89 % (92-99) Arterial Blood pH 7.29 (7.35-7.45) Arterial Blood pCO2 at Patient Temp 50 mmHg (35-46) Arterial Blood pO2 at Patient Temp 63 mmHg (65-108) Arterial Blood HCO3 24 mmol/L (21-28) Arterial Blood Base Excess -3 mmol/L (-3-3) FiO2 80/pcv 20 20 80% +8 Micro Micro Microbiology 04/28/21 Blood Culture - Final, Complete NO GROWTH AFTER 5 DAYS 04/25/21 Gram Stain - Final, Complete 04/25/21 Aerobic and Anaerobic Culture - Final, Complete Klebsiella Pneumoniae Enterococcus Faecalis Prevotella Melaninogenica Staphylococcus Epidermidis Beta Strep Group B Review of Systems Constitutional: yes: unresponsive Physical Exam General Appearance: no apparent distress Respiratory: decreased breath sounds Heart: S1S2 Abdomen: soft, bowel sounds present Genitourinary: bladder flat Extremities: pulses present Neurology: other (sedated) Assessment Assessment IMP [id number] HYPERKALEMIA S/P CODE BLUE-PEA AFIB RVR ACUTE HYPOXIC RESP FAILURE-FIO2 80% COVID 19 PNEUMONIA BACTEREMIA SEPSIS DKA RESOLVED R LE ULCER MALNUTRITION PLAN PRESSORS NEEDED VENT SUPPORT ANTIBIOTICS HD TODAY UF ABOUT 1.0-2.0 LITERS CONT TO MONITOR FOR RECOVERY WILL UF TOLERATED D/W DAUGHTER TODAY ALSO D/W CRITICAL CARE Plan . Updated 05/01 Patient remains critically ill, if no improvement by the middle of the week, I will revisit possible withdrawal of care with family Patient continues to be critically ill with multiorgan failure Continue current support, decrease FiO2 ID, empiric antibiotics Nutritional support Empiric antibiotics Anticoagulation Patient not expected to survive Follow vascular input STARR CARPENTER MD May 03, 2021 11:28
[2021-05-03] MEDS: SODIUM BICARBONATE VIAL 150 MEQ in IV DEXTROSE 5% 1,000 ML IV SCH ×2 (12:53→23:42)
--- NOTE | 2021-05-03 13:42 | PDOC ---
[employer] PROGRESS NOTE Date of Service DOS: DATE: 05/03/21 TIME: 13:40 Chief Complaint Chief Complaint Streptococcus pneumoniae bacteremia Acute hypoxic respiratory failure secondary to COVID-19 infection DKA Hypertensive urgency - improved Hyperglycemia uncontrolled KYLE- ATN, acute renal failure, on dialysis thrombocytopenia, sepsis, but also poss heparin, check antibodies, hold heparin History of Present Illness History of Present Illness 05/03, About the same, in ICU, on vent plts have dropped, will stop heparin, check antobodies cont current, renal replacemetn started 05/02/2021 Patient seen and examined in the ICU On the vent with settings as follows Pressure control 20/ 40% FiO2 with 8 of PEEP Has developed new renal failure currently on bicarb drip nephrology following might need dialysis Still minimal urine output Sedated with fentanyl and Versed Discussed with RN Chart reviewed She is very critically ill Vitals/I&O Vitals/I&O: Vital Signs Date Time Temp Pulse Resp B/P (MAP) Pulse Ox O2 Delivery O2 Flow Rate FiO2 05/03/21 13:00 92 20 172/87 100 Ventilator 05/03/21 12:00 97.8 97.8 05/03/21 10:00 40.0 I & O 05/02/21 05/02/21 05/03/21 15:00 23:00 07:00 Intake Total 40 ml 2765 ml 1987.2 ml Output Total 5 ml 0 ml 18 ml Balance 35 ml 2765 ml 1969.2 ml Physical Exam Physical Exam: GENERAL: Intubated/sedated HEENT: ETT /OGT anicteric normocephalic atraumatic LUNGS: Decreased breath sounds. HEART: S1, S2. No murmurs. ABDOMEN: Soft, nontender, nondistended. GENITOURINARY: Briefs in place. EXTREMITIES: Hyperpigmentation in both lower extremities with scarring. Right lower extremity postop dressing in place intact not taken down STAFF DEVELOPMENT MANAGER: Intubated/sedated General: Other (intubated ) Heart: Other (AFIB) Lungs: Crackles, Other (decreased air entry throughout) Abdomen: Other (obese) Extremities: Other (RLE wound ) Skin: Other (chronic venous stasis changes of bilateral LE ) Labs Labs: Laboratory Tests Test 05/02/21 18:05 05/03/21 00:11 05/03/21 05:00 05/03/21 07:55 Glucose (Fingerstick) 158 mg/dL (70-99) 125 mg/dL (70-99) Sodium Level 143 mmol/L (136-145) Potassium Level 3.6 mmol/L (3.5-5.1) Chloride Level 106 mmol/L (98-107) Carbon Dioxide Level 28 mmol/L (21-32) Anion Gap 9 (6-14) Blood Urea Nitrogen 79 mg/dL (7-20) Creatinine 5.2 mg/dL (0.6-1.0) Estimated GFR (Cockcroft-Gault) 10.1 Glucose Level 161 mg/dL (70-99) Calcium Level 7.1 mg/dL (8.5-10.1) Phosphorus Level 3.8 mg/dL (2.6-4.7) Magnesium Level 2.1 mg/dL (1.8-2.4) O2 Saturation 89 % (92-99) Arterial Blood pH 7.29 (7.35-7.45) Arterial Blood pCO2 at Patient Temp 50 mmHg (35-46) Arterial Blood pO2 at Patient Temp 63 mmHg (65-108) Arterial Blood HCO3 24 mmol/L (21-28) Arterial Blood Base Excess -3 mmol/L (-3-3) FiO2 80/pcv 20 20 80% +8 Test 05/03/21 11:53 Glucose (Fingerstick) 115 mg/dL (70-99) Assessment and Plan Assessmemt and Plan Problems Medical Problems: (1) Community acquired pneumonia Status: Acute (2) COVID-19 virus infection Status: Acute (3) DKA (diabetic ketoacidosis) Status: Acute (4) Hypoxia Status: Acute Comment Review of Relevant I have reviewed the following items rafael (where applicable) has been applied. Medications: Current Medications Medications (Trade) Dose Ordered Sig/Sadie Route PRN Reason Start Time Stop Time Status Last Admin Dose Admin Lidocaine HCl (Buffered Lidocaine 1%) 3 ml 1X ONCE INJ 05/02/21 13:45 05/02/21 13:46 DC 05/02/21 14:07 Heparin Sodium (Porcine) (Heparin Sodium) 2,500 unit 1X ONCE INT CAT 05/02/21 13:45 05/02/21 13:46 DC 05/02/21 14:07 Metoprolol Tartrate (Lopressor Vial) 2.5 mg Q6HRS IVP 05/02/21 18:00 05/03/21 10:39 DC 05/03/21 06:08 Potassium Bicarbonate (Potassium Effervescent Tablet) 40 meq 1X ONCE PO 05/02/21 14:00 05/02/21 14:01 DC 05/02/21 14:22 Justifications for Admission Other Justification COVID-19 positive test (U07.1, COVID-19) with Acute Pneumonia (J12.89, Other viral pneumonia) (If respiratory failure or sepsis present, add as separate assessment) CHRISS PEPE MD May 03, 2021 13:42
[2021-05-03] MEDS ORDERED: ALTEPLASE 1MG SYRINGE. INT CAT ONE (15:30)
--- NOTE | 2021-05-03 15:37 | PDOC2 ---
CONSULT Date of Consult Date of Consult DATE: 05/03/21 TIME: 15:03 Reason for Consult Reason for Consult: Thrombocytopenia Referring Physician Referring Physician: Dr. Mckenzie Identification/Chief Complaint Chief Complaint COVID-19 pneumonia Source Source: Chart review History of Present Illness Reason for Visit: Lorri Herron is a 65-year-old female who has been admitted to [facility] ICU for management of acute respiratory failure secondary to COVID-19 pneumonia. She was admitted to the hospital on 04/21/2020. Transferred to [facility] on 04/24/2020. Hospital course has been complicated by cardiopulmonary arrest with asystole. She received CPR and was resuscitated successfully. She was subsequently intubated and remains on mechanical ventilation. Hospital course has also been complicated by acute kidney injury that has required hemodialysis. She has also developed Streptococcus pneumonia for which she has been on antibiotic therapy with daptomycin and Zosyn. CBC on admission showed normal platelet count. This has since declined and platelet count was 80 on CBC today. Hematology consultation has been requested for further evaluation of thrombocytopenia. The patient continues to be ventilator dependent. CTA during hospital stay did not show pulmonary embolism. Past Medical History Cardiovascular: HTN Endocrine: Diabetes Past Surgical History Past Surgical History: No pertinent history Family History Family History: Family History Unknown Social History No ALCOHOL: none Drugs: None Current Problem List Problem List Problems Medical Problems: (1) Community acquired pneumonia Status: Acute (2) COVID-19 virus infection Status: Acute (3) DKA (diabetic ketoacidosis) Status: Acute (4) Hypoxia Status: Acute Current Medications Current Medications Current Medications Dexamethasone Sodium Phosphate (Decadron) 10 mg 1X ONCE IV Last administered on 04/24/21at 17:44; Start 04/24/21 at 17:45; Stop 04/24/21 at 17:46; Status DC Ceftriaxone Sodium (Rocephin) 1 gm 1X ONCE IVP Last administered on 04/24/21at 17:44; Start 04/24/21 at 17:45; Stop 04/24/21 at 17:46; Status DC Azithromycin (Zithromax) 500 mg 1X ONCE PO Last administered on 04/24/21at 17:44; Start 04/24/21 at 17:45; Stop 04/24/21 at 17:46; Status DC Iohexol (Omnipaque 350 Mg/ml) 100 ml 1X ONCE IV Last administered on 04/24/21at 18:00; Start 04/24/21 at 17:30; Stop 04/24/21 at 17:31; Status DC Info (CONTRAST GIVEN -- Rx MONITORING) 1 each PRN DAILY PRN MC SEE COMMENTS; Start 04/24/21 at 17:30; Stop 04/26/21 at 17:29; Status DC Ascorbic Acid (Vitamin C) 3,000 mg TID PO Last administered on 04/30/21at 08:25; Start 04/24/21 at 21:00; Stop 04/30/21 at 08:38; Status DC Methylprednisolone Sodium Succinate (SOLU-Medrol 40MG VIAL) 40 mg Q8HRS IV Last administered on 05/03/21at 12:57; Start 04/24/21 at 22:00 Thiamine Mononitrate (Vitamin B-1) 300 mg DAILY PO Last administered on 04/29/21 at 08:56; Start 04/25/21 at 09:00; Stop 04/30/21 at 08:38; Status DC Zinc Sulfate (Orazinc) 220 mg DAILY PO Last administered on 04/30/21at 08:25; Start 04/25/21 at 09:00; Stop 04/30/21 at 08:38; Status DC Sennosides (Senna) 17.2 mg PRN BID PRN PO CONSTIPATION; Start 04/24/21 at 19:15 Docusate Sodium (Colace) 100 mg PRN DAILY PRN PO HARD STOOLS; Start 04/24/21 at 19:15; Stop 04/28/21 at 08:21; Status DC Ondansetron HCl (Zofran) 4 mg PRN Q6HRS PRN IVP NAUSEA/VOMITING, 1st CHOICE; Start 04/24/21 at 19:15 Dextrose (Dextrose 50%-Water Syringe) 12.5 gm PRN Q15MIN PRN IV SEE COMMENTS; Start 04/24/21 at 19:15; Stop 04/24/21 at 19:36; Status DC Acetaminophen (Tylenol) 650 mg PRN Q4HRS PRN PO TEMP OVER 100.4F OR MILD PAIN Last administered on 04/29/21at 13:50; Start 04/24/21 at 19:15; Stop 04/29/21 at 18:01; Status DC Lorazepam (Ativan) 0.5 mg PRN Q6HRS PRN PO ANXIETY / AGITATION; Start 04/24/21 at 19:15 Lorazepam (Ativan Inj) 0.25 mg PRN Q4HRS PRN IV ANXIETY / AGITATION Last administered on 04/26/21at 23:57; Start 04/24/21 at 19:15 Enoxaparin Sodium (Lovenox 40mg Syringe) 40 mg Q24H SQ Last administered on 04/30/21at 08:27; Start 04/25/21 at 09:00; Stop 04/30/21 at 10:44; Status DC Pantoprazole Sodium (Protonix) 40 mg DAILYAC PO Last administered on 04/26/21at 08:12; Start 04/25/21 at 07:30; Stop 04/28/21 at 12:29; Status DC Prochlorperazine Edisylate (Compazine) 10 mg PRN Q6HRS PRN IV NAUSEA/VOMITING, 2nd CHOICE; Start 04/24/21 at 19:15 Diphenhydramine HCl (Benadryl) 25 mg PRN Q6HRS PRN IVP ITCHING; Start 04/24/21 at 19:15 Diphenhydramine HCl (Benadryl) 25 mg PRN Q6HRS PRN PO ITCHING; Start 04/24/21 at 19:15 Diphenhydramine HCl (Benadryl) 25 mg PRN QHS PRN PO INSOMNIA, 1st CHOICE; Start 04/24/21 at 19:15 Zolpidem Tartrate (Ambien) 2.5 mg PRN QHS PRN PO INSOMNIA, 2nd CHOICE; Start 04/24/21 at 19:15 Lisinopril (Prinivil) 10 mg DAILY PO Last administered on 05/02/21at 08:35; Start 04/25/21 at 09:00; Stop 05/02/21 at 13:47; Status DC Metformin HCl (Glucophage) 500 mg BIDWMEALS PO ; Start 04/25/21 at 08:00; Stop 04/24/21 at 19:22; Status DC Insulin Human Lispro (HumaLOG) 0-7 UNITS TIDWMEALS SQ Last administered on 04/27/21at 18:00; Start 04/25/21 at 08:00; Stop 04/30/21 at 08:46; Status DC Dextrose (Dextrose 50%-Water Syringe) 12.5 gm PRN Q15MIN PRN IV SEE COMMENTS; Start 04/24/21 at 19:15 Labetalol HCl (Normodyne Iv Push) 20 mg Q2HR PRN IVP HYPERTENSION Last administered on 04/27/21at 16:02; Start 04/24/21 at 19:15 Hydralazine HCl (Apresoline Inj) 10 mg PRN Q4HRS PRN IVP ELEVATED BP, SEE COMMENTS Last administered on 04/27/21at 08:01; Start 04/24/21 at 19:15 Remdesivir 200 mg/ Sodium Chloride 210 ml @ 210 mls/hr 1X ONCE IV Last administered on 04/24/21at 22:40; Start 04/24/21 at 20:00; Stop 04/24/21 at 20:59; Status DC Remdesivir 100 mg/ Sodium Chloride 230 ml @ 460 mls/hr Q24H IV Last administered on 04/28/21at 21:03; Start 04/25/21 at 20:00; Stop 04/28/21 at 20:29; Status DC Sodium Chloride 1,000 ml @ 1,000 mls/hr Q1H IV Last administered on 04/24/21at 21:46; Start 04/24/21 at 19:30; Stop 04/24/21 at 20:29; Status DC Sodium Chloride 1,000 ml @ 500 mls/hr Q2H IV ; Start 04/24/21 at 19:45; Stop 04/24/21 at 21:44; Status DC Sodium Chloride 1,000 ml @ 250 mls/hr Q4H IV ; Start 04/24/21 at 19:45; Stop 04/24/21 at 22:47; Status DC Insulin Human Regular 100 unit/ Sodium Chloride 101 ml @ 0 mls/hr CONT PRN PRN IV PER PROTOCOL Last administered on 04/25/21at 11:52; Start 04/24/21 at 19:30; Stop 04/28/21 at 08:22; Status DC Potassium Chloride/Water 100 ml @ 100 mls/hr PRN Q1HR PRN IV SEE COMMENTS; Start 04/24/21 at 19:30; Status Cancel Potassium Chloride/Water 100 ml @ 100 mls/hr PRN Q1HR PRN IV SEE COMMENTS; Start 04/24/21 at 19:30; Status Cancel Potassium Chloride/Water 100 ml @ 100 mls/hr PRN Q1HR PRN IV SEE COMMENTS; Start 04/24/21 at 19:30; Status Cancel Sodium Chloride 1,000 ml @ 150 mls/hr Q6H40M IV Last administered on 04/30/21at 07:28; Start 04/24/21 at 22:30; Stop 04/30/21 at 13:21; Status DC Dextrose/Sodium Chloride 1,000 ml @ 250 mls/hr Q4H IV Last administered on 04/25/21at 09:38; Start 04/25/21 at 09:30; Stop 04/25/21 at 18:13; Status DC Sodium Phosphate 20 mmol/Sodium Chloride 256.6667 ml @ 62.5 mls/hr 1X PRN PRN IV SEE COMMENTS Last administered on 04/25/21at 11:29; Start 04/25/21 at 11:15 Insulin Glargine (Lantus Syringe) 20 unit 1X ONCE SQ Last administered on 04/25/21at 13:29; Start 04/25/21 at 14:00; Stop 04/25/21 at 14:01; Status DC Ceftriaxone Sodium (Rocephin) 2 gm Q24H IVP Last administered on 04/26/21at 15:00; Start 04/25/21 at 15:00; Stop 04/27/21 at 10:57; Status DC Lactic Acid (Lac-Hydrin) 1 arleen BID TP Last administered on 05/03/21at 09:00; Start 04/25/21 at 21:00 Nystatin (Nystop) 1 arleen BID TP Last administered on 05/03/21at 09:00; Start 04/25/21 at 21:00 Insulin Human Lispro (HumaLOG) 8 units 1X ONCE SQ Last administered on 04/26/21at 08:40; Start 04/26/21 at 08:45; Stop 04/26/21 at 08:46; Status DC Lactobacillus Rhamnosus (Culturelle) 1 cap BID PO Last administered on 04/26/21at 20:56; Start 04/26/21 at 21:00; Stop 04/28/21 at 08:22; Status DC Insulin Glargine (Lantus Syringe) 10 unit BID SQ Last administered on 04/26/21at 20:57; Start 04/26/21 at 13:00; Stop 04/27/21 at 09:35; Status DC Sterile Water (WATER for RESP) 1,000 ml CONT PRN INH VIA VAPOTHERM DEVICE Last administered on 04/28/21at 03:32; Start 04/27/21 at 01:30; Stop 04/28/21 at 12:29; Status DC Insulin Glargine (Lantus Syringe) 20 unit BID SQ Last administered on 05/01/21at 08:21; Start 04/27/21 at 21:00; Stop 05/01/21 at 13:02; Status DC Insulin Human Lispro (HumaLOG) 10 units TIDWMEALS SQ Last administered on 04/28/21at 16:34; Start 04/27/21 at 12:00; Stop 05/01/21 at 08:35; Status DC Vancomycin HCl 1 gm/Sodium Chloride 250 ml @ 250 mls/hr Q12H IV ; Start 04/27/21 at 10:45; Status UNV Cefepime HCl (Maxipime) 2 gm Q12HR IVP Last administered on 04/29/21at 08:58; Start 04/27/21 at 21:00; Stop 04/29/21 at 09:38; Status DC Daptomycin 430 mg/ Sodium Chloride 50 ml @ 100 mls/hr Q24H IV Last administered on 04/29/21at 18:04; Start 04/27/21 at 17:00; Stop 04/30/21 at 12:50; Status DC Nicardipine HCl 50 mg/Sodium Chloride 250 ml @ 25 mls/hr CONT PRN IV PER PROTOCOL Last administered on 04/27/21at 17:15; Start 04/27/21 at 16:30 Epinephrine HCl 5 mg/Sodium Chloride 255 ml @ 29.59 mls/ hr CONT PRN IV SEE I/O RECORD Last administered on 04/28/21at 01:22; Start 04/27/21 at 23:15; Stop 04/28/21 at 06:27; Status DC Fentanyl Citrate 30 ml @ 2.5 mls/hr CONT PRN IV SEE PROTOCOL Last administered on 05/03/21at 09:29; Start 04/27/21 at 23:15 Midazolam HCl 100 ml @ 1 mls/hr CONT PRN IV SEE PROTOCOL Last administered on 05/03/21at 09:28; Start 04/27/21 at 23:15 Propofol 100 ml @ 2.901 mls/ hr CONT PRN IV PER PROTOCOL Last administered on 05/02/21at 07:57; Start 04/27/21 at 23:15 Vecuronium Altair (Norcuron Bolus) 6 mg PRN 1X PRN IV VENT INDUCTION Last administered on 04/28/21at 06:59; Start 04/27/21 at 23:15; Stop 04/28/21 at 06:59; Status DC Dexmedetomidine HCl 400 mcg/ Sodium Chloride 100 ml @ 4.835 mls/ hr CONT PRN IV PER PROTOCOL; Start 04/27/21 at 23:15 Sodium Chloride 500 ml @ 500 mls/hr 1X PRN PRN IV SEE COMMENTS; Start 04/27/21 at 23:15 Atropine Sulfate (ATROPINE 0.5mg SYRINGE) 0.5 mg PRN Q5MIN PRN IV SEE COMMENTS; Start 04/27/21 at 23:15 Etomidate (Amidate) 20 mg STK-MED ONCE IV ; Start 04/27/21 at 23:28; Stop 04/27/21 at 23:28; Status DC Succinylcholine Chloride (Anectine) 200 mg STK-MED ONCE .ROUTE ; Start 04/27/21 at 23:28; Stop 04/27/21 at 23:29; Status DC Epinephrine HCl 10 mg/Sodium Chloride 250 ml @ 14.505 mls/ hr CONT PRN IV SEE I/O RECORD Last administered on 04/28/21at 05:46; Start 04/28/21 at 05:00 Norepinephrine Bitartrate 8 mg/ Dextrose 258 ml @ 18.711 mls/ hr CONT PRN IV PER PROTOCOL Last administered on 04/28/21at 06:19; Start 04/28/21 at 06:15; Stop 04/28/21 at 08:23; Status DC Vecuronium Altair (Norcuron Bolus) 10 mg PRN Q6HRS PRN IV VENTILATOR COMPLIANCE Last administered on 04/28/21at 12:22; Start 04/28/21 at 07:00 Docusate Sodium (Colace Solution) 100 mg PRN DAILY PRN PO HARD STOOLS; Start 04/28/21 at 08:30 Norepinephrine Bitartrate 32 mg/ Dextrose 250 ml @ 4.533 mls/ hr CONT PRN IV SEE I/O RECORD Last administered on 05/02/21at 17:57; Start 04/28/21 at 08:30 Vasopressin 20 unit/Dextrose 101 ml @ 12 mls/hr CONT PRN IV SEE I/O RECORD Last administered on 04/29/21at 01:35; Start 04/28/21 at 09:00 Insulin Human Lispro (HumaLOG) 30 units 1X ONCE SQ Last administered on 04/28/21at 10:45; Start 04/28/21 at 10:45; Stop 04/28/21 at 10:46; Status DC Pantoprazole Sodium (PROTONIX VIAL for IV PUSH) 40 mg DAILYAC IVP Last administered on 05/03/21at 08:30; Start 04/29/21 at 07:30 Insulin Human Lispro (HumaLOG) 30 units 1X ONCE SQ Last administered on 04/28/21at 13:01; Start 04/28/21 at 13:00; Stop 04/28/21 at 13:01; Status DC Digoxin (Lanoxin) 500 mcg 1X ONCE IV Last administered on 04/28/21at 14:06; Start 04/28/21 at 14:00; Stop 04/28/21 at 14:03; Status DC Digoxin (Lanoxin) 500 mcg 1X ONCE IV Last administered on 04/28/21at 16:05; Start 04/28/21 at 16:00; Stop 04/28/21 at 16:03; Status DC Metoprolol Tartrate (Lopressor Vial) 5 mg 1X ONCE IVP Last administered on 04/28/21at 16:07; Start 04/28/21 at 16:00; Stop 04/28/21 at 16:03; Status DC Insulin Human Lispro (HumaLOG) 20 units 1X ONCE SQ Last administered on 04/28/21at 16:36; Start 04/28/21 at 16:45; Stop 04/28/21 at 16:46; Status DC Aspirin (Aspirin Chewable) 81 mg [id number] PO Last administered on 05/03/21at 08:29; Start 04/29/21 at 10:00 Piperacillin Sod/ Tazobactam Sod 2.25 gm/Sodium Chloride 50 ml @ 100 mls/hr Q6HRS IV Last administered on 05/03/21at 12:57; Start 04/29/21 at 12:00 Epinephrine HCl (EPINEPHrine SYRINGE) 2 mg STK-MED ONCE .ROUTE ; Start 04/27/21 at 23:59; Stop 04/29/21 at 11:05; Status DC Acetaminophen (Tylenol) 650 mg PRN Q4HRS PRN GT MILD PAIN / TEMP > 100.3'F; Start 04/29/21 at 18:15 Insulin Human Lispro (HumaLOG) 0-7 UNITS Q6HRS SQ Last administered on 05/03/21at 06:00; Start 04/30/21 at 12:00 Heparin Sodium (Porcine) (Heparin Sodium) 5,000 unit Q8HRS SQ Last administered on 05/03/21at 05:58; Start 05/01/21 at 06:00 Daptomycin 430 mg/ Sodium Chloride 50 ml @ 100 mls/hr Q48H IV Last administered on 05/01/21at 16:40; Start 05/01/21 at 17:00 Sodium Bicarbonate 150 meq/Dextrose 1,150 ml @ 100 mls/hr [id number] IV Last administered on 05/03/21at 12:53; Start 04/30/21 at 14:00 Furosemide (Lasix) 40 mg 1X ONCE IVP Last administered on 04/30/21at 13:30; Start 04/30/21 at 13:30; Stop 04/30/21 at 13:31; Status DC Albumin Human 100 ml @ 100 mls/hr 1X ONCE IV Last administered on 04/30/21at 13:30; Start 04/30/21 at 13:30; Stop 04/30/21 at 14:29; Status DC Insulin Human Lispro (HumaLOG) 10 units Q6HRS SQ Last administered on 05/03/21at 12:54; Start 05/01/21 at 12:00 Albumin Human 100 ml @ 100 mls/hr Q6HRS IV Last administered on 05/02/21at 05:45; Start 05/01/21 at 13:00; Stop 05/02/21 at 07:00; Status DC Sodium Bicarbonate (Sodium Bicarb Adult 8.4% Syr) 50 meq 1X ONCE IV Last administered on 05/01/21at 15:15; Start 05/01/21 at 12:30; Stop 05/01/21 at 12:33; Status DC Insulin Glargine (Lantus Syringe) 30 unit BID SQ Last administered on 05/03/21at 09:09; Start 05/01/21 at 21:00 Lidocaine HCl (Buffered Lidocaine 1%) 3 ml STK-MED ONCE .ROUTE ; Start 05/02/21 at 13:08; Stop 05/02/21 at 13:09; Status DC Heparin Sodium (Porcine) (Heparin Sodium) 10,000 unit STK-MED ONCE .ROUTE ; Start 05/02/21 at 13:24; Stop 05/02/21 at 13:25; Status DC Lidocaine HCl (Buffered Lidocaine 1%) 3 ml 1X ONCE INJ Last administered on 05/02/21at 14:07; Start 05/02/21 at 13:45; Stop 05/02/21 at 13:46; Status DC Heparin Sodium (Porcine) (Heparin Sodium) 2,500 unit 1X ONCE INT CAT Last administered on 05/02/21at 14:07; Start 05/02/21 at 13:45; Stop 05/02/21 at 13:46; Status DC Metoprolol Tartrate (Lopressor Vial) 2.5 mg Q6HRS IVP Last administered on 05/03/21at 06:08; Start 05/02/21 at 18:00; Stop 05/03/21 at 10:39; Status DC Potassium Bicarbonate (Potassium Effervescent Tablet) 40 meq 1X ONCE PO Last administered on 05/02/21at 14:22; Start 05/02/21 at 14:00; Stop 05/02/21 at 14:01; Status DC Sodium Chloride 1,000 ml @ 1,000 mls/hr Q1H PRN IV hypotension; Start 05/02/21 at 20:15; Stop 05/03/21 at 02:14; Status DC Sodium Chloride 1,000 ml @ 400 mls/hr Q2H30M PRN IV PATENCY; Start 05/02/21 at 20:15; Stop 05/03/21 at 08:14; Status DC Info (PHARMACY MONITORING -- do not chart) 1 each PRN DAILY PRN MC SEE COMMENTS; Start 05/02/21 at 20:15; Status Cancel Sodium Chloride 1,000 ml @ 1,000 mls/hr Q1H PRN IV hypotension; Start 05/03/21 at 07:45; Stop 05/03/21 at 13:44; Status DC Albumin Human 200 ml @ 200 mls/hr 1X PRN PRN IV Hypotension; Start 05/03/21 at 07:45; Stop 05/03/21 at 13:44; Status DC Sodium Chloride 1,000 ml @ 400 mls/hr Q2H30M PRN IV PATENCY; Start 05/03/21 at 07:45; Stop 05/03/21 at 19:44 Info (PHARMACY MONITORING -- do not chart) 1 each PRN DAILY PRN MC SEE COMMENTS; Start 05/03/21 at 07:45 Active Scripts Active Lisinopril 10 Mg Tablet 1 Tab PO DAILY Metformin Hcl 500 Mg Tablet 500 Mg PO BIDWMEALS Allergies Allergies: Coded Allergies: chocolate flavor (Verified Allergy, Intermediate, 04/19/21) pineapple (Verified Allergy, Intermediate, 04/19/21) Physical Exam Physical Exam Limited exam due to COVID-19 Intubated and sedated Irregular rhythm Vitals VITALS Vital Signs Date Time Temp Pulse Resp B/P (MAP) Pulse Ox O2 Delivery O2 Flow Rate FiO2 05/03/21 14:00 119 20 178/77 100 Ventilator 05/03/21 12:00 97.8 97.8 05/03/21 10:00 40.0 Labs Labs Laboratory Tests Test 05/01/21 17:16 05/01/21 23:41 05/02/21 05:43 05/02/21 05:50 Glucose (Fingerstick) 278 mg/dL (70-99) 226 mg/dL (70-99) 162 mg/dL (70-99) Sodium Level 147 mmol/L (136-145) Potassium Level 3.3 mmol/L (3.5-5.1) Chloride Level 110 mmol/L (98-107) Carbon Dioxide Level 21 mmol/L (21-32) Anion Gap 16 (6-14) Blood Urea Nitrogen 95 mg/dL (7-20) Creatinine 5.9 mg/dL (0.6-1.0) Estimated GFR (Cockcroft-Gault) 8.7 BUN/Creatinine Ratio 16 (6-20) Glucose Level 170 mg/dL (70-99) Calcium Level 7.5 mg/dL (8.5-10.1) Magnesium Level 2.2 mg/dL (1.8-2.4) Total Bilirubin 1.0 mg/dL (0.2-1.0) Aspartate Amino Transf (AST/SGOT) 308 U/L (15-37) Alanine Aminotransferase (ALT/SGPT) 570 U/L (14-59) Alkaline Phosphatase 504 U/L (46-116) Total Protein 5.8 g/dL (6.4-8.2) Albumin 2.5 g/dL (3.4-5.0) Albumin/Globulin Ratio 0.8 (1.0-1.7) Hepatitis B Surface Antigen Nonreactive (Nonreactive) Hepatitis B Core Total Antibody Nonreactive (Nonreactive) Test 05/02/21 07:35 05/02/21 12:22 05/02/21 18:05 05/03/21 00:11 O2 Saturation 82 % (92-99) Arterial Blood pH 7.37 (7.35-7.45) Arterial Blood pCO2 at Patient Temp 34 mmHg (35-46) Arterial Blood pO2 at Patient Temp 48 mmHg (65-108) Arterial Blood HCO3 19 mmol/L (21-28) Arterial Blood Base Excess -6 mmol/L (-3-3) FiO2 40 Glucose (Fingerstick) 155 mg/dL (70-99) 158 mg/dL (70-99) 125 mg/dL (70-99) Test 05/03/21 05:00 05/03/21 07:55 05/03/21 11:53 Sodium Level 143 mmol/L (136-145) Potassium Level 3.6 mmol/L (3.5-5.1) Chloride Level 106 mmol/L (98-107) Carbon Dioxide Level 28 mmol/L (21-32) Anion Gap 9 (6-14) Blood Urea Nitrogen 79 mg/dL (7-20) Creatinine 5.2 mg/dL (0.6-1.0) Estimated GFR (Cockcroft-Gault) 10.1 Glucose Level 161 mg/dL (70-99) Calcium Level 7.1 mg/dL (8.5-10.1) Phosphorus Level 3.8 mg/dL (2.6-4.7) Magnesium Level 2.1 mg/dL (1.8-2.4) O2 Saturation 89 % (92-99) Arterial Blood pH 7.29 (7.35-7.45) Arterial Blood pCO2 at Patient Temp 50 mmHg (35-46) Arterial Blood pO2 at Patient Temp 63 mmHg (65-108) Arterial Blood HCO3 24 mmol/L (21-28) Arterial Blood Base Excess -3 mmol/L (-3-3) FiO2 80/pcv 20 20 80% +8 Glucose (Fingerstick) 115 mg/dL (70-99) Laboratory Tests Test 05/02/21 18:05 05/03/21 00:11 05/03/21 05:00 05/03/21 07:55 Glucose (Fingerstick) 158 mg/dL (70-99) 125 mg/dL (70-99) Sodium Level 143 mmol/L (136-145) Potassium Level 3.6 mmol/L (3.5-5.1) Chloride Level 106 mmol/L (98-107) Carbon Dioxide Level 28 mmol/L (21-32) Anion Gap 9 (6-14) Blood Urea Nitrogen 79 mg/dL (7-20) Creatinine 5.2 mg/dL (0.6-1.0) Estimated GFR (Cockcroft-Gault) 10.1 Glucose Level 161 mg/dL (70-99) Calcium Level 7.1 mg/dL (8.5-10.1) Phosphorus Level 3.8 mg/dL (2.6-4.7) Magnesium Level 2.1 mg/dL (1.8-2.4) O2 Saturation 89 % (92-99) Arterial Blood pH 7.29 (7.35-7.45) Arterial Blood pCO2 at Patient Temp 50 mmHg (35-46) Arterial Blood pO2 at Patient Temp 63 mmHg (65-108) Arterial Blood HCO3 24 mmol/L (21-28) Arterial Blood Base Excess -3 mmol/L (-3-3) FiO2 80/pcv 20 20 80% +8 Test 05/03/21 11:53 Glucose (Fingerstick) 115 mg/dL (70-99) Assessment/Plan Assessment/Plan Assessment: Acute respiratory failure secondary to COVID-19 pneumonia Atrial fibrillation Acute kidney injury Cardiopulmonary arrest status post ROSC with CPR Thrombocytopenia Normocytic anemia Neutrophilic leukocytosis Recommendations: -We will follow up on results of HIT antibody testing ordered. Pretest probability is low for HIT based on 4T score (3 points) -Suspect thrombocytopenia is likely secondary to critical illness given concomitant normocytic anemia -We will check iron studies, B12, copper level, LDH and haptoglobin for further evaluation of anemia thrombocytopenia -Management of KYLE per nephrology -Follow pulmonology recommendations for management of acute respiratory failure -Rest per Dr. Jonah Braga MD Medical Oncology/Hematology Ph: [phone] PAWAN BRAGA MD May 03, 2021 15:37
--- NOTE | 2021-05-03 15:50 | PDOC ---
PULMONARY PROGRESS NOTES DATE: 05/03/21 TIME: 15:48 Subjective Started dialysis yesterday currently on pressure control of 20, 80% FiO2 and 8 of PEEP patient remains critically ill, currently on IV insulin Vitals Vital Signs Date Time Temp Pulse Resp B/P (MAP) Pulse Ox O2 Delivery O2 Flow Rate FiO2 05/03/21 14:00 119 20 178/77 100 Ventilator 05/03/21 12:00 97.8 97.8 05/03/21 10:00 40.0 Lungs: Crackles, Other (decreased air entry throughout) Cardiovascular: S1, S2 Abdomen: Soft Extremities: Other (Edema wound care) Skin: Warm Labs Laboratory Tests Test 05/01/21 17:16 05/01/21 23:41 05/02/21 05:43 05/02/21 05:50 Glucose (Fingerstick) 278 mg/dL (70-99) 226 mg/dL (70-99) 162 mg/dL (70-99) Sodium Level 147 mmol/L (136-145) Potassium Level 3.3 mmol/L (3.5-5.1) Chloride Level 110 mmol/L (98-107) Carbon Dioxide Level 21 mmol/L (21-32) Anion Gap 16 (6-14) Blood Urea Nitrogen 95 mg/dL (7-20) Creatinine 5.9 mg/dL (0.6-1.0) Estimated GFR (Cockcroft-Gault) 8.7 BUN/Creatinine Ratio 16 (6-20) Glucose Level 170 mg/dL (70-99) Calcium Level 7.5 mg/dL (8.5-10.1) Magnesium Level 2.2 mg/dL (1.8-2.4) Total Bilirubin 1.0 mg/dL (0.2-1.0) Aspartate Amino Transf (AST/SGOT) 308 U/L (15-37) Alanine Aminotransferase (ALT/SGPT) 570 U/L (14-59) Alkaline Phosphatase 504 U/L (46-116) Total Protein 5.8 g/dL (6.4-8.2) Albumin 2.5 g/dL (3.4-5.0) Albumin/Globulin Ratio 0.8 (1.0-1.7) Hepatitis B Surface Antigen Nonreactive (Nonreactive) Hepatitis B Core Total Antibody Nonreactive (Nonreactive) Test 05/02/21 07:35 05/02/21 12:22 05/02/21 18:05 05/03/21 00:11 O2 Saturation 82 % (92-99) Arterial Blood pH 7.37 (7.35-7.45) Arterial Blood pCO2 at Patient Temp 34 mmHg (35-46) Arterial Blood pO2 at Patient Temp 48 mmHg (65-108) Arterial Blood HCO3 19 mmol/L (21-28) Arterial Blood Base Excess -6 mmol/L (-3-3) FiO2 40 Glucose (Fingerstick) 155 mg/dL (70-99) 158 mg/dL (70-99) 125 mg/dL (70-99) Test 05/03/21 05:00 05/03/21 07:55 05/03/21 11:53 Sodium Level 143 mmol/L (136-145) Potassium Level 3.6 mmol/L (3.5-5.1) Chloride Level 106 mmol/L (98-107) Carbon Dioxide Level 28 mmol/L (21-32) Anion Gap 9 (6-14) Blood Urea Nitrogen 79 mg/dL (7-20) Creatinine 5.2 mg/dL (0.6-1.0) Estimated GFR (Cockcroft-Gault) 10.1 Glucose Level 161 mg/dL (70-99) Calcium Level 7.1 mg/dL (8.5-10.1) Phosphorus Level 3.8 mg/dL (2.6-4.7) Magnesium Level 2.1 mg/dL (1.8-2.4) O2 Saturation 89 % (92-99) Arterial Blood pH 7.29 (7.35-7.45) Arterial Blood pCO2 at Patient Temp 50 mmHg (35-46) Arterial Blood pO2 at Patient Temp 63 mmHg (65-108) Arterial Blood HCO3 24 mmol/L (21-28) Arterial Blood Base Excess -3 mmol/L (-3-3) FiO2 80/pcv 20 20 80% +8 Glucose (Fingerstick) 115 mg/dL (70-99) Laboratory Tests Test 05/02/21 18:05 05/03/21 00:11 05/03/21 05:00 05/03/21 07:55 Glucose (Fingerstick) 158 mg/dL (70-99) 125 mg/dL (70-99) Sodium Level 143 mmol/L (136-145) Potassium Level 3.6 mmol/L (3.5-5.1) Chloride Level 106 mmol/L (98-107) Carbon Dioxide Level 28 mmol/L (21-32) Anion Gap 9 (6-14) Blood Urea Nitrogen 79 mg/dL (7-20) Creatinine 5.2 mg/dL (0.6-1.0) Estimated GFR (Cockcroft-Gault) 10.1 Glucose Level 161 mg/dL (70-99) Calcium Level 7.1 mg/dL (8.5-10.1) Phosphorus Level 3.8 mg/dL (2.6-4.7) Magnesium Level 2.1 mg/dL (1.8-2.4) O2 Saturation 89 % (92-99) Arterial Blood pH 7.29 (7.35-7.45) Arterial Blood pCO2 at Patient Temp 50 mmHg (35-46) Arterial Blood pO2 at Patient Temp 63 mmHg (65-108) Arterial Blood HCO3 24 mmol/L (21-28) Arterial Blood Base Excess -3 mmol/L (-3-3) FiO2 80/pcv 20 20 80% +8 Test 05/03/21 11:53 Glucose (Fingerstick) 115 mg/dL (70-99) Medications Active Scripts Medications Dose Route/Sig Max Daily Dose Days Date Category Lisinopril 10 Mg Tablet 1 Tab PO DAILY 04/19/21 Rx Metformin Hcl 500 Mg Tablet 500 Mg PO BIDWMEALS 04/19/21 Rx Impression . IMPRESSION: 1. Acute hypoxemic respiratory failure, multifactorial. Status post CODE MIRTA 2. COVID-19 viral pneumonia, acute respiratory distress syndrome. 3. Diabetic ketoacidosis. 4. Bacteremia. 5. Leg wound infection with Klebsiella, Enterococcus and beta strep, group B. 6. Sepsis. 7. Hypertensive urgency. 8. Acute kidney injury./Acute renal failure 9. Liver failure 10. Severe protein malnutrition Patient intubated, emergency room physician Called to ABISAI KIRBY on 6 4. Patient had gone unresponsive, pulseless, apneic. CPR was initiated and pulse was regained after 1 round of epinephrine compressions. Patient was given push dose epinephrine until epi drip arrived. Patient was intubated by myself. Patient was intubated in emergent fashion and no consent was obtained. Patient was [] sedated and paralyzed with etomidate and succinylcholine. A glide scope with a size 4 blade was used, cords were visualized and a size 7.5 endotracheal tube was placed during first attempt. Endotracheal tube cuff was inflated and confirmation established by visualization of the cords passing the tubes, bilateral breath sounds, color change, and chest x-ray. Plan . Updated 05/03 Discussed with RT continue pressure control ventilation ABG noted pH 7.[address] Willingham Monitor blood sugars IV insulin Anticoagulation Patient is DNR Continue antibiotics dated 05/[address] Willingham, to start hemodialysis today Empiric antibiotics Nutritional support Continue current support, decrease FiO2 Anticoagulation Patient not expected to survive Follow vascular input If patient does not improve, may need to consider discontinuing support, and allowing natural . LEE KILLIAN MD May 03, 2021 15:50
--- NOTE | 2021-05-03 16:13 | NUR ---
SS following up with discharge planning. SS reviewed pt chart and discussed with pt RN. Pt is currently on the vent at 80%. COVID19 positive. Pt on IV Daptomycin, IV Zosyn, and IV Solu-Medrol. Wound care. Pt on Versed, Fentanyl, and Serafin. Multi organ failure. Hemodialysis. Not stable. SS will continue to follow for discharge planning.
[2021-05-03] MEDS: PHENYLEPHRINE INJ 50 MG in IV NORMAL SALINE 250ML 250 ML IV PRN ×2 (16:24→21:05)
[2021-05-03] MEDS: DAPTOmycin (GENERIC) IVPB 430 MG in IV NORMAL SALINE 50ML 50 ML IV SCH (17:44)
[2021-05-03] MEDS: NOREPINEPHRINE VIAL 32 MG in IV D5W 250ML IV PRN (23:32)
[2021-05-03] MEDS: DEXTROSE 50% 25 GM / 50ML DISP.SYRIN. IV PRN (23:42)
[2021-05-04] VITALS (12 sets, daily range): BP systolic 65–117; BP diastolic 44–76
[2021-05-04] MEDS: DEXTROSE 50% 25 GM / 50ML DISP.SYRIN. IV PRN (00:22)
[2021-05-04] MEDS: PHENYLEPHRINE INJ 50 MG in IV NORMAL SALINE 250ML 250 ML IV PRN ×3 (02:53→09:53)
[2021-05-04] MEDS: VASOPRESSIN - VASOSTRICT 20 UNIT in IV DEXTROSE 5% 100ML 100 ML IV PRN (03:24)
[2021-05-04] MEDS: methylPREDNISolone SOD SUCC PF 40 MG/ML VIAL. IV SCH (05:32)
[2021-05-04] MEDS: PIPERACILLIN/TAZOBACTAM 2.25 GM in IV NORMAL SALINE 50ML 50 ML IV SCH (05:33)
[2021-05-04] MEDS: INSULIN LISPRO 300 UNITS/3 ML VIAL. SQ SCH ×2 (05:34)
[2021-05-04 06:55] LABS: BASO # 0.2 x10^3/uL (0.0-0.2); BASO % 0 % (0-3); EOS % 0 % (0-3); HEMATOCRIT 35.6 % (36.0-47.0); HEMOGLOBIN 10.4 g/dL (12.0-15.5); LYMPH # 3.2 x10^3/uL (1.0-4.8); LYMPH % 5 % (24-48); MEAN CORPUSCULAR HEMOGLOBIN 27 pg (25-35); MEAN CORPUSCULAR HGB CONC 29 g/dL (31-37); MEAN CORPUSCULAR VOLUME 93 fL (79-100); MONO # 1.2 x10^3/uL (0.0-1.1); MONO % 2 % (0-9); NEUT # 59.8 x10^3/uL (1.8-7.7); NEUT % 93 % (31-73); PLATELET COUNT 120 x10^3/uL (140-400); RED BLOOD COUNT 3.84 x10^6/uL (3.50-5.40); RED CELL DISTRIBUTION WIDTH 16.6 % (11.5-14.5)
[2021-05-04 06:57] LABS: WHITE BLOOD COUNT 64.4 x10^3/uL (4.0-11.0)
[2021-05-04] MEDS: PANTOPRAZOLE IV PUSH 40 MG VIAL. IVP SCH (07:30)
[2021-05-04] MEDS: ASPIRIN CHEWABLE 81 MG TABLET. PO SCH (08:00)
[2021-05-04 08:31] LABS: BASE EXCESS ABG -18 mmol/L (-3-3); HCO3 ABG 14 mmol/L (21-28); PO2 ABG 87 mmHg (65-108); SAT O2 ABG 91 % (92-99)
[2021-05-04] MEDS: NYSTATIN TOPICAL POWDER 15GM BOTTLE. TP SCH (09:00)
[2021-05-04] MEDS: AMMONIUM LACTATE 12% TOPICAL LOTION 225GM BOTTLE. TP SCH (09:00)
[2021-05-04] MEDS: INSULIN GLARGINE SYRINGE. SQ SCH (09:00)
[2021-05-04 09:22] LABS: PCO2 ABG 63 mmHg (35-46)
[2021-05-04] MEDS: SODIUM BICARBONATE VIAL 150 MEQ in IV DEXTROSE 5% 1,000 ML IV SCH (10:00)
--- NOTE | 2021-05-04 11:09 | NUR ---
Patient extubated to comfort care at 1105 at family's wishes. TONY Gray and RT at bedside.
--- NOTE | 2021-05-04 11:29 | NUR ---
Patients family gave TOV consent to withdrawal care on patient due to being in different states. Patient was extubated at 1105 and lost pulse at 1116. Myself and Osauniou RN independently assessed patient for heart sounds patient was pronounced at 1116. Family was notified. Physicians notified. MTN notified.
--- NOTE | 2021-05-04 12:08 | PDOC ---
[facility] PROGRESS NOTE Date of Service DOS: DATE: 05/04/21 TIME: 12:07 Chief Complaint Chief Complaint Streptococcus pneumoniae bacteremia Acute hypoxic respiratory failure secondary to COVID-19 infection DKA Hypertensive urgency - improved Hyperglycemia uncontrolled KYLE- ATN, acute renal failure, on dialysis thrombocytopenia, sepsis, but also poss heparin, check antibodies, hold heparin History of Present Illness History of Present Illness 05/04, care withdrawn this AM 05/03, About the same, in ICU, on vent plts have dropped, will stop heparin, check antobodies cont current, renal replacemetn started 05/02/2021 Patient seen and examined in the ICU On the vent with settings as follows Pressure control 20/ 40% FiO2 with 8 of PEEP Has developed new renal failure currently on bicarb drip nephrology following might need dialysis Still minimal urine output Sedated with fentanyl and Versed Discussed with RN Chart reviewed She is very critically ill Vitals/I&O Vitals/I&O: Vital Signs Date Time Temp Pulse Resp B/P (MAP) Pulse Ox O2 Delivery O2 Flow Rate FiO2 05/04/21 11:00 92 24 82/53 90 Ventilator 05/04/21 09:01 40.0 05/04/21 08:00 99.5 99.5 I & O 05/03/21 05/03/21 05/04/21 15:00 23:00 07:00 Intake Total 320 ml 2323 ml 2997 ml Output Total 0 ml 0 ml 0 ml Balance 320 ml 2323 ml 2997 ml Physical Exam Physical Exam: from early this AM GENERAL: Intubated/sedated HEENT: ETT /OGT anicteric normocephalic atraumatic LUNGS: Decreased breath sounds. HEART: S1, S2. No murmurs. ABDOMEN: Soft, nontender, nondistended. GENITOURINARY: Briefs in place. EXTREMITIES: Hyperpigmentation in both lower extremities with scarring. Right lower extremity postop dressing in place intact not taken down LICENSED INSURANCE AGENT: Intubated/sedated General: Other (intubated ) Heart: Other (AFIB) Lungs: Crackles, Other (decreased air entry throughout) Abdomen: Other (obese) Extremities: Other (RLE wound ) Skin: Other (chronic venous stasis changes of bilateral LE ) Labs Labs: Laboratory Tests Test 05/03/21 16:00 05/03/21 16:28 05/03/21 17:55 05/03/21 23:31 Haptoglobin 199 mg/dL (37-355) Lactate Dehydrogenase 999 U/L (81-234) Vitamin B12 Level 1901 pg/mL (247-911) Glucose (Fingerstick) 152 mg/dL (70-99) 138 mg/dL (70-99) 67 mg/dL (70-99) Test 05/03/21 23:38 05/04/21 00:17 05/04/21 00:30 05/04/21 05:31 Glucose (Fingerstick) 68 mg/dL (70-99) 58 mg/dL (70-99) 74 mg/dL (70-99) 86 mg/dL (70-99) Test 05/04/21 06:45 05/04/21 08:00 White Blood Count 64.4 x10^3/uL (4.0-11.0) Red Blood Count 3.84 x10^6/uL (3.50-5.40) Hemoglobin 10.4 g/dL (12.0-15.5) Hematocrit 35.6 % (36.0-47.0) Mean Corpuscular Volume 93 fL (79-100) Mean Corpuscular Hemoglobin 27 pg (25-35) Mean Corpuscular Hemoglobin Concent 29 g/dL (31-37) Red Cell Distribution Width 16.6 % (11.5-14.5) Platelet Count 120 x10^3/uL (140-400) Neutrophils (%) (Auto) 93 % (31-73) Lymphocytes (%) (Auto) 5 % (24-48) Monocytes (%) (Auto) 2 % (0-9) Eosinophils (%) (Auto) 0 % (0-3) Basophils (%) (Auto) 0 % (0-3) Neutrophils # (Auto) 59.8 x10^3/uL (1.8-7.7) Lymphocytes # (Auto) 3.2 x10^3/uL (1.0-4.8) Monocytes # (Auto) 1.2 x10^3/uL (0.0-1.1) Eosinophils # (Auto) 0.0 x10^3/uL (0.0-0.7) Basophils # (Auto) 0.2 x10^3/uL (0.0-0.2) O2 Saturation 91 % (92-99) Arterial Blood pH 6.97 (7.35-7.45) Arterial Blood pCO2 at Patient Temp 63 mmHg (35-46) Arterial Blood pO2 at Patient Temp 87 mmHg (65-108) Arterial Blood HCO3 14 mmol/L (21-28) Arterial Blood Base Excess -18 mmol/L (-3-3) FiO2 100/vent Assessment and Plan Assessmemt and Plan Problems Medical Problems: (1) Community acquired pneumonia Status: Acute (2) COVID-19 virus infection Status: Acute (3) DKA (diabetic ketoacidosis) Status: Acute (4) Hypoxia Status: Acute Comment Review of Relevant I have reviewed the following items rafael (where applicable) has been applied. Medications: Current Medications Medications (Trade) Dose Ordered Sig/Sadie Route PRN Reason Start Time Stop Time Status Last Admin Dose Admin Alteplase, Recombinant (Cathflo For Central Catheter Clearance) 1 mg 1X ONCE INT CAT 05/03/21 15:30 05/03/21 15:31 DC 05/03/21 15:35 Phenylephrine HCl 50 mg/Sodium Chloride 255 ml @ 21.374 mls/ hr CONT PRN IV PER PROTOCOL 05/03/21 16:00 05/04/21 09:53 Justifications for Admission Other Justification COVID-19 positive test (U07.1, COVID-19) with Acute Pneumonia (J12.89, Other viral pneumonia) (If respiratory failure or sepsis present, add as separate assessment) CHRISS PEPE MD May 04, 2021 12:08
--- NOTE | 2021-05-04 12:12 | PDOC3 ---
Discharge Summary Visit Information Date of Admission: Apr 24, 2021 Date of Discharge: May 04, 2021 Final Diagnosis Streptococcus pneumoniae bacteremia Acute hypoxic respiratory failure secondary to COVID-19 infection DKA Hypertensive urgency - improved Hyperglycemia uncontrolled KYLE- ATN, acute renal failure, on dialysis thrombocytopenia, sepsis, but also poss heparin, check antibodies, hold heparin sepsis, severe sepsis, septic shock PEA arrest afib RVR, acute diastolic CHF transaminitis of COVID thrombocytopenia hypernatremia hypokalemia Problems Medical Problems: (1) Community acquired pneumonia Status: Acute (2) COVID-19 virus infection Status: Acute (3) DKA (diabetic ketoacidosis) Status: Acute (4) Hypoxia Status: Acute Brief Hospital Course Allergies Allergies Coded Allergies Type Severity Reaction Last Updated Verified chocolate flavor Allergy Intermediate 04/19/21 Yes pineapple Allergy Intermediate 04/19/21 Yes Vital Signs Vital Signs Date Time Temp Pulse Resp B/P (MAP) Pulse Ox O2 Delivery O2 Flow Rate FiO2 05/04/21 11:00 92 24 82/53 90 Ventilator 05/04/21 09:01 40.0 05/04/21 08:00 99.5 99.5 Lab Results Laboratory Tests Test 05/02/21 12:22 05/02/21 18:05 05/03/21 00:11 05/03/21 05:00 Glucose (Fingerstick) 155 mg/dL (70-99) 158 mg/dL (70-99) 125 mg/dL (70-99) Sodium Level 143 mmol/L (136-145) Potassium Level 3.6 mmol/L (3.5-5.1) Chloride Level 106 mmol/L (98-107) Carbon Dioxide Level 28 mmol/L (21-32) Anion Gap 9 (6-14) Blood Urea Nitrogen 79 mg/dL (7-20) Creatinine 5.2 mg/dL (0.6-1.0) Estimated GFR (Cockcroft-Gault) 10.1 Glucose Level 161 mg/dL (70-99) Calcium Level 7.1 mg/dL (8.5-10.1) Phosphorus Level 3.8 mg/dL (2.6-4.7) Magnesium Level 2.1 mg/dL (1.8-2.4) Hepatitis B Surface Antibody, Quant <3.1 mIU/mL (Immunity>9.9) Test 05/03/21 07:55 05/03/21 11:53 05/03/21 16:00 05/03/21 16:28 O2 Saturation 89 % (92-99) Arterial Blood pH 7.29 (7.35-7.45) Arterial Blood pCO2 at Patient Temp 50 mmHg (35-46) Arterial Blood pO2 at Patient Temp 63 mmHg (65-108) Arterial Blood HCO3 24 mmol/L (21-28) Arterial Blood Base Excess -3 mmol/L (-3-3) FiO2 80/pcv 20 20 80% +8 Glucose (Fingerstick) 115 mg/dL (70-99) 152 mg/dL (70-99) Haptoglobin 199 mg/dL (37-355) Lactate Dehydrogenase 999 U/L (81-234) Vitamin B12 Level 1901 pg/mL (247-911) Test 05/03/21 17:55 05/03/21 23:31 05/03/21 23:38 05/04/21 00:17 Glucose (Fingerstick) 138 mg/dL (70-99) 67 mg/dL (70-99) 68 mg/dL (70-99) 58 mg/dL (70-99) Test 05/04/21 00:30 05/04/21 05:31 05/04/21 06:45 05/04/21 08:00 Glucose (Fingerstick) 74 mg/dL (70-99) 86 mg/dL (70-99) White Blood Count 64.4 x10^3/uL (4.0-11.0) Red Blood Count 3.84 x10^6/uL (3.50-5.40) Hemoglobin 10.4 g/dL (12.0-15.5) Hematocrit 35.6 % (36.0-47.0) Mean Corpuscular Volume 93 fL (79-100) Mean Corpuscular Hemoglobin 27 pg (25-35) Mean Corpuscular Hemoglobin Concent 29 g/dL (31-37) Red Cell Distribution Width 16.6 % (11.5-14.5) Platelet Count 120 x10^3/uL (140-400) Neutrophils (%) (Auto) 93 % (31-73) Lymphocytes (%) (Auto) 5 % (24-48) Monocytes (%) (Auto) 2 % (0-9) Eosinophils (%) (Auto) 0 % (0-3) Basophils (%) (Auto) 0 % (0-3) Neutrophils # (Auto) 59.8 x10^3/uL (1.8-7.7) Lymphocytes # (Auto) 3.2 x10^3/uL (1.0-4.8) Monocytes # (Auto) 1.2 x10^3/uL (0.0-1.1) Eosinophils # (Auto) 0.0 x10^3/uL (0.0-0.7) Basophils # (Auto) 0.2 x10^3/uL (0.0-0.2) O2 Saturation 91 % (92-99) Arterial Blood pH 6.97 (7.35-7.45) Arterial Blood pCO2 at Patient Temp 63 mmHg (35-46) Arterial Blood pO2 at Patient Temp 87 mmHg (65-108) Arterial Blood HCO3 14 mmol/L (21-28) Arterial Blood Base Excess -18 mmol/L (-3-3) FiO2 100/vent Laboratory Tests Test 05/03/21 16:00 05/03/21 16:28 05/03/21 17:55 05/03/21 23:31 Haptoglobin 199 mg/dL (37-355) Lactate Dehydrogenase 999 U/L (81-234) Vitamin B12 Level 1901 pg/mL (247-911) Glucose (Fingerstick) 152 mg/dL (70-99) 138 mg/dL (70-99) 67 mg/dL (70-99) Test 05/03/21 23:38 05/04/21 00:17 05/04/21 00:30 05/04/21 05:31 Glucose (Fingerstick) 68 mg/dL (70-99) 58 mg/dL (70-99) 74 mg/dL (70-99) 86 mg/dL (70-99) Test 05/04/21 06:45 05/04/21 08:00 White Blood Count 64.4 x10^3/uL (4.0-11.0) Red Blood Count 3.84 x10^6/uL (3.50-5.40) Hemoglobin 10.4 g/dL (12.0-15.5) Hematocrit 35.6 % (36.0-47.0) Mean Corpuscular Volume 93 fL (79-100) Mean Corpuscular Hemoglobin 27 pg (25-35) Mean Corpuscular Hemoglobin Concent 29 g/dL (31-37) Red Cell Distribution Width 16.6 % (11.5-14.5) Platelet Count 120 x10^3/uL (140-400) Neutrophils (%) (Auto) 93 % (31-73) Lymphocytes (%) (Auto) 5 % (24-48) Monocytes (%) (Auto) 2 % (0-9) Eosinophils (%) (Auto) 0 % (0-3) Basophils (%) (Auto) 0 % (0-3) Neutrophils # (Auto) 59.8 x10^3/uL (1.8-7.7) Lymphocytes # (Auto) 3.2 x10^3/uL (1.0-4.8) Monocytes # (Auto) 1.2 x10^3/uL (0.0-1.1) Eosinophils # (Auto) 0.0 x10^3/uL (0.0-0.7) Basophils # (Auto) 0.2 x10^3/uL (0.0-0.2) O2 Saturation 91 % (92-99) Arterial Blood pH 6.97 (7.35-7.45) Arterial Blood pCO2 at Patient Temp 63 mmHg (35-46) Arterial Blood pO2 at Patient Temp 87 mmHg (65-108) Arterial Blood HCO3 14 mmol/L (21-28) Arterial Blood Base Excess -18 mmol/L (-3-3) FiO2 100/vent Brief Hospital Course Ms. Herron is a 65 old female who presented secondary to increased cough. Was noted to be COVID + on 04/18/21. She initially denied any chest pain, palpitations, or shortness of breath. Was noted with acute respiratory failure secondary to COVID PNA. Oxygen requirement continued to increase over hospitalization. Patient also has RLE wound and underwent debridement. Had PEA arrest on 04/27/21. ROSC obtained following 1 round of CPR, epi. Require intubation. AFIB with RVR 04/28 care withdrawn on 05/04, in AM Discharge Information Condition at Discharge: / Scheduled Lisinopril (Lisinopril) 10 Mg Tablet, 1 TAB PO DAILY, #30 Ref 0 Prescribed by: RAMONE RUBIO MD on 04/19/2111 Last Action: Continued on 04/24/211907 by MARLENI JOHNSON MD Metformin Hcl (Metformin Hcl) 500 Mg Tablet, 500 MG PO BIDWMEALS for ANTI- DIABETIC, #60 Ref 0 Prescribed by: RAMONE RUBIO MD on 04/19/21 0555 Last Action: Continued on 04/24/211907 by MARLENI JOHNSON MD Patient Instructions Patient Instructions 33 min, pt seen x2 Justicifation of Admission Dx: Justifications for Admission: Justification of Admission Dx: Yes CHRISS PEPE MD May 04, 2021 12:12
== END 2021-05-04 11:16 | DRG 853 ==
LOC: ER 15:57 → 6 SOUTH 18:30 → 1 WEST ICU 04-25 08:03 → 5 NORTH 04-25 18:13 → 6 SOUTH 04-27 01:30 → 1 WEST ICU 04-27 23:13
PROVIDERS: ADMIT Internal Medicine; ATTEND Internal Medicine
PROC: 0BH17EZ Insertion of Endotracheal Airway into Trachea, Via Natural or Artificial Opening (ICD-10-PCS; 2021-04-24)
PROC: 5A1955Z Respiratory Ventilation, Greater than 96 Consecutive Hours (ICD-10-PCS; principal; 2021-04-27)
PROC: 0JBQ0ZZ Excision of Right Foot Subcutaneous Tissue and Fascia, Open Approach (ICD-10-PCS; 2021-04-27)
PROC: 5A09357 Assistance with Respiratory Ventilation, Less than 24 Consecutive Hours, Continuous Positive Airway Pressure (ICD-10-PCS; 2021-04-27)
PROC: 02HV33Z Insertion of Infusion Device into Superior Vena Cava, Percutaneous Approach (ICD-10-PCS; 2021-05-02)
DX: A40.3 Sepsis due to Streptococcus pneumoniae (principal); E11.10 Type 2 diabetes mellitus with ketoacidosis without coma; U07.1 COVID-19; N17.0 Acute kidney failure with tubular necrosis; J96.01 Acute respiratory failure with hypoxia; E43 Unspecified severe protein-calorie malnutrition; I50.31 Acute diastolic (congestive) heart failure; J12.82 Pneumonia due to coronavirus disease 2019; J15.4 Pneumonia due to other streptococci; K72.00 Acute and subacute hepatic failure without coma; R65.21 Severe sepsis with septic shock; E87.0 Hyperosmolality and hypernatremia; Z99.11 Dependence on respirator [ventilator] status; D64.9 Anemia, unspecified; D69.6 Thrombocytopenia, unspecified; E11.51 Type 2 diabetes mellitus with diabetic peripheral angiopathy without gangrene; E11.621 Type 2 diabetes mellitus with foot ulcer; E87.5 Hyperkalemia; E87.6 Hypokalemia; I11.0 Hypertensive heart disease with heart failure; I16.0 Hypertensive urgency; I46.9 Cardiac arrest, cause unspecified; I48.91 Unspecified atrial fibrillation; I49.3 Ventricular premature depolarization; I83.019 Varicose veins of right lower extremity with ulcer of unspecified site; I87.8 Other specified disorders of veins; K76.0 Fatty (change of) liver, not elsewhere classified; L97.519 Non-pressure chronic ulcer of other part of right foot with unspecified severity; N28.1 Cyst of kidney, acquired; Z79.4 Long term (current) use of insulin; Z79.84 Long term (current) use of oral hypoglycemic drugs; Z79.899 Other long term (current) drug therapy; Z99.2 Dependence on renal dialysis
CPT/HCPCS: 36415; 36556; 36600; 71045; 71275; 73590; 74018; 76937; 80048; 80053; 80061; 82010; 82525; 82542; 82550; 82607; 82805; 82962; 83010; 83605; 83615; 83690; 83735; 83880; 84100; 84145; 84484; 85007; 85025; 85027; 85379; 85610; 86140; 86317; 86704; 87040; 87075; 87076; 87077; 87147; 87186; 87340; 87493; 93005; 93923; 94002; 94003; 94660; 96374; 96375; C1892; C9113; J0171; J0360; J0692; J0696; J0878; J1100; J1160; J1644; J1650; J1815; J1940; J2060; J2250; J2370; J2543; J2704; J2920; J2997; J3010; J3490; J7030; J7042; J7050; J7060; P9046; Q9967; 99285-25; G0378